=== PATIENT | female | born 2000 | race Caucasian/White ===

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

== ENCOUNTER 2019-05-08 23:34 | Emergency (ER) | payer MEDICAID ==
[~2019-05-08] VITALS: Ht 160 cm; Wt 106.6 kg
--- OUTSIDE RECORDS SUMMARY | 2019-05-08 23:42 | XMS REPORT ---
Author Author Migration, Doctor Organization [facility] Address Unknown Phone Unavailable Care Team Providers Care Research Associate Professor Name Role Phone Migration, Doctor Unavailable Unavailable PROBLEMS Type Condition ICD9-CM Code YTM87-MW Code Onset Dates Condition Status SNOMED Code Problem Generalized anxiety disorder F41.1 Active 750315795 Problem Dysmenorrhea N94.6 Active 418284185 Problem Fever R50.9 Active 622876306 Problem Sore throat J02.9 Active 400868922 Problem Attention deficit disorder without hyperactivity F90.0 Active 70261635 Problem Morbid obesity due to excess calories E66.01 Active 595976247 Problem PCOS (polycystic ovarian syndrome) E28.2 Active 87796210 Problem Seasonal allergic rhinitis due to pollen J30.1 Active 89125481 ALLERGIES No Information ENCOUNTERS Encounter Location Date Diagnosis [facility] [address] [place] [address] March, Rash and nonspecific skin eruption R21 [facility] [address] [address] Jan, Injury of right hand, initial encounter S69.91XA [facility] [address] [place] [id number] [place] [address] Jan, Upper respiratory tract infection, unspecified type J06.9 ; Fever R50.9 and Sore throat J02.9 [facility] [id number] [place] [address] Dec, [facility] [address] [address] Nov, Viral gastroenteritis A08.4 [facility] [address] [address] Nov, URI (upper respiratory infection) J06.9 and Body aches R52 [facility] [id number] [place] [address] Oct, Flank pain R10.9 and Mild dehydration E86.0 [facility] [address] [address] Oct, [facility] [address] [address] Sep, Acute gastroenteritis K52.9 and Acute upper respiratory infection J06.9 [facility] [id number] [place] [address] Aug, Breast tenderness in female N64.4 [place] [address] [address] Jul, Encounter for initial prescription of contraceptive pills Z30.011 [place] [address] [address] Jul, [facility] [id number] [place] [address] Jul, Dysuria R30.0 and Acute cystitis with hematuria N30.01 [place] [id number] [place] [address] Jul, [place] [id number] [place] [id number] Jun, Seasonal allergic rhinitis due to pollen J30.1 [facility] [id number] [place] [address] May, [facility] [id number] [place] [address] May, Skin lesion L98.9 [facility] [id number] [place] [address] Apr, [facility] [address] [address] Apr, [facility] [address] [address] March, [facility] [address], [place] [address] March, [facility] [id number] [place] [phone] March, Fractured dental muslim with loss of material K08.531 [facility] [id number] [place] [phone] March, Dental examination Z01.20 [facility] [address], [place] [address] Jan, Dental examination Z01.20 [facility] [address] [id number] [id number] Nov, Positive test Z32.01 [facility] [address] [id number] [id number] Jul, [facility] [address] [id number] [id number] Jul, test negative Z32.02 [place] [address], [place] [address] March, [facility] [address], [place] [address] Feb, Dysmenorrhea N94.6 ; Oral contraceptive pill surveillance Z30.41 ; Morbid obesity due to excess calories E66.01 ; Generalized anxiety disorder F41.1 and PCOS (polycystic ovarian syndrome) E28.2 [place] [id number], [place] [address] Jan, Morbid obesity due to excess calories E66.01 [place] [address] [place] [address] Jan, Missed periods N92.6 ; Morbid obesity due to excess calories E66.01 ; Family history of diabetes mellitus Z83.3 and Family history of PCOS Z84.2 [place] [facility] [address] [id number] [address] Dec, Encounter for test Z32.00 [facility] [id number] [place] [phone] Nov, Dental examination Z01.20 [place] [id number] [place] [address] Jun, Oral contraceptive pill surveillance Z30.41 [place] [id number] [place] [address] Jun, Dysmenorrhea N94.6 and Oral contraceptive pill surveillance Z30.41 [place] [address] [address] Jun, [place] [id number] [place] [address] Jun, [place] [address] [address] Jun, [facility] [facility] [id number] [place] [address] May, [facility] [facility] [id number] [place] [address] March, Oral contraceptive pill surveillance Z30.41 ; Proteinuria R80.9 and Weight gain R63.5 [place] [id number] [place] [address] Dec, Oral contraceptive pill surveillance Z30.41 ; Weight gain R63.5 ; Hair loss L65.9 ; Acne, unspecified L70.9 and Routine screening for STI (sexually transmitted infection) Z11.3 [place] [id number] [place] [address] Aug, Encounter for immunization Z23 [facility] [address] [place] [id number] Jul, Dental examination V72.2 [place] [address] [place] [address] May, [facility] [address] [place] [address] Apr, [facility] [id number] [place] [phone] Apr, Dental examination V72.2 [facility] [id number] [place] [address] Apr, [facility] [id number] [place] [address] Apr, GARDAS[place] (HPV) DX V04.89 [facility] [id number] [place] [id number] March, Dental examination V72.2 [facility] [id number] [place] [address] March, Generalized anxiety disorder 300.02 [facility] [id number] [place] [address] Feb, [facility] [id number] [place] [address] Feb, [facility] [id number] [place] [address] Jan, [facility] [address], [place] [address] Jan, [facility] [id number] [place] [address] Dec, [facility] [address] [place] [address] Dec, [facility] [id number] [place] [address] Oct, [facility] [address], [place] [address] Oct, [facility] [place] [facility] [address] [id number] [place] [address] Sep, [facility] [place] [facility] [address] [id number] [place] [address] Sep, [facility] [place] [facility] [address] [id number] [place] [address] Aug, [facility] [place] [facility] [address] [id number] [place] [address] Aug, [facility] [place] [facility] [address] [id number] [place] [address] Jul, [facility] [place] [facility] [address] [id number] [place] [address] Jul, [facility] [place] [facility] [address] [id number] [place] [address] Jun, [facility] [place] [facility] [address] [id number] [place] [address] Jun, [facility] [place] [facility] [address] [id number] [place] [address] Jun, [facility] [place] [facility] [address] [id number] [place] [address] Jun, [facility] [place] [facility] [address] [id number] [place] [address] May, [facility] [place] [facility] [address] [id number] [place] [address] May, [facility] [place] [facility] [address] [id number] [place] [address] March, [facility] [place] [facility] [address] [id number] [place] [address] March, [facility] [place] [facility] [address] [id number] [place] [address] Feb, [facility] [place] [facility] [address] [id number] [place] [address] Feb, [facility] [place] [facility] [address] [id number] [place] [address] Jan, [facility] [place] [facility] [address] [id number] [place] [address] Jan, [facility] [place] [facility] [address] [id number] [place] [address] Jan, [facility] [place] [facility] [address] [id number] [place] [address] Jan, [facility] [place] [facility] [address] [id number] [place] [address] Jan, [facility] [place] [facility] [address] [id number] [place] [address] Jan, [facility] [place] [facility] [address] [id number] [place] [address] Jan, [facility] [place] [facility] [address] [id number] [place] [address] Jan, [facility] [place] [facility] [address] [id number] [place] [address] Nov, [facility] [place] [facility] [address] [id number] [place] [address] Nov, [facility] [place] [facility] [address] [id number], [place] [address] Nov, [facility] [place] [facility] [address] [id number], [place] [address] Nov, [facility] [place] [facility] [address] [id number] [place] [address] Oct, [facility] [place] [facility] [address] [id number] [place] [address] Oct, [facility] [place] [facility] [address] [facility] [id number] [place] [address] Oct, [facility] [place] [facility] [address] [id number] [place] [address] 02 Oct, 2013 [facility] [address] [id number] [place] [address] Sep, [facility] [place] [facility] [address] [id number] [place] [address] Sep, [facility] [address] [id number] [place] [address] Aug, [facility] [place] [facility] [address] [id number] [place] [address] Jul, [facility] [place] [facility] [address] [id number] [place] [address] Jun, [facility] [place] [facility] [address] [id number] [place] [address] Apr, [facility] [address] [id number] [place] [address] March, [facility] [place] [facility] [address] [id number] [place] [address] Feb, [facility] [place] [facility] [address] [id number] [place] [address] Dec, [facility] [address] [facility] [id number] [place] [address] Nov, [facility] [place] [facility] [address] [id number] [place] [address] Oct, [facility] [place] [facility] [address] [id number] [place] [address] Oct, [facility] [place] [facility] [address] [id number] [place] [address] Sep, [facility] [place] [facility] [address] [id number] [place] [address] Sep, [facility] [place] [facility] [address] [id number] [place] [address] Sep, [facility] [place] [facility] [address] [id number] [place] [address] Sep, [facility] [place] [facility] [address] [id number] [place] [address] Sep, [facility] [place] [facility] [address] [id number] [place] [address] Jul, [facility] [place] [facility] [address] [id number] [place] [address] Jun, [facility] [address] [id number] [place] [address] May, [facility] [place] [facility] [address] [id number] [place] [address] Apr, [facility] [address] [id number] [place] [address] Apr, [facility] [address] [id number] [place] [address] March, [facility] [address] [id number] [place] [address] March, [facility] [address] [id number] [place] [address] March, [facility] [place] [facility] [address] [id number] [place] [address] Feb, [facility] [place] [facility] [address] [id number] [place] [address] Feb, [facility] [place] [facility] [address] [id number] [place] [address] Jan, [facility] [place] [facility] [address] [id number] [place] [address] 16 Nov, 2011 [facility] [place] [facility] [address] [id number] [place] [address] 13 Nov, 2011 [facility] [place] [facility] [address] [id number], [place] [address] Sep, [facility] [address] [facility] [id number], [place] [address] 15 Sep, 2011 [facility] [address] [facility] [id number], [place] [address] Aug, [facility] [address] [facility] [id number], [place] [address] Aug, [facility] [address] [facility] [id number], [place] [address] Jul, [facility] [address] [facility] [id number], [place] [address] Jun, [facility] [address] [facility] [id number], [place] [address] Oct, [facility] [address] [facility] [id number], [place] [address] Oct, [facility] [id number] [address] Sep, [facility] [address] [facility] [id number], [place] [address] Aug, [facility] [address] [facility] [id number], [place] [address] Aug, [facility] [id number], [place] [address] Jun, IMMUNIZATIONS No Known Immunizations SOCIAL HISTORY Never Assessed REASON FOR VISIT [facility] PLAN OF CARE VITAL SIGNS MEDICATIONS No Known Medications RESULTS No Results PROCEDURES No Known procedures INSTRUCTIONS MEDICATIONS ADMINISTERED No Known Medications MEDICAL (GENERAL) HISTORY Type Description Date Medical History C/s 07/2018 Surgical History left knee arthroscopy Surgical History 07/2018 Surgical History cystoscopy 2017 Hospitalization History kidney infection 01/2016 Hospitalization History childbirth
--- OUTSIDE RECORDS SUMMARY | 2019-05-08 23:42 | XMS REPORT ---
Author Author Migration, Doctor Organization [facility] Address Unknown Phone Unavailable Care Team Providers Care Social Research Assistant Name Role Phone Migration, Doctor Unavailable Unavailable PROBLEMS Type Condition ICD9-CM Code JKS00-OX Code Onset Dates Condition Status SNOMED Code Problem Generalized anxiety disorder F41.1 Active 915704739 Problem Dysmenorrhea N94.6 Active 195294287 Problem Fever R50.9 Active 850073882 Problem Sore throat J02.9 Active 777643216 Problem Attention deficit disorder without hyperactivity F90.0 Active 83177233 Problem Morbid obesity due to excess calories E66.01 Active 180272992 Problem PCOS (polycystic ovarian syndrome) E28.2 Active 51800646 Problem Seasonal allergic rhinitis due to pollen J30.1 Active 54024001 ALLERGIES No Information ENCOUNTERS Encounter Location Date Diagnosis [facility] [address] [address] Jan, Injury of right hand, initial encounter S69.91XA [facility] [address] [address] Jan, Upper respiratory tract infection, unspecified type J06.9 ; Fever R50.9 and Sore throat J02.9 [facility] [address] [address] Dec, [facility] [address] [address] Nov, Viral gastroenteritis A08.4 [facility] [address] [address] Nov, URI (upper respiratory infection) J06.9 and Body aches R52 [facility] [address] [address] Oct, Flank pain R10.9 and Mild dehydration E86.0 [facility] [id number] [place] [address] Oct, [facility] [id number] [place] [address] Sep, Acute gastroenteritis K52.9 and Acute upper respiratory infection J06.9 [facility] [id number] [place] [address] Aug, Breast tenderness in female N64.4 [facility] [id number] [place] [address] 27 Jul, 2018 Encounter for initial prescription of contraceptive pills Z30.011 [place] [id number] [place] [address] Jul, [place] [id number] [place] [address] Jul, Dysuria R30.0 and Acute cystitis with hematuria N30.01 [facility] [id number] [place] [address] Jul, [facility] [id number] [place] [id number] Jun, Seasonal allergic rhinitis due to pollen J30.1 [facility] [id number] [place] [address] May, [facility] [id number] [place] [address] May, Skin lesion L98.9 [facility] [id number] [place] [address] Apr, [facility] [id number] [place] [address] Apr, [facility] [id number] [place] [address] March, [facility] [address] [address] March, [facility] [address] [facility] [id number] [id number] March, Fractured dental mandaen with loss of material K08.531 [facility] [address] [id number] March, Dental examination Z01.20 [place] [id number] [place] [address] Jan, Dental examination Z01.20 [facility] [address] [id number] [id number] Nov, Positive test Z32.01 [facility] [address] [id number] [id number] Jul, [place] [id number] [facility] [address] [id number] [id number] Jul, test negative Z32.02 [place] [address], [place] [address] March, [place] [id number] [place] [address] Feb, Dysmenorrhea N94.6 ; Oral contraceptive pill surveillance Z30.41 ; Morbid obesity due to excess calories E66.01 ; Generalized anxiety disorder F41.1 and PCOS (polycystic ovarian syndrome) E28.2 [place] [address], [place] [address] Jan, Morbid obesity due to excess calories E66.01 [place] [address] [place] [address] Jan, Missed periods N92.6 ; Morbid obesity due to excess calories E66.01 ; Family history of diabetes mellitus Z83.3 and Family history of PCOS Z84.2 [place] [address], [place] [address] Dec, Encounter for test Z32.00 [facility] [id number] [id number] Nov, Dental examination Z01.20 [facility] [address] [place] [address] Jun, Oral contraceptive pill surveillance Z30.41 [facility] [address], [place] [address] Jun, Dysmenorrhea N94.6 and Oral contraceptive pill surveillance Z30.41 [facility] [address] [place] [address] Jun, [facility] [id number] [place] [address] Jun, [facility] [address] [place] [address] Jun, [facility] [id number] [place] [address] May, [facility] [address] [place] [address] March, Oral contraceptive pill surveillance Z30.41 ; Proteinuria R80.9 and Weight gain R63.5 [facility] [address], [place] [address] Dec, Oral contraceptive pill surveillance Z30.41 ; Weight gain R63.5 ; Hair loss L65.9 ; Acne, unspecified L70.9 and Routine screening for STI (sexually transmitted infection) Z11.3 [facility] [address], [place] [address] Aug, Encounter for immunization Z23 [facility] [address] [id number] Jul, Dental examination V72.2 [facility] [address], [place] [address] May, [facility] [address] [id number] [address] 16 Apr, 2015 [facility] [address] [id number] Apr, Dental examination V72.2 [facility] [address], [place] [address] 08 Apr, 2015 [facility] [id number] [place] [address] Apr, GARDASIL (HPV) DX V04.89 [facility] [address] [id number] March, Dental examination V72.2 [facility] [id number] [place] [address] March, Generalized anxiety disorder 300.02 [facility] [id number] [place] [address] Feb, [facility] [id number] [place] [address] Feb, [facility] [address] [place] [address] Jan, [facility] [address], [place] [address] Jan, [facility] [address], [place] [address] Dec, [facility] [address], [place] [address] Dec, [facility] [id number] [place] [address] Oct, [facility] [id number] [place] [address] Oct, [facility] [address], [place] [address] Sep, [facility] [place] [facility] [address] [id number] [place] [address] Sep, [facility] [place] [facility] [address] [id number] [place] [address] Aug, [facility] [place] [facility] [address] [id number] [place] [address] Aug, [facility] [place] [facility] [address] [id number] [place] [address] Jul, [facility] [place] [facility] [address] [id number] [place] [address] Jul, [facility] [place] [facility] [address] [id number] [place] [address] Jun, [facility] [place] [facility] [address] [id number] [place] [address] Jun, [facility] [place] [facility] [address] [id number] [place] [address] Jun, [facility] [place] [facility] [address] [id number] [place] [address] Jun, [facility] [place] [facility] [address] [id number] [place] [address] May, [facility] [place] [facility] [address] [id number] [place] [address] May, [facility] [place] [facility] [address] [id number] [place] [address] March, [facility] [place] [facility] [address] [id number] [place] [address] March, [facility] [place] [facility] [address] [id number] [place] [address] Feb, [facility] [place] [facility] [address] [id number] [place] [address] Feb, [facility] [place] [facility] [address] [id number] [place] [address] Jan, [facility] [place] [facility] [address] [id number] [place] [address] Jan, [facility] [place] [facility] [address] [id number] [place] [address] Jan, [facility] [place] [facility] [address] [id number] [place] [address] Jan, [facility] [place] [facility] [address] [id number] [place] [address] Jan, [facility] [place] [facility] [address] [id number] [place] [address] Jan, [facility] [place] [facility] [address] [id number] [place] [address] Jan, [facility] [place] [facility] [address] [id number] [place] [address] Jan, [facility] [place] [facility] [address] [id number] [place] [address] Nov, [facility] [place] [facility] [address] [id number] [place] [address] Nov, [facility] [place] [facility] [address] [id number] [place] [address] Nov, [facility] [place] [facility] [address] [id number], [place] [address] Nov, [facility] [place] [facility] [address] [id number], [place] [address] Oct, [facility] [place] [facility] [address] [id number] [place] [address] Oct, [facility] [place] [facility] [address] [id number] [place] [address] Oct, [facility] [place] [facility] [address] [facility] [id number] [place] [address] Oct, [facility] [place] [facility] [address] [id number] [place] [address] 06 Sep, 2013 [facility] [address] [id number] [place] [address] Sep, [facility] [place] [facility] [address] [id number] [place] [address] Aug, [facility] [address] [id number] [place] [address] Jul, [facility] [place] [facility] [address] [id number] [place] [address] Jun, [facility] [address] [id number] [place] [address] Apr, [facility] [place] [facility] [address] [id number] [place] [address] March, [facility] [address] [id number] [place] [address] Feb, [facility] [address] [id number] [place] [address] Dec, [facility] [place] [facility] [address] [id number] [place] [address] Nov, [facility] [address] [facility] [id number] [place] [address] Oct, [facility] [place] [facility] [address] [id number] [place] [address] Oct, [facility] [place] [facility] [address] [id number] [place] [address] Sep, [facility] [place] [facility] [address] [id number] [place] [address] Sep, [facility] [place] [facility] [address] [id number] [place] [address] Sep, [facility] [place] [facility] [address] [id number] [place] [address] Sep, [facility] [place] [facility] [address] [id number] [place] [address] Sep, [facility] [address] [id number] [place] [address] Jul, [facility] [address] [id number] [place] [address] Jun, [facility] [place] [facility] [address] [id number] [place] [address] May, [facility] [address] [id number] [place] [address] Apr, [facility] [place] [facility] [address] [id number] [place] [address] Apr, [facility] [address] [id number] [place] [address] March, [facility] [address] [id number] [place] [address] March, [facility] [address] [id number] [place] [address] March, [facility] [address] [id number] [place] [address] Feb, [facility] [place] [facility] [address] [id number] [place] [address] Feb, [facility] [address] [id number] [place] [address] Jan, [facility] [place] [facility] [address] [id number] [place] [address] Nov, [facility] [place] [facility] [address] [id number] [place] [address] Nov, [facility] [place] [facility] [address] [id number] [place] [address] 15 Sep, 2011 [facility] [place] [facility] [address] [id number], [place] [address] 15 Sep, 2011 [facility] [address] [facility] [id number], [place] [address] 14 Aug, 2011 [facility] [address] [facility] [id number], [place] [address] 14 Aug, 2011 [facility] [address] [facility] [id number], [place] [address] Jul, [facility] [address] [facility] [id number], [place] [address] Jun, [facility] [address] [facility] [id number], [place] [address] Oct, [facility] [address] [facility] [id number], [place] [address] Oct, [facility] [address], [place] [address] Sep, [facility] [address], [place] [address] Aug, [facility] [id number], [place] [address] Aug, [facility] [id number], [place] [address] Jun, IMMUNIZATIONS No Known Immunizations SOCIAL HISTORY Never Assessed REASON FOR VISIT EMR-[facility] PLAN OF CARE VITAL SIGNS MEDICATIONS No Known Medications RESULTS No Results PROCEDURES No Known procedures INSTRUCTIONS MEDICATIONS ADMINISTERED No Known Medications MEDICAL (GENERAL) HISTORY Type Description Date Medical History C/s 07/2018 Surgical History left knee arthroscopy Surgical History 07/2018 Surgical History cystoscopy 2017 Hospitalization History kidney infection 01/2016 Hospitalization History childbirth
--- OUTSIDE RECORDS SUMMARY | 2019-05-08 23:43 | XMS REPORT ---
Author Author Migration, Doctor Organization [facility] Address Unknown Phone Unavailable Care Team Providers Care Elevator Installer Name Role Phone Migration, Doctor Unavailable Unavailable PROBLEMS Type Condition ICD9-CM Code [id number] Code Onset Dates Condition Status SNOMED Code Problem Generalized anxiety disorder F41.1 Active 261531789 Problem Dysmenorrhea N94.6 Active 771519036 Problem Fever R50.9 Active 403475506 Problem Sore throat J02.9 Active 474192241 Problem Attention deficit disorder without hyperactivity F90.0 Active 06118695 Problem Morbid obesity due to excess calories E66.01 Active 896732799 Problem PCOS (polycystic ovarian syndrome) E28.2 Active 62801056 Problem Seasonal allergic rhinitis due to pollen J30.1 Active 66926054 ALLERGIES No Information ENCOUNTERS Encounter Location Date Diagnosis [facility] [address] [address] Jan, Injury of right hand, initial encounter S69.91XA [facility] [address] [address] Jan, Upper respiratory tract infection, unspecified type J06.9 ; Fever R50.9 and Sore throat J02.9 [facility] [address] [address] Dec, [facility] [address] [address] Nov, Viral gastroenteritis A08.4 [facility] [address] [address] Nov, URI (upper respiratory infection) J06.9 and Body aches R52 [facility] [address] [address] Oct, Flank pain R10.9 and Mild dehydration E86.0 [facility] [id number] [place] [address] Oct, [facility] [id number] [place] [address] Sep, Acute gastroenteritis K52.9 and Acute upper respiratory infection J06.9 [facility] [id number] [place] [address] Aug, Breast tenderness in female N64.4 [facility] [id number] [place] [address] 27 Jul, 2018 Encounter for initial prescription of contraceptive pills Z30.011 [place] [id number] [place] [address] Jul, [place] [id number] [place] [address] Jul, Dysuria R30.0 and Acute cystitis with hematuria N30.01 [facility] [id number] [place] [address] Jul, [facility] [id number] [place] [id number] Jun, Seasonal allergic rhinitis due to pollen J30.1 [facility] [id number] [place] [address] May, [facility] [id number] [place] [address] May, Skin lesion L98.9 [facility] [id number] [place] [address] Apr, [facility] [id number] [place] [address] Apr, [facility] [id number] [place] [address] March, [facility] [address] [address] March, [facility] [address] [facility] [id number] [id number] March, Fractured dental jewish with loss of material K08.531 [facility] [address] [id number] March, Dental examination Z01.20 [place] [id number] [place] [address] Jan, Dental examination Z01.20 [facility] [address] [id number] [id number] Nov, Positive test Z32.01 [facility] [address] [id number] [id number] Jul, [place] [address] [address] [id number] [id number] Jul, test negative Z32.02 [place] [address] [address] March, [place] [id number] [place] [address] Feb, Dysmenorrhea N94.6 ; Oral contraceptive pill surveillance Z30.41 ; Morbid obesity due to excess calories E66.01 ; Generalized anxiety disorder F41.1 and PCOS (polycystic ovarian syndrome) E28.2 [place] [address] [address] Jan, Morbid obesity due to excess calories E66.01 [place] [id number] [place] [address] Jan, Missed periods N92.6 ; Morbid obesity due to excess calories E66.01 ; Family history of diabetes mellitus Z83.3 and Family history of PCOS Z84.2 [place] [address]65[address] [address] Dec, Encounter for test Z32.00 [facility] [id number] [id number] Nov, Dental examination Z01.20 [facility] [id number] [place] [address] Jun, Oral contraceptive pill surveillance Z30.41 [facility] [address] [address] Jun, Dysmenorrhea N94.6 and Oral contraceptive pill surveillance Z30.41 [facility] [address] [place] [address] Jun, [facility] [id number] [place] [address] Jun, [facility] [id number] [place] [address] Jun, [facility] [id number] [place] [address] May, [facility] [address] [place] [address] March, Oral contraceptive pill surveillance Z30.41 ; Proteinuria R80.9 and Weight gain R63.5 [facility] [address] [address] Dec, Oral contraceptive pill surveillance Z30.41 ; Weight gain R63.5 ; Hair loss L65.9 ; Acne, unspecified L70.9 and Routine screening for STI (sexually transmitted infection) Z11.3 [facility] [address] [address] Aug, Encounter for immunization Z23 [facility] [address] [id number] Jul, Dental examination V72.2 [facility] [address] [address] May, [facility] [id number] [address] 16 Apr, 2015 [facility] [address] [id number] Apr, Dental examination V72.2 [facility] [address] [address] 08 Apr, 2015 [facility] [id number] [place] [address] Apr, GARDASIL (HPV) DX V04.89 [facility] [address] [id number] March, Dental examination V72.2 [facility] [id number] [place] [address] March, Generalized anxiety disorder 300.02 [facility] [id number] [place] [address] Feb, [facility] [id number] [place] [address] Feb, [facility] [id number] [place] [address] Jan, [facility] [address] [address] Jan, [facility] [address] [address] Dec, [facility] [address] [address] Dec, [facility] [id number] [place] [address] Oct, [facility] [id number] [place] [address] Oct, [facility] [address]65[address] [address] Sep, [facility] [place] [facility] [address] [id number] [place] [address] Sep, [facility] [place] [facility] [address] [id number] [place] [address] Aug, [facility] [place] [facility] [address] [id number] [place] [address] Aug, [facility] [place] [facility] [address] [id number] [place] [address] Jul, [facility] [place] [facility] [address] [id number] [place] [address] Jul, [facility] [place] [facility] [address] [id number] [place] [address] Jun, [facility] [place] [facility] [address] [id number] [place] [address] Jun, [facility] [place] [facility] [address] [id number] [place] [address] Jun, [facility] [place] [facility] [address] [id number] [place] [address] Jun, [facility] [place] [facility] [address] [id number] [place] [address] May, [facility] [place] [facility] [address] [id number] [place] [address] May, [facility] [place] [facility] [address] [id number] [place] [address] March, [facility] [place] [facility] [address] [id number] [place] [address] March, [facility] [place] [facility] [address] [id number] [place] [address] Feb, [facility] [place] [facility] [address] [id number] [place] [address] Feb, [facility] [place] [facility] [address] [id number] [place] [address] Jan, [facility] [place] [facility] [address] [id number] [place] [address] Jan, [facility] [place] [facility] [address] [id number] [place] [address] Jan, [facility] [place] [facility] [address] [id number] [place] [address] Jan, [facility] [place] [facility] [address] [id number] [place] [address] Jan, [facility] [place] [facility] [address] [id number] [place] [address] Jan, [facility] [place] [facility] [address] [id number] [place] [address] Jan, [facility] [place] [facility] [address] [id number] [place] [address] Jan, [facility] [place] [facility] [address] [id number] [place] [address] Nov, [facility] [place] [facility] [address] [id number] [place] [address] Nov, [facility] [place] [facility] [address] [id number] [place] [address] Nov, [facility] [place] [facility] [address] [id number] [address] Nov, [facility] [place] [facility] [address] [id number] [address] Oct, [facility] [place] [facility] [address] [id number] [place] [address] Oct, [facility] [place] [facility] [address] [id number] [place] [address] Oct, [facility] [place] [facility] [address] [facility] [id number] [place] [address] Oct, [facility] [place] [facility] [address] [id number] [place] [address] 06 Sep, 2013 [facility] [address] [id number] [place] [address] Sep, [facility] [place] [facility] [address] [id number] [place] [address] Aug, [facility] [address] [id number] [place] [address] Jul, [facility] [place] [facility] [address] [id number] [place] [address] Jun, [facility] [address] [id number] [place] [address] Apr, [facility] [place] [facility] [address] [id number] [place] [address] March, [facility] [address] [id number] [place] [address] Feb, [facility] [address] [id number] [place] [address] Dec, [facility] [place] [facility] [address] [id number] [place] [address] Nov, [facility] [address] [facility] [id number] [place] [address] Oct, [facility] [place] [facility] [address] [id number] [place] [address] Oct, [facility] [place] [facility] [address] [id number] [place] [address] Sep, [facility] [place] [facility] [address] [id number] [place] [address] Sep, [facility] [place] [facility] [address] [id number] [place] [address] Sep, [facility] [place] [facility] [address] [id number] [place] [address] Sep, [facility] [place] [facility] [address] [id number] [place] [address] Sep, [facility] [address] [id number] [place] [address] Jul, [facility] [address] [id number] [place] [address] Jun, [facility] [place] [facility] [address] [id number] [place] [address] May, [facility] [address] [id number] [place] [address] Apr, [facility] [place] [facility] [address] [id number] [place] [address] Apr, [facility] [address] [id number] [place] [address] March, [facility] [address] [id number] [place] [address] March, [facility] [address] [id number] [place] [address] March, [facility] [address] [id number] [place] [address] Feb, [facility] [place] [facility] [address] [id number] [place] [address] Feb, [facility] [address] [id number] [place] [address] Jan, [facility] [place] [facility] [address] [id number] [place] [address] Nov, [facility] [place] [facility] [address] [id number] [place] [address] Nov, [facility] [place] [facility] [address] [id number] [place] [address] 15 Sep, 2011 [facility] [place] [facility] [address] [id number] [address] 15 Sep, 2011 [facility] [address] [facility] [id number] [address] 14 Aug, 2011 [facility] [address] [facility] [id number] [address] 14 Aug, 2011 [facility] [address] [facility] [id number] [address] Jul, [facility] [address] [facility] [id number] [place] [address] Jun, [facility] [address] [facility] [id number] [address] Oct, [facility] [address] [facility] [id number] [place] [address] Oct, [facility] [address] [address] Sep, [facility] [address] [address] Aug, [facility] [address] [id number] [address] Aug, [facility] [address] [id number] [address] Jun, IMMUNIZATIONS No Known Immunizations SOCIAL HISTORY Never Assessed REASON FOR VISIT EMR-[facility] [place] PLAN OF CARE VITAL SIGNS MEDICATIONS No Known Medications RESULTS No Results PROCEDURES No Known procedures INSTRUCTIONS MEDICATIONS ADMINISTERED No Known Medications MEDICAL (GENERAL) HISTORY Type Description Date Medical History C/s 07/2018 Surgical History left knee arthroscopy Surgical History 07/2018 Surgical History cystoscopy 2017 Hospitalization History kidney infection 01/2016 Hospitalization History childbirth
--- OUTSIDE RECORDS SUMMARY | 2019-05-08 23:43 | XMS REPORT ---
Author Author Migration, Doctor Organization [facility] Address Unknown Phone Unavailable Care Team Providers Care Transformation Specialist Name Role Phone Migration, Doctor Unavailable Unavailable PROBLEMS Type Condition ICD9-CM Code MYF20-HQ Code Onset Dates Condition Status SNOMED Code Problem Generalized anxiety disorder F41.1 Active 476709993 Problem Dysmenorrhea N94.6 Active 936093265 Problem Fever R50.9 Active 852422186 Problem Sore throat J02.9 Active 666635407 Problem Attention deficit disorder without hyperactivity F90.0 Active 69313293 Problem Morbid obesity due to excess calories E66.01 Active 873940626 Problem PCOS (polycystic ovarian syndrome) E28.2 Active 20648825 Problem Seasonal allergic rhinitis due to pollen J30.1 Active 14499359 ALLERGIES No Information ENCOUNTERS Encounter Location Date Diagnosis [facility] [address] [address] Jan, Injury of right hand, initial encounter S69.91XA [facility] [address] [address] Jan, Upper respiratory tract infection, unspecified type J06.9 ; Fever R50.9 and Sore throat J02.9 [facility] [address] [address] Dec, [facility] [address] [address] Nov, Viral gastroenteritis A08.4 [facility] [address] [address] Nov, URI (upper respiratory infection) J06.9 and Body aches R52 [facility] [address] [address] Oct, Flank pain R10.9 and Mild dehydration E86.0 [facility] [id number] [place] [address] Oct, [facility] [id number] [place] [address] Sep, Acute gastroenteritis K52.9 and Acute upper respiratory infection J06.9 [facility] [id number] [place] [address] Aug, Breast tenderness in female N64.4 [facility] [id number] [place] [address] 27 Jul, 2018 Encounter for initial prescription of contraceptive pills Z30.011 [place] [id number] [place] [address] Jul, [place] [id number] [place] [address] Jul, Dysuria R30.0 and Acute cystitis with hematuria N30.01 [facility] [id number] [place] [address] Jul, [facility] [id number] [place] [id number] Jun, Seasonal allergic rhinitis due to pollen J30.1 [facility] [id number] [place] [address] May, [facility] [id number] [place] [address] May, Skin lesion L98.9 [facility] [id number] [place] [address] Apr, [facility] [id number] [place] [address] Apr, [facility] [id number] [place] [address] March, [facility] [address] [address] March, [facility] [address] [facility] [id number] [id number] March, Fractured dental denominational with loss of material K08.531 [facility] [address] [id number] March, Dental examination Z01.20 [place] [id number] [place] [address] Jan, Dental examination Z01.20 [facility] [address] [id number] [id number] Nov, Positive test Z32.01 [facility] [address] [id number] [id number] Jul, [id number] [id number] [id number] Jul, test negative Z32.02 [place] [address], [place] [address] March, [place] [id number] [place] [address] Feb, Dysmenorrhea N94.6 ; Oral contraceptive pill surveillance Z30.41 ; Morbid obesity due to excess calories E66.01 ; Generalized anxiety disorder F41.1 and PCOS (polycystic ovarian syndrome) E28.2 [place] [address], [place] [address] Jan, Morbid obesity due to excess calories E66.01 [place] [id number] [place] [address] Jan, Missed periods N92.6 ; Morbid obesity due to excess calories E66.01 ; Family history of diabetes mellitus Z83.3 and Family history of PCOS Z84.2 [place] [address], [place] [address] Dec, Encounter for test Z32.00 [facility] [id number] [id number] Nov, Dental examination Z01.20 [facility] [id number] [place] [address] Jun, Oral contraceptive pill surveillance Z30.41 [facility] [address], [place] [address] Jun, Dysmenorrhea N94.6 and Oral contraceptive pill surveillance Z30.41 [facility] [id number] [place] [address] Jun, [facility] [id number] [place] [address] Jun, [facility] [id number] [place] [address] Jun, [facility] [id number] [place] [address] May, [facility] [id number] [place] [address] March, Oral contraceptive pill surveillance Z30.41 ; Proteinuria R80.9 and Weight gain R63.5 [facility] [address], [place] [address] Dec, Oral contraceptive pill surveillance Z30.41 ; Weight gain R63.5 ; Hair loss L65.9 ; Acne, unspecified L70.9 and Routine screening for STI (sexually transmitted infection) Z11.3 [facility] [address] [address] Aug, Encounter for immunization Z23 [facility] [address] [id number] Jul, Dental examination V72.2 [facility] [address], [place] [address] May, [facility] [address] [id number] [address] 16 Apr, 2015 [facility] [address] [id number] Apr, Dental examination V72.2 [facility] [address], [place] [address] 08 Apr, 2015 [facility] [id number] [place] [address] Apr, GARDASIL (HPV) DX V04.89 [facility] [address] [id number] March, Dental examination V72.2 [facility] [id number] [place] [address] March, Generalized anxiety disorder 300.02 [facility] [id number] [place] [address] Feb, [facility] [id number] [place] [address] Feb, [facility] [id number] [place] [address] Jan, [facility] [address], [place] [address] Jan, [facility] [address], [place] [address] Dec, [facility] [address], [place] [address] Dec, [facility] [id number] [place] [address] Oct, [facility] [id number] [place] [address] Oct, [facility] [address], [place] [address] Sep, [facility] [place] [facility] [address] [id number] [place] [address] Sep, [facility] [place] [facility] [address] [id number] [place] [address] Aug, [facility] [place] [facility] [address] [id number] [place] [address] Aug, [facility] [place] [facility] [address] [id number] [place] [address] Jul, [facility] [place] [facility] [address] [id number] [place] [address] Jul, [facility] [place] [facility] [address] [id number] [place] [address] Jun, [facility] [place] [facility] [address] [id number] [place] [address] Jun, [facility] [place] [facility] [address] [id number] [place] [address] Jun, [facility] [place] [facility] [address] [id number] [place] [address] Jun, [facility] [place] [facility] [address] [id number] [place] [address] May, [facility] [place] [facility] [address] [id number] [place] [address] May, [facility] [place] [facility] [address] [id number] [place] [address] March, [facility] [place] [facility] [address] [id number] [place] [address] March, [facility] [place] [facility] [address] [id number] [place] [address] Feb, [facility] [place] [facility] [address] [id number] [place] [address] Feb, [facility] [place] [facility] [address] [id number] [place] [address] Jan, [facility] [place] [facility] [address] [id number] [place] [address] Jan, [facility] [place] [facility] [address] [id number] [place] [address] Jan, [facility] [place] [facility] [address] [id number] [place] [address] Jan, [facility] [place] [facility] [address] [id number] [place] [address] Jan, [facility] [place] [facility] [address] [id number] [place] [address] Jan, [facility] [place] [facility] [address] [id number] [place] [address] Jan, [facility] [place] [facility] [address] [id number] [place] [address] Jan, [facility] [place] [facility] [address] [id number] [place] [address] Nov, [facility] [place] [facility] [address] [id number] [place] [address] Nov, [facility] [place] [facility] [address] [id number] [place] [address] Nov, [facility] [place] [facility] [address] [id number], [place] [address] Nov, [facility] [place] [facility] [address] [id number], [place] [address] Oct, [facility] [place] [facility] [address] [id number] [place] [address] Oct, [facility] [place] [facility] [address] [id number] [place] [address] Oct, [facility] [place] [facility] [address] [facility] [id number] [place] [address] Oct, [facility] [place] [facility] [address] [id number] [place] [address] 06 Sep, 2013 [facility] [address] [id number] [place] [address] Sep, [facility] [place] [facility] [address] [id number] [place] [address] Aug, [facility] [address] [id number] [place] [address] Jul, [facility] [place] [facility] [address] [id number] [place] [address] Jun, [facility] [address] [id number] [place] [address] Apr, [facility] [place] [facility] [address] [id number] [place] [address] March, [facility] [address] [id number] [place] [address] Feb, [facility] [address] [id number] [place] [address] Dec, [facility] [place] [facility] [address] [id number] [place] [address] Nov, [facility] [address] [facility] [id number] [place] [address] Oct, [facility] [place] [facility] [address] [id number] [place] [address] Oct, [facility] [place] [facility] [address] [id number] [place] [address] Sep, [facility] [place] [facility] [address] [id number] [place] [address] Sep, [facility] [place] [facility] [address] [id number] [place] [address] Sep, [facility] [place] [facility] [address] [id number] [place] [address] Sep, [facility] [place] [facility] [address] [id number] [place] [address] Sep, [facility] [address] [id number] [place] [address] Jul, [facility] [address] [id number] [place] [address] Jun, [facility] [place] [facility] [address] [id number] [place] [address] May, [facility] [address] [id number] [place] [address] Apr, [facility] [place] [facility] [address] [id number] [place] [address] Apr, [facility] [address] [id number] [place] [address] March, [facility] [address] [id number] [place] [address] March, [facility] [address] [id number] [place] [address] March, [facility] [address] [id number] [place] [address] Feb, [facility] [place] [facility] [address] [id number] [place] [address] Feb, [facility] [address] [id number] [place] [address] Jan, [facility] [place] [facility] [address] [id number] [place] [address] Nov, [facility] [place] [facility] [address] [id number] [place] [address] Nov, [facility] [place] [facility] [address] [id number] [place] [address] 15 Sep, 2011 [facility] [place] [facility] [address] [id number], [place] [address] 15 Sep, 2011 [facility] [address] [facility] [id number], [place] [address] 14 Aug, 2011 [facility] [address] [facility] [id number], [place] [address] 14 Aug, 2011 [facility] [address] [facility] [id number], [place] [address] Jul, [facility] [address] [facility] [id number], [place] [address] Jun, [facility] [address] [facility] [id number], [place] [address] Oct, [facility] [address] [facility] [id number], [place] [address] Oct, [facility] [address], [place] [address] Sep, [facility] [address], [place] [address] Aug, [facility] [id number], [place] [address] Aug, [facility] [id number], [place] [address] Jun, IMMUNIZATIONS No Known Immunizations SOCIAL HISTORY [...]
--- OUTSIDE RECORDS SUMMARY | 2019-05-08 23:43 | XMS REPORT ---
Author Author SULTANA MURPHY [facility] Address [address] [place] [address] Care Team Providers Care Urban Designer Name Role Phone ASHLEY MURPHYTA Unavailable PROBLEMS Type Condition ICD9-CM Code ELH40-HK Code Onset Dates Condition Status SNOMED Code Problem Dysmenorrhea N94.6 Active 687756526 Problem Hair loss L65.9 Active 17331328 Problem Oral contraceptive pill surveillance Z30.41 Active 749822660 Problem Attention deficit disorder without hyperactivity F90.0 Active 73743909 Problem Generalized anxiety disorder F41.1 Active 865347434 Problem Seasonal allergic rhinitis due to pollen J30.1 Active 90342643 Problem PCOS (polycystic ovarian syndrome) E28.2 Active 79981526 Problem Acne, unspecified L70.9 Active 20410824 Problem Weight gain R63.5 Active 7991210 Problem Morbid obesity due to excess calories E66.01 Active 484945113 Problem Missed periods N92.6 Active 58190484 ALLERGIES No Information ENCOUNTERS Encounter Location Date Diagnosis [facility] [id number] [place] [address] Oct, Flank pain R10.9 and Mild dehydration E86.0 [facility] [address] [address] Oct, [facility] [id number] [place] [address] 14 Sep, 2018 Acute gastroenteritis K52.9 and Acute upper respiratory infection J06.9 [facility] [address] [address] 08 Aug, 2018 Breast tenderness in female N64.4 [facility] [address] [address] 27 Jul, 2018 Encounter for initial prescription of contraceptive pills Z30.011 [facility] [id number] [place] [address] Jul, [facility] [id number] [place] [address] Jul, Dysuria R30.0 and Acute cystitis with hematuria N30.01 [facility] [id number] [place] [address] Jul, [facility] [id number] [place] [id number] Jun, Seasonal allergic rhinitis due to pollen J30.1 [facility] [id number] [place] [address] May, [facility] [id number] [place] [address] May, Skin lesion L98.9 [facility] [id number] [place] [address] Apr, [facility] [id number] [place] [address] Apr, [facility] [id number] [place] [address] March, [facility] [id number] [place] [address] March, [facility] [id number] [place] [id number] March, Fractured dental rastafari with loss of material K08.531 [facility] [id number] [place] [id number] March, Dental examination Z01.20 [facility] [id number] [place] [address] Jan, Dental examination Z01.[address] [id number] [id number] Nov, Positive test Z32.01 [facility] [address] [id number] [id number] Jul, [facility] [address] [id number] [id number] Jul, test negative Z32.02 [address] [place] [id number] [place] [address] March, [facility] [facility] [id number] [place] [address] Feb, Dysmenorrhea N94.6 ; Oral contraceptive pill surveillance Z30.41 ; Morbid obesity due to excess calories E66.01 ; Generalized anxiety disorder F41.1 and PCOS (polycystic ovarian syndrome) E28.2 [facility] [id number] [place] [address] Jan, Morbid obesity due to excess calories E66.01 [address] [address] [address] Jan, Missed periods N92.6 ; Morbid obesity due to excess calories E66.01 ; Family history of diabetes mellitus Z83.3 and Family history of PCOS Z84.2 [address] [place] [id number] [place] [address] Dec, Encounter for test Z32.00 [facility] [id number] [place] [id number] Nov, Dental examination Z01.20 [facility] [facility] [id number] [place] [address] Jun, Oral contraceptive pill surveillance Z30.41 [facility] [facility] [id number] [place] [address] Jun, Dysmenorrhea N94.6 and Oral contraceptive pill surveillance Z30.41 [facility] [facility] [id number] [place] [address] Jun, [place] [address] [address] Jun, [facility] [id number] [place] [address] Jun, [facility] [id number] [place] [address] May, [facility] [id number] [place] [address] March, Oral contraceptive pill surveillance Z30.41 ; Proteinuria R80.9 and Weight gain R63.5 [place] [facility] [id number] [place] [address] Dec, Oral contraceptive pill surveillance Z30.41 ; Weight gain R63.5 ; Hair loss L65.9 ; Acne, unspecified L70.9 and Routine screening for STI (sexually transmitted infection) Z11.3 [facility] [id number] [place] [address] Aug, Encounter for immunization Z23 [facility] [id number] [place] [id number] Jul, Dental examination V72.2 [facility] [facility] [id number] [place] [address] May, [facility] [id number] [place] [address] Apr, [facility] [id number] [place] [id number] Apr, Dental examination V72.2 [facility] [id number] [place] [address] Apr, [place] [id number] [place] [address] Apr, GARDASIL (HPV) DX V04.89 [facility] [id number] [place] [id number] March, Dental examination V72.2 [facility] [address] [facility] [id number] [address] March, Generalized anxiety disorder 300.02 [facility] [address] [id number], [place] [address] 14 Feb, 2015 [facility] [address] [facility] [id number] [address] Feb, [facility] [place] [facility] [address] [id number] [address] Jan, [facility] [place] [facility] [address] [facility] [id number] [place] [address] Jan, [facility] [place] [facility] [address] [facility] [id number] [address] Dec, [facility] [address] [id number] [address] Dec, [facility] [place] [facility] [address] [id number] [address] Oct, [facility] [place] [facility] [address] [id number] [address] Oct, [facility] [place] [facility] [address] [id number] [address] Sep, [facility] [place] [facility] [id number] [address] Sep, [facility] [place] [facility] [address] [id number] [address] Aug, [facility] [place] [facility] [address] [facility] [id number] [address] Aug, [facility] [place] [facility] [address] [facility] [id number], [place] [address] Jul, [facility] [place] [facility] [address] [id number] [address] Jul, [facility] [place] [facility] [address] [id number] [place] [address] Jun, [facility] [place] [facility] [address] [id number] [place] [address] Jun, [facility] [place] [facility] [address] [id number] [place] [address] Jun, [facility] [place] [facility] [address] [id number] [place] [address] Jun, [facility] [place] [facility] [address] [id number] [place] [address] May, [facility] [place] [facility] [address] [id number] [place] [address] May, [facility] [place] [facility] [address] [id number] [place] [address] March, [facility] [place] [facility] [address] [id number] [place] [address] March, [facility] [place] [facility] [address] [id number] [place] [address] Feb, [facility] [place] [facility] [address] [id number] [place] [address] Feb, [facility] [place] [facility] [address] [id number] [place] [address] Jan, [facility] [place] [facility] [address] [id number] [place] [address] Jan, [facility] [place] [facility] [address] [id number] [place] [address] Jan, [facility] [place] [facility] [address] [id number] [place] [address] Jan, [facility] [place] [facility] [address] [id number] [place] [address] Jan, [facility] [place] [facility] [address] [id number] [place] [address] Jan, [facility] [place] [facility] [address] [id number] [place] [address] Jan, [facility] [place] [facility] [address] [id number] [place] [address] Jan, [facility] [place] [facility] [address] [id number] [place] [address] Nov, [facility] [place] [facility] [address] [id number] [place] [address] Nov, [facility] [place] [facility] [address] [id number] [place] [address] Nov, [facility] [place] [facility] [address] [id number] [place] [address] Nov, [facility] [place] [facility] [address] [facility] [id number] [place] [address] Oct, [facility] [place] [facility] [address] [id number], [place] [address] Oct, [facility] [place] [facility] [address] [id number] [place] [address] Oct, [facility] [place] [facility] [address] [id number], [place] [address] Oct, [facility] [place] [facility] [address] [id number], [place] [address] Sep, [facility] [place] [facility] [address] [id number][place] [address] Sep, [facility] [place] [facility] [address] [id number] [place] [address] Aug, [facility] [place] [facility] [address] [id number][place] [address] Jul, [facility] [place] [facility] [address] [id number] [place] [address] Jun, [facility] [place] [facility] [address] [id number] [place] [address] Apr, [facility] [address] [id number] [place] [address] March, [facility] [place] [facility] [address] [id number] [place] [address] Feb, [facility] [place] [facility] [address] [id number] [place] [address] Dec, [facility] [place] [facility] [address] [id number] [place] [address] Nov, [facility] [place] [facility] [address] [id number] [place] [address] Oct, [facility] [place] [facility] [address] [id number] [place] [address] Oct, [facility] [place] [facility] [address] [id number] [place] [address] Sep, [facility] [place] [facility] [address] [id number] [place] [address] Sep, [facility] [place] [facility] [address] [id number] [place] [address] Sep, [facility] [place] [facility] [address] [id number] [place] [address] Sep, [facility] [place] [facility] [address] [id number] [place] [address] Sep, [facility] [place] [facility] [address] [id number] [place] [address] Jul, [facility] [place] [facility] [address] [id number] [place] [address] Jun, [facility] [place] [facility] [address] [id number] [place] [address] May, [facility] [place] [facility] [address] [id number] [place] [address] Apr, [facility] [place] [facility] [address] [id number] [place] [address] Apr, [facility] [place] [facility] [address] [id number] [place] [address] March, [facility] [place] [facility] [address] [id number] [place] [address] March, [facility] [place] [facility] [address] [id number] [place] [address] March, [facility] [place] [facility] [address] [id number] [place] [address] Feb, [facility] [place] [facility] [address] [id number] [place] [address] Feb, [facility] [place] [facility] [address] [id number] [place] [address] Jan, [facility] [place] [facility] [address] [id number] [place] [address] 16 Nov, 2011 [facility] [place] [facility] [address] [id number] [place] [address] Nov, [facility] [place] [facility] [address] [id number] [place] [address] 15 Sep, 2011 [facility] [place] [facility] [address] [id number] [place] [address] 15 Sep, 2011 [facility] [place] [facility] [address] [id number] [place] [address] 14 Aug, 2011 [facility] [place] [facility] [address] [id number] [place] [address] 14 Aug, 2011 [facility] [place] [facility] [address] [id number] [place] [address] 16 Jul, 2011 [facility] [place] [facility] [address] [id number] [place] [address] 16 Jun, 2011 [facility] [place] [facility] [address] [id number], [place] [address] Oct, [facility] [address] [facility] [id number], [place] [address] Oct, [facility] [id number] [address] Sep, [facility] [id number] [address] Aug, [facility] [id number] [address] Aug, [facility] [address] [facility] [id number], [place] [address] Jun, IMMUNIZATIONS No Known Immunizations SOCIAL HISTORY Never Assessed REASON FOR VISIT triage PLAN OF CARE VITAL SIGNS MEDICATIONS Unknown Medications RESULTS No Results PROCEDURES No Known procedures INSTRUCTIONS MEDICATIONS ADMINISTERED No Known Medications MEDICAL (GENERAL) HISTORY Type Description Date Medical History Currently due Aug 02- resolved Medical History C/s 07/2018 Surgical History left knee arthroscopy Surgical History c/s 07/2018 Hospitalization History kidney infection 01/2016 Hospitalization History childbirth
--- OUTSIDE RECORDS SUMMARY | 2019-05-08 23:44 | XMS REPORT ---
Author Author VAHID GARCIA [facility] Address [address] [place] [address] Care Team Providers Care Bee Raiser Name Role Phone VAHID GARCIA Unavailable PROBLEMS Type Condition ICD9-CM Code CKV08-DQ Code Onset Dates Condition Status SNOMED Code Problem Dysmenorrhea N94.6 Active 684852994 Problem Hair loss L65.9 Active 34190740 Problem Oral contraceptive pill surveillance Z30.41 Active 409339103 Problem Attention deficit disorder without hyperactivity F90.0 Active 23199603 Problem Generalized anxiety disorder F41.1 Active 586084747 Problem Seasonal allergic rhinitis due to pollen J30.1 Active 87925050 Problem PCOS (polycystic ovarian syndrome) E28.2 Active 85028584 Problem Acne, unspecified L70.9 Active 57230476 Problem Weight gain R63.5 Active 5520982 Problem Morbid obesity due to excess calories E66.01 Active 615534541 Problem Missed periods N92.6 Active 93128602 ALLERGIES Substance Reaction Event Type Date Status Lamictal Unknown Drug Allergy Sep, Active Concerta 18 Mg Tablet Extended Release 24hr hallucinations Non Drug Allergy Sep, Active ENCOUNTERS Encounter Location Date Diagnosis [facility] IN [facility] [id number] [address] 14 Sep, 2018 Acute gastroenteritis K52.9 and Acute upper respiratory infection J06.9 [facility] [address] [address] 08 Aug, 2018 Breast tenderness in female N64.4 [facility] [id number] [place] [address] Jul, Encounter for initial prescription of contraceptive pills Z30.011 [facility] [id number] [place] [address] Jul, [facility] [address] [address] Jul, Dysuria R30.0 and Acute cystitis with hematuria N30.01 [facility] [id number] [place] [address] Jul, [facility] [id number] [id number] Jun, Seasonal allergic rhinitis due to pollen J30.1 [facility] [id number] [place] [address] May, [facility] [id number] [place] [address] May, Skin lesion L98.9 [facility] [id number] [place] [address] Apr, [facility] [id number] [place] [address] Apr, [facility] [id number] [place] [address] March, [facility] [id number] [place] [address] March, [facility] [id number] [place] [id number] March, Fractured dental quaker with loss of material K08.531 [facility] [id number] [place] [id number] March, Dental examination Z01.20 [facility] [address] [address] Jan, Dental examination Z01.20 [facility] [address] [id number] [id number] Nov, Positive test Z32.01 [facility] [address] [id number] [id number] Jul, [facility] [address] [place] [address] AVE [id number] [id number] Jul, test negative Z32.02 [facility] [address] [address] March, [facility] [address] [address] Feb, Dysmenorrhea N94.6 ; Oral contraceptive pill surveillance Z30.41 ; Morbid obesity due to excess calories E66.01 ; Generalized anxiety disorder F41.1 and PCOS (polycystic ovarian syndrome) E28.2 [facility] [address] [place] [address] Jan, Morbid obesity due to excess calories E66.01 [facility] [address] [address] Jan, Missed periods N92.6 ; Morbid obesity due to excess calories E66.01 ; Family history of diabetes mellitus Z83.3 and Family history of PCOS Z84.2 [facility] [address] [place] [address] Dec, Encounter for test Z32.00 [facility] [address] [id number] Nov, Dental examination Z01.20 [facility] [address] [address] Jun, Oral contraceptive pill surveillance Z30.41 [facility] [address] [address] Jun, Dysmenorrhea N94.6 and Oral contraceptive pill surveillance Z30.41 [facility] [address] [address] Jun, [facility] [address] [address] Jun, [facility] [address] [address] Jun, [facility] [id number] [place] [address] May, [facility] [id number] [place] [address] March, Oral contraceptive pill surveillance Z30.41 ; Proteinuria R80.9 and Weight gain R63.5 [facility] [id number] [place] [address] Dec, Oral contraceptive pill surveillance Z30.41 ; Weight gain R63.5 ; Hair loss L65.9 ; Acne, unspecified L70.9 and Routine screening for STI (sexually transmitted infection) Z11.3 [facility] [id number] [place] [address] Aug, Encounter for immunization Z23 [facility] [id number] [place] [id number] Jul, Dental examination V72.2 [facility] [id number] [place] [address] May, [facility] [id number] [place] [address] Apr, [facility] [id number] [place] [id number] Apr, Dental examination V72.2 [facility] [id number] [place] [address] Apr, [facility] [id number] [place] [address] Apr, GARDASIL (HPV) DX V04.89 [facility] [id number] [place] [id number] March, Dental examination V72.2 [facility] [id number] [place] [address] March, Generalized anxiety disorder 300.02 [facility] [address] [facility] [id number] [place] [address] 14 Feb, 2015 [facility] [place] [facility] [address] [facility] [id number] [place] [address] Feb, [facility] [address] [facility] [id number] [place] [address] Jan, [facility] [place] [facility] [address] [facility] [id number] [place] [address] Jan, [facility] [address] [facility] [id number] [place] [address] Dec, [facility] [address] [facility] [id number] [place] [address] Dec, [facility] [address] [facility] [id number] [place] [address] Oct, [facility] [place] [facility] [address] [facility] [id number] [place] [address] Oct, [facility] [place] [facility] [address] [facility] [id number] [place] [address] Sep, [facility] [place] [facility] [address] [facility] [id number] [place] [address] Sep, [facility] [place] [facility] [id number] [address] Aug, [facility] [place] [facility] [address] [facility] [id number] [place] [address] Aug, [facility] [place] [facility] [address] [facility] [id number] [place] [address] Jul, [facility] [place] [facility] [address] [facility] [id number] [place] [address] Jul, [facility] [place] [facility] [address] [facility] [id number] [place] [address] Jun, [facility] [place] [facility] [address] [facility] [id number] [place] [address] Jun, [facility] [address] [id number] [place] [address] Jun, [facility] [place] [facility] [address] [id number] [place] [address] Jun, [facility] [address] [id number] [place] [address] May, [facility] [place] [facility] [address] [id number] [place] [address] May, [facility] [place] [facility] [address] [id number] [place] [address] March, [facility] [place] [facility] [address] [id number] [place] [address] March, [facility] [address] [id number] [place] [address] Feb, [facility] [address] [id number] [place] [address] Feb, [facility] [place] [facility] [address] [id number] [place] [address] Jan, [facility] [address] [id number] [place] [address] Jan, [facility] [place] [facility] [address] [id number] [place] [address] Jan, [facility] [place] [facility] [address] [id number] [place] [address] Jan, [facility] [place] [facility] [address] [id number] [place] [address] Jan, [facility] [place] [facility] [address] [id number] [place] [address] Jan, [facility] [place] [facility] [address] [id number] [place] [address] Jan, [facility] [place] [facility] [address] [id number] [place] [address] Jan, [facility] [place] [facility] [address] [id number] [place] [address] Nov, [facility] [place] [facility] [address] [id number] [place] [address] Nov, [facility] [place] [facility] [address] [id number] [place] [address] Nov, [facility] [place] [facility] [address] [id number] [place] [address] Nov, [facility] [place] [facility] [address] [id number] [place] [address] Oct, [facility] [place] [facility] [address] [id number] [place] [address] Oct, [facility] [place] [facility] [address] [id number] [place] [address] Oct, [facility] [place] [facility] [address] [id number] [place] [address] Oct, [facility] [place] [facility] [address] [id number] [place] [address] Sep, [facility] [place] [facility] [address] [id number] [place] [address] Sep, [facility] [place] [facility] [address] [id number] [place] [address] Aug, [facility] [place] [facility] [address] [id number] [place] [address] Jul, [facility] [place] [facility] [address] [id number] [place] [address] Jun, [facility] [place] [facility] [address] [id number] [place] [address] Apr, [facility] [place] [facility] [address] [id number] [place] [address] March, [facility] [address] [id number] [place] [address] Feb, [facility] [place] [facility] [address] [id number] [place] [address] Dec, [facility] [place] [facility] [address] [facility] [id number] [place] [address] Nov, [facility] [place] [facility] [address] [id number] [place] [address] Oct, [facility] [place] [facility] [address] [id number] [place] [address] Oct, [facility] [place] [facility] [address] [id number] [place] [address] Sep, [facility] [place] [facility] [id number] [place] [address] Sep, [facility] [place] [facility] [address] [facility] [id number] [place] [address] Sep, [facility] [place] [facility] [id number] [place] [address] Sep, [facility] [place] [facility] [address] [facility] [id number] [place] [address] Sep, [facility] [place] [facility] [address] [id number] [place] [address] Jul, [facility] [place] [facility] [address] [id number] [place] [address] Jun, [facility] [place] [facility] [address] [id number] [place] [address] May, [facility] [place] [facility] [address] [id number] [place] [address] Apr, [facility] [place] [facility] [address] [facility] [id number] [place] [address] Apr, [facility] [place] [facility] [address] [id number] [place] [address] March, [facility] [place] [facility] [address] [id number] [place] [address] March, [facility] [place] [facility] [address] [id number] [place] [address] March, [facility] [place] [facility] [address] [id number] [place] [address] Feb, [facility] [place] [facility] [address] [id number] [place] [address] Feb, [facility] [place] [facility] [address] [id number] [place] [address] Jan, [facility] [place] [facility] [address] [id number] [place] [address] 16 Nov, 2011 [facility] [place] [facility] [address] [id number] [place] [address] Nov, [facility] [place] [facility] [address] [id number] [place] [address] 15 Sep, 2011 [facility] [place] [facility] [address] [id number] [place] [address] 15 Sep, 2011 [facility] [place] [facility] [address] [id number] [place] [address] 14 Aug, 2011 [facility] [place] [facility] [address] [id number] [place] [address] 14 Aug, 2011 [facility] [place] [facility] [address] [id number] [place] [address] 16 Jul, 2011 [facility] [place] [facility] [address] [id number] [place] [address] 16 Jun, 2011 [facility] [place] [facility] [address] [id number] [place] [address] Oct, [facility] [place] [facility] [address] [id number] [place] [address] Oct, [facility] [address] [facility] [id number] [address] Sep, [facility] [address] [facility] [id number] [place] [address] Aug, [facility] [address] [facility] [id number] [place] [address] Aug, [facility] [address] [facility] [id number] [place] [address] Jun, IMMUNIZATIONS No Known Immunizations SOCIAL HISTORY Never Assessed REASON FOR VISIT congestion/sore throat V/D and body aches started yesterday Khadra, LMP PLAN OF CARE Activity Details Follow Up if not improving with PCP or reg follow up Reason: VITAL SIGNS Height 65.5 in 2018-09-27 Weight 236.0 lbs 2018-09-27 Temperature 97.8 degrees Fahrenheit 2018-09-27 Heart Rate 96 bpm 2018-09-27 Respiratory Rate 20 2018-09-27 BMI 38.67 kg/m2 2018-09-27 Blood pressure systolic 120 mmHg 2018-09-27 Blood pressure diastolic 64 mmHg 2018-09-27 MEDICATIONS Medication Instructions Dosage Frequency Start Date End Date Duration Status Active Ortho Micronor 0.35 MG Orally Once a day 1 tablet 24h Jul, 30 day(s) Active RESULTS No Results PROCEDURES No Known procedures INSTRUCTIONS MEDICATIONS ADMINISTERED No Known Medications MEDICAL (GENERAL) HISTORY Type Description Date Medical History Currently due Aug 02- Medical History C/s 07/2018 Surgical History left knee arthroscopy Surgical History c/s 07/2018 Hospitalization History kidney infection 01/2016 Hospitalization History childbirth
--- OUTSIDE RECORDS SUMMARY | 2019-05-08 23:44 | XMS REPORT ---
Author Author VAHID GARCIA [facility] Address [address] [place] [address] Care Team Providers Care Corduroy Cutter Operator Name Role Phone VAHID GARCIA Unavailable PROBLEMS Type Condition ICD9-CM Code [id number] Code Onset Dates Condition Status SNOMED Code Problem Dysmenorrhea N94.6 Active 842436535 Problem Hair loss L65.9 Active 70366968 Problem Oral contraceptive pill surveillance Z30.41 Active 794019350 Problem Attention deficit disorder without hyperactivity F90.0 Active 54874974 Problem Generalized anxiety disorder F41.1 Active 923762378 Problem Seasonal allergic rhinitis due to pollen J30.1 Active 91784369 Problem PCOS (polycystic ovarian syndrome) E28.2 Active 24900724 Problem Acne, unspecified L70.9 Active 59521715 Problem Weight gain R63.5 Active 4059645 Problem Morbid obesity due to excess calories E66.01 Active 202106108 Problem Missed periods N92.6 Active 25544328 ALLERGIES Substance Reaction Event Type Date Status Lamictal Unknown Drug Allergy Aug, Active Concerta 18 Mg Tablet Extended Release 24hr hallucinations Non Drug Allergy Aug, Active ENCOUNTERS Encounter Location Date Diagnosis [facility] [id number] [place] [phone] Aug, Breast tenderness in female N64.4 [facility] [id number] [place] [address] Jul, Encounter for initial prescription of contraceptive pills Z30.011 [facility] [id number] [place] [phone] Jul, [facility] [id number] [place] [address] Jul, Dysuria R30.0 and Acute cystitis with hematuria N30.01 [facility] [id number], [place] [address] Jul, [facility] [id number] [id number] Jun, Seasonal allergic rhinitis due to pollen J30.1 [facility] [address] [address] May, [facility] [id number] [place] [address] May, Skin lesion L98.9 [facility] [id number] [place] [address] Apr, [facility] [id number] [place] [address] Apr, [facility] [id number] [place] [address] March, [facility] [id number] [place] [address] March, [facility] [id number] [place] [phone] March, Fractured dental yarsani with loss of material K08.531 [facility] [id number] [place] [phone] March, Dental examination Z01.20 [facility] [address] [address] Jan, Dental examination Z01.20 [facility] [id number] [place] [id number] Nov, Positive test Z32.01 [facility] [address] [id number] [id number] Jul, [facility] [address] [id number] [id number] Jul, test negative Z32.02 [facility] [id number] [place] [address] March, [place] [facility] [id number] [place] [address] Feb, Dysmenorrhea N94.6 ; Oral contraceptive pill surveillance Z30.41 ; Morbid obesity due to excess calories E66.01 ; Generalized anxiety disorder F41.1 and PCOS (polycystic ovarian syndrome) E28.2 [facility] [id number] [place] [address] Jan, Morbid obesity due to excess calories E66.01 [facility] [id number] [place] [address] Jan, Missed periods N92.6 ; Morbid obesity due to excess calories E66.01 ; Family history of diabetes mellitus Z83.3 and Family history of PCOS Z84.2 [place] [facility] [id number] [place] [address] Dec, Encounter for test Z32.00 [facility] [id number] [place] [phone] Nov, Dental examination Z01.20 [place] [facility] [id number] [place] [address] Jun, Oral contraceptive pill surveillance Z30.41 [facility] [id number] [place] [address] Jun, Dysmenorrhea N94.6 and Oral contraceptive pill surveillance Z30.41 [place] [facility] [id number] [place] [address] Jun, [place] [facility] [id number] [place] [phone] Jun, [place] [facility] [id number] [place] [address] Jun, [place] [facility] [id number] [place] [address] May, [facility] [address] [place] [address] March, Oral contraceptive pill surveillance Z30.41 ; Proteinuria R80.9 and Weight gain R63.5 [facility] [id number] [place] [phone] Dec, Oral contraceptive pill surveillance Z30.41 ; Weight gain R63.5 ; Hair loss L65.9 ; Acne, unspecified L70.9 and Routine screening for STI (sexually transmitted infection) Z11.3 [facility] [id number] [place] [phone] Aug, Encounter for immunization Z23 [facility] [address] [id number] Jul, Dental examination V72.2 [place] [address] [address] May, [facility] [id number] [place] [phone] Apr, [facility] [address] [id number] Apr, Dental examination V72.2 [facility] [id number] [place] [address] Apr, [facility] [id number] [place] [address] Apr, GARDASIL (HPV) DX V04.89 [facility] [id number] [place] [phone] March, Dental examination V72.2 [facility] [id number] [place] [address] March, Generalized anxiety disorder 300.02 [facility] [id number] [place] [address] Feb, [facility] [address] [place] [address] Feb, [facility] [place] [facility] [address] [id number] [place] [address] Jan, [facility] [place] [facility] [address] [id number] [place] [address] Jan, 2014 [facility] [place] [facility] [address] [id number] [place] [address] Dec, [facility] [place] [facility] [address] [id number] [place] [address] Dec, [facility] [place] [facility] [address] [id number] [place] [address] Oct, [facility] [place] [facility] [address] [id number] [place] [address] Oct, [facility] [place] [facility] [address] [id number] [place] [address] Sep, [facility] [place] [facility] [address] [id number] [place] [address] Sep, [facility] [place] [facility] [address] [id number] [place] [address] Aug, [facility] [place] [facility] [address] [id number] [place] [address] Aug, [facility] [place] [facility] [address] [id number] [place] [address] Jul, [facility] [place] [facility] [address] [id number] [place] [address] Jul, [facility] [place] [facility] [address] [id number] [place] [address] Jun, [facility] [place] [facility] [address] [id number] [place] [address] Jun, [facility] [place] [facility] [address] [id number] [place] [address] Jun, [facility] [place] [facility] [address] [id number] [place] [address] Jun, [facility] [place] [facility] [address] [id number] [place] [address] May, [facility] [place] [facility] [address] [id number] [place] [address] May, [facility] [place] [facility] [address] [id number] [place] [address] March, [facility] [place] [facility] [address] [id number] [place] [address] March, [facility] [place] [facility] [address] [id number] [place] [address] Feb, [facility] [place] [facility] [address] [id number] [place] [address] Feb, [facility] [place] [facility] [address] [id number] [place] [address] Jan, [facility] [place] [facility] [address] [id number] [place] [address] Jan, [facility] [place] [facility] [address] [id number] [place] [address] Jan, [facility] [place] [facility] [address] [id number] [place] [address] Jan, [facility] [place] [facility] [address] [id number] [place] [address] Jan, [facility] [place] [facility] [address] [id number] [place] [address] Jan, [facility] [place] [facility] [address] [id number] [place] [address] Jan, [facility] [place] [facility] [address] [id number] [place] [address] Jan, [facility] [place] [facility] [address] [id number] [place] [address] 08 Nov, 2013 [facility] [address] [id number] [place] [address] Nov, [facility] [address] [id number] [place] [address] Nov, [facility] [address] [id number] [place] [address] Nov, [facility] [place] [facility] [address] [id number] [place] [address] Oct, [facility] [address] [id number] [place] [address] Oct, [facility] [place] [facility] [address] [id number] [place] [address] Oct, [facility] [address] [id number] [place] [address] Oct, [facility] [place] [facility] [address] [id number] [place] [address] Sep, [facility] [place] [facility] [address] [id number] [place] [address] Sep, [facility] [place] [facility] [address] [facility] [id number] [place] [address] Aug, [facility] [place] [facility] [address] [id number] [place] [address] Jul, [facility] [place] [facility] [address] [id number], [place] [address] Jun, [facility] [place] [facility] [address] [id number] [place] [address] Apr, [facility] [place] [facility] [address] [id number] [place] [address] March, [facility] [place] [facility] [address] [id number], [place] [address] Feb, [facility] [place] [facility] [address] [id number] [place] [address] Dec, [facility] [place] [facility] [address] [id number] [place] [address] Nov, [facility] [place] [facility] [address] [id number] [place] [address] Oct, [facility] [place] [facility] [address] [id number] [place] [address] Oct, [facility] [place] [facility] [address] [id number] [place] [address] Sep, [facility] [place] [facility] [address] [id number] [place] [address] Sep, [facility] [place] [facility] [address] [id number] [place] [address] Sep, [facility] [place] [facility] [address] [id number] [place] [address] Sep, [facility] [place] [facility] [address] [id number] [place] [address] Sep, [facility] [place] [facility] [address] [id number] [place] [address] Jul, [facility] [place] [facility] [address] [id number] [place] [address] Jun, [facility] [place] [facility] [address] [id number] [place] [address] May, [facility] [place] [facility] [address] [id number] [place] [address] Apr, [facility] [place] [facility] [address] [id number] [place] [address] Apr, [facility] [place] [facility] [address] [id number] [place] [address] March, [facility] [place] [facility] [address] [id number] [place] [address] March, [facility] [place] [facility] [address] [id number] [place] [address] March, [facility] [place] [facility] [address] [id number] [place] [address] 18 Feb, 2012 [facility] [place] [facility] [address] [id number] [place] [address] Feb, [facility] [place] [facility] [address] [id number] [place] [address] Jan, [facility] [place] [facility] [address] [id number] [place] [address] 16 Nov, 2011 [facility] [place] [facility] [address] [id number] [place] [address] 13 Nov, 2011 [facility] [place] [facility] [address] [id number] [place] [address] 15 Sep, 2011 [facility] [place] [facility] [address] [id number] [place] [address] 15 Sep, 2011 [facility] [place] [facility] [address] [id number] [place] [address] 14 Aug, 2011 [facility] [place] [facility] [address] [id number] [place] [address] 14 Aug, 2011 [facility] [place] [facility] [address] [id number], [place] [address] 16 Jul, 2011 [facility] [place] [facility] [address] [id number], [place] [address] 16 Jun, 2011 [facility] [place] [facility] [address] [id number] [place] [address] Oct, [facility] [place] [facility] [address] [id number] [place] [address] Oct, [facility] [place] [facility] [address] [id number] [place] [address] Sep, [facility] [place] [facility] [address] [facility] [id number] [place] [address] Aug, [facility] [address] [facility] [id number] [place] [address] Aug, [facility] [address] [facility] [id number] [place] [address] Jun, IMMUNIZATIONS No Known Immunizations SOCIAL HISTORY Never Assessed REASON FOR VISIT mastitis in both breast since yesterday Damari GIORDANO PLAN OF CARE Activity Details Follow Up prn Reason: VITAL SIGNS Height 65.5 in 2018-08-21 Weight 226.4 lbs 2018-08-21 Temperature 99.2 degrees Fahrenheit 2018-08-21 Heart Rate 99 bpm 2018-08-21 Respiratory Rate 18 2018-08-21 BMI 37.10 kg/m2 2018-08-21 Blood pressure systolic 116 mmHg 2018-08-21 Blood pressure diastolic 72 mmHg 2018-08-21 MEDICATIONS Medication Instructions Dosage Frequency Start Date End Date Duration Status Ortho Micronor 0.35 MG Orally Once a day 1 tablet 24h Jul, 30 day(s) Active Active RESULTS No Results PROCEDURES No Known procedures INSTRUCTIONS MEDICATIONS ADMINISTERED No Known Medications MEDICAL (GENERAL) HISTORY Type Description Date Medical History Currently due Aug 02- Medical History C/s 07/2018 Surgical History left knee arthroscopy Surgical History c/s 07/2018 Hospitalization History kidney infection 01/2016 Hospitalization History childbirth
--- OUTSIDE RECORDS SUMMARY | 2019-05-08 23:44 | XMS REPORT ---
Author Author KING SULTANA [facility] Address [address] [place] [address] Care Team Providers Care Tumbler Machine Operator Name Role Phone SULTANA MURPHY Unavailable PROBLEMS Type Condition ICD9-CM Code WTH17-DJ Code Onset Dates Condition Status SNOMED Code Problem Dysmenorrhea N94.6 Active 925025329 Problem Hair loss L65.9 Active 66596502 Problem Oral contraceptive pill surveillance Z30.41 Active 259150948 Problem Attention deficit disorder without hyperactivity F90.0 Active 09307431 Problem Generalized anxiety disorder F41.1 Active 433943975 Problem Seasonal allergic rhinitis due to pollen J30.1 Active 41875286 Problem PCOS (polycystic ovarian syndrome) E28.2 Active 88608152 Problem Acne, unspecified L70.9 Active 53887525 Problem Weight gain R63.5 Active 9725340 Problem Morbid obesity due to excess calories E66.01 Active 979738714 Problem Missed periods N92.6 Active 74659662 ALLERGIES Substance Reaction Event Type Date Status Lamictal Unknown Drug Allergy Jul, Active Concerta 18 Mg Tablet Extended Release 24hr hallucinations Non Drug Allergy Jul, Active ENCOUNTERS Encounter Location Date Diagnosis [facility] [id number] [place] [id number] Aug, Breast tenderness in female N64.4 [facility] [id number] [place] [address] Jul, Encounter for initial prescription of contraceptive pills Z30.011 [facility] [id number] [place] [address] Jul, [facility] [id number] [place] [address] Jul, Dysuria R30.0 and Acute cystitis with hematuria N30.01 [facility] [address] [id number] [address] Jul, [facility] [address] [id number] [id number] Jun, Seasonal allergic rhinitis due to pollen J30.1 [facility] [address] [address] May, [facility] [id number] [place] [address] May, Skin lesion L98.9 [facility] [address] [address] Apr, [facility] [id number] [place] [address] Apr, [facility] [id number] [place] [address] March, [facility] [id number] [place] [address] March, [facility] [id number] [place] [id number] March, Fractured dental mosque with loss of material K08.531 [facility] [address] [place] [id number] March, Dental examination Z01.20 [facility] [address] [id number] [address] Jan, Dental examination Z01.20 [facility] [address] [id number] [id number] Nov, Positive test Z32.01 [facility] [address] [id number] [id number] Jul, [facility] [address] [id number] [id number] Jul, test negative Z32.02 [facility] [address] [place] [address] March, [place] [id number] [place] [address] Feb, Dysmenorrhea N94.6 ; Oral contraceptive pill surveillance Z30.41 ; Morbid obesity due to excess calories E66.01 ; Generalized anxiety disorder F41.1 and PCOS (polycystic ovarian syndrome) E28.2 [place] [id number] [place] [address] Jan, Morbid obesity due to excess calories E66.01 [place] [id number] [place] [address] Jan, Missed periods N92.6 ; Morbid obesity due to excess calories E66.01 ; Family history of diabetes mellitus Z83.3 and Family history of PCOS Z84.2 [place] [id number] [place] [address] Dec, Encounter for test Z32.00 [facility] [id number] [place] [id number] Nov, Dental examination Z01.20 [place] [id number] [place] [address] Jun, Oral contraceptive pill surveillance Z30.41 [place] [id number] [place] [address] Jun, Dysmenorrhea N94.6 and Oral contraceptive pill surveillance Z30.41 [place] [id number] [place] [address] Jun, [place] [id number] [place] [address] Jun, [place] [id number] [place] [address] Jun, [place] [id number] [place] [address] May, [place] [id number] [place] [address] March, Oral contraceptive pill surveillance Z30.41 ; Proteinuria R80.9 and Weight gain R63.5 [facility] [id number] [place] [address] Dec, Oral contraceptive pill surveillance Z30.41 ; Weight gain R63.5 ; Hair loss L65.9 ; Acne, unspecified L70.9 and Routine screening for STI (sexually transmitted infection) Z11.3 [place] [id number] [place] [phone] Aug, Encounter for immunization Z23 [facility] [address] [id number] Jul, Dental examination V72.2 [place] [address] [address] May, [place] [id number] [place] [address] Apr, [facility] [id number] [place] [id number] Apr, Dental examination V72.2 [place] [id number] [place] [address] Apr, [place] [id number] [place] [address] Apr, GARDASIL (HPV) DX V04.89 [facility] [id number] [place] [id number] March, Dental examination V72.2 [place] [address] [address] March, Generalized anxiety disorder 300.02 [facility] [id number] [place] [phone] Feb, [place] [address] [address] Feb, [facility] [place] [facility] [address] [id number] [place] [address] Jan, [facility] [place] [facility] [address] [id number] [place] [address] Jan, [facility] [place] [facility] [address] [id number] [place] [address] Dec, [facility] [place] [facility] [address] [id number] [place] [address] Dec, [facility] [place] [facility] [address] [id number] [place] [address] Oct, [facility] [place] [facility] [address] [id number] [place] [address] Oct, [facility] [place] [facility] [address] [id number] [place] [address] Sep, [facility] [place] [facility] [address] [id number] [place] [address] Sep, [facility] [place] [facility] [address] [id number] [place] [address] Aug, [facility] [place] [facility] [address] [facility] [id number] [place] [address] Aug, [facility] [place] [facility] [address] [id number] [place] [address] Jul, [facility] [place] [facility] [address] [id number], [place] [address] Jul, [facility] [place] [facility] [address] [id number] [place] [address] Jun, [facility] [place] [facility] [address] [id number] [place] [address] Jun, [facility] [place] [facility] [address] [facility] [id number], [place] [address] Jun, [facility] [place] [facility] [address] [id number] [place] [address] Jun, [facility] [place] [facility] [address] [id number] [place] [address] May, [facility] [place] [facility] [address] [id number] [place] [address] May, [facility] [place] [facility] [address] [id number] [place] [address] March, [facility] [place] [facility] [address] [id number] [place] [address] March, [facility] [place] [facility] [address] [id number] [place] [address] Feb, [facility] [place] [facility] [address] [id number] [place] [address] Feb, [facility] [place] [facility] [address] [id number] [place] [address] Jan, [facility] [place] [facility] [address] [id number] [place] [address] Jan, [facility] [place] [facility] [address] [id number] [place] [address] Jan, [facility] [place] [facility] [address] [id number] [place] [address] Jan, [facility] [place] [facility] [address] [id number] [place] [address] Jan, [facility] [place] [facility] [address] [id number] [place] [address] Jan, [facility] [place] [facility] [address] [id number] [place] [address] Jan, [facility] [place] [facility] [address] [id number] [place] [address] Jan, [facility] [place] [facility] [address] [id number] [place] [address] Nov, [facility] [address] [id number] [place] [address] Nov, [facility] [place] [facility] [address] [id number], [place] [address] Nov, [facility] [address] [facility] [id number] [place] [address] Nov, [facility] [place] [facility] [address] [id number], [place] [address] Oct, [facility] [address] [id number] [place] [address] Oct, [facility] [address] [id number], [place] [address] Oct, [facility] [place] [facility] [address] [facility] [id number], [place] [address] Oct, [facility] [place] [facility] [address] [id number], [place] [address] Sep, [facility] [place] [facility] [address] [id number], [place] [address] Sep, [facility] [place] [facility] [address] [id number], [place] [address] Aug, [facility] [place] [facility] [address] [id number], [place] [address] Jul, [facility] [place] [facility] [address] [id number], [place] [address] Jun, [facility] [place] [facility] [address] [id number], [place] [address] Apr, [facility] [place] [facility] [address] [id number], [place] [address] March, [facility] [place] [facility] [address] [id number], [place] [address] Feb, [facility] [place] [facility] [address] [id number] [place] [address] Dec, [facility] [address] [id number] [place] [address] Nov, [facility] [address] [id number] [place] [address] Oct, [facility] [address] [id number] [place] [address] Oct, [facility] [address] [id number] [place] [address] Sep, [facility] [address] [id number] [place] [address] Sep, [facility] [address] [id number] [place] [address] Sep, [facility] [address] [id number] [place] [address] Sep, [facility] [address] [id number] [place] [address] Sep, [facility] [address] [id number] [place] [address] Jul, [facility] [address] [id number] [place] [address] Jun, [facility] [place] [facility] [address] [id number] [place] [address] May, [facility] [address] [id number] [place] [address] Apr, [facility] [place] [facility] [address] [id number] [place] [address] Apr, [facility] [place] [facility] [address] [id number] [place] [address] March, [facility] [address] [id number] [place] [address] March, [facility] [place] [facility] [address] [id number] [place] [address] March, [facility] [place] [facility] [address] [id number] [place] [address] 18 Feb, 2012 [facility] [place] [facility] [address] [id number] [place] [address] Feb, [facility] [place] [facility] [address] [id number] [place] [address] Jan, [facility] [place] [facility] [address] [id number] [place] [address] 16 Nov, 2011 [facility] [place] [facility] [address] [id number] [place] [address] Nov, [facility] [place] [facility] [address] [id number] [place] [address] 15 Sep, 2011 [facility] [place] [facility] [address] [id number] [place] [address] 15 Sep, 2011 [facility] [place] [facility] [address] [id number] [place] [address] 14 Aug, 2011 [facility] [place] [facility] [address] [id number] [place] [address] 14 Aug, 2011 [facility] [place] [facility] [address] [id number] [place] [address] 16 Jul, 2011 [facility] [place] [facility] [address] [id number], [place] [address] 16 Jun, 2011 [facility] [place] [facility] [address] [id number] [place] [address] Oct, [facility] [place] [facility] [address] [id number] [place] [address] Oct, [facility] [place] [facility] [address] [id number] [place] [address] Sep, [facility] [place] [facility] [address] [id number], [place] [address] Aug, [facility] [address] [facility] [id number] [place] [address] Aug, [facility] [address] [facility] [id number] [place] [address] Jun, IMMUNIZATIONS No Known Immunizations SOCIAL HISTORY Never Assessed REASON FOR VISIT control consult/post pardum depression. GIULIANA Ho PLAN OF CARE Activity Details Follow Up 3 months/1 year Reason: VITAL SIGNS Height 65.5 in 2018-08-10 Weight 229.0 lbs 2018-08-10 Temperature 97.8 degrees Fahrenheit 2018-08-10 Heart Rate 92 bpm 2018-08-10 Respiratory Rate 18 2018-08-10 BMI 37.52 kg/m2 2018-08-10 Blood pressure systolic 114 mmHg 2018-08-10 Blood pressure diastolic 72 mmHg 2018-08-10 MEDICATIONS Medication Instructions Dosage Frequency Start Date End Date Duration Status Ortho Micronor 0.35 MG Orally Once a day 1 tablet 24h Jul, 30 day(s) Active Active Macrobid 100 MG Orally twice daily 1 capsule with food Active RESULTS Name Result Date Reference Range TEST, URINE (IN HOUSE) 2018-08-10 RESULTS NEG Lot # [id number] Control + Exp date 01/2020 PROCEDURES Procedure Date Ordered Result Body Site URINE TEST Aug 10, 2018 No Charge Aug 10, 2018 INSTRUCTIONS MEDICATIONS ADMINISTERED No Known Medications MEDICAL (GENERAL) HISTORY Type Description Date Medical History Currently due Aug 02- Medical History C/s 07/2018 Surgical History left knee arthroscopy Surgical History c/s 07/2018 Hospitalization History kidney infection 01/2016 Hospitalization History childbirth
--- OUTSIDE RECORDS SUMMARY | 2019-05-08 23:45 | XMS REPORT ---
Author Author ABILIO TASHIA [facility] Address [address] [place] [address] Care Team Providers Care Supply Technician Name Role Phone TASHIA KNOX Unavailable PROBLEMS Type Condition ICD9-CM Code [id number] Code Onset Dates Condition Status SNOMED Code Problem Dysmenorrhea N94.6 Active 629116743 Problem Hair loss L65.9 Active 29282610 Problem Oral contraceptive pill surveillance Z30.41 Active 547696273 Problem Attention deficit disorder without hyperactivity F90.0 Active 11355048 Problem Generalized anxiety disorder F41.1 Active 104997078 Problem Seasonal allergic rhinitis due to pollen J30.1 Active 59593285 Problem PCOS (polycystic ovarian syndrome) E28.2 Active 39913646 Problem Acne, unspecified L70.9 Active 71923863 Problem Weight gain R63.5 Active 2843364 Problem Morbid obesity due to excess calories E66.01 Active 657137345 Problem Missed periods N92.6 Active 07425774 ALLERGIES No Information ENCOUNTERS Encounter Location Date Diagnosis [place] [id number] [address] Jul, Encounter for initial prescription of contraceptive pills Z30.011 [place] [address], [place] [address] Jul, [facility] [id number] [place] [address] Jul, Dysuria R30.0 and Acute cystitis with hematuria N30.01 [facility] [address], [place] [address] Jul, [facility] [address] [facility] [id number] [id number] Jun, Seasonal allergic rhinitis due to pollen J30.1 [facility] [id number] [address] May, [facility] [address], [place] [address] May, Skin lesion L98.9 [facility] [address], [place] [address] Apr, [facility] [address], [place] [address] Apr, [facility] [address], [place] [address] March, [facility] [id number] [place] [address] March, [facility] [id number] [place] [id number] March, Fractured dental yazdanism with loss of material K08.531 [facility] [id number] [place] [id number] March, Dental examination Z01.20 [facility] [id number], [place] [address] Jan, Dental examination Z01.20 [facility] [address] [facility] [id number] [id number] Nov, Positive test Z32.01 [facility] [address] [facility] [id number] [id number] Jul, [facility] [id number] [id number] Jul, test negative Z32.02 [facility] [address], [place] [address] March, [facility] [id number], [place] [address] Feb, Dysmenorrhea N94.6 ; Oral contraceptive pill surveillance Z30.41 ; Morbid obesity due to excess calories E66.01 ; Generalized anxiety disorder F41.1 and PCOS (polycystic ovarian syndrome) E28.2 [place] [address] [place] [address] Jan, Morbid obesity due to excess calories E66.01 [place] [address] [id number] [place] [address] Jan, Missed periods N92.6 ; Morbid obesity due to excess calories E66.01 ; Family history of diabetes mellitus Z83.3 and Family history of PCOS Z84.2 [place] [id number] [place] [address] Dec, Encounter for test Z32.00 [facility] [address] [id number] Nov, Dental examination Z01.20 [place] [id number] [place] [address] Jun, Oral contraceptive pill surveillance Z30.41 [place] [id number] [place] [address] Jun, Dysmenorrhea N94.6 and Oral contraceptive pill surveillance Z30.41 [place] [id number] [place] [address] Jun, [place] [address] [id number] [place] [address] Jun, [place] [address] [id number] [place] [address] Jun, [place] [address] [id number] [place] [address] May, [place] [address] [id number] [place] [address] March, Oral contraceptive pill surveillance Z30.41 ; Proteinuria R80.9 and Weight gain R63.5 [place] [address] [address] Dec, Oral contraceptive pill surveillance Z30.41 ; Weight gain R63.5 ; Hair loss L65.9 ; Acne, unspecified L70.9 and Routine screening for STI (sexually transmitted infection) Z11.3 [facility] [id number] [place] [address] Aug, Encounter for immunization Z23 [facility] [address] [id number] Jul, Dental examination V72.2 [facility] [id number] [place] [address] May, [facility] [id number] [place] [address] Apr, [facility] [id number] [place] [id number] Apr, Dental examination V72.2 [facility] [id number] [place] [address] Apr, [facility] [id number] [place] [address] Apr, GARDASIL (HPV) DX V04.89 [facility] [id number] [place] [id number] March, Dental examination V72.2 [facility] [id number] [place] [address] March, Generalized anxiety disorder 300.02 [facility] [id number] [place] [address] Feb, [facility] [id number] [place] [address] Feb, [facility] [id number] [place] [address] Jan, [facility] [id number] [place] [address] Jan, [facility] [place] [facility] [address] [id number] [place] [address] Dec, [facility] [place] [facility] [address] [id number] [place] [address] Dec, [facility] [place] [facility] [address] [facility] [id number] [place] [address] Oct, [facility] [place] [facility] [address] [id number] [place] [address] Oct, [facility] [place] [facility] [address] [id number] [place] [address] Sep, [facility] [place] [facility] [address] [id number] [place] [address] Sep, [facility] [place] [facility] [address] [id number] [place] [address] Aug, [facility] [place] [facility] [address] [id number] [place] [address] Aug, [facility] [place] [facility] [address] [id number] [place] [address] Jul, [facility] [place] [facility] [address] [id number] [place] [address] Jul, [facility] [place] [facility] [address] [id number] [place] [address] Jun, [facility] [place] [facility] [address] [id number], [place] [address] Jun, [facility] [place] [facility] [address] [id number] [place] [address] Jun, [facility] [place] [facility] [address] [id number] [place] [address] Jun, [facility] [place] [facility] [address] [facility] [id number] [place] [address] May, [facility] [place] [facility] [address] [id number] [place] [address] May, [facility] [address] [id number] [place] [address] March, [facility] [address] [id number] [place] [address] March, [facility] [address] [id number] [place] [address] Feb, [facility] [place] [facility] [address] [id number] [place] [address] Feb, [facility] [address] [id number] [place] [address] Jan, [facility] [place] [facility] [address] [id number] [place] [address] Jan, [facility] [address] [id number] [place] [address] Jan, [facility] [address] [id number] [place] [address] Jan, [facility] [place] [facility] [address] [id number] [place] [address] Jan, [facility] [address] [id number] [place] [address] Jan, [facility] [place] [facility] [address] [id number] [place] [address] Jan, [facility] [place] [facility] [address] [id number] [place] [address] Jan, [facility] [place] [facility] [address] [id number] [place] [address] Nov, [facility] [place] [facility] [address] [id number] [place] [address] Nov, [facility] [place] [facility] [address] [id number] [place] [address] Nov, [facility] [place] [facility] [address] [id number] [place] [address] Nov, [facility] [address] [id number] [place] [address] Oct, [facility] [address] [id number] [place] [address] Oct, [facility] [place] [facility] [address] [id number] [place] [address] Oct, [facility] [address] [id number] [place] [address] Oct, [facility] [place] [facility] [address] [id number] [place] [address] Sep, [facility] [address] [facility] [id number] [place] [address] Sep, [facility] [address] [id number], [place] [address] Aug, [facility] [place] [facility] [address] [id number] [place] [address] Jul, [facility] [address] [id number], [place] [address] Jun, [facility] [place] [facility] [address] [id number], [place] [address] Apr, [facility] [place] [facility] [address] [id number], [place] [address] March, [facility] [place] [facility] [address] [id number], [place] [address] Feb, [facility] [place] [facility] [address] [id number], [place] [address] Dec, [facility] [place] [facility] [address] [id number], [place] [address] Nov, [facility] [place] [facility] [address] [id number], [place] [address] Oct, [facility] [place] [facility] [address] [id number] [place] [address] Oct, [facility] [place] [facility] [address] [id number] [place] [address] Sep, [facility] [place] [facility] [address] [id number] [place] [address] Sep, [facility] [place] [facility] [address] [id number] [place] [address] Sep, [facility] [place] [facility] [address] [id number] [place] [address] Sep, [facility] [place] [facility] [address] [id number] [place] [address] Sep, [facility] [place] [facility] [id number] [address] Jul, [facility] [place] [facility] [address] [id number] [place] [address] Jun, [facility] [place] [facility] [address] [id number] [place] [address] May, [facility] [place] [facility] [address] [facility] [id number] [place] [address] Apr, [facility] [place] [facility] [address] [id number], [place] [address] Apr, [facility] [place] [facility] [address] [id number] [place] [address] March, [facility] [place] [facility] [address] [id number] [place] [address] March, [facility] [place] [facility] [address] [facility] [id number] [place] [address] March, [facility] [place] [facility] [address] [facility] [id number] [place] [address] Feb, [facility] [place] [facility] [address] [id number] [place] [address] 12 Feb, 2012 [facility] [place] [facility] [address] [id number] [place] [address] Jan, [facility] [place] [facility] [address] [id number] [place] [address] 16 Nov, 2011 [facility] [place] [facility] [address] [id number] [place] [address] 13 Nov, 2011 [facility] [place] [facility] [address] [id number] [place] [address] 15 Sep, 2011 [facility] [place] [facility] [address] [id number] [place] [address] 15 Sep, 2011 [facility] [place] [facility] [address] [id number] [place] [address] 14 Aug, 2011 [facility] [place] [facility] [address] [id number] [place] [address] 14 Aug, 2011 [facility] [place] [facility] [address] [id number] [place] [address] 16 Jul, 2011 [facility] [place] [facility] [address] [id number] [place] [address] 16 Jun, 2011 [facility] [place] [facility] [address] [id number] [place] [address] 29 Oct, 2010 [facility] [place] [facility] [address] [id number] [place] [address] 02 Oct, 2010 [facility] [place] [facility] [address] [id number] [place] [address] 04 Sep, 2010 [facility] [place] [facility] [address] [id number] [place] [address] 26 Aug, 2010 [facility] [place] [facility] [address] [id number] [place] [address] Aug, [facility] [place] [facility] [address] [id number] [place] [address] Jun, IMMUNIZATIONS No Known Immunizations SOCIAL HISTORY Never Assessed REASON FOR VISIT PLAN OF CARE VITAL SIGNS MEDICATIONS No Known Medications RESULTS No Results PROCEDURES No Known procedures INSTRUCTIONS MEDICATIONS ADMINISTERED No Known Medications MEDICAL (GENERAL) HISTORY Type Description Date Medical History Currently due Aug 02 Medical History C/s 07/2018 Surgical History left knee arthroscopy Surgical History c/s 07/2018 Hospitalization History kidney infection 01/2016 Hospitalization History childbirth
--- OUTSIDE RECORDS SUMMARY | 2019-05-08 23:45 | XMS REPORT ---
Author Author IRA HAWKINS [facility] Address [address] [place] [address] Care Team Providers Care Car Conditioner Name Role Phone IRA HAWKINS Unavailable PROBLEMS Type Condition ICD9-CM Code IGQ51-CR Code Onset Dates Condition Status SNOMED Code Problem Dysmenorrhea N94.6 Active 748070423 Problem Hair loss L65.9 Active 95600444 Problem Oral contraceptive pill surveillance Z30.41 Active 602532088 Problem Attention deficit disorder without hyperactivity F90.0 Active 43229219 Problem Generalized anxiety disorder F41.1 Active 755125330 Problem Seasonal allergic rhinitis due to pollen J30.1 Active 38614725 Problem PCOS (polycystic ovarian syndrome) E28.2 Active 35844036 Problem Acne, unspecified L70.9 Active 72410161 Problem Weight gain R63.5 Active 3254335 Problem Morbid obesity due to excess calories E66.01 Active 415830946 Problem Missed periods N92.6 Active 59273789 ALLERGIES Substance Reaction Event Type Date Status Lamictal Unknown Drug Allergy Jul, Active Concerta 18 Mg Tablet Extended Release 24hr hallucinations Non Drug Allergy Jul, Active ENCOUNTERS Encounter Location Date Diagnosis [facility] [id number] [place] [address] Jul, Encounter for initial prescription of contraceptive pills Z30.011 [facility] [id number] [place] [address] Jul, [facility] [id number] [place] [address] Jul, Dysuria R30.0 and Acute cystitis with hematuria N30.01 [facility] [id number] [place] [address] Jul, [facility] [id number] [place] [id number] Jun, Seasonal allergic rhinitis due to pollen J30.1 [facility] [address] [address] May, [facility] [address] [address] May, Skin lesion L98.9 [facility] [id number] [place] [address] Apr, [facility] [id number] [place] [address] Apr, [facility] [id number] [place] [address] March, [facility] [id number] [place] [address] March, [facility] [id number] [place] [id number] March, Fractured dental church with loss of material K08.531 [facility] [id number] [place] [id number] March, Dental examination Z01.20 [facility] [address] [address] Jan, Dental examination Z01.20 [facility] [address] [id number] [id number] Nov, Positive test Z32.01 [facility] [address] [id number] [id number] Jul, [place] [place] [address] [id number] [id number] Jul, test negative Z32.02 [facility] [address] [address] March, [facility] [id number] [place] [address] Feb, Dysmenorrhea N94.6 ; Oral contraceptive pill surveillance Z30.41 ; Morbid obesity due to excess calories E66.01 ; Generalized anxiety disorder F41.1 and PCOS (polycystic ovarian syndrome) E28.2 [place] [id number] [place] [address] Jan, Morbid obesity due to excess calories E66.01 [place] [address] [address] Jan, Missed periods N92.6 ; Morbid obesity due to excess calories E66.01 ; Family history of diabetes mellitus Z83.3 and Family history of PCOS Z84.2 [place] [address] [address] Dec, Encounter for test Z32.00 [facility] [address] [id number] Nov, Dental examination Z01.20 [place] [facility] [id number] [place] [address] Jun, Oral contraceptive pill surveillance Z30.41 [place] [id number] [place] [address] Jun, Dysmenorrhea N94.6 and Oral contraceptive pill surveillance Z30.41 [place] [id number] [place] [address] Jun, [place] [address] [address] Jun, [place] [id number] [place] [address] Jun, [place] [id number] [place] [address] May, [place] [id number] [place] [address] March, Oral contraceptive pill surveillance Z30.41 ; Proteinuria R80.9 and Weight gain R63.5 [facility] [id number] [place] [address] Dec, Oral contraceptive pill surveillance Z30.41 ; Weight gain R63.5 ; Hair loss L65.9 ; Acne, unspecified L70.9 and Routine screening for STI (sexually transmitted infection) Z11.3 [facility] [address] [address] Aug, Encounter for immunization Z23 [facility] [address] [id number] Jul, Dental examination V72.2 [facility] [address] [address] May, [place] [address] [address] Apr, [facility] [address] [id number] Apr, Dental examination V72.2 [facility] [address] [address] Apr, [facility] [address] [address] Apr, [place] (HPV) DX V04.89 [facility] [address] [id number] March, Dental examination V72.2 [facility] [id number] [place] [address] March, Generalized anxiety disorder 300.02 [facility] [address] [address] 14 Feb, 2015 [facility] [id number] [place] [address] 13 Feb, 2015 [facility] [address] [address] Jan, [facility] [place] [facility] [address] [id number] [place] [address] Jan, [facility] [place] [facility] [address] [id number] [place] [address] Dec, [facility] [place] [facility] [address] [facility] [id number] [place] [address] Dec, [facility] [place] [facility] [address] [id number] [place] [address] Oct, [facility] [place] [facility] [address] [id number] [place] [address] Oct, [facility] [place] [facility] [address] [id number] [place] [address] Sep, [facility] [place] [facility] [address] [id number] [place] [address] Sep, [facility] [place] [facility] [address] [id number] [place] [address] Aug, [facility] [place] [facility] [address] [id number] [place] [address] Aug, [facility] [place] [facility] [address] [id number] [place] [address] Jul, [facility] [place] [facility] [address] [id number] [address] Jul, [facility] [place] [facility] [address] [id number] [address] Jun, [facility] [place] [facility] [address] [id number] [place] [address] Jun, [facility] [place] [facility] [address] [id number] [place] [address] Jun, [facility] [place] [facility] [address] [id number] [place] [address] Jun, [facility] [place] [facility] [address] [id number] [place] [address] May, [facility] [address] [id number] [place] [address] May, [facility] [place] [facility] [address] [id number] [place] [address] March, [facility] [address] [id number] [place] [address] March, [facility] [place] [facility] [address] [id number] [place] [address] Feb, [facility] [address] [id number] [place] [address] Feb, [facility] [address] [id number] [place] [address] Jan, [facility] [place] [facility] [address] [id number] [place] [address] Jan, [facility] [address] [id number] [place] [address] Jan, [facility] [place] [facility] [address] [id number] [place] [address] Jan, [facility] [address] [id number] [place] [address] Jan, [facility] [place] [facility] [address] [id number] [place] [address] Jan, [facility] [place] [facility] [address] [id number] [place] [address] Jan, [facility] [place] [facility] [address] [id number] [place] [address] Jan, [facility] [place] [facility] [address] [id number] [place] [address] Nov, [facility] [place] [facility] [address] [id number] [place] [address] Nov, [facility] [address] [id number] [place] [address] Nov, [facility] [place] [facility] [address] [id number] [place] [address] Nov, [facility] [address] [id number] [place] [address] Oct, [facility] [place] [facility] [address] [id number] [place] [address] Oct, [facility] [address] [id number] [place] [address] Oct, [facility] [place] [facility] [address] [id number] [place] [address] Oct, [facility] [address] [facility] [id number] [place] [address] Sep, [facility] [address] [id number] [address] Sep, [facility] [place] [facility] [address] [id number] [place] [address] Aug, [facility] [place] [facility] [address] [facility] [id number] [address] Jul, [facility] [place] [facility] [address] [facility] [id number] [address] Jun, [facility] [place] [facility] [address] [id number] [address] Apr, [facility] [place] [facility] [address] [id number] [address] March, [facility] [place] [facility] [address] [id number] [address] Feb, [facility] [place] [facility] [address] [facility] [id number][place] [address] Dec, [facility] [place] [facility] [address] [id number][place] [address] Nov, [facility] [place] [facility] [address] [id number] [place] [address] Oct, [facility] [place] [facility] [address] [id number] [place] [address] Oct, [facility] [place] [facility] [address] [id number] [place] [address] Sep, [facility] [place] [facility] [address] [id number] [place] [address] Sep, [facility] [place] [facility] [address] [id number] [place] [address] Sep, [facility] [place] [facility] [address] [id number] [place] [address] Sep, [facility] [place] [facility] [address] [place] [address] Sep, [facility] [place] [facility] [address] [id number] [place] [address] Jul, [facility] [place] [facility] [address] [id number] [place] [address] Jun, [facility] [place] [facility] [address] [id number] [place] [address] May, [facility] [place] [facility] [address] [id number] [place] [address] Apr, [facility] [place] [facility] [address] [id number][place] [address] Apr, [facility] [place] [facility] [address] [id number] [place] [address] March, [facility] [place] [facility] [address] [facility] [id number] [place] [address] March, [facility] [place] [facility] [id number] [place] [address] March, [facility] [place] [facility] [address] [id number] [place] [address] 18 Feb, 2012 [facility] [place] [facility] [address] [id number] [place] [address] 12 Feb, 2012 [facility] [place] [facility] [address] [id number] [place] [address] Jan, [facility] [place] [facility] [address] [id number] [place] [address] 16 Nov, 2011 [facility] [place] [facility] [address] [id number] [place] [address] 13 Nov, 2011 [facility] [place] [facility] [address] [id number] [place] [address] 15 Sep, 2011 [facility] [place] [facility] [address] [id number] [place] [address] 15 Sep, 2011 [facility] [place] [facility] [address] [id number] [place] [address] 14 Aug, 2011 [facility] [place] [facility] [address] [id number] [place] [address] 14 Aug, 2011 [facility] [place] [facility] [address] [id number] [place] [address] 16 Jul, 2011 [facility] [place] [facility] [address] [id number] [place] [address] 16 Jun, 2011 [facility] [place] [facility] [address] [id number] [place] [address] 29 Oct, 2010 [facility] [place] [facility] [address] [id number] [place] [address] 02 Oct, 2010 [facility] [place] [facility] [address] [id number] [place] [address] 04 Sep, 2010 [facility] [place] [facility] [address] [id number] [place] [address] 26 Aug, 2010 [facility] [place] [facility] [address] [id number] [place] [address] Aug, [facility] [address] [facility] [id number] [place] [address] Jun, IMMUNIZATIONS No Known Immunizations SOCIAL HISTORY Never Assessed REASON FOR VISIT UTI symptoms started a week ago, subsided and then came back today. Painful and frequent urination-mpolshakMA PLAN OF CARE Activity Details Follow Up w/ PCP, prn Reason:if symptoms worsen or not improving VITAL SIGNS Height 65.5 in 2018-08-02 Weight 228 lbs 2018-08-02 Temperature 98.3 degrees Fahrenheit 2018-08-02 Heart Rate 93 bpm 2018-08-02 Respiratory Rate 18 2018-08-02 BMI 37.36 kg/m2 2018-08-02 Blood pressure systolic 120 mmHg 2018-08-02 Blood pressure diastolic 86 mmHg 2018-08-02 MEDICATIONS Medication Instructions Dosage Frequency Start Date End Date Duration Status Claritin 10 mg Orally Once a day 1 tablet 24h Jun, Active Active Nitrofurantoin Monohyd Macro 100 mg Orally every 12 hrs 1 capsule with food 12h Jul, Jul, 5 days Active Saline Nasal Art 0.65 % Nasally every 2 hrs 2 sprays in each nostril as needed Jun, Active RESULTS No Results PROCEDURES Procedure Date Ordered Result Body Site URINALYSIS, AUTO, W/O SCOPE Aug 02, 2018 LAB NOT BILLED BY [facility] Aug 02, 2018 INSTRUCTIONS MEDICATIONS ADMINISTERED No Known Medications MEDICAL (GENERAL) HISTORY Type Description Date Medical History Currently due Aug 02 Medical History C/s 07/2018 Surgical History left knee arthroscopy Surgical History c/s 07/2018 Hospitalization History kidney infection 01/2016 Hospitalization History childbirth
--- OUTSIDE RECORDS SUMMARY | 2019-05-08 23:45 | XMS REPORT ---
Author Author ADRIANA FENTON [facility] Address [address] [place] [address] Care Team Providers Care Manager Mortgage Name Role Phone ADRIANA FENTON Unavailable PROBLEMS Type Condition ICD9-CM Code MSG84-QC Code Onset Dates Condition Status SNOMED Code Problem Dysmenorrhea N94.6 Active 426232518 Problem Hair loss L65.9 Active 47865293 Problem Oral contraceptive pill surveillance Z30.41 Active 354503026 Problem Attention deficit disorder without hyperactivity F90.0 Active 85129302 Problem Generalized anxiety disorder F41.1 Active 500326718 Problem Seasonal allergic rhinitis due to pollen J30.1 Active 17951903 Problem PCOS (polycystic ovarian syndrome) E28.2 Active 08956477 Problem Acne, unspecified L70.9 Active 36993622 Problem Weight gain R63.5 Active 1996933 Problem Morbid obesity due to excess calories E66.01 Active 635041903 Problem Missed periods N92.6 Active 56448042 ALLERGIES Substance Reaction Event Type Date Status Lamictal Unknown Drug Allergy Jun, Active Concerta 18 Mg Tablet Extended Release 24hr hallucinations Non Drug Allergy Jun, Active ENCOUNTERS Encounter Location Date Diagnosis [facility] [address] [address] Jul, [facility] [id number] [place] [phone] Jun, Seasonal allergic rhinitis due to pollen J30.1 [facility] [id number] [place] [address] May, [facility] [id number] [place] [address] May, Skin lesion L98.9 [facility] [id number] [place] [address] Apr, [facility] [address] [address] Apr, [facility] [id number] [place] [address] March, [facility] [address] [address] March, [facility] [id number] [place] [phone] March, Fractured dental adventist with loss of material K08.531 [facility] [id number] [place] [address] [phone] March, Dental examination Z01.20 [facility] [id number] [place] [address] Jan, Dental examination Z01.[address] [id number] [id number] Nov, Positive test Z32.[address] [id number] [id number] Jul, [id number] [place] [phone] Jul, test negative Z32.02 [facility] [address] [address] March, [facility] [id number] [place] [address] Feb, Dysmenorrhea N94.6 ; Oral contraceptive pill surveillance Z30.41 ; Morbid obesity due to excess calories E66.01 ; Generalized anxiety disorder F41.1 and PCOS (polycystic ovarian syndrome) E28.2 [facility] [id number] [place] [address] Jan, Morbid obesity due to excess calories E66.01 [facility] [id number] [place] [address] Jan, Missed periods N92.6 ; Morbid obesity due to excess calories E66.01 ; Family history of diabetes mellitus Z83.3 and Family history of PCOS Z84.2 [facility] [id number] [place] [address] Dec, Encounter for test Z32.00 [facility] [address] [place] [phone] Nov, Dental examination Z01.20 [facility] [id number] [place] [address] Jun, Oral contraceptive pill surveillance Z30.41 [facility] [address] [address] Jun, Dysmenorrhea N94.6 and Oral contraceptive pill surveillance Z30.41 [facility] [id number] [place] [address] Jun, [facility] [facility] [address] [address] Jun, [facility] [facility] [address] [address] Jun, [facility] [id number] [place] [address] May, [facility] [id number] [place] [address] March, Oral contraceptive pill surveillance Z30.41 ; Proteinuria R80.9 and Weight gain R63.5 [facility] [id number] [place] [address] Dec, Oral contraceptive pill surveillance Z30.41 ; Weight gain R63.5 ; Hair loss L65.9 ; Acne, unspecified L70.9 and Routine screening for STI (sexually transmitted infection) Z11.3 [facility] [facility] [id number] [place] [address] Aug, Encounter for immunization Z23 [facility] [address] [id number] Jul, Dental examination V72.2 [facility] [address] [address] May, [facility] [id number] [place] [address] Apr, [facility] [id number] [place] [address] [phone] Apr, Dental examination V72.2 [facility] [id number] [place] [address] Apr, [facility] [id number] [place] [address] Apr, GARDASIL (HPV) DX V04.89 [facility] [id number] [place] [address] [phone] March, Dental examination V72.2 [facility] [id number] [place] [address] March, Generalized anxiety disorder 300.02 [facility] [id number] [place] [address] Feb, [facility] [address] [address] Feb, [facility] [address], [place] [address] Jan, [facility] [address], [place] [address] Jan, [facility] [id number] [place] [address] Dec, [facility] [address] [address] Dec, [facility] [id number] [place] [address] Oct, [facility] [place] [facility] [address] [id number] [place] [address] Oct, [facility] [place] [facility] [address] [id number] [place] [address] Sep, [facility] [place] [facility] [address] [id number] [place] [address] Sep, [facility] [place] [facility] [address] [id number] [place] [address] Aug, [facility] [place] [facility] [address] [id number] [place] [address] Aug, [facility] [place] [facility] [address] [id number] [place] [address] Jul, [facility] [place] [facility] [address] [id number] [place] [address] Jul, [facility] [place] [facility] [address] [id number] [place] [address] Jun, [facility] [place] [facility] [address] [id number] [place] [address] Jun, [facility] [place] [facility] [address] [id number] [place] [address] Jun, [facility] [place] [facility] [address] [id number] [place] [address] Jun, [facility] [place] [facility] [address] [id number] [place] [address] May, [facility] [place] [facility] [address] [id number] [place] [address] May, [facility] [place] [facility] [address] [id number] [place] [address] March, [facility] [place] [facility] [address] [id number] [place] [address] March, [facility] [place] [facility] [address] [id number] [place] [address] Feb, [facility] [address] [id number] [place] [address] Feb, [facility] [address] [id number] [place] [address] Jan, [facility] [address] [id number] [place] [address] Jan, [facility] [address] [id number] [place] [address] Jan, [facility] [address] [id number] [place] [address] Jan, [facility] [address] [id number] [place] [address] Jan, [facility] [address] [id number] [place] [address] Jan, [facility] [address] [id number] [place] [address] Jan, [facility] [address] [id number] [place] [address] Jan, [facility] [address] [id number] [place] [address] Nov, [facility] [address] [id number] [place] [address] Nov, [facility] [address] [id number] [place] [address] Nov, [facility] [place] [facility] [address] [id number] [place] [address] Nov, [facility] [place] [facility] [address] [id number] [place] [address] Oct, [facility] [place] [facility] [address] [id number] [place] [address] Oct, [facility] [address] [id number] [place] [address] Oct, [facility] [place] [facility] [address] [id number] [place] [address] Oct, [facility] [address] [id number] [place] [address] Sep, [facility] [place] [facility] [address] [id number] [place] [address] Sep, [facility] [address] [id number] [place] [address] Aug, [facility] [place] [facility] [address] [id number] [place] [address] Jul, [facility] [place] [facility] [address] [id number] [place] [address] Jun, [facility] [place] [facility] [address] [id number] [place] [address] Apr, [facility] [place] [facility] [address] [id number] [place] [address] March, [facility] [address] [id number] [place] [address] Feb, [facility] [place] [facility] [address] [id number] [place] [address] Dec, [facility] [place] [facility] [address] [id number] [address] Nov, [facility] [place] [facility] [address] [id number] [place] [address] Oct, [facility] [place] [facility] [address] [id number] [place] [address] Oct, [facility] [place] [facility] [address] [id number] [place] [address] Sep, [facility] [place] [facility] [address] [id number] [place] [address] Sep, [facility] [address] [id number] [place] [address] Sep, [facility] [place] [facility] [address] [id number] [place] [address] Sep, [facility] [place] [facility] [address] [id number] [place] [address] Sep, [facility] [place] [facility] [address] [id number] [place] [address] Jul, [facility] [place] [facility] [address] [id number] [place] [address] Jun, [facility] [place] [facility] [address] [id number] [place] [address] May, [facility] [address] [id number] [place] [address] Apr, [facility] [place] [facility] [address] [id number] [place] [address] Apr, [facility] [place] [facility] [address] [id number] [place] [address] March, [facility] [place] [facility] [address] [id number] [place] [address] March, [facility] [place] [facility] [address] [id number] [place] [address] March, [facility] [place] [facility] [address] [id number] [address] Feb, [facility] [place] [facility] [address] [id number] [place] [address] Feb, [facility] [place] [facility] [address] [id number] [place] [address] Jan, [facility] [place] [facility] [address] [id number] [place] [address] Nov, [facility] [place] [facility] [address], [place] [address] Nov, [facility] [address] [address] Sep, [facility] [address] [facility] [id number], [place] [address] Sep, [facility] [address] [address] 14 Aug, 2011 [facility] [address] [facility] [id number], [place] [address] Aug, [facility] [id number] [place] [address] Jul, [facility] [address] [address] Jun, [facility] [address] [address] Oct, [facility] [address] [address] Oct, [facility] [address], [place] [address] Sep, [facility] [id number] [address] Aug, [facility] [address], [place] [address] Aug, [facility] [id number] [address] Jun, IMMUNIZATIONS No Known Immunizations SOCIAL HISTORY Never Assessed REASON FOR VISIT Congestion/sore throat starting yesterday Radha DAO PLAN OF CARE Activity Details Follow Up prn Reason: VITAL SIGNS Height 65.5 in 2018-06-20 Weight 240.8 lbs 2018-06-20 Temperature 98.3 degrees Fahrenheit 2018-06-20 Heart Rate 102 bpm 2018-06-20 Respiratory Rate 18 2018-06-20 BMI 39.46 kg/m2 2018-06-20 Blood pressure systolic 118 mmHg 2018-06-20 Blood pressure diastolic 60 mmHg 2018-06-20 MEDICATIONS Medication Instructions Dosage Frequency Start Date End Date Duration Status Active Claritin 10 mg Orally Once a day 1 tablet 24h Jun, Active Saline Nasal Spearfish 0.65 % Nasally every 2 hrs 2 sprays in each nostril as needed Jun, Active Tobramycin 0.3 % Ophthalmic every 4 hrs 1 drop into affected eye 4h Active Zantac 75 75 MG Orally Once a day 1 tablet as needed 24h Active RESULTS No Results PROCEDURES No Known procedures INSTRUCTIONS MEDICATIONS ADMINISTERED No Known Medications MEDICAL (GENERAL) HISTORY Type Description Date Medical History Currently due Aug 02 Surgical History left knee arthroscopy Hospitalization History kidney infection 01/2016
--- OUTSIDE RECORDS SUMMARY | 2019-05-08 23:46 | XMS REPORT ---
Author Author TASHIA KNOX [facility] Address [address] [place] [address] Care Team Providers Care Appeals Rn Name Role Phone ABILIO TASHIA Unavailable PROBLEMS Type Condition ICD9-CM Code NQA85-LQ Code Onset Dates Condition Status SNOMED Code Problem Dysmenorrhea N94.6 Active 828846014 Problem Hair loss L65.9 Active 59756538 Problem Oral contraceptive pill surveillance Z30.41 Active 052307909 Problem Attention deficit disorder without hyperactivity F90.0 Active 10516439 Problem Generalized anxiety disorder F41.1 Active 527476636 Problem Seasonal allergic rhinitis due to pollen J30.1 Active 56793263 Problem PCOS (polycystic ovarian syndrome) E28.2 Active 04440814 Problem Acne, unspecified L70.9 Active 58383815 Problem Weight gain R63.5 Active 9653526 Problem Morbid obesity due to excess calories E66.01 Active 194430487 Problem Missed periods N92.6 Active 53800000 ALLERGIES No Information ENCOUNTERS Encounter Location Date Diagnosis [facility] [id number] [place] [address] Jul, [facility] [id number] [place] [id number] Jun, Seasonal allergic rhinitis due to pollen J30.1 [facility] [id number] [place] [address] May, [facility] [id number] [place] [address] May, Skin lesion L98.9 [facility] [id number] [place] [address] Apr, [facility] [id number] [place] [address] Apr, [facility] [id number] [address] March, [facility] [address] [address] March, [facility] [id number] [place] [phone] March, Fractured dental anglican with loss of material K08.531 [facility] [id number] [place] [address] [id number] March, Dental examination Z01.20 [facility] [id number] [place] [address] Jan, Dental examination Z01.20 [facility] [address] [id number] [id number] Nov, Positive test Z32.01 [facility] [address] [id number] [id number] Jul, [facility] [address] [id number] [id number] Jul, test negative Z32.02 [facility] [id number] [address] March, [facility] [address] [address] Feb, Dysmenorrhea N94.6 ; Oral contraceptive pill surveillance Z30.41 ; Morbid obesity due to excess calories E66.01 ; Generalized anxiety disorder F41.1 and PCOS (polycystic ovarian syndrome) E28.2 [facility] [id number] [address] Jan, Morbid obesity due to excess calories E66.01 [facility] [id number] [address] Jan, Missed periods N92.6 ; Morbid obesity due to excess calories E66.01 ; Family history of diabetes mellitus Z83.3 and Family history of PCOS Z84.2 [facility] [id number] [place] [address] Dec, Encounter for test Z32.00 [facility] [id number] [place] [id number] Nov, Dental examination Z01.20 [place] [facility] [id number] [place] [address] Jun, Oral contraceptive pill surveillance Z30.41 [facility] [id number] [place] [address] Jun, Dysmenorrhea N94.6 and Oral contraceptive pill surveillance Z30.41 [facility] [id number] [place] [address] Jun, [place] [facility] [address] [address] Jun, [facility] [id number] [place] [address] Jun, [facility] [id number] [place] [address] May, [facility] [id number] [place] [address] March, Oral contraceptive pill surveillance Z30.41 ; Proteinuria R80.9 and Weight gain R63.5 [facility] [address] [place] [address] Dec, Oral contraceptive pill surveillance Z30.41 ; Weight gain R63.5 ; Hair loss L65.9 ; Acne, unspecified L70.9 and Routine screening for STI (sexually transmitted infection) Z11.3 [facility] [address] [place] [address] Aug, Encounter for immunization Z23 [facility] [address] [place] [id number] Jul, Dental examination V72.2 [facility] [address] [address] May, [facility] [id number] [place] [address] Apr, [facility] [id number] [place] [id number] Apr, Dental examination V72.2 [facility] [id number] [place] [address] Apr, [facility] [address] [place] [address] Apr, GARDASIL (HPV) DX V04.89 [facility] [id number] [place] [address] [id number] March, Dental examination V72.2 [facility] [id number] [place] [address] March, Generalized anxiety disorder 300.02 [facility] [address] [address] Feb, [facility] [address] [place] [address] Feb, [facility] [address] [address] Jan, [facility] [address] [address] Jan, [facility] [address] [address] Dec, [facility] [id number] [place] [address] Dec, [facility] [address] [address] Oct, [facility] [id number] [place] [address] Oct, [facility] [place] [facility] [address] [id number] [place] [address] Sep, [facility] [place] [facility] [address] [id number] [place] [address] Sep, [facility] [place] [facility] [address] [id number] [place] [address] Aug, [facility] [place] [facility] [address] [id number] [place] [address] Aug, [facility] [place] [facility] [address] [id number] [place] [address] Jul, [facility] [place] [facility] [address] [id number] [place] [address] Jul, [facility] [place] [facility] [address] [id number] [place] [address] Jun, [facility] [place] [facility] [address] [id number] [place] [address] Jun, [facility] [place] [facility] [address] [id number] [place] [address] Jun, [facility] [place] [facility] [address] [facility] [id number] [place] [address] Jun, [facility] [place] [facility] [address] [id number] [place] [address] May, [facility] [place] [facility] [address] [id number], [place] [address] May, [facility] [place] [facility] [address] [id number] [place] [address] March, [facility] [place] [facility] [address] [id number] [place] [address] March, [facility] [place] [facility] [address] [id number] [place] [address] Feb, [facility] [place] [facility] [address] [id number] [place] [address] Feb, [facility] [place] [facility] [address] [id number] [place] [address] Jan, [facility] [place] [facility] [address] [id number] [place] [address] Jan, [facility] [place] [facility] [address] [id number] [place] [address] Jan, [facility] [place] [facility] [address] [id number] [place] [address] Jan, [facility] [place] [facility] [address] [id number] [place] [address] Jan, [facility] [place] [facility] [address] [id number] [place] [address] Jan, [facility] [place] [facility] [address] [id number] [place] [address] Jan, [facility] [place] [facility] [address] [id number] [place] [address] Jan, [facility] [place] [facility] [address] [id number] [place] [address] Nov, [facility] [place] [facility] [address] [id number] [place] [address] Nov, [facility] [place] [facility] [address] [id number] [place] [address] Nov, [facility] [place] [facility] [address] [id number] [place] [address] Nov, [facility] [place] [facility] [address] [id number] [place] [address] Oct, [facility] [place] [facility] [address] [id number] [place] [address] Oct, [facility] [place] [facility] [address] [id number] [place] [address] Oct, [facility] [address] [id number] [place] [address] Oct, [facility] [place] [facility] [address] [id number] [place] [address] Sep, [facility] [address] [facility] [id number] [place] [address] Sep, [facility] [place] [facility] [address] [id number] [place] [address] Aug, [facility] [address] [id number] [place] [address] Jul, [facility] [address] [id number] [place] [address] Jun, [facility] [place] [facility] [address] [facility] [id number] [place] [address] Apr, [facility] [place] [facility] [address] [id number], [place] [address] March, [facility] [address] [id number] [place] [address] Feb, [facility] [place] [facility] [address] [facility] [id number][place] [address] Dec, [facility] [address] [facility] [id number], [place] [address] Nov, [facility] [place] [facility] [address] [id number], [place] [address] Oct, [facility] [place] [facility] [address] [id number] [place] [address] Oct, [facility] [place] [facility] [address] [facility] [id number], [place] [address] Sep, [facility] [place] [facility] [address] [facility] [id number], [place] [address] Sep, [facility] [place] [facility] [address] [id number] [place] [address] 15 Sep, 2012 [facility] [address] [id number] [place] [address] Sep, [facility] [place] [facility] [address] [id number] [place] [address] Sep, [facility] [place] [facility] [address] [id number] [place] [address] Jul, [facility] [place] [facility] [address] [id number] [place] [address] Jun, [facility] [place] [facility] [address] [id number] [place] [address] May, [facility] [place] [facility] [address] [id number] [place] [address] Apr, [facility] [place] [facility] [address] [id number] [place] [address] Apr, [facility] [place] [facility] [address] [id number] [place] [address] March, [facility] [place] [facility] [address] [id number] [place] [address] March, [facility] [address] [id number] [place] [address] March, [facility] [place] [facility] [address] [id number] [place] [address] Feb, [facility] [place] [facility] [address] [id number] [place] [address] Feb, [facility] [place] [facility] [address] [id number] [place] [address] Jan, [facility] [place] [facility] [address] [id number] [place] [address] 16 Nov, 2011 [facility] [place] [facility] [address] [id number] [place] [address] Nov, [facility] [address] [id number], [place] [address] 15 Sep, 2011 [facility] [address] [facility] [id number], [place] [address] 15 Sep, 2011 [facility] [address] [facility] [id number], [place] [address] 14 Aug, 2011 [facility] [address] [facility] [id number], [place] [address] 14 Aug, 2011 [facility] [address] [id number], [place] [address] Jul, [facility] [address] [facility] [id number], [place] [address] Jun, [facility] [address] [facility] [id number], [place] [address] Oct, [facility] [address] [facility] [id number], [place] [address] Oct, [facility] [address] [facility] [id number], [place] [address] Sep, [facility] [id number] [address] Aug, [facility] [id number] [address] Aug, [facility] [id number] [address] Jun, IMMUNIZATIONS No Known Immunizations SOCIAL HISTORY Never Assessed REASON FOR VISIT PLAN OF CARE VITAL SIGNS MEDICATIONS Unknown Medications RESULTS No Results PROCEDURES No Known procedures INSTRUCTIONS MEDICATIONS ADMINISTERED No Known Medications MEDICAL (GENERAL) HISTORY Type Description Date Medical History Currently due Aug 02 Surgical History left knee arthroscopy Hospitalization History kidney infection 01/2016
--- OUTSIDE RECORDS SUMMARY | 2019-05-08 23:51 | XMS REPORT | Continuity of Care Document ---
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 aspartate aminotransferase measurement (enzymatic activity/volume) 12 U/L 5-34 Serum or plasma alanine aminotransferase measurement (enzymatic activity/volume) 12 U/L 0-55 Serum or plasma protein [...] gravity of urine by test strip 1.010 1.016-1.022 Urine protein assay by test strip, semi-quantitative [...] sediment leukocyte count by microscopy (number/high power field) NONE NRG Bacteria detection in urine sediment by light microscopy NONE NRG Squamous epithelial cells detection in urine sediment by light microscopy 0-2 NRG Crystals detection in urine sediment by light microscopy NONE NRG Casts detection in urine sediment by light microscopy NONE NRG Mucus detection in urine sediment by light microscopy NEGATIVE NRG Complete urinalysis with reflex to culture NO NRG Complete blood count (CBC) with automated white blood cell (WBC) differential - 07/22/18 14:00 Blood leukocytes automated count (number/volume) 14.3 10*3/uL 4.3-11.0 Blood erythrocytes automated count (number/volume) 4.45 10*6/uL 4.35-5.85 Venous blood hemoglobin measurement (mass/volume) 13.6 g/dL 11.5-16.0 Blood hematocrit (volume fraction) 40 % 35-52 Automated erythrocyte mean corpuscular volume 90 [foz_us] 80-99 Automated erythrocyte mean corpuscular hemoglobin (mass per erythrocyte) 31 pg 25-34 Automated erythrocyte mean corpuscular hemoglobin concentration measurement (mass/volume) 34 g/dL 32-36 Automated erythrocyte distribution width ratio 12.8 % 10.0- 14.5 Automated blood platelet count (count/volume) 239 10*3/uL 130-400 Automated blood platelet mean volume measurement 10.5 [foz_us] 7.4-10.4 Automated blood neutrophils/100 leukocytes 76 % 42-75 Automated blood lymphocytes/100 leukocytes 15 % 12-44 Blood monocytes/100 leukocytes 9 % 0-12 Automated blood eosinophils/100 leukocytes 1 % 0-10 Automated blood basophils/100 leukocytes 0 % 0-10 Blood neutrophils automated count (number/volume) 10.8 10*3 1.8-7.8 Blood lymphocytes automated count (number/volume) 2.1 10*3 1.0-4.0 Blood monocytes automated count (number/volume) 1.3 10*3 0.0- 1.0 Automated eosinophil count 0.1 10*3/uL 0.0-0.3 Automated blood basophil count (count/volume) 0.0 10*3/uL 0.0-0.1 Blood type T Indirect antibody screen panel - 07/22/18 14:00 ABO+Rh group OP NRG Transfusion band number [id number] NRG Blood group antibody screen NEGATIVE NRG Blood manual differential performed detection - 07/22/18 14:00 Blood monocytes/100 leukocytes 7 % NRG Manual blood segmented neutrophils/100 leukocytes 82 % NRG Blood band neutrophils/100 leukocytes 0 % NRG Manual blood lymphocytes/100 leukocytes 11 % NRG Manual eosinophils/100 leukocytes in nose 0 % NRG Manual blood basophils/100 leukocytes 0 % NRG Blood erythrocyte morphology finding identification NORMAL NRG CULTURE, URINE - 08/02/18 16:11 CULTURE, URINE, ROUTINE SEE NOTE NRG Encounters ACCT No. Visit Date/Time Discharge Status Pt. Type Provider Facility Loc./Unit Complaint [id number] 03/05/2015 07:55:00 03/05/2015 23:59:59 CLS Outpatient SERGEY MARTÍNEZROJELIO [id number] 02/18/2015 16:48:00 02/18/2015 23:59:59 CLS Outpatient NIKITA LAMBERT APRN [id number] 09/25/2014 14:28:00 09/25/2014 23:59:59 CLS Outpatient JAZZY JO [id number] 09/25/2014 14:28:00 09/25/2014 23:59:59 CLS Outpatient JAZZY JO [id number] 07/02/2014 11:36:00 07/02/2014 23:59:59 CLS Outpatient PITTMAN ESME YANG [id number] 01/31/2014 10:51:00 01/31/2014 23:59:59 CLS Outpatient NIKITA LAMBERT APRN [id number] 01/31/2014 10:51:00 01/31/2014 23:59:59 CLS Outpatient NIKITA LAMBERT APRN [id number] 01/23/2014 17:21:00 01/23/2014 23:59:59 CLS Outpatient ESME PITTMAN APRN [id number] 11/22/2013 08:42:00 11/22/2013 23:59:59 CLS Outpatient SUMMER CALLEJAS DDS [id number] 11/15/2013 16:38:00 11/15/2013 23:59:59 CLS Outpatient ESME PITTMAN APRN [id number] 06/20/2013 10:22:00 06/20/2013 23:59:59 CLS Outpatient ESME PITTMAN APRN [id number] 01/10/2013 15:44:00 01/10/2013 23:59:59 CLS Outpatient ESME PITTMAN APRN [id number] 11/06/2012 09:28:00 11/06/2012 23:59:59 CLS Outpatient ESME PITTMAN APRN [id number] 09/19/2012 10:35:00 09/19/2012 23:59:59 CLS Outpatient [id number] 04/06/2013 08:04:00 Document Registration [id number] 03/30/2013 08:06:00 Document Registration [id number] 12/20/2018 12:38:00 12/20/2018 13:30:00 DIS Emergency KOURTNEY RANDALL [facility] ER FALL;KNEE INJ [id number] 07/26/2018 07:00:00 07/26/2018 23:59:59 CLS Preadmit JOSUE ANDRE MD INDUCTION [id number] 07/22/2018 13:25:00 07/25/2018 13:20:00 DIS Inpatient JOSUE ANDRE MD [facility] LDRP LABOR [id number] 07/02/2018 17:22:00 07/02/2018 18:27:00 DIS Outpatient JOSUE ANDRE MD [facility] [place] [id number] 05/18/2018 17:28:00 05/18/2018 18:18:00 DIS [facility] [id number] 05/13/2018 13:19:00 05/13/2018 17:45:00 DIS Outpatient JOSUE ANDRE MD [facility] WSo FALL/ MONITORING [id number] 05/13/2018 11:59:00 05/13/2018 13:19:00 DIS Emergency MICAH ALCAZAR MD [facility] ER MIGRANE HEADACHES/FELL THIS AM/ 28 WEEKS PREG [id number] 04/13/2018 17:43:00 04/13/2018 18:30:00 DIS Outpatient JOSUE ANDRE MD [facility] WSo DECREASED MOVEMENT,BACK PAIN [id number] 04/12/2018 23:55:00 04/13/2018 00:45:00 DIS Outpatient JOSUE ANDRE MD [facility] WSo NOT FEELING MOVEMENT OF BABY [id number] 11/21/2017 07:17:00 11/21/2017 23:59:59 CLS Outpatient JAZZY REDMAN BIOLOGY TEACHER [facility] RAD R10.12 LEFT UPPER QUADRANT PAIN [id number] 02/22/2017 06:26:00 02/22/2017 10:09:00 DIS Out[facility] OF URINARY TRACT INFECTIONS [id number] 02/21/2017 08:36:00 02/21/2017 23:59:59 CLS Outpatient ILSA HUMPHREYS MD [facility] RAD H/O UTI'S [id number] 02/17/2017 05:37:00 02/17/2017 15:44:00 DIS Outpatient ILSA HUMPHREYS MD [facility] PREOP HISTORY OF URINARY TRACT INFECTIONS [id number] 08/16/2016 18:32:00 08/16/2016 19:43:00 DIS Emergency ZACKARY APARICIO BIOLOGY TEACHER [facility] ER R ARM INJ [id number] 08/13/2016 16:13:00 08/13/2016 23:59:59 CLS Outpatient CHAYITO BEEBE DO [facility] QUICK [id number] 06/07/2016 02:43:00 06/07/2016 04:16:00 DIS Emergency INGE DHALIWAL, MICAH Ayers [facility] ER FEVER, N/V, SWEATING, HEADACHE [id number] 04/27/2016 10:22:00 04/27/2016 23:59:59 CLS Outpatient NAWAF DHALIWAL, ADRIANA Evans [facility] RAD SUPERIOR GLENOID LABRUM LESION OF RT SHOULDER [id number] 02/04/2016 00:10:00 02/05/2016 17:04:00 DIS Inpatient ABDULAZIZ SAL MD [facility] 4TH ACUTE PYELONEPHRITIS,FEVER,LEUKOCYTOSIS,SEPSIS, [id number] 11/24/2015 15:20:00 11/24/2015 23:59:59 CLS Outpatient ABDULAZIZ SAL MD [facility] RAD DROPPED R SHOULDER, WITH PAIN, DECREASED ROM [id number] 06/30/2015 11:00:00 06/30/2015 23:59:59 CLS Outpatient ABDULAZIZ SAL MD [facility] RAD PAIN IN SHOULDER [id number] 10/06/2014 01:07:00 10/06/2014 02:03:00 DIS Emergency KIANA COATS MD [facility] ER ETOH [id number] 09/16/2014 16:33:00 09/16/2014 17:24:00 DIS Emergency INGE DHALIWAL, MICAH Ayers [facility] ER ARM PAIN [id number] 06/16/2014 13:37:00 06/16/2014 23:59:59 CLS Outpatient ROMAN PERDOMO APRN [facility] QUICK LEFT WRIST PAIN [id number] 12/11/2013 10:18:00 12/11/2013 12:28:00 DIS Emergency RYLEE BHATT DO [facility] ER CHEST PAIN [id number] 11/27/2013 13:44:00 11/27/2013 23:59:59 CLS Outpatient CHAYITO BEEBE DO [facility] QUICK COUGH/FEVER [id number] 05/04/2013 20:52:00 05/04/2013 22:20:00 DIS Emergency CONI CARDONA MD [facility] ER PAIN WHEN URINATING [id number] 04/13/2019 04:07:00 Document Registration [id number] 04/13/2019 04:07:00 Document Registration [id number] 04/13/2019 04:07:00 Document Registration [id number] 04/13/2019 04:07:00 Document Registration [id number] 04/13/2019 04:07:00 Document Registration [id number] 04/13/2019 04:07:00 Document Registration [id number] 04/13/2019 04:07:00 Document Registration [id number] 04/13/2019 04:07:00 Document Registration [id number] 04/13/2019 04:07:00 Document Registration [id number] 04/13/2019 04:07:00 Document Registration [id number] 04/13/2019 04:06:00 Document Registration [id number] 04/13/2019 04:06:00 Document Registration [id number] 04/13/2019 04:06:00 Document Registration [id number] 06/27/2018 20:59:00 Document Registration [id number] 06/21/2018 15:36:00 Document Registration [id number] 06/17/2018 21:27:00 Document Registration [id number] 01/16/2015 14:40:00 Document Registration [id number] 02/09/2013 10:19:00 Document Registration [id number] 01/31/2013 11:04:00 Document Registration [id number] 12/09/2011 16:55:00 Document Registration [id number] 10/08/2011 07:02:00 Document Registration [id number] 02/01/2011 16:53:00 Document Registration [id number] 01/31/2011 22:45:00 Document Registration [id number] 08/30/2010 18:10:00 Document Registration [id number] 06/19/2009 15:33:00 Document Registration [id number] 04/01/2009 15:12:00 Document Registration [id number] 06/08/2007 10:24:00 Document Registration [id number] 04/20/2019 13:00:00 04/20/2019 23:59:59 [facility] Outpatient Simran Sal [facility] [id number] 08/02/2018 14:40:00 Document Registration
[2019-05-09 00:45] LABS: BASOPHILS % (AUTO) 0 % (0-10); EOSINOPHILS # (AUTO) 0.5 10^3/uL (0.0-0.3); EOSINOPHILS % (AUTO) 6 % (0-10); HEMATOCRIT 39 % (35-52); LYMPHOCYTES # (AUTO) 1.8 X 10^3 (1.0-4.0); LYMPHOCYTES % (AUTO) 22 % (12-44); MEAN CORPUSCULAR HEMOGLOBIN 29 PG (25-34); MEAN CORPUSCULAR HGB CONC 33 G/DL (32-36); MEAN CORPUSCULAR VOLUME 88 FL (80-99); MEAN PLATELET VOLUME 11.1 FL (7.4-10.4); MONOCYTES # (AUTO) 0.8 X 10^3 (0.0-1.0); MONOCYTES % (AUTO) 9 % (0-12); NEUTROPHILS # (AUTO) 5.4 X 10^3 (1.8-7.8); NEUTROPHILS % (AUTO) 64 % (42-75); PLATELET COUNT 243 10^3/uL (130-400); RED CELL DISTRIBUTION WIDTH 13.4 % (10.0-14.5); WHITE BLOOD COUNT 8.5 10^3/uL (4.3-11.0)
[2019-05-09 00:58] LABS: ALANINE AMINOTRANSFERASE 19 U/L (0-55); ALBUMIN 4.4 GM/DL (3.2-4.5); ALKALINE PHOSPHATASE 85 U/L (40-136); BILIRUBIN,TOTAL 0.3 MG/DL (0.1-1.0); BUN/CREATININE RATIO 18; CALCIUM 9.1 MG/DL (8.5-10.1); CARBON DIOXIDE 21 MMOL/L (21-32); CHLORIDE 107 MMOL/L (98-107); CREATININE SERUM 0.79 MG/DL (0.60-1.30); GFR ESTIMATED > 60; GLUCOSE 96 MG/DL (70-105); POTASSIUM 3.7 MMOL/L (3.6-5.0); SODIUM 140 MMOL/L (135-145); TOTAL PROTEIN 7.7 GM/DL (6.4-8.2)
[2019-05-09] MEDS ORDERED: FAMOTIDINE 20MG/2ML IV (PEPCID) IVP ONE (01:15)
[2019-05-09] MEDS ORDERED: DOXYCYCLINE 100 MG (VIBRAMYCIN) TABLET PO ONE (01:30)
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
[2019-05-09] MEDS ORDERED: AMOX500C2 PO (01:41)
[2019-05-09] MEDS ORDERED: AMOXICILLIN 500 MG (POLYMOX) CAP PO ONE (01:45)
[2019-05-09 01:55] VITALS: BP 125/78
== END 2019-05-09 01:55 | disposition home or self-care (01) ==
LOC: EDUNIT# 23:34 → ER 23:38
DX: L98.9 Disorder of the skin and subcutaneous tissue, unspecified (principal); G43.909 Migraine, unspecified, not intractable, without status migrainosus; F41.9 Anxiety disorder, unspecified; F90.9 Attention-deficit hyperactivity disorder, unspecified type; F39 Unspecified mood [affective] disorder; Z87.440 Personal history of urinary (tract) infections; Z88.8 Allergy status to other drugs, medicaments and biological substances; W57.XXXA Bitten or stung by nonvenomous insect and other nonvenomous arthropods, initial encounter
CPT/HCPCS: 36415; 80053; 84703; 85025; 86141; 86618; 86666; 86668; 86757; 96374

== ENCOUNTER → 2019-11-22 | Outpatient (CLI) | payer MEDICAID, OTHER ==
[~2019-11-22] MED LIST changes: +AMOX500C2 PO; +RANI-613 PO; -RANI150T46 PO
== END ==
LOC: CARD 11:51
PROVIDERS: ATTEND Nurse Practitioner Family
DX: R55 Syncope and collapse (principal)
CPT/HCPCS: 93306

== ENCOUNTER 2019-11-29 13:57 | Outpatient (RCR) | payer OTHER, MEDICAID | END 2020-02-27 | disposition home or self-care (01) | LOC: CARD 13:57 | PROVIDERS: ATTEND Nurse Practitioner Family | DX: R55 Syncope and collapse (principal) | CPT/HCPCS: 93225; 93226 ==

== ENCOUNTER → 2019-12-20 | Outpatient (CLI) | payer OTHER, MEDICAID ==
--- NOTE | 2019-12-20 09:46 | Diagnostic Imaging Report ---
CLINICAL INDICATION: Patient with dysphagia, palpitations, shortness of air when sleeping and hair falling out. COMPARISONS: None. FINDINGS: THYROID NODULES: None. THYROID GLAND: The thyroid gland has normal size, shape and echogenicity. The right lobe measures 5.3 cm x 1.6 cm x 1.6 cm and the left lobe measures 4.7 cm x 1.2 cm x 1.7 cm in their three dimensions. ISTHMUS: The isthmus is unremarkable and measures 3 mm in thickness. IMPRESSION: Unremarkable thyroid ultrasound exam. Dictated by: Dictated on workstation # [id number]
== END ==
LOC: RAD 08:33
PROVIDERS: ATTEND Nurse Practitioner Family
DX: R13.10 Dysphagia, unspecified (principal); R00.2 Palpitations; M54.2 Cervicalgia; R53.83 Other fatigue
CPT/HCPCS: 36415; 76536; 84439; 84443

== ENCOUNTER → 2020-01-30 | Outpatient (CLI) | payer OTHER, BC, MEDICAID ==
[~2020-01-30] MED LIST changes: +BARIUM for suspension 96% w/w (Vanilla Silq Medium Density) PO ONE; +BARIUM for suspension 98% w/w (Vanilla Silq High Density) PO ONE
--- NOTE | 2020-01-30 11:59 | Diagnostic Imaging Report ---
INDICATION: Preop for gastric sleeve surgery. Patient does have a history of reflux. TECHNIQUE: The patient ingested effervescent crystals as well as thin and thick barium and imaging of the esophagus, stomach, and proximal small bowel was performed. 57 seconds of fluoroscopic time was utilized. FINDINGS: The esophagus has a smooth contour. No mass or stricture is identified. No gastroesophageal reflux or hiatal hernia is demonstrated. Free flow of barium into the stomach is noted. There is prompt emptying into the small bowel. The stomach and visualized small bowel are unremarkable. IMPRESSION: Unremarkable upper GI. Dictated by: Dictated on workstation # [id number]
== END ==
LOC: RAD 09:48
PROVIDERS: ATTEND Surgery
DX: Z01.818 Encounter for other preprocedural examination (principal); K21.9 Gastro-esophageal reflux disease without esophagitis
CPT/HCPCS: 74246

== ENCOUNTER 2020-02-14 07:49 | Emergency (ER) | payer OTHER, BC, MEDICAID ==
[~2020-02-14] VITALS: Ht 160 cm; Wt 120.5 kg
[~2020-02-14 07:49] MED LIST changes: -BARIUM for suspension 96% w/w (Vanilla Silq Medium Density) PO ONE; -BARIUM for suspension 98% w/w (Vanilla Silq High Density) PO ONE
--- OUTSIDE RECORDS SUMMARY | 2020-02-14 07:58 | XMS REPORT ---
Author Author Sarah Downs Doctor Organization [facility] Address Unknown Phone Unavailable Care Team Providers Care Supervisor Marble Name Role Phone Migration, Doctor Unavailable Unavailable PROBLEMS Type Condition ICD9-CM Code [id number] Code Onset Dates Condition S tatus SNOMED Code Problem PCOS (polycystic ovarian syndrome) E28.2 Active 90927554 Problem Seasonal allergic rhinitis due to pollen J30.1 Active 40720731 Problem Sore throat J02.9 Active 68180879 3 Problem Dysmenorrhea N94.6 Active 9085791 00 Problem Bladder leak R32 Active 3417906 02 Problem Generalized anxiety disorder F41.1 A ctive 051280754 Problem PAC (premature atrial contraction) I49.1 Active 465187334 Problem Attention deficit disorder without hyperactivity F 90.0 Active 08731909 Problem Fever R50.9 Active 681173587 Problem Urinary hesitancy R39.11 Active 59 12260 Problem Body mass index (BMI) 40.0-44.9, adult Z68.41 Active 512822020 Problem Morbid (severe) obesity due to excess calories E66 .01 Active [id number] ALLERGIES No Information ENCOUNTERS Encounter Location Date Diagnosis [facility] [id number] [place] [address] 7399 [address] 07 Dec, 2019 [facility] [address] [facility] [id number] [address] [place] [address] Nov, Fever and chills R50.9 and V iral upper respiratory illness J06.9 [facility] [id number] [place] [address] 6614 24001 Nov, Nausea R11.0 [facility] [address] [place] [id number] [place] [address] 6651 24004 Oct, Syncope, unspecified syncope type R55 ; Body mass index (BMI) 40.0-44.9, adult Z68.41 and PAC (premature atrial contraction) I49.1 [facility] [address] [place] [id number] [address] [place] [address] 17 Oct, 2019 Syncope, unspecified syncope type R55 [facility] [place] [id number] [place] [address] 6[address] 2-4001 Sep, Morbid (severe) obesity due to excess calories E66.01 ; Body mass index (BMI) 40.0-44.9, adult Z68.41 and Bladder leak R32 [facility] [address] [address] Aug, [facility] [address] [address] Aug, [facility] [address] [address] Aug, Acute pain of right knee M25 .561 [facility] [address] [address] 11 Aug, 2019 [facility] [place] [id number] [place] [address] Aug, [facility] [place] [address] [address] Aug, Acute pain of right knee M25.561 [facility] [place] [id number] [place] [address] 2[address]4001 Jun, History of PCOS Z87.42 ; Easy bruising R23.8 and Plantar fascia syndrome M72.2 [facility] [place] [id number] [place] [address] 6[address] 2-4001 May, Nexplanon insertion Z30.017 [facility] [place] [id number] [place] [address] 2-4[address] May, Urinary hesitancy R39.11 [facility] [place] [id number] [place] [address] 6[address] 2-4001 Apr, Rash and nonspecific skin eruption R21 [facility] [place] [id number] [place] [address] 6671 2-4001 07 Fan, 2019 [facility] [place] [address] [facility] [id number] [address] Apr, Contraceptive education Z30.09 [facility] [place] [address] [address] March, Rash and nonspecific skin eruption R21 [facility] [address] [address] Jan, Injury of right hand, initia l encounter S69.91XA [facility] [address] [address] Jan, Upper respiratory tract infe ction, unspecified type J06.9 ; Fever R50.9 and Sore throat J02.9 [place] [address] [address] Dec, [place] [address] [address] Nov, Viral gastroenteritis A08.4 [facility] [address] [address] Nov, URI (upper respiratory infec tion) J06.9 and Body aches R52 [facility] N [address] [address] Oct, Flank pain R10.9 and Mild de hydration E86.0 [place] [address] [address] Oct, [facility] [address] [address] Sep, Acute gastroenteritis K52.9 and Acute upper respiratory infection J06.9 [facility] N [address] [address] 08 Aug, 2018 Breast tenderness in female N64.4 [place] [address] [address] 27 Jul, 2018 Encounter for initial prescr iption of contraceptive pills Z30.011 [facility] [address] [facility] [id number] [address] [place] [address] Jul, [facility] [address] [facility] [id number] [address] [place] [address] Jul, Dysuria R30.0 and Acute cyst itis with hematuria N30.01 [facility] [address] [facility] [id number] [address] [place] [address] 06 Jul, 2018 [facility] [address] [id number] [place] [id number] Jun, Seasonal allergic rhinitis due to pollen J30.1 [facility] [address] [facility] [id number] [address] [place] [address] May, [facility] [address] [facility] [id number] [address] [place] [address] May, Skin lesion L98.9 [facility] [address] [facility] [id number] [address] [place] [address] Apr, [facility] [address] [facility] [id number] [address] [place] [address] Apr, [facility] [address] [facility] [id number] [address] [place] [address] March, [facility] [address] [facility] [id number] [address] [place] [address] March, [facility] [address] [facility] [id number] [address] [place] [address] [id number] March, Fractured dental scientologist with loss of material K08.531 [facility] [address] [facility] [id number] [address] [place] [phone] March, Dental examination Z01.20 [facility] [address] [facility] [id number] [address] [place] [address] Jan, Dental examination Z01.20 [facility] [address] [facility] [id number] [id number] Nov, Positive test Z32.01 [facility] [place] [facility] [id number] [id number] Jul, [facility] [place] [place] [facility] [id number] [id number] Jul, test negative Z32.02 [place] [address] [place] [id number] [address] [place] [address] March, [place] [address] [place] [id number] [address] [place] [address] Feb, Dysmenorrhea N94.6 ; Oral co ntraceptive pill surveillance Z30.41 ; Morbid obesity due to excess calories E66.01 ; Generalized anxiety disorder F41.1 and PCOS (polycystic ovarian syndrome) E28.2 [place] [id number] [address] [place] [address] Jan, Morbid obesity due to excess calories E66.01 [place] [address] [place] [id number] [address] [place] [address] Jan, Missed periods N92.6 ; Morbi d obesity due to excess calories E66.01 ; Family history of diabetes mellitus Z83.3 and Family history of PCOS Z84.2 [place] [address] [place] [id number] [address] [place] [address] Dec, Encounter for test Z32.00 [facility] [address] [facility] [id number] [address] [place] [address] [id number] Nov, Dental examination Z01.20 [facility] [address] [place] [id number] [address] [place] [address] Jun, Oral contraceptive pill surv eillance Z30.41 [facility] [address] [place] [id number] [address] [place] [address] Jun, Dysmenorrhea N94.6 and Oral contraceptive pill surveillance Z30.41 [facility] [address] [id number] [address] [place] [address] Jun, [facility] [address] [id number] [address] [place] [address] Jun, [facility] [address] [id number] [address] [place] [address] Jun, [facility] [address] [id number] [address] [place] [address] May, [facility] [address] [id number] [address] [place] [address] March, Oral contraceptive pill surv eillance Z30.41 ; Proteinuria R80.9 and Weight gain R63.5 [facility] [address] [id number] [address] [place] [address] Dec, Oral contraceptive pill surv eillance Z30.41 ; Weight gain R63.5 ; Hair loss L65.9 ; Acne, unspecified L70.9 and Routine screening for STI (sexually transmitted infection) Z11.3 [facility] [address] [id number] [address] [place] [address] Aug, Encounter for immunization Z 23 [facility] [address] [id number] [address] [place] [address] [id number] Jul, Dental examination V72.2 [facility] [address] [id number] [address] [place] [address] May, [facility] [address] [id number] [address] [place] [address] Apr, [facility] [address] [id number] [address] [place] [address] [id number] Apr, Dental examination V72.2 [facility] [address] [id number] [address] [place] [address] Apr, [facility] [address] [id number] [address] [place] [address] Apr, GARDASIL (HPV) DX V04.89 [facility] [address] [id number] [address] [place] [address] [id number] March, Dental examination V72.2 [facility] [address] [id number] [address] [place] [address] March, Generalized anxiety disorder 300.02 [facility] [address] [id number] [address] [place] [address] Feb, [facility] [address] [id number] [address] [place] [address] Feb, [facility] [address] [id number] [address] [place] [address] Jan, [facility] [address] [id number] [address] [place] [address] Jan, [facility] [address] [id number] [address] [place] [address] Dec, [facility] [address] [id number] [address] [place] [address] Dec, [facility] [address] [id number] [address] [place] [address] Oct, [facility] [address] [id number] [address] [place] [address] Oct, [facility] [address] [id number] [address] [place] [address] Sep, [facility] [address] [id number] [address] [place] [address] Sep, [facility] [address] [id number] [address] [place] [address] Aug, [facility] [address] [id number] [address] [place] [address] Aug, [facility] [address] [id number] [address] [place] [address] Jul, [facility] [address] [id number] [facility] [place] [address] Jul, [facility] [address] [id number] [address] [place] [address], [place] [address] Jun, [facility] [address] [id number] [address] [place] [address], [place] [address] Jun, [facility] [address] [id number] [address] [place] [address], [place] [address] Jun, [facility] [address] [id number] [address] [place] [address], [place] [address] Jun, [facility] [address] [id number] [address] [place] [address], [place] [address] May, [facility] [address] [id number] [address] [place] [address], [place] [address] May, [facility] [address] [id number] [address] [place] [address], [place] [address] March, [facility] [address] [id number] [address] [place] [address], [place] [address] March, [facility] [address] [id number] [address] [place] [address], [place] [address] Feb, [facility] [address] [id number] [address] [place] [address], [place] [address] Feb, [facility] [address] [id number] [address] [place] [address], [place] [address] Jan, [facility] [address] [id number] [address] [place] [address], [place] [address] Jan, [facility] [address] [id number] [address] [place] [address], [place] [address] Jan, [facility] [address] [id number] [address] [place] [address], [place] [address] Jan, [facility] [address] [id number] [address] [place] [address], [place] [address] Jan, [facility] [address] [id number] [address] [place] [address], [place] [address] Jan, [facility] [address] [id number] [address] [place] [address], [place] [address] Jan, [facility] [address] [id number] [address] [place] [address], [place] [address] Jan, [facility] [address] [id number] [address] [place] [address], [place] [address] Nov, [facility] [address] [id number] [address] [place] [address], [place] [address] Nov, [facility] [address] [id number] [address] [place] [address], [place] [address] Nov, [facility] [address] [id number] [address] [place] [address], [place] [address] Nov, [facility] [address] [id number] [address] [place] [address], [place] [address] Oct, [facility] [address] [id number] [address] [place] [address], [place] [address] Oct, [facility] [address] [id number] [address] [place] [address], [place] [address] Oct, [facility] [address] [id number] [address] [place] [address], [place] [address] Oct, [facility] [address] [id number] [address] [place] [address], [place] [address] Sep, [facility] [address] [id number] [address] [place] [address], [place] [address] Sep, [facility] [address] [id number] [address] [place] [address], [place] [address] Aug, [facility] [address] [id number] [address] [place] [address], [place] [address] Jul, [facility] [address] [id number] [address] [place] [address], [place] [address] Jun, [facility] [address] [id number] [address] [place] [address], [place] [address] Apr, [facility] [address] [id number] [address] [place] [address], [place] [address] March, [facility] [address] [id number] [address] [place] [address], [place] [address] Feb, [facility] [address] [id number] [address] [place] [address], [place] [address] Dec, [facility] [address] [id number] [address] [place] [address], [place] [address] Nov, [facility] [address] [id number] [address] [place] [address], [place] [address] Oct, [facility] [address] [id number] [address] [place] [address], [place] [address] Oct, [facility] [address] [id number] [address] [place] [address], [place] [address] Sep, [facility] [address] [id number] [address] [place] [address], [place] [address] Sep, [facility] [address] [id number] [address] [place] [address], [place] [address] Sep, [facility] [address] [id number] [address] [place] [address], [place] [address] Sep, [facility] [address] [id number] [address] [place] [address], [place] [address] Sep, [facility] [address] [id number] [address] [place] [address], [place] [address] Jul, [facility] [address] [id number] [address] [place] [address], [place] [address] Jun, [facility] [address] [id number] [address] [place] [address], [place] [address] May, [facility] [address] [id number] [address] [place] [address], [place] [address] Apr, [facility] [address] [id number] [address] [place] [address], [place] [address] Apr, [facility] [address] [id number] [address] [place] [address], [place] [address] March, [facility] [address] [id number] [address] [place] [address], [place] [address] March, [facility] [address] [id number] [address] [place] [address], [place] [address] March, [facility] [address] [id number] [address] [place] [address], [place] [address] Feb, [facility] [address] [id number] [address] [place] [address], [place] [address] Feb, [facility] [address] [id number] [address] [place] [address], [place] [address] Jan, [facility] [address] [id number] [address] [place] [address], [place] [address] Nov, [facility] [address] [id number] [address] [place] [address], [place] [address] Nov, [facility] [address] [id number] [address] [place] [address], [place] [address] 15 Sep, 2011 [facility] [address] [id number] [address] [place] [address], [place] [address] 15 Sep, 2011 [facility] [address] [id number] [address] [place] [address], [place] [address] 14 Aug, 2011 [facility] [address] [id number] [address] [place] [address], [place] [address] 14 Aug, 2011 [facility] [address] [id number] [address] [place] [address], [place] [address] 16 Jul, 2011 [facility] [address] [id number] [address] [place] [address] Jun, [facility] [address] [id number] [address] [place] [address] Oct, [facility] [address] [id number] [address] [place] [address] Oct, [facility] [address] [facility] [id number] [address] [place] [address] Sep, [facility] [address] [facility] [id number] [address] [place] [address] Aug, [facility] [address] [facility] [id number] [address] [place] [address] Aug, [facility] [address] [facility] [id number] [address] [place] [address] Jun, IMMUNIZATIONS No Known Immunizations SOCIAL HISTORY Never Assessed REASON FOR VISIT PLAN OF CARE VITAL SIGNS MEDICATIONS Unknown Medications RESULTS No Results PROCEDURES No Known procedures INSTRUCTIONS MEDICATIONS ADMINISTERED No Known Medications MEDICAL (GENERAL) HISTORY Type Description Date Medical History C/s 07/2018 Medical History Surgical History left knee arthroscopy Surgical History 07/2018 Surgical History cystoscopy 2017 Hospitalization History kidney infection 01/2016 Hospitalization History childbirth
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
--- OUTSIDE RECORDS SUMMARY | 2020-02-14 07:59 | XMS REPORT ---
Author Author Sarah Guerrero Organization [facility] Address [address] [place] [address] Care Team Providers Care Radiology Practitioner Assistant Name Role Phone NIKITA Guerrero Unavailable PROBLEMS Type Condition ICD9-CM Code [id number] Code Onset Dates Condition S tatus SNOMED Code Problem PCOS (polycystic ovarian syndrome) E28.2 Active 99225380 Problem Seasonal allergic rhinitis due to pollen J30.1 Active 51480487 Problem Sore throat J02.9 Active 79945618 3 Problem Dysmenorrhea N94.6 Active 2180128 00 Problem Bladder leak R32 Active 5534261 02 Problem Generalized anxiety disorder F41.1 A ctive 823838486 Problem PAC (premature atrial contraction) I49.1 Active 037971136 Problem Attention deficit disorder without hyperactivity F 90.0 Active 71724730 Problem Fever R50.9 Active 617055487 Problem Urinary hesitancy R39.11 Active 59 61224 Problem Body mass index (BMI) 40.0-44.9, adult Z68.41 Active 454071686 Problem Morbid (severe) obesity due to excess calories E66 .01 Active [id number] ALLERGIES No Information ENCOUNTERS Encounter Location Date Diagnosis [facility] [address] [id number] [place] [address] Jan, [facility] [address] [facility] [address] 07 Dec, 2019 [facility] [address] [facility] [id number] [address] [place] [address] Nov, Fever and chills R50.9 and V iral upper respiratory illness J06.9 [facility] [address] [facility] [address] Nov, Nausea R11.0 [facility] [address] [place] [id number] [place] [address] Oct, Syncope, unspecified syncope type R55 ; Body mass index (BMI) 40.0-44.9, adult Z68.41 and PAC (premature atrial contraction) I49.1 [facility] [address] [facility] [id number] [place] [address] Oct, Syncope, unspecified syncope type R55 [facility] [address] [address] Sep, Morbid (severe) obesity due to excess calories E66.01 ; Body mass index (BMI) 40.0- 44.9, adult Z68.41 and Bladder leak R32 [facility] [address] [address] Aug, [facility] [address] [address] Aug, [facility] [address] [facility] [id number] [address] [place] [address] Aug, Acute pain of right knee M25 .561 [facility] [address] [address] Aug, [facility] [address] [address] Aug, [facility] [address] [address] Aug, Acute pain of right knee M25.561 [facility] [address] [address] Jun, History of PCOS Z87.42 ; Easy bruising R23.8 and Plantar fascia syndrome M72.2 [facility] [address] [address] May, Nexplanon insertion Z30.017 [facility] [address] [address] May, Urinary hesitancy R39.11 [place] [address] [address] Apr, Rash and nonspecific skin eruption R21 [facility] [address] [address] Apr, [facility] [address] [address] Apr, Contraceptive education Z30.09 [facility] [id number] [place] [address] March, Rash and nonspecific skin eruption R21 [facility] [address] [place] [address] Jan, Injury of right hand, initia l encounter S69.91XA [facility] [address] [address] Jan, Upper respiratory tract infe ction, unspecified type J06.9 ; Fever R50.9 and Sore throat J02.[address] [address] Dec, [address] [address] Nov, Viral gastroenteritis A08.[address] [facility] [address] [address] Nov, URI (upper respiratory infec tion) J06.9 and Body aches R52 [facility] [address] [address] Oct, Flank pain R10.9 and Mild de hydration E86.[address] [address] Oct, [facility] [address] [address] Sep, Acute gastroenteritis K52.9 and Acute upper respiratory infection J06.9 [facility] [address] [address] Aug, Breast tenderness in female N64.4 [facility] [id number] [place] [address] Jul, Encounter for initial prescription of co ntraceptive pills Z30.011 [facility] [id number] [place] [address] Jul, [facility] [address] [address] Jul, Dysuria R30.0 and Acute cystitis with he maturia N30.01 [facility] [id number] [place] [address] Jul, [facility] [address] [facility] [id number] Jun, Seasonal allergic rhinitis due to pollen J30.1 [facility] [address] [address] May, [facility] [address] [facility] [id number] [address] [place] [address] May, Skin lesion L98.9 [facility] [address] [address] Apr, [facility] [address] [address] Apr, [facility] [address] [address] March, [facility] [address] [address] March, [facility] [address] [facility] [place] [address] March, Fractured dental sabianism with loss o f material K08.531 [facility] [address] [facility] [place] [id number] March, Dental examination Z01.20 [facility] [address] [address] Jan, Dental examination Z01.20 [facility] [address] [facility] [address] [id number] [place] [id number] Nov, Positive test Z32.01 [facility] [address] [facility] [address] [id number] [id number] Jul, [address] [facility] [id number] Jul, test negative Z32.02 [place] [address] [address] March, [place] [address] [address] Feb, Dysmenorrhea N94.6 ; Oral contraceptive pill surveillance Z30.41 ; Morbid obesity due to excess calories E66.01 ; Generalized anxiety disorder F41.1 and PCOS (polycystic ovarian syndrome) E28.2 [place] [address] [address] Jan, Morbid obesity due to excess calories E6 6.01 [place] [address] [address] Jan, Missed periods N92.6 ; Morbid obesity du e to excess calories E66.01 ; Family history of diabetes mellitus Z83.3 and Family history of PCOS Z84.2 [place] [address] [place] [id number] [place] [address] Dec, Encounter for test Z32.00 [facility] [address] [facility] [place] [id number] Nov, Dental examination Z01.20 [place] [address] [address] Jun, Oral contraceptive pill surveillance Z30 .41 [place] [address] [address] Jun, Dysmenorrhea N94.6 and Oral contraceptiv e pill surveillance Z30.41 [place] [address] [address] Jun, [facility] [address] [address] Jun, [facility] [address] [address] Jun, [facility] [address] [address] May, [facility] [address] [address] March, Oral contraceptive pill surveillance Z30 .41 ; Proteinuria R80.9 and Weight gain R63.5 [place] [address] [address] Dec, Oral contraceptive pill surveillance Z30 .41 ; Weight gain R63.5 ; Hair loss L65.9 ; Acne, unspecified L70.9 and Routine screening for STI (sexually transmitted infection) Z11.3 [place] [address] [address] Aug, Encounter for immunization Z23 [facility] [address] [id number] Jul, Dental examination V72.2 [place] [address] [address] May, [place] [address] [address] Apr, [facility] [address] [id number] Apr, Dental examination V72.2 [facility] [address] [address] Apr, [address] [address] Apr, GARDASIL (HPV) DX V04.89 [facility] [address] [id number] March, Dental examination V72.2 [facility] [address] [facility] [place] [address] March, Generalized anxiety disorder 300.02 [facility] [address] [id number] [place] [address] 14 Feb, 2015 [facility] [address] [id number] [place] [address] Feb, [facility] [id number] [place] [address] Jan, [facility] [address] [id number] [place] [address] Jan, [facility] [id number] [place] [address] Dec, [facility] [address] [id number] [place] [address] Dec, [facility] [id number] [place] [address] Oct, [facility] [address] [id number] [place] [address] Oct, [facility] [id number] [place] [address] Sep, [facility] [address] [id number] [place] [address] Sep, [facility] [id number] [place] [address] Aug, [facility] [address] [id number] [place] [address] Aug, [facility] [address] [id number] [place] [address] Jul, [facility] [id number] [place] [address] Jul, [facility] [id number] [place] [address] Jun, [facility] [address] [id number] [place] [address] Jun, [facility] [address] [facility] [id number] [facility] [place] [address] Jun, [facility] [address] [facility] [id number] [place] [address] Jun, [facility] [address] [id number] [place] [address] May, [facility] [address] [id number] [place] [address] May, [facility] [address] [facility] [id number] [place] [address] March, [facility] [address] [id number] [place] [address] March, [facility] [address] [id number] [place] [address] Feb, [facility] [address] [id number] [place] [address] Feb, [facility] [address] [id number] [place] [address] Jan, [facility] [address] [id number] [place] [address] Jan, [facility] [address] [id number] [place] [address] Jan, [facility] [address] [id number] [place] [address] Jan, [facility] [address] [id number] [place] [address] Jan, [facility] [address] [id number] [place] [address] Jan, [facility] [address] [id number] [place] [address] Jan, [facility] [address] [id number] [place] [address] Jan, [facility] [address] [id number] [place] [address] Nov, [facility] [id number] [place] [address] Nov, [facility] [address] [id number] [place] [address] Nov, [facility] [id number] [place] [address] Nov, [facility] [address] [id number] [place] [address] Oct, [facility] [id number] [place] [address] Oct, [facility] [id number] [place] [address] Oct, [facility] [id number] [place] [address] Oct, [facility] [id number] [place] [address] Sep, [facility] [id number] [place] [address] Sep, [facility] [id number] [place] [address] Aug, [facility] [id number] [place] [address] Jul, [facility] [id number] [place] [address] Jun, [facility] [address] [id number] [place] [address] Apr, [facility] [id number] [place] [address] March, [facility] [address] [id number] [place] [address] Feb, [facility] [id number] [place] [address] Dec, [facility] [address] [id number] [place] [address] Nov, [facility] [address] [id number] [place] [address] Oct, [facility] [address] [id number] [place] [address] Oct, [facility] [address] [id number] [place] [address] Sep, [facility] [address] [id number] [place] [address] Sep, [facility] [address] [id number] [place] [address] Sep, [facility] [address] [id number] [place] [address] Sep, [facility] [address] [id number] [place] [address] Sep, [facility] [address] [id number] [place] [address] Jul, [facility] [address] [id number] [place] [address] Jun, [facility] [address] [id number] [place] [address] May, [facility] [address] [id number] [place] [address] Apr, [facility] [address] [id number] [place] [address] Apr, [facility] [address] [id number] [place] [address] March, [facility] [address] [id number] [place] [address] March, [facility] [address] [id number] [place] [address] March, [facility] [address] [id number] [place] [address] 18 Feb, 2012 [facility] [address] [id number] [place] [address] 12 Feb, 2012 [facility] [address] [id number] [place] [address] Jan, [facility] [address] [id number] [place] [address] 16 Nov, 2011 [facility] [address] [id number] [place] [address] 13 Nov, 2011 [facility] [address] [id number] [place] [address] 15 Sep, 2011 [facility] [id number] [place] [address] 15 Sep, 2011 [facility] [id number] [place] [address] 14 Aug, 2011 [facility] [id number] [place] [address] 14 Aug, 2011 [facility] [address] [id number] [place] [address] 16 Jul, 2011 [facility] [id number] [place] [address] 16 Jun, 2011 [facility] [address] [id number] [place] [address] Oct, [facility] [id number] [place] [address] Oct, [facility] [address] [id number] [place] [address] Sep, [facility] [id number] [place] [address] Aug, [facility] [address] [id number] [place] [address] Aug, [facility] [address] [id number] [place] [address] Jun, IMMUNIZATIONS No Known Immunizations SOCIAL HISTORY Never Assessed REASON FOR VISIT PLAN OF CARE VITAL SIGNS Height 63.5 in 2013-11-21 Weight 190 lbs 2013-11-21 Heart Rate 80 bpm 2013-11-21 Respiratory Rate 16 2013-11-21 Blood pressure systolic 102 mmHg 2013-11-21 Blood pressure diastolic 64 mmHg 2013-11-21 MEDICATIONS Unknown Medications RESULTS No Results PROCEDURES No Known procedures INSTRUCTIONS MEDICATIONS ADMINISTERED No Known Medications MEDICAL (GENERAL) HISTORY Type Description Date Medical History C/s 07/2018 Medical History Surgical History left knee arthroscopy Surgical History 07/2018 Surgical History cystoscopy 2017 Hospitalization History kidney infection 01/2016 Hospitalization History childbirth
--- OUTSIDE RECORDS SUMMARY | 2020-02-14 07:59 | XMS REPORT ---
Author Author Sarah Downs Doctor Organization [facility] Address Unknown Phone Unavailable Care Team Providers Care Communications Technician Name Role Phone Migration, Doctor Unavailable Unavailable PROBLEMS Type Condition ICD9-CM Code [id number] Code Onset Dates Condition S tatus SNOMED Code Problem PCOS (polycystic ovarian syndrome) E28.2 Active 38970424 Problem Seasonal allergic rhinitis due to pollen J30.1 Active 52778221 Problem Sore throat J02.9 Active 41199582 3 Problem Dysmenorrhea N94.6 Active 1566050 00 Problem Bladder leak R32 Active 3352614 02 Problem Generalized anxiety disorder F41.1 A ctive 931787803 Problem PAC (premature atrial contraction) I49.1 Active 804562012 Problem Attention deficit disorder without hyperactivity F 90.0 Active 35724029 Problem Fever R50.9 Active 354169756 Problem Urinary hesitancy R39.11 Active 59 51898 Problem Body mass index (BMI) 40.0-44.9, adult Z68.41 Active 506944153 Problem Morbid (severe) obesity due to excess calories E66 .01 Active [id number] ALLERGIES No Information ENCOUNTERS Encounter Location Date Diagnosis [facility] [id number] [place] [address] [phone] 07 Dec, 2019 [facility] [address] [facility] [id number] [address] [place] [address] Nov, Fever and chills R50.9 and V iral upper respiratory illness J06.9 [facility] [address] [place] [address] [phone] Nov, Nausea R11.0 [facility] [address] [id number] [place] [address] [phone] Oct, Syncope, unspecified syncope type R55 ; Body mass index (BMI) 40.0-44.9, adult Z68.41 and PAC (premature atrial contraction) I49.1 [facility] [address] [place] [id number] [address] [place] [address] 17 Oct, 2019 Syncope, unspecified syncope type R55 [facility] [place] [id number] [place] [address] 6[address] 2-4001 Sep, Morbid (severe) obesity due to excess calories E66.01 ; Body mass index (BMI) 40.0-44.9, adult Z68.41 and Bladder leak R32 [facility] [address] [address] Aug, [facility] [address] [address] Aug, [facility] [address] [address] Aug, Acute pain of right knee M25 .561 [facility] [address] [address] 11 Aug, 2019 [facility] [place] [id number] [place] [address] 6636 2-4001 Aug, [facility] [place] [address] [address] Aug, Acute pain of right knee M25.561 [facility] [place] [id number] [place] [address] 6[address] 2-4001 Jun, History of PCOS Z87.42 ; Easy bruising R23.8 and Plantar fascia syndrome M72.2 [facility] [place] [id number] [place] [address] 6[address] 2-4001 May, Nexplanon insertion Z30.017 [facility] [place] [id number] [place] [address] 6[address] 2-4001 May, Urinary hesitancy R39.11 [facility] [place] [id number] [place] [address] 6671 2-4001 Apr, Rash and nonspecific skin eruption R21 [facility] [place] [id number] [place] [address] 6671 2-4001 07 Fan, 2019 [facility] [place] [address] [facility] [id number] [address] Apr, Contraceptive education Z30.09 [facility] [place] [address] [address] March, Rash and nonspecific skin eruption R21 [facility] [address] [address] Jan, Injury of right hand, initia l encounter S69.91XA [facility] [address] [address] Jan, Upper respiratory tract infe ction, unspecified type J06.9 ; Fever R50.9 and Sore throat J02.9 [place] [address] [address] Dec, [place] [address] [address] Nov, Viral gastroenteritis A08.4 [facility] N [address] [address] Nov, URI (upper respiratory infec tion) J06.9 and Body aches R52 [facility] N [address] [address] Oct, Flank pain R10.9 and Mild de hydration E86.0 [place] [address] [address] Oct, [facility] N [address] [address] Sep, Acute gastroenteritis K52.9 and Acute upper respiratory infection J06.9 [facility] N [address] [address] 08 Aug, 2018 Breast tenderness in female N64.4 [place] [address] [address] 27 Jul, 2018 Encounter for initial prescr iption of contraceptive pills Z30.011 [facility] [address] [facility] [id number] [address] [place] [address] Jul, [facility] [address] [facility] [id number] [address] [place] [address] Jul, Dysuria R30.0 and Acute cyst itis with hematuria N30.01 [facility] [address] [facility] [id number] [address] [place] [address] 06 Jul, 2018 [facility] [address] [id number] [place] [id number] Jun, Seasonal allergic rhinitis due to pollen J30.1 [facility] [address] [facility] [id number] [address] [place] [address] May, [facility] [address] [facility] [id number] [address] [place] [address] May, Skin lesion L98.9 [facility] [address] [facility] [id number] [address] [place] [address] Apr, [facility] [address] [facility] [id number] [address] [place] [address] Apr, [facility] [address] [facility] [id number] [address] [place] [address] March, [facility] [address] [facility] [id number] [address] [place] [address] March, [facility] [address] [facility] [id number] [address] [place] [id number] March, Fractured dental hindu with loss of material K08.531 [facility] [address] [facility] [id number] [address] [place] [id number] March, Dental examination Z01.20 [facility] [address] [facility] [id number] [address] [place] [address] Jan, Dental examination Z01.20 [facility] [address] [facility] [facility] [address] [id number] [id number] Nov, Positive test Z32.01 [facility] Maria Isabel [facility] [id number][place] [id number] Jul, [facility] Maria Isabel [facility] [id number][place] [id number] Jul, test negative Z32.02 [place] [address] [place] [id number] [address] [place] [address] March, [place] [address] [place] [id number] [address] [place] [address] Feb, Dysmenorrhea N94.6 ; Oral co ntraceptive pill surveillance Z30.41 ; Morbid obesity due to excess calories E66.01 ; Generalized anxiety disorder F41.1 and PCOS (polycystic ovarian syndrome) E28.2 [place] [id number] [address] [place] [address] Jan, Morbid obesity due to excess calories E66.01 [place] [address] [place] [id number] [address] [place] [address] Jan, Missed periods N92.6 ; Morbi d obesity due to excess calories E66.01 ; Family history of diabetes mellitus Z83.3 and Family history of PCOS Z84.2 [place] [address] [place] [id number] [address] [place] [address] Dec, Encounter for test Z32.00 [facility] [address] [facility] [id number] [address] [place] [address] [id number] Nov, Dental examination Z01.20 [facility] [address] [place] [id number] [address] [place] [address] Jun, Oral contraceptive pill surv eillance Z30.41 [facility] [address] [place] [place] [id number] [address] [place] [address] Jun, Dysmenorrhea N94.6 and Oral contraceptive pill surveillance Z30.41 [facility] [address] [id number] [address] [place] [address] Jun, [facility] [address] [id number] [address] [place] [address] Jun, [facility] [address] [id number] [address] [place] [address] Jun, [facility] [address] [id number] [address] [place] [address] May, [facility] [address] [id number] [address] [place] [address] March, Oral contraceptive pill surv eillance Z30.41 ; Proteinuria R80.9 and Weight gain R63.5 [facility] [address] [id number] [address] [place] [address] Dec, Oral contraceptive pill surv eillance Z30.41 ; Weight gain R63.5 ; Hair loss L65.9 ; Acne, unspecified L70.9 and Routine screening for STI (sexually transmitted infection) Z11.3 [facility] [address] [id number] [address] [place] [address] Aug, Encounter for immunization Z 23 [facility] [address] [id number] [address] [place] [id number] Jul, Dental examination V72.2 [facility] [address] [id number] [address] [place] [address] May, [facility] [address] [id number] [address] [place] [address] Apr, [facility] [address] [id number] [address] [place] [address] [id number] Apr, Dental examination V72.2 [facility] [address] [id number] [address] [place] [address] Apr, [facility] [address] [id number] [address] [place] [address] Apr, GARDASIL (HPV) DX V04.89 [facility] [address] [id number] [address] [place] [address] [id number] March, Dental examination V72.2 [facility] [address] [id number] [address] [place] [address] March, Generalized anxiety disorder 300.02 [facility] [address] [id number] [address] [place] [address] Feb, [facility] [address] [id number] [address] [place] [address] Feb, [facility] [address] [id number] [address] [place] [address] Jan, [facility] [address] [id number] [address] [place] [address] Jan, [facility] [address] [id number] [address] [place] [address] Dec, [facility] [address] [id number] [address] [place] [address] Dec, [facility] [address] [id number] [address] [place] [address] Oct, [facility] [address] [id number] [address] [place] [address] Oct, [facility] [address] [id number] [address] [place] [address] Sep, [facility] [address] [id number] [address] [place] [address] Sep, [facility] [address] [id number] [address] [place] [address] Aug, [facility] [address] [id number] [address] [place] [address] Aug, [facility] [address] [id number] [address] [place] [address] Jul, [facility] [address] [id number] [facility] [place] [address] Jul, [facility] [address] [id number] [address] [place] [address], [place] [address] Jun, [facility] [address] [id number] [address] [place] [address], [place] [address] Jun, [facility] [address] [id number] [address] [place] [address], [place] [address] Jun, [facility] [address] [id number] [address] [place] [address], [place] [address] Jun, [facility] [address] [id number] [address] [place] [address], [place] [address] May, [facility] [address] [id number] [address] [place] [address], [place] [address] May, [facility] [address] [id number] [address] [place] [address], [place] [address] March, [facility] [address] [id number] [address] [place] [address], [place] [address] March, [facility] [address] [id number] [address] [place] [address], [place] [address] Feb, [facility] [address] [id number] [address] [place] [address], [place] [address] Feb, [facility] [address] [id number] [address] [place] [address], [place] [address] Jan, [facility] [address] [id number] [address] [place] [address], [place] [address] Jan, [facility] [address] [id number] [address] [place] [address], [place] [address] Jan, [facility] [address] [id number] [address] [place] [address], [place] [address] Jan, [facility] [address] [id number] [address] [place] [address], [place] [address] Jan, [facility] [address] [id number] [address] [place] [address], [place] [address] Jan, [facility] [address] [id number] [address] [place] [address], [place] [address] Jan, [facility] [address] [id number] [address] [place] [address], [place] [address] Jan, [facility] [address] [id number] [address] [place] [address], [place] [address] Nov, [facility] [address] [id number] [address] [place] [address], [place] [address] Nov, [facility] [address] [id number] [address] [place] [address], [place] [address] Nov, [facility] [address] [id number] [address] [place] [address], [place] [address] Nov, [facility] [address] [id number] [address] [place] [address], [place] [address] Oct, [facility] [address] [id number] [address] [place] [address], [place] [address] Oct, [facility] [address] [id number] [address] [place] [address], [place] [address] Oct, [facility] [address] [id number] [address] [place] [address], [place] [address] Oct, [facility] [address] [id number] [address] [place] [address], [place] [address] Sep, [facility] [address] [id number] [address] [place] [address], [place] [address] Sep, [facility] [address] [id number] [address] [place] [address], [place] [address] Aug, [facility] [address] [id number] [address] [place] [address], [place] [address] Jul, [facility] [address] [id number] [address] [place] [address], [place] [address] Jun, [facility] [address] [id number] [address] [place] [address], [place] [address] Apr, [facility] [address] [id number] [address] [place] [address], [place] [address] March, [facility] [address] [id number] [address] [place] [address], [place] [address] Feb, [facility] [address] [id number] [address] [place] [address], [place] [address] Dec, [facility] [address] [id number] [address] [place] [address], [place] [address] Nov, [facility] [address] [id number] [address] [place] [address], [place] [address] Oct, [facility] [address] [id number] [address] [place] [address], [place] [address] Oct, [facility] [address] [id number] [address] [place] [address], [place] [address] Sep, [facility] [address] [id number] [address] [place] [address], [place] [address] Sep, [facility] [address] [id number] [address] [place] [address], [place] [address] Sep, [facility] [address] [id number] [address] [place] [address], [place] [address] Sep, [facility] [address] [id number] [address] [place] [address], [place] [address] Sep, [facility] [address] [id number] [address] [place] [address], [place] [address] Jul, [facility] [address] [id number] [address] [place] [address], [place] [address] Jun, [facility] [address] [id number] [address] [place] [address], [place] [address] May, [facility] [address] [id number] [address] [place] [address], [place] [address] Apr, [facility] [address] [id number] [address] [place] [address], [place] [address] Apr, [facility] [address] [id number] [address] [place] [address], [place] [address] March, [facility] [address] [id number] [address] [place] [address], [place] [address] March, [facility] [address] [id number] [address] [place] [address], [place] [address] March, [facility] [address] [id number] [address] [place] [address], [place] [address] Feb, [facility] [address] [id number] [address] [place] [address], [place] [address] Feb, [facility] [address] [id number] [address] [place] [address], [place] [address] Jan, [facility] [address] [id number] [address] [place] [address], [place] [address] Nov, [facility] [address] [id number] [address] [place] [address], [place] [address] Nov, [facility] [address] [id number] [address] [place] [address], [place] [address] 15 Sep, 2011 [facility] [address] [id number] [address] [place] [address], [place] [address] 15 Sep, 2011 [facility] [address] [id number] [address] [place] [address], [place] [address] 14 Aug, 2011 [facility] [address] [id number] [address] [place] [address], [place] [address] 14 Aug, 2011 [facility] [address] [id number] [address] [place] [address], [place] [address] 16 Jul, 2011 [facility] [address] [id number] [address] [place] [address] Jun, [facility] [address] [id number] [address] [place] [address] Oct, [facility] [address] [id number] [address] [place] [address] Oct, [facility] [address] [facility] [id number] [address] [place] [address] Sep, [facility] [address] [id number] [address] [place] [address] Aug, [facility] [address] [facility] [id number] [address] [place] [address] Aug, [facility] [address] [facility] [id number] [address] [place] [id number] Jun, IMMUNIZATIONS No Known Immunizations SOCIAL HISTORY Never Assessed REASON FOR VISIT PLAN OF CARE VITAL SIGNS Height 63.5 in 2013-11-15 Weight 191.38 lbs 2013-11-15 Heart Rate 68 bpm 2013-11-15 Blood pressure systolic 116 mmHg 2013-11-15 Blood pressure diastolic 78 mmHg 2013-11-15 MEDICATIONS Unknown Medications RESULTS No Results PROCEDURES No Known procedures INSTRUCTIONS MEDICATIONS ADMINISTERED No Known Medications MEDICAL (GENERAL) HISTORY Type Description Date Medical History C/s 07/2018 Medical History Surgical History left knee arthroscopy Surgical History 07/2018 Surgical History cystoscopy 2016 Hospitalization History kidney infection 01/2016 Hospitalization History childbirth
--- OUTSIDE RECORDS SUMMARY | 2020-02-14 07:59 | XMS REPORT ---
Author Author Sarah Downs Doctor Organization [facility] Address Unknown Phone Unavailable Care Team Providers Care Blood Bank Custodian Name Role Phone Migration, Doctor Unavailable Unavailable PROBLEMS Type Condition ICD9-CM Code [id number] Code Onset Dates Condition S tatus SNOMED Code Problem PCOS (polycystic ovarian syndrome) E28.2 Active 84773219 Problem Seasonal allergic rhinitis due to pollen J30.1 Active 71040441 Problem Sore throat J02.9 Active 50819435 3 Problem Dysmenorrhea N94.6 Active 0089757 00 Problem Bladder leak R32 Active 4610335 02 Problem Generalized anxiety disorder F41.1 A ctive 151312550 Problem PAC (premature atrial contraction) I49.1 Active 674592885 Problem Attention deficit disorder without hyperactivity F 90.0 Active 36629995 Problem Fever R50.9 Active 626596954 Problem Urinary hesitancy R39.11 Active 59 44522 Problem Body mass index (BMI) 40.0-44.9, adult Z68.41 Active 617540683 Problem Morbid (severe) obesity due to excess calories E66 .01 Active [id number] ALLERGIES No Information ENCOUNTERS Encounter Location Date Diagnosis [address] [address] 07 Dec, 2019 [facility] [address] [place] [address] [id number] [address] [place] [address] Nov, Fever and chills R50.9 and V iral upper respiratory illness J06.9 [facility] [address] [address] Nov, Nausea R11.0 [place] [address] [address] Oct, Syncope, unspecified syncope type R55 ; Body mass index (BMI) 40.0-44.9, adult Z68.41 and PAC (premature atrial contraction) I49.1 [facility] [address] [facility] [id number] [address] [address] Oct, Syncope, unspecified syncope type R55 [facility] [address] [address] Sep, Morbid (severe) obesity due to excess calories E66.01 ; Body mass index (BMI) 40.0- 44.9, adult Z68.41 and Bladder leak R32 [place] [address] [address] Aug, [facility] [place] [address] [address] Aug, [facility] [address] [facility] [id number] [place] [address] Aug, Acute pain of right knee M25 .561 [place] [address] [address] Aug, [facility] [address] [address] Aug, [facility] [address] [address] Aug, Acute pain of right knee M25.561 [place] [address] [address] Jun, History of PCOS Z87.42 ; Easy bruising R23.8 and Plantar fascia syndrome M72.2 [place] [address] [address] May, Nexplanon insertion Z30.017 [facility] [address] [address] May, Urinary hesitancy R39.11 [facility] [address] [address] Apr, Rash and nonspecific skin eruption R21 [facility] [address] [address] Apr, [facility] [address] [place] [address] [place] [address] 06 Apr, 2019 Contraceptive education Z30.09 [facility] [address] [place] [id number] [place] [address] March, Rash and nonspecific skin eruption R21 [facility] [address] [address] Jan, Injury of right hand, initia l encounter S69.91XA [facility] [address] [address] Jan, Upper respiratory tract infe ction, unspecified type J06.9 ; Fever R50.9 and Sore throat J02.[address] [address] Dec, [address] [address] Nov, Viral gastroenteritis A08.4 [facility] [address] [address] Nov, URI (upper respiratory infec tion) J06.9 and Body aches R52 [facility] [address] [address] Oct, Flank pain R10.9 and Mild de hydration E86.[address] [address] Oct, [facility] [address] [address] Sep, Acute gastroenteritis K52.9 and Acute upper respiratory infection J06.9 [facility] [address] [address] 08 Aug, 2018 Breast tenderness in female N64.[address] [address] 27 Jul, 2018 Encounter for initial prescription of co ntraceptive pills Z30.011 [facility] [place] [address] [place] [id number] [place] [address] Jul, [facility] [place] [address] [address] Jul, Dysuria R30.0 and Acute cystitis with he maturia N30.01 [facility] [place] [address] [place] [id number] [place] [address] Jul, [facility] [address] [id number] [place] [id number] Jun, Seasonal allergic rhinitis due to pollen J30.1 [facility] [place] [address] [address] May, [facility] [address] [facility] [id number] [address] [place] [address] May, Skin lesion L98.9 [facility] [place] [address] [address] Apr, [facility] [place] [address] [address] Apr, [facility] [place] [address] [address] March, [facility] [place] [address] [address] March, [facility] [address] [id number] March, Fractured dental religion with loss o f material K08.531 [facility] [address] [id number] March, Dental examination Z01.20 [facility] [place] [address] [address] Jan, Dental examination Z01.20 [facility] [id number] [id number] Nov, Positive test Z32.01 [facility] [id number] [place] [id number] Jul, [facility] [id number] [place] [id number] Jul, test negative Z32.02 [place] [address] [place] [id number] [place] [address] March, [place] [address] [address] Feb, Dysmenorrhea N94.6 ; Oral contraceptive pill surveillance Z30.41 ; Morbid obesity due to excess calories E66.01 ; Generalized anxiety disorder F41.1 and PCOS (polycystic ovarian syndrome) E28.2 [place] [address] [address] Jan, Morbid obesity due to excess calories E6 6.01 [place] [address] [address] Jan, Missed periods N92.6 ; Morbid obesity du e to excess calories E66.01 ; Family history of diabetes mellitus Z83.3 and Family history of PCOS Z84.2 [place] [address] [place] [id number] [place] [address] Dec, Encounter for test Z32.00 [facility] [address] [id number] [place] [id number] Nov, Dental examination Z01.20 [place] [address] [place] [id number] [place] [address] Jun, Oral contraceptive pill surveillance Z30 .41 [place] [address] [address] Jun, Dysmenorrhea N94.6 and Oral contraceptiv e pill surveillance Z30.41 [place] [address] [address] Jun, [place] [address] [address] Jun, [facility] [place] [address] [address] Jun, [facility] [place] [address] [address] May, [place] [address] [address] March, Oral contraceptive pill surveillance Z30 .41 ; Proteinuria R80.9 and Weight gain R63.5 [place] [address] [address] Dec, Oral contraceptive pill surveillance Z30 .41 ; Weight gain R63.5 ; Hair loss L65.9 ; Acne, unspecified L70.9 and Routine screening for STI (sexually transmitted infection) Z11.3 [place] [address] [address] Aug, Encounter for immunization Z23 [facility] [address] [id number] Jul, Dental examination V72.2 [place] [address] [address] May, [address] [address] Apr, [facility] [address] [id number] Apr, Dental examination V72.2 [place] [address] [address] Apr, [place] [address] [address] Apr, GARDASIL (HPV) DX V04.89 [facility] [address] [id number] March, Dental examination V72.2 [place] [address] [address] March, Generalized anxiety disorder 300.02 [place] [address] [address] Feb, [facility] [address] [id number] [place] [address] 13 Feb, 2015 [facility] [address] [id number] [place] [address] Jan, [facility] [address] [id number] [place] [address] Jan, [facility] [address] [id number] [place] [address] Dec, [facility] [address] [id number] [place] [address] Dec, [facility] [address] [id number] [place] [address] Oct, [facility] [address] [id number] [place] [address] Oct, [facility] [address] [id number] [place] [address] Sep, [facility] [address] [id number] [place] [address] Sep, [facility] [address] [id number] [place] [address] Aug, [facility] [address] [id number] [place] [address] Aug, [facility] [address] [id number] [place] [address] Jul, [facility] [address] [id number] [place] [address] Jul, [facility] [address] [id number] [place] [address] Jun, [facility] [address] [id number] [place] [address] Jun, [facility] [address] [id number] [place] [address] Jun, [facility] [address] [id number] [place] [address] Jun, [facility] [address] [facility] [id number] [facility] [address] May, [facility] [address] [id number] [place] [address] May, [facility] [address] [id number] [place] [address] March, [facility] [address] [id number] [place] [address] March, [facility] [address] [id number] [place] [address] Feb, [facility] [address] [id number] [place] [address] Feb, [facility] [address] [id number] [place] [address] Jan, [facility] [address] [id number] [place] [address] Jan, [facility] [address] [id number] [place] [address] Jan, [facility] [address] [id number] [place] [address] Jan, [facility] [address] [id number] [place] [address] Jan, [facility] [address] [id number] [place] [address] Jan, [facility] [address] [id number] [place] [address] Jan, [facility] [address] [id number] [place] [address] Jan, [facility] [address] [id number] [place] [address] Nov, [facility] [address] [id number] [place] [address] Nov, [facility] [address] [id number] [place] [address] Nov, [facility] [address] [place] [id number] [place] [address] Nov, [facility] [address] [id number] [place] [address] Oct, [facility] [address] [place] [id number] [place] [address] Oct, [facility] [address] [id number] [place] [address] Oct, [facility] [address] [place] [id number] [place] [address] Oct, [facility] [address] [place] [id number] [place] [address] Sep, [facility] [address] [place] [address] [id number] [place] [address] Sep, [facility] [address] [place] [address] [id number] [place] [address] Aug, [facility] [address] [place] [address] [id number] [place] [address] Jul, [facility] [address] [place] [address] [id number] [place] [address] Jun, [facility] [address] [place] [address] [id number] [place] [address] Apr, [facility] [address] [place] [id number] [place] [address] March, [facility] [address] [id number] [place] [address] Feb, [facility] [address] [place] [id number] [place] [address] Dec, [facility] [address] [id number] [place] [address] Nov, [facility] [id number] [place] [address] Oct, [facility] [address] [id number] [place] [address] Oct, [facility] [address] [id number] [place] [address] Sep, [facility] [address] [id number] [place] [address] Sep, [facility] [address] [id number] [place] [address] Sep, [facility] [address] [id number] [place] [address] Sep, [facility] [address] [id number] [place] [address] Sep, [facility] [address] [id number] [place] [address] Jul, [facility] [address] [id number] [place] [address] Jun, [facility] [address] [id number] [place] [address] May, [facility] [address] [id number] [place] [address] Apr, [facility] [address] [id number] [place] [address] Apr, [facility] [address] [id number] [place] [address] March, [facility] [address] [id number] [place] [address] March, [facility] [address] [id number] [place] [address] March, [facility] [address] [id number] [place] [address] Feb, [facility] [address] [id number] [place] [address] Feb, [facility] [id number] [place] [address] Jan, [facility] [place] [id number] [place] [address] Nov, [facility] [place] [id number] [place] [address] Nov, [facility] [place] [id number] [place] [address] 15 Sep, 2011 [facility] [place] [id number] [place] [address] 15 Sep, 2011 [facility] [place] [id number] [place] [address] 14 Aug, 2011 [facility] [place] [id number] [place] [address] 14 Aug, 2011 [facility] [place] [id number] [place] [address] 16 Jul, 2011 [facility] [place] [id number] [place] [address] 16 Jun, 2011 [facility] [place] [id number] [place] [address] Oct, [facility] [place] [id number] [place] [address] Oct, [facility] [place] [id number] [place] [address] Sep, [facility] [place] [id number] [place] [address] Aug, [facility] [place] [id number] [place] [address] Aug, [facility] [place] [id number] [place] [address] Jun, IMMUNIZATIONS No Known Immunizations SOCIAL HISTORY Never Assessed REASON FOR VISIT PLAN OF CARE VITAL SIGNS Height 63.5 in 2014-01-23 Weight 191.2 lbs 2014-01-23 Heart Rate 84 bpm 2014-01-23 Blood pressure systolic 104 mmHg 2014-01-23 Blood pressure diastolic 82 mmHg 2014-01-23 MEDICATIONS Unknown Medications RESULTS No Results PROCEDURES No Known procedures INSTRUCTIONS MEDICATIONS ADMINISTERED No Known Medications MEDICAL (GENERAL) HISTORY Type Description Date Medical History C/s 07/2018 Medical History Surgical History left knee arthroscopy Surgical History 07/2018 Surgical History cystoscopy 2016 Hospitalization History kidney infection 01/2016 Hospitalization History childbirth
--- OUTSIDE RECORDS SUMMARY | 2020-02-14 07:59 | XMS REPORT ---
Author Author Sarah Guerrero Organization [facility] Address [address] [place] [address] Care Team Providers Care Telecommunications Facility Examiner Name Role Phone NIKITA Guerrero Unavailable PROBLEMS Type Condition ICD9-CM Code [id number] Code Onset Dates Condition S tatus SNOMED Code Problem PCOS (polycystic ovarian syndrome) E28.2 Active 26634775 Problem Seasonal allergic rhinitis due to pollen J30.1 Active 37832654 Problem Sore throat J02.9 Active 41461491 3 Problem Dysmenorrhea N94.6 Active 6968083 00 Problem Bladder leak R32 Active 3177969 02 Problem Generalized anxiety disorder F41.1 A ctive 619247165 Problem PAC (premature atrial contraction) I49.1 Active 514558074 Problem Attention deficit disorder without hyperactivity F 90.0 Active 07755321 Problem Fever R50.9 Active 518316594 Problem Urinary hesitancy R39.11 Active 59 20305 Problem Body mass index (BMI) 40.0-44.9, adult Z68.41 Active 400815415 Problem Morbid (severe) obesity due to excess calories E66 .01 Active [id number] ALLERGIES No Information ENCOUNTERS Encounter Location Date Diagnosis [facility] [address] [address] 07 Dec, 2019 [facility] [address] [facility] [id number] [address] [address] Nov, Fever and chills R50.9 and V iral upper respiratory illness J06.9 [facility] [id number] [place] [address] Nov, Nausea R11.0 [facility] [id number] [place] [address] Oct, Syncope, unspecified syncope type R55 ; Body mass index (BMI) 40.0-44.9, adult Z68.41 and PAC (premature atrial contraction) I49.1 [facility] [address] [facility] [id number] [place] [address] Oct, Syncope, unspecified syncope type R55 [facility] [address] [address] Sep, Morbid (severe) obesity due to excess calories E66.01 ; Body mass index (BMI) 40.0- 44.9, adult Z68.41 and Bladder leak R32 [facility] [address] [address] Aug, [facility] [address] [address] Aug, [facility] [address] [facility] [id number] [place] [address] Aug, Acute pain of right knee M25 .561 [facility] [address] [address] Aug, [facility] [address] [address] Aug, [facility] [address] [address] Aug, Acute pain of right knee M25.561 [facility] [address] [address] Jun, History of PCOS Z87.42 ; Easy bruising R23.8 and Plantar fascia syndrome M72.2 [facility] [address] [address] May, Nexplanon insertion Z30.017 [facility] [address] [address] May, Urinary hesitancy R39.11 [facility] [address] [address] Apr, Rash and nonspecific skin eruption R21 [facility] [id number] [place] [address] Apr, [facility] [id number] [place] [address] Apr, Contraceptive education Z30.09 [facility] [address] [facility] [place] [address] March, Rash and nonspecific skin eruption R21 [facility] [address] [address] Jan, Injury of right hand, initia l encounter S69.91XA [facility] [place] [address] [address] Jan, Upper respiratory tract infe ction, unspecified type J06.9 ; Fever R50.9 and Sore throat J02.9 [place] [address] [address] Dec, [place] [address] [address] Nov, Viral gastroenteritis A08.4 [facility] [place] [address] [address] Nov, URI (upper respiratory infec tion) J06.9 and Body aches R52 [facility] [place] [address] [address] Oct, Flank pain R10.9 and Mild de hydration E86.0 [place] [address] [address] Oct, [facility] [address] [address] 14 Sep, 2018 Acute gastroenteritis K52.9 and Acute upper respiratory infection J06.9 [facility] [place] [address] [address] 08 Aug, 2018 Breast tenderness in female N64.4 [place] [address] [address] Jul, Encounter for initial prescription of co ntraceptive pills Z30.011 [place] [address] [address] Jul, [facility] [address] [address] Jul, Dysuria R30.0 and Acute cystitis with he maturia N30.01 [facility] [address] [address] Jul, [facility] [address] [facility] [place] [id number] Jun, Seasonal allergic rhinitis due to pollen J30.1 [facility] [address] [address] May, [facility] [address] [facility] [id number] [address] [address] May, Skin lesion L98.9 [facility] [address] [address] Apr, [place] [address] [address] Apr, [facility] [address] [address] March, [place] [address] [address] March, [facility] [address] [id number] March, Fractured dental lutheran with loss o f material K08.531 [facility] [address] [id number] March, Dental examination Z01.20 [facility] [address] [address] Jan, Dental examination Z01.20 [facility] [address] [facility] [address] [id number] [id number] Nov, Positive test Z32.01 [facility] [address] [facility] [facility] [address] [id number] [place] [id number] Jul, [facility] [address] [facility] [address] [id number] [id number] Jul, test negative Z32.02 [place] [address] [address] March, [place] [address] [address] Feb, Dysmenorrhea N94.6 ; Oral contraceptive pill surveillance Z30.41 ; Morbid obesity due to excess calories E66.01 ; Generalized anxiety disorder F41.1 and PCOS (polycystic ovarian syndrome) E28.2 [place] [address] [address] Jan, Morbid obesity due to excess calories E6 6.01 [place] [address] [address] Jan, Missed periods N92.6 ; Morbid obesity du e to excess calories E66.01 ; Family history of diabetes mellitus Z83.3 and Family history of PCOS Z84.2 [place] [address] [address] Dec, Encounter for test Z32.00 [facility] [address] [id number] [place] [id number] Nov, Dental examination Z01.20 [place] [address] [address] Jun, Oral contraceptive pill surveillance Z30 .41 [place] [address] [address] Jun, Dysmenorrhea N94.6 and Oral contraceptiv e pill surveillance Z30.41 [place] [address] [address] Jun, [place] [address] [address] Jun, [facility] [address] [address] Jun, [facility] [address] [address] May, [facility] [address] [address] March, Oral contraceptive pill surveillance Z30 .41 ; Proteinuria R80.9 and Weight gain R63.5 [facility] [address] [address] Dec, Oral contraceptive pill surveillance Z30 .41 ; Weight gain R63.5 ; Hair loss L65.9 ; Acne, unspecified L70.9 and Routine screening for STI (sexually transmitted infection) Z11.3 [place] [address] [address] Aug, Encounter for immunization Z23 [facility] [address] [id number] Jul, Dental examination V72.2 [facility] [address] [address] May, [facility] [address] [address] Apr, [facility] [address] [id number] Apr, Dental examination V72.2 [facility] [address] [address] Apr, [facility] [address] [address] Apr, GARDASIL (HPV) DX V04.89 [facility] [address] [id number] March, Dental examination V72.2 [facility] [address] [address] March, Generalized anxiety disorder 300.02 [facility] [address] [id number] [place] [address] 14 Feb, 2015 [facility] [address] [place] [address] [id number] [place] [address] Feb, [facility] [address] [id number] [place] [address] Jan, [facility] [address] [place] [address] [id number] [place] [address] Jan, [facility] [address] [id number] [place] [address] Dec, [facility] [address] [id number] [place] [address] Dec, [facility] [address] [id number] [place] [address] Oct, [facility] [id number] [place] [address] Oct, [facility] [address] [id number] [place] [address] Sep, [facility] [id number] [place] [address] Sep, [facility] [address] [id number] [place] [address] Aug, [facility] [id number] [place] [address] Aug, [facility] [address] [id number] [place] [address] Jul, [facility] [id number] [place] [address] Jul, [facility] [id number] [place] [address] Jun, [facility] [id number] [place] [address] Jun, [facility] [id number] [facility] [place] [address] Jun, [facility] [address] [facility] [id number] [facility] [place] [address] Jun, [facility] [address] [facility] [id number] [place] [address] May, [facility] [address] [id number] [place] [address] May, [facility] [address] [id number] [place] [address] March, [facility] [address] [facility] [id number] [place] [address] March, [facility] [address] [id number] [place] [address] Feb, [facility] [address] [id number] [place] [address] Feb, [facility] [address] [id number] [place] [address] Jan, [facility] [address] [id number] [place] [address] Jan, [facility] [address] [id number] [place] [address] Jan, [facility] [address] [id number] [place] [address] Jan, [facility] [address] [id number] [place] [address] Jan, [facility] [address] [facility] [id number] [place] [address] Jan, [facility] [address] [id number] [place] [address] Jan, [facility] [address] [id number] [place] [address] Jan, [facility] [address] [id number] [place] [address] Nov, [facility] [address] [id number] [place] [address] Nov, [facility] [id number] [place] [address] Nov, [facility] [address] [id number] [place] [address] Nov, [facility] [id number] [place] [address] Oct, [facility] [address] [id number] [place] [address] Oct, [facility] [id number] [place] [address] Oct, [facility] [id number] [place] [address] Oct, [facility] [id number] [place] [address] Sep, [facility] [id number] [place] [address] Sep, [facility] [id number] [place] [address] Aug, [facility] [id number] [place] [address] Jul, [facility] [id number] [place] [address] Jun, [facility] [id number] [place] [address] Apr, [facility] [address] [id number] [place] [address] March, [facility] [id number] [place] [address] Feb, [facility] [address] [id number] [place] [address] Dec, [facility] [id number] [place] [address] Nov, [facility] [address] [id number] [place] [address] Oct, [facility] [address] [id number] [place] [address] Oct, [facility] [address] [id number] [place] [address] Sep, [facility] [address] [id number] [place] [address] Sep, [facility] [address] [id number] [place] [address] Sep, [facility] [address] [id number] [place] [address] Sep, [facility] [address] [id number] [place] [address] Sep, [facility] [address] [id number] [place] [address] Jul, [facility] [address] [id number] [place] [address] Jun, [facility] [address] [id number] [place] [address] May, [facility] [address] [id number] [place] [address] Apr, [facility] [address] [id number] [place] [address] Apr, [facility] [address] [id number] [place] [address] March, [facility] [address] [id number] [place] [address] March, [facility] [address] [id number] [place] [address] March, [facility] [address] [id number] [place] [address] Feb, [facility] [id number] [place] [address] Feb, [facility] [id number] [place] [address] Jan, [facility] [id number] [place] [address] 16 Nov, 2011 [facility] [id number] [place] [address] Nov, [facility] [address] [place] [id number] [place] [address] 15 Sep, 2011 [facility] [address] [address] 15 Sep, 2011 [facility] [address] [address] 14 Aug, 2011 [facility] [address] [address] 14 Aug, 2011 [facility] [address] [address] 16 Jul, 2011 [facility] [id number] [place] [address] Jun, [facility] [address] [address] Oct, [facility] [id number] [place] [address] Oct, [facility] [address] [id number] [place] [address] Sep, [facility] [address] [address] [id number] [place] [address] Aug, [facility] [address] [address] Aug, [facility] [address] [place] [address] [id number] [place] [address] Jun, IMMUNIZATIONS No Known Immunizations SOCIAL HISTORY [...]
--- OUTSIDE RECORDS SUMMARY | 2020-02-14 07:59 | XMS REPORT ---
Author Author Sarah Guerrero Organization [facility] Address [address] [place] [address] Care Team Providers Care Casino Gaming Inspector Name Role Phone NIKITA Guerrero Unavailable PROBLEMS Type Condition ICD9-CM Code UEA37-MD Code Onset Dates Condition S tatus SNOMED Code Problem PCOS (polycystic ovarian syndrome) E28.2 Active 84522198 Problem Seasonal allergic rhinitis due to pollen J30.1 Active 89595054 Problem Sore throat J02.9 Active 08498310 3 Problem Dysmenorrhea N94.6 Active 0919817 00 Problem Bladder leak R32 Active 6930699 02 Problem Generalized anxiety disorder F41.1 A ctive 886872751 Problem PAC (premature atrial contraction) I49.1 Active 361561763 Problem Attention deficit disorder without hyperactivity F 90.0 Active 29918354 Problem Fever R50.9 Active 849272749 Problem Urinary hesitancy R39.11 Active 59 32513 Problem Body mass index (BMI) 40.0-44.9, adult Z68.41 Active 593337052 Problem Morbid (severe) obesity due to excess calories E66 .01 Active 61515701000113 ALLERGIES No Information ENCOUNTERS Encounter Location Date Diagnosis [facility] [address] [address] 07 Dec, 2019 [facility] [address] [facility] [id number] [place] [address] Nov, Fever and chills R50.9 and V iral upper respiratory illness J06.9 [facility] [id number] [place] [address] Nov, Nausea R11.0 [facility] [id number] [place] [address] Oct, Syncope, unspecified syncope type R55 ; Body mass index (BMI) 40.0-44.9, adult Z68.41 and PAC (premature atrial contraction) I49.1 [facility] [address] [facility] [id number] [place] [address] Oct, Syncope, unspecified syncope type R55 [facility] [address] [address] Sep, Morbid (severe) obesity due to excess calories E66.01 ; Body mass index (BMI) 40.0- 44.9, adult Z68.41 and Bladder leak R32 [facility] [address] [address] Aug, [facility] [address] [address] Aug, [facility] [address] [facility] [id number] [place] [address] Aug, Acute pain of right knee M25 .561 [facility] [address] [address] Aug, [facility] [address] [address] Aug, [facility] [address] [address] Aug, Acute pain of right knee M25.561 [facility] [address] [address] Jun, History of PCOS Z87.42 ; Easy bruising R23.8 and Plantar fascia syndrome M72.2 [facility] [address] [address] May, Nexplanon insertion Z30.017 [facility] [address] [address] May, Urinary hesitancy R39.11 [facility] [address] [address] Apr, Rash and nonspecific skin eruption R21 [facility] [id number] [place] [address] Apr, [facility] [id number] [place] [address] Apr, Contraceptive education Z30.09 [facility] [address] [facility] [place] [address] March, Rash and nonspecific skin eruption R21 [facility] [address] [address] Jan, Injury of right hand, initia l encounter S69.91XA [facility] [place] [address] [address] Jan, Upper respiratory tract infe ction, unspecified type J06.9 ; Fever R50.9 and Sore throat J02.9 [place] [address] [address] Dec, [place] [address] [address] Nov, Viral gastroenteritis A08.4 [facility] [place] [address] [address] Nov, URI (upper respiratory infec tion) J06.9 and Body aches R52 [facility] [place] [address] [address] Oct, Flank pain R10.9 and Mild de hydration E86.0 [place] [address] [address] Oct, [facility] [address] [address] 14 Sep, 2018 Acute gastroenteritis K52.9 and Acute upper respiratory infection J06.9 [facility] [place] [address] [address] 08 Aug, 2018 Breast tenderness in female N64.4 [place] [address] [address] Jul, Encounter for initial prescription of co ntraceptive pills Z30.011 [place] [address] [address] Jul, [facility] [address] [address] Jul, Dysuria R30.0 and Acute cystitis with he maturia N30.01 [facility] [address] [address] Jul, [facility] [address] [id number] [place] [id number] Jun, Seasonal allergic rhinitis due to pollen J30.1 [facility] [address] [address] May, [facility] [address] [facility] [id number] [address] [address] May, Skin lesion L98.9 [facility] [address] [address] Apr, [place] [address] [address] Apr, [facility] [address] [address] March, [place] [address] [address] March, [facility] [address] [id number] March, Fractured dental moravian with loss o f material K08.531 [facility] [address] [id number] March, Dental examination Z01.20 [facility] [address] [address] Jan, Dental examination Z01.20 [facility] [address] [facility] [id number] [place] [id number] Nov, Positive test Z32.01 [facility] [address] [facility] [address] [id number] [place] [id number] Jul, [facility] Jane0 [facility] [address] [id number] [place] [id number] Jul, test negative Z32.02 [place] [address] [address] March, [place] [address] [address] Feb, Dysmenorrhea N94.6 ; Oral contraceptive pill surveillance Z30.41 ; Morbid obesity due to excess calories E66.01 ; Generalized anxiety disorder F41.1 and PCOS (polycystic ovarian syndrome) E28.2 [place] [address] [address] Jan, Morbid obesity due to excess calories E6 6.01 [place] [address] [address] Jan, Missed periods N92.6 ; Morbid obesity du e to excess calories E66.01 ; Family history of diabetes mellitus Z83.3 and Family history of PCOS Z84.2 [place] [address] [address] Dec, Encounter for test Z32.00 [facility] [address] [facility] [place] [id number] Nov, Dental examination Z01.20 [place] [address] [address] Jun, Oral contraceptive pill surveillance Z30 .41 [place] [address] [address] Jun, Dysmenorrhea N94.6 and Oral contraceptiv e pill surveillance Z30.41 [place] [address] [address] Jun, [place] [address] [address] Jun, [facility] [address] [address] Jun, [facility] [address] [address] May, [facility] [address] [address] March, Oral contraceptive pill surveillance Z30 .41 ; Proteinuria R80.9 and Weight gain R63.5 [facility] [address] [address] Dec, Oral contraceptive pill surveillance Z30 .41 ; Weight gain R63.5 ; Hair loss L65.9 ; Acne, unspecified L70.9 and Routine screening for STI (sexually transmitted infection) Z11.3 [place] [address] [address] Aug, Encounter for immunization Z23 [facility] [address] [id number] Jul, Dental examination V72.2 [facility] [address] [address] May, [facility] [address] [address] Apr, [facility] [address] [id number] Apr, Dental examination V72.2 [facility] [address] [address] Apr, [facility] [address] [address] Apr, GARDASIL (HPV) DX V04.89 [facility] [address] [id number] March, Dental examination V72.2 [facility] [address] [address] March, Generalized anxiety disorder 300.02 [facility] [address] [id number] [place] [address] 14 Feb, 2015 [facility] [place] [facility] [address] [place] [address] [id number] [place] [address] Feb, [facility] [address] [id number] [place] [address] Jan, [facility] [address] [id number] [place] [address] Jan, [facility] [address] [id number] [place] [address] Dec, [facility] [id number] [place] [address] Dec, [facility] [address] [id number] [place] [address] Oct, [facility] [id number] [place] [address] Oct, [facility] [address] [id number] [place] [address] Sep, [facility] [id number] [place] [address] Sep, [facility] [address] [id number] [place] [address] Aug, [facility] [id number] [place] [address] Aug, [facility] [address] [id number] [place] [address] Jul, [facility] [id number] [place] [address] Jul, [facility] [id number] [place] [address] Jun, [facility] [id number] [place] [address] Jun, [facility] [address] [id number] [place] [address] Jun, [facility] [address] [facility] [id number] [facility] [address] Jun, [facility] [address] [facility] [id number] [place] [address] May, [facility] [address] [id number] [place] [address] May, [facility] [address] [id number] [place] [address] March, [facility] [address] [facility] [id number] [place] [address] March, [facility] [address] [id number] [place] [address] Feb, [facility] [address] [id number] [place] [address] Feb, [facility] [address] [id number] [place] [address] Jan, [facility] [address] [id number] [place] [address] Jan, [facility] [address] [id number] [place] [address] Jan, [facility] [address] [id number] [place] [address] Jan, [facility] [address] [id number] [place] [address] Jan, [facility] [address] [facility] [id number] [place] [address] Jan, [facility] [address] [id number] [place] [address] Jan, [facility] [address] [id number] [place] [address] Jan, [facility] [address] [id number] [place] [address] Nov, [facility] [address] [id number] [place] [address] Nov, [facility] [id number] [place] [address] Nov, [facility] [address] [id number] [place] [address] Nov, [facility] [id number] [place] [address] Oct, [facility] [address] [id number] [place] [address] Oct, [facility] [id number] [place] [address] Oct, [facility] [id number] [place] [address] Oct, [facility] [id number] [place] [address] Sep, [facility] [id number] [place] [address] Sep, [facility] [id number] [place] [address] Aug, [facility] [id number] [place] [address] Jul, [facility] [id number] [place] [address] Jun, [facility] [id number] [place] [address] Apr, [facility] [address] [id number] [place] [address] March, [facility] [id number] [place] [address] Feb, [facility] [address] [id number] [place] [address] Dec, [facility] [id number] [place] [address] Nov, [facility] [address] [id number] [place] [address] Oct, [facility] [address] [id number] [place] [address] Oct, [facility] [address] [id number] [place] [address] Sep, [facility] [address] [id number] [place] [address] Sep, [facility] [address] [id number] [place] [address] Sep, [facility] [address] [id number] [place] [address] Sep, [facility] [address] [id number] [place] [address] Sep, [facility] [address] [id number] [place] [address] Jul, [facility] [address] [id number] [place] [address] Jun, [facility] [address] [id number] [place] [address] May, [facility] [address] [id number] [place] [address] Apr, [facility] [address] [id number] [place] [address] Apr, [facility] [address] [id number] [place] [address] March, [facility] [address] [id number] [place] [address] March, [facility] [address] [id number] [place] [address] March, [facility] [address] [id number] [place] [address] Feb, [facility] [address] [id number] [place] [address] Feb, [facility] [address] [id number] [place] [address] Jan, [facility] [address] [id number] [place] [address] 16 Nov, 2011 [facility] [id number] [place] [address] Nov, [facility] [id number] [place] [address] 15 Sep, 2011 [facility] [id number] [place] [address] 15 Sep, 2011 [facility] [id number] [place] [address] 14 Aug, 2011 [facility] [id number] [place] [address] 14 Aug, 2011 [facility] [id number] [place] [address] 16 Jul, 2011 [facility] [id number] [place] [address] Jun, [facility] [id number] [place] [address] Oct, [facility] [id number] [place] [address] Oct, [facility] [id number] [place] [address] Sep, [facility] [address] [id number] [place] [address] Aug, [facility] [id number] [place] [address] Aug, [facility] [id number] [place] [address] Jun, IMMUNIZATIONS No Known Immunizations SOCIAL HISTORY Never Assessed REASON FOR VISIT PLAN OF CARE VITAL SIGNS Height 63.5 in 2014-01-31 Weight 190.19 lbs 2014-01-31 Temperature 97.6 degrees Fahrenheit 2014-01-31 Heart Rate 80 bpm 2014-01-31 Respiratory Rate 18 2014-01-31 Blood pressure systolic 102 mmHg 2014-01-31 Blood pressure diastolic 70 mmHg 2014-01-31 MEDICATIONS Unknown Medications RESULTS No Results PROCEDURES Procedure Date Ordered Result Body Site URINE TEST January 31, 2014 INSTRUCTIONS MEDICATIONS ADMINISTERED No Known Medications MEDICAL (GENERAL) HISTORY Type Description Date Medical History C/s 07/2018 Medical History Surgical History left knee arthroscopy Surgical History 07/2018 Surgical History cystoscopy 2016 Hospitalization History kidney infection 01/2016 Hospitalization History childbirth
--- OUTSIDE RECORDS SUMMARY | 2020-02-14 08:00 | XMS REPORT ---
Author Author Sarah Downs Doctor Organization [facility] Address Unknown Phone Unavailable Care Team Providers Care Yard Coordinator Name Role Phone Migration, Doctor Unavailable Unavailable PROBLEMS Type Condition ICD9-CM Code JYC96-CA Code Onset Dates Condition S tatus SNOMED Code Problem PCOS (polycystic ovarian syndrome) E28.2 Active 70575081 Problem Seasonal allergic rhinitis due to pollen J30.1 Active 95809273 Problem Sore throat J02.9 Active 97124269 3 Problem Dysmenorrhea N94.6 Active 1220014 00 Problem Bladder leak R32 Active 6373121 02 Problem Generalized anxiety disorder F41.1 A ctive 015984587 Problem PAC (premature atrial contraction) I49.1 Active 132287014 Problem Attention deficit disorder without hyperactivity F 90.0 Active 13949901 Problem Fever R50.9 Active 938117266 Problem Urinary hesitancy R39.11 Active 59 24387 Problem Body mass index (BMI) 40.0-44.9, adult Z68.41 Active 259168506 Problem Morbid (severe) obesity due to excess calories E66 .01 Active [id number] ALLERGIES No Information ENCOUNTERS Encounter Location Date Diagnosis [address] [address] 07 Dec, 2019 [facility] [address] [place] [address] [id number] [address] [place] [address] Nov, Fever and chills R50.9 and V iral upper respiratory illness J06.9 [facility] [address] [address] 03 Nov, 2019 Nausea R11.0 [place] [address] [address] Oct, Syncope, unspecified syncope type R55 ; Body mass index (BMI) 40.0-44.9, adult Z68.41 and PAC (premature atrial contraction) I49.1 [facility] [address] [facility] [id number] [place] [address] Oct, Syncope, unspecified syncope type R55 [facility] [address] [address] Sep, Morbid (severe) obesity due to excess calories E66.01 ; Body mass index (BMI) 40.0- 44.9, adult Z68.41 and Bladder leak R32 [place] [address] [address] Aug, [facility] [address] [address] Aug, [facility] [address] [facility] [id number] [place] [address] Aug, Acute pain of right knee M25 .561 [place] [address] [address] Aug, [facility] [address] [address] Aug, [facility] [address] [address] Aug, Acute pain of right knee M25.561 [place] [address] [address] Jun, History of PCOS Z87.42 ; Easy bruising R23.8 and Plantar fascia syndrome M72.2 [place] [address] [address] May, Nexplanon insertion Z30.017 [facility] [address] [address] May, Urinary hesitancy R39.11 [facility] [address] [address] Apr, Rash and nonspecific skin eruption R21 [facility] [address] [address] Apr, [facility] [address] [place] [address] [place] [address] 06 Apr, 2019 Contraceptive education Z30.09 [facility] [address] [place] [id number] [place] [address] March, Rash and nonspecific skin eruption R21 [facility] [address] [address] Jan, Injury of right hand, initia l encounter S69.91XA [facility] [address] [address] Jan, Upper respiratory tract infe ction, unspecified type J06.9 ; Fever R50.9 and Sore throat J02.[address] [address] Dec, [address] [address] Nov, Viral gastroenteritis A08.4 [facility] [address] [address] Nov, URI (upper respiratory infec tion) J06.9 and Body aches R52 [facility] [address] [address] Oct, Flank pain R10.9 and Mild de hydration E86.[address] [address] Oct, [facility] [address] [address] Sep, Acute gastroenteritis K52.9 and Acute upper respiratory infection J06.9 [facility] [address] [address] 08 Aug, 2018 Breast tenderness in female N64.[address] [address] 27 Jul, 2018 Encounter for initial prescription of co ntraceptive pills Z30.011 [facility] [address] [place] [id number] [place] [address] Jul, [facility] [address] [address] Jul, Dysuria R30.0 and Acute cystitis with he maturia N30.01 [facility] [address] [place] [id number] [place] [address] Jul, [facility] [address] [id number] [place] [id number] Jun, Seasonal allergic rhinitis due to pollen J30.1 [facility] [address] [address] May, [facility] [address] [facility] [id number] [address] [place] [address] May, Skin lesion L98.9 [facility] [address] [address] Apr, [facility] [address] [address] Apr, [facility] [address] [address] March, [facility] [address] [address] March, [facility] [address] [id number] March, Fractured dental samaritan with loss o f material K08.531 [facility] [address] [id number] March, Dental examination Z01.20 [facility] [address] [address] Jan, Dental examination Z01.20 [facility] [address] [id number] [place] [id number] Nov, Positive test Z32.01 [facility] [address] [id number] [place] [id number] Jul, [facility] [address] [id number] [place] [id number] Jul, test negative Z32.02 [place] [address] [place] [id number] [place] [address] March, [place] [address] [address] Feb, Dysmenorrhea N94.6 ; Oral contraceptive pill surveillance Z30.41 ; Morbid obesity due to excess calories E66.01 ; Generalized anxiety disorder F41.1 and PCOS (polycystic ovarian syndrome) E28.2 [place] [address] [address] Jan, Morbid obesity due to excess calories E6 6.01 [place] [address] [address] Jan, Missed periods N92.6 ; Morbid obesity du e to excess calories E66.01 ; Family history of diabetes mellitus Z83.3 and Family history of PCOS Z84.2 [place] [address] [place] [id number] [place] [address] Dec, Encounter for test Z32.00 [facility] [address] [id number] [place] [id number] Nov, Dental examination Z01.20 [place] [address] [place] [id number] [place] [address] Jun, Oral contraceptive pill surveillance Z30 .41 [place] [address] [address] Jun, Dysmenorrhea N94.6 and Oral contraceptiv e pill surveillance Z30.41 [place] [address] [address] Jun, [place] [address] [address] Jun, [facility] [address] [address] Jun, [facility] [address] [address] May, [place] [address] [address] March, Oral contraceptive pill surveillance Z30 .41 ; Proteinuria R80.9 and Weight gain R63.5 [place] [address] [address] Dec, Oral contraceptive pill surveillance Z30 .41 ; Weight gain R63.5 ; Hair loss L65.9 ; Acne, unspecified L70.9 and Routine screening for STI (sexually transmitted infection) Z11.3 [place] [address] [address] Aug, Encounter for immunization Z23 [facility] [address] [id number] Jul, Dental examination V72.2 [place] [address] [address] May, [address] [address] Apr, [facility] [address] [id number] Apr, Dental examination V72.2 [place] [address] [address] Apr, [place] [address] [address] Apr, GARDASIL (HPV) DX V04.89 [facility] [address] [id number] March, Dental examination V72.2 [place] [address] [address] March, Generalized anxiety disorder 300.02 [place] [address] [address] Feb, [facility] [address] [id number] [place] [address] 13 Feb, 2015 [facility] [address] [id number] [place] [address] Jan, [facility] [address] [id number] [place] [address] Jan, [facility] [address] [id number] [place] [address] Dec, [facility] [address] [id number] [place] [address] Dec, [facility] [address] [id number] [place] [address] Oct, [facility] [address] [id number] [place] [address] Oct, [facility] [address] [id number] [place] [address] Sep, [facility] [address] [id number] [place] [address] Sep, [facility] [address] [id number] [place] [address] Aug, [facility] [address] [id number] [place] [address] Aug, [facility] [address] [id number] [place] [address] Jul, [facility] [address] [id number] [place] [address] Jul, [facility] [address] [id number] [place] [address] Jun, [facility] [address] [id number] [place] [address] Jun, [facility] [address] [id number] [place] [address] Jun, [facility] [address] [id number] [place] [address] Jun, [facility] [address] [facility] [id number] [facility] [place] [address] May, [facility] [address] [id number] [place] [address] May, [facility] [address] [id number] [place] [address] March, [facility] [address] [id number] [place] [address] March, [facility] [address] [id number] [place] [address] Feb, [facility] [address] [id number] [place] [address] Feb, [facility] [address] [id number] [place] [address] Jan, [facility] [address] [id number] [place] [address] Jan, [facility] [address] [id number] [place] [address] Jan, [facility] [address] [id number] [place] [address] Jan, [facility] [address] [id number] [place] [address] Jan, [facility] [address] [id number] [place] [address] Jan, [facility] [address] [id number] [place] [address] Jan, [facility] [address] [id number] [place] [address] Jan, [facility] [address] [id number] [place] [address] Nov, [facility] [address] [id number] [place] [address] Nov, [facility] [address] [id number] [place] [address] Nov, [facility] [address] [place] [id number] [place] [address] Nov, [facility] [address] [id number] [place] [address] Oct, [facility] [address] [place] [id number] [place] [address] Oct, [facility] [address] [id number] [place] [address] Oct, [facility] [address] [place] [id number] [place] [address] Oct, [facility] [address] [place] [id number] [place] [address] Sep, [facility] [address] [place] [id number] [place] [address] Sep, [facility] [address] [place] [id number] [place] [address] Aug, [facility] [address] [place] [id number] [place] [address] Jul, [facility] [address] [place] [id number] [place] [address] Jun, [facility] [address] [place] [id number] [place] [address] Apr, [facility] [address] [place] [id number] [place] [address] March, [facility] [address] [id number] [place] [address] Feb, [facility] [address] [place] [id number] [place] [address] Dec, [facility] [address] [place] [id number] [place] [address] Nov, [facility] [address] [place] [id number] [place] [address] Oct, [facility] [address] [id number] [place] [address] Oct, [facility] [address] [id number] [place] [address] Sep, [facility] [address] [id number] [place] [address] Sep, [facility] [address] [id number] [place] [address] Sep, [facility] [address] [id number] [place] [address] Sep, [facility] [address] [id number] [place] [address] Sep, [facility] [address] [id number] [place] [address] Jul, [facility] [address] [id number] [place] [address] Jun, [facility] [address] [id number] [place] [address] May, [facility] [address] [id number] [place] [address] Apr, [facility] [address] [id number] [place] [address] Apr, [facility] [address] [id number] [place] [address] March, [facility] [address] [id number] [place] [address] March, [facility] [address] [id number] [place] [address] March, [facility] [address] [id number] [place] [address] Feb, [facility] [address] [id number] [place] [address] Feb, [facility] [address] [place] [id number] [place] [address] Jan, [facility] [id number] [place] [address] Nov, [facility] [address] [id number] [place] [address] Nov, [facility] [address] [place] [id number] [place] [address] 15 Sep, 2011 [facility] [address] [place] [id number] [place] [address] 15 Sep, 2011 [facility] [address] [address] 14 Aug, 2011 [facility] [address] [address] 14 Aug, 2011 [facility] [address] [address] 16 Jul, 2011 [facility] [address] [address] Jun, [facility] [id number] [place] [address] Oct, [facility] [address] [address] Oct, [facility] [id number] [place] [address] Sep, [facility] [address] [id number] [place] [address] Aug, [facility] [id number] [place] [address] Aug, [facility] [address] [address] Jun, IMMUNIZATIONS No Known Immunizations SOCIAL HISTORY [...]
--- OUTSIDE RECORDS SUMMARY | 2020-02-14 08:00 | XMS REPORT ---
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 Role Phone Migration, Doctor Unavailable Unavailable PROBLEMS Type Condition ICD9-CM Code CGN19-BD Code Onset Dates Condition S tatus SNOMED Code Problem Dysmenorrhea N94.6 Active 1500945 00 Problem Generalized anxiety disorder F41.1 A ctive 193243553 Problem Attention deficit disorder without hyperactivity F 90.0 Active 98689967 Problem Sore throat J02.9 Active 36669154 3 Problem Urinary hesitancy R39.11 Active 59 38025 Problem Morbid obesity due to excess calories E66.01 Active 322943694 Problem PCOS (polycystic ovarian syndrome) E28.2 Active 63998773 Problem Seasonal allergic rhinitis due to pollen J30.1 Active 82267435 Problem Fever R50.9 Active 553263852 ALLERGIES No Information ENCOUNTERS Encounter Location Date Diagnosis [facility] [address] [place] [address] Jun, History of PCOS Z87.42 ; Easy bruising R23.8 and Plantar fascia syndrome M72.2 [facility] [address] [place] [address] May, Nexplanon insertion Z30.017 [facility] [address] [place] [address] May, Urinary hesitancy R39.11 [facility] [address] [place] [address] Apr, Rash and nonspecific skin eruption R21 [facility] [address] [place] [address] Apr, [facility] [address] [place] [address] Apr, Contraceptive education Z30.09 [facility] [address] [place] [address] March, Rash and nonspecific skin eruption R21 [facility] [address] [facility] [id number] [address] [place] [address] Jan, Injury of right hand, initia l encounter S69.91XA [facility] [address] [address] Jan, Upper respiratory tract infe ction, unspecified type J06.9 ; Fever R50.9 and Sore throat J02.9 [place] [address] [address] Dec, [place] [address] [address] Nov, Viral gastroenteritis A08.4 [facility] [place] [address] [address] Nov, URI (upper respiratory infec tion) J06.9 and Body aches R52 [facility] [place] [address] [address] Oct, Flank pain R10.9 and Mild de hydration E86.0 [place] [address] [address] Oct, [facility] [place] [address] [address] Sep, Acute gastroenteritis K52.9 and Acute upper respiratory infection J06.9 [facility] [place] [address] [address] 08 Aug, 2018 Breast tenderness in female N64.4 [place] [address] [address] Jul, Encounter for initial prescr iption of contraceptive pills Z30.011 [place] [address] [address] Jul, [place] [address] [address] Jul, Dysuria R30.0 and Acute cyst itis with hematuria N30.01 [facility] [address] [id number] [address] [place] [address] Jul, [facility] [address] [id number] Chi ROLDAN S [id number] Jun, Seasonal allergic rhinitis due to pollen J30.1 [facility] [address] [facility] [id number] [address] [place] [address] May, [facility] [address] [id number] [address] [place] [address] May, Skin lesion L98.9 [facility] [address] [facility] [id number] [address] [place] [address] Apr, [facility] [address] [facility] [id number] [address] [place] [address] Apr, [facility] [address] [facility] [id number] [address] [place] [address] March, [facility] [address] [id number] [address] [place] [address] March, [facility] [id number] [place] [id number] March, Fractured dental zoroastrian with loss of material K08.531 [facility] [address] [place] [id number] March, Dental examination Z01.20 [facility] [address] [facility] [id number] [address] [place] [address] Jan, Dental examination Z01.20 [facility] [address] [id number] [id number] Nov, Positive test Z32.01 [facility] [address] [id number] [id number] Jul, [facility] [address] [id number] [id number] Jul, test negative Z32.02 [place] [address] [facility] [id number] [address] [place] [address] March, [place] [address] [address] Feb, Dysmenorrhea N94.6 ; Oral co ntraceptive pill surveillance Z30.41 ; Morbid obesity due to excess calories E66.01 ; Generalized anxiety disorder F41.1 and PCOS (polycystic ovarian syndrome) E28.2 [place] [address] [place] [id number] [address] [place] [address] Jan, Morbid obesity due to excess calories E66.01 [place] [address] [address] Jan, Missed periods N92.6 ; Morbi d obesity due to excess calories E66.01 ; Family history of diabetes mellitus Z83.3 and Family history of PCOS Z84.2 [place] [address] [place] [id number] [address] [place] [address] Dec, Encounter for test Z32.00 [facility] [address] [place] [id number] [place] [id number] Nov, Dental examination Z01.20 [place] [address] [place] [id number] [address] [place] [address] Jun, Oral contraceptive pill surv eillance Z30.41 [place] [address] [place] [address] Jun, Dysmenorrhea N94.6 and Oral contraceptive pill surveillance Z30.41 [place] [address] [place] [address] Jun, [place] [address] [place] [id number] [address] [place] [address] Jun, [place] [address] [place] [address] Jun, [place] [address] [facility] [id number] [address] [place] [address] May, [facility] [address] [facility] [id number] [address] [place] [address] March, Oral contraceptive pill surv eillance Z30.41 ; Proteinuria R80.9 and Weight gain R63.5 [facility] [address] [facility] [id number] [address] [place] [address] Dec, Oral contraceptive pill surv eillance Z30.41 ; Weight gain R63.5 ; Hair loss L65.9 ; Acne, unspecified L70.9 and Routine screening for STI (sexually transmitted infection) Z11.3 [facility] [address] [facility] [id number] [address] [place] [address] Aug, Encounter for immunization Z 23 [facility] [address] [place] [address] [id number] Jul, Dental examination V72.2 [facility] [address] [place] [id number] [address] [place] [address] May, [facility] [address] [place] [id number] [place] [address] Apr, [facility] [address] [place] [address] [id number] Apr, Dental examination V72.2 [facility] [address] [place] [id number] [address] [place] [address] Apr, [facility] [address] [facility] [id number] [address] [place] [address] Apr, GARDASIL (HPV) DX V04.89 [facility] [address] [place] [id number] [place] [id number] March, Dental examination V72.2 [facility] [address] [place] [id number] [address] [place] [address] March, Generalized anxiety disorder 300.02 [facility] [address] [id number] [address] [place] [address], [place] [address] 14 Feb, 2015 [facility] [address] [id number] [address] [place] [address], [place] [address] 13 Feb, 2015 [facility] [address] [id number] [address] [place] [address], [place] [address] Jan, [facility] [address] [id number] [address] [place] [address], [place] [address] Jan, [facility] [address] [id number] [address] [place] [address], [place] [address] Dec, [facility] [address] [id number] [address] [place] [address], [place] [address] Dec, [facility] [address] [id number] [address] [place] [address], [place] [address] Oct, [facility] [address] [id number] [address] [place] [address], [place] [address] Oct, [facility] [address] [id number] [address] [place] [address], [place] [address] Sep, [facility] [address] [id number] [address] [place] [address], [place] [address] Sep, [facility] [address] [id number] [address] [place] [address], [place] [address] Aug, [facility] [address] [id number] [address] [place] [address], [place] [address] Aug, [facility] [address] [id number] [address] [place] [address], [place] [address] Jul, [facility] [address] [id number] [address] [place] [address], [place] [address] Jul, [facility] [address] [id number] [address] [place] [address], [place] [address] Jun, [facility] [address] [id number] [address] [place] [address], [place] [address] Jun, [facility] [address] [id number] [address] [place] [address], [place] [address] Jun, [facility] [address] [id number] [address] [place] [address], [place] [address] Jun, [facility] [address] [id number] [address] [place] [address], [place] [address] May, [facility] [address] [id number] [address] [place] [address], [place] [address] May, [facility] [address] [id number] [address] [place] [address], [place] [address] March, [facility] [address] [id number] [address] [place] [address], [place] [address] March, [facility] [address] [id number] [address] [place] [address], [place] [address] Feb, [facility] [address] [id number] [address] [place] [address], [place] [address] Feb, [facility] [address] [id number] [address] [place] [address], [place] [address] Jan, [facility] [address] [id number] [address] [place] [address], [place] [address] Jan, [facility] [address] [id number] [address] [place] [address], [place] [address] Jan, [facility] [address] [id number] [address] [place] [address], [place] [address] Jan, [facility] [address] [id number] [address] [place] [address], [place] [address] Jan, [facility] [address] [id number] [address] [place] [address], [place] [address] Jan, [facility] [address] [id number] [address] [place] [address], [place] [address] Jan, [facility] [address] [id number] [address] [place] [address] Jan, [facility] [address] [id number] [address] [place] [address], [place] [address] Nov, [facility] [address] [id number] [address] [place] [address], [place] [address] Nov, [facility] [address] [id number] [address] [place] [address], [place] [address] Nov, [facility] [address] [id number] [address] [place] [address], [place] [address] Nov, [facility] [address] [id number] [address] [place] [address], [place] [address] Oct, [facility] [address] [id number] [address] [place] [address], [place] [address] Oct, [facility] [address] [id number] [address] [place] [address], [place] [address] Oct, [facility] [address] [id number] [address] [place] [address], [place] [address] Oct, [facility] [address] [id number] [address] [place] [address] Sep, [facility] [address] [id number] [address] [place] [address], [place] [address] Sep, [facility] [address] [id number] [address] [place] [address] Aug, [facility] [address] [id number] [address] [place] [address] Jul, [facility] [address] [id number] [address] [place] [id number] Jun, [facility] [address] [id number] [address] [place] [address] Apr, [facility] [address] [id number] [address] [place] [address], [place] [address] March, [facility] [address] [id number] [address] [place] [address], [place] [address] Feb, [facility] [address] [id number] [address] [place] [address], [place] [address] Dec, [facility] [address] [id number] [address] [place] [address], [place] [address] Nov, [facility] [address] [id number] [address] [place] [address], [place] [address] Oct, [facility] [address] [id number] [address] [place] [address], [place] [address] Oct, [facility] [address] [id number] [address] [place] [address], [place] [address] Sep, [facility] [address] [id number] [address] [place] [address], [place] [address] Sep, [facility] [address] [id number] [address] [place] [address], [place] [address] Sep, [facility] [address] [id number] [address] [place] [address], [place] [address] Sep, [facility] [address] [id number] [address] [place] [address], [place] [address] Sep, [facility] [address] [id number] [address] [place] [address], [place] [address] Jul, [facility] [address] [id number] [address] [place] [address], [place] [address] Jun, [facility] [address] [id number] [address] [place] [address], [place] [address] May, [facility] [address] [id number] [address] [place] [address], [place] [address] Apr, [facility] [address] [id number] [address] [place] [address], [place] [address] Apr, [facility] [address] [id number] [address] [place] [address], [place] [address] March, [facility] [address] [id number] [address] [place] [address], [place] [address] March, [facility] [address] [id number] [address] [place] [address], [place] [address] March, [facility] [address] [id number] [address] [place] [address], [place] [address] Feb, [facility] [address] [id number] [address] [place] [address], [place] [address] Feb, [facility] [address] [id number] [address] [place] [address], [place] [address] Jan, [facility] [address] [id number] [address] [place] [address], [place] [address] 16 Nov, 2011 [facility] [address] [id number] [address] [place] [address], [place] [address] Nov, [facility] [address] [id number] [address] [place] [address], [place] [address] 15 Sep, 2011 [facility] [address] [id number] [address] [place] [address], [place] [address] 15 Sep, 2011 [facility] [address] [id number] [address] [place] [address], [place] [address] 14 Aug, 2011 [facility] [address] [id number] [address] [place] [address], [place] [address] 14 Aug, 2011 [facility] [address] [id number] [address] [place] [address], [place] [address] 16 Jul, 2011 [facility] [address] [id number] [address] [place] [address], [place] [address] 16 Jun, 2011 [facility] [address] [id number] [address] [place] [address], [place] [address] 29 Oct, 2010 [facility] [address] [id number] [address] [place] [address], [place] [address] Oct, [facility] [address] [id number] [address] [place] [id number] Sep, [facility] [address] [facility] [id number] [address] [place] [id number] Aug, [facility] [address] [facility] [id number] [address] [place] [id number] Aug, [facility] [address] [facility] [id number] [address] [place] [address] Jun, IMMUNIZATIONS No Known Immunizations SOCIAL HISTORY [...]
--- OUTSIDE RECORDS SUMMARY | 2020-02-14 08:00 | XMS REPORT ---
Author Author Sarah Downs Doctor Organization [facility] Address Unknown Phone Unavailable Care Team Providers Care Dialysis Tech Name Role Phone Migration, Doctor Unavailable Unavailable PROBLEMS Type Condition ICD9-CM Code [id number] Code Onset Dates Condition S tatus SNOMED Code Problem Dysmenorrhea N94.6 Active 1305807 00 Problem Generalized anxiety disorder F41.1 A ctive 066188125 Problem Attention deficit disorder without hyperactivity F 90.0 Active 45478448 Problem Sore throat J02.9 Active 60925246 3 Problem Urinary hesitancy R39.11 Active 59 70741 Problem Morbid obesity due to excess calories E66.01 Active 785752246 Problem PCOS (polycystic ovarian syndrome) E28.2 Active 91578751 Problem Seasonal allergic rhinitis due to pollen J30.1 Active 57783266 Problem Fever R50.9 Active 878117354 ALLERGIES No Information ENCOUNTERS Encounter Location Date Diagnosis [facility] [address] [place] [address] Jun, History of PCOS Z87.42 ; Easy bruising R23.8 and Plantar fascia syndrome M72.2 [facility] [address] [place] [address] May, Nexplanon insertion Z30.017 [facility] [address] [place] [address] May, Urinary hesitancy R39.11 [facility] [address] [place] [address] Apr, Rash and nonspecific skin eruption R21 [facility] [address] [place] [address] Apr, [facility] [address] [place] [address] Apr, Contraceptive education Z30.09 [facility] [address] [place] [address] March, Rash and nonspecific skin eruption R21 [facility] [address] [facility] [id number] [address] [place] [address] Jan, Injury of right hand, initia l encounter S69.91XA [facility] [address] [address] Jan, Upper respiratory tract infe ction, unspecified type J06.9 ; Fever R50.9 and Sore throat J02.9 [place] [address] [address] Dec, [place] [address] [address] Nov, Viral gastroenteritis A08.4 [facility] [place] [address] [address] Nov, URI (upper respiratory infec tion) J06.9 and Body aches R52 [facility] [place] [address] [address] Oct, Flank pain R10.9 and Mild de hydration E86.0 [place] [address] [address] Oct, [facility] [place] [address] [address] Sep, Acute gastroenteritis K52.9 and Acute upper respiratory infection J06.9 [facility] [place] [address] [address] 08 Aug, 2018 Breast tenderness in female N64.4 [place] [address] [address] Jul, Encounter for initial prescr iption of contraceptive pills Z30.011 [place] [address] [address] Jul, [place] [address] [address] Jul, Dysuria R30.0 and Acute cyst itis with hematuria N30.01 [facility] [address] [id number] [address] [place] [address] Jul, [facility] [address] [id number] Chi ROLDAN S [id number] Jun, Seasonal allergic rhinitis due to pollen J30.1 [facility] [address] [facility] [id number] [address] [place] [address] May, [facility] [address] [id number] [address] [place] [address] May, Skin lesion L98.9 [facility] [address] [facility] [id number] [address] [place] [address] Apr, [facility] [address] [facility] [id number] [address] [place] [address] Apr, [facility] [address] [facility] [id number] [address] [place] [address] March, [facility] [address] [id number] [address] [place] [address] March, [facility] [address] [place] [id number] March, Fractured dental rastafarian with loss of material K08.531 [facility] [address] [place] [address] [id number] March, Dental examination Z01.20 [facility] [address] [facility] [id number] [address] [place] [address] Jan, Dental examination Z01.20 [facility] [address] [id number] [id number] Nov, Positive test Z32.01 [facility] [address] [id number] [id number] Jul, [facility] [address] [id number] [id number] Jul, test negative Z32.02 [place] [address] [facility] [id number] [address] [place] [address] March, [place] [address] [address] Feb, Dysmenorrhea N94.6 ; Oral co ntraceptive pill surveillance Z30.41 ; Morbid obesity due to excess calories E66.01 ; Generalized anxiety disorder F41.1 and PCOS (polycystic ovarian syndrome) E28.2 [place] [address] [place] [id number] [address] [place] [address] Jan, Morbid obesity due to excess calories E66.01 [place] [address] [address] Jan, Missed periods N92.6 ; Morbi d obesity due to excess calories E66.01 ; Family history of diabetes mellitus Z83.3 and Family history of PCOS Z84.2 [place] [address] [place] [id number] [place] [address] Dec, Encounter for test Z32.00 [facility] [address] [place] [id number] [place] [address] [id number] Nov, Dental examination Z01.20 [place] [address] [place] [id number] [place] [address] Jun, Oral contraceptive pill surv eillance Z30.41 [place] [address] [place] [address] Jun, Dysmenorrhea N94.6 and Oral contraceptive pill surveillance Z30.41 [place] [address] [place] [address] Jun, [place] [address] [place] [id number] [place] [address] Jun, [place] [address] [place] [address] Jun, [place] [address] [facility] [id number] [address] [place] [address] May, [facility] [address] [facility] [id number] [address] [place] [address] March, Oral contraceptive pill surv eillance Z30.41 ; Proteinuria R80.9 and Weight gain R63.5 [facility] [address] [facility] [id number] [address] [place] [address] Dec, Oral contraceptive pill surv eillance Z30.41 ; Weight gain R63.5 ; Hair loss L65.9 ; Acne, unspecified L70.9 and Routine screening for STI (sexually transmitted infection) Z11.3 [facility] [address] [facility] [id number] [address] [place] [address] Aug, Encounter for immunization Z 23 [facility] [address] [place] [address] [id number] Jul, Dental examination V72.2 [facility] [address] [place] [id number] [address] [place] [address] May, [facility] [address] [place] [id number] [place] [address] Apr, [facility] [address] [place] [address] [id number] Apr, Dental examination V72.2 [facility] [address] [place] [id number] [address] [place] [address] Apr, [facility] [address] [facility] [id number] [address] [place] [address] Apr, GARDASIL (HPV) DX V04.89 [facility] [address] [place] [id number] [place] [address] [id number] March, Dental examination V72.2 [facility] [address] [place] [id number] [address] [place] [address] March, Generalized anxiety disorder 300.02 [facility] [address] [id number] [address] [place] [address], [place] [address] 14 Feb, 2015 [facility] [address] [id number] [address] [place] [address], [place] [address] 13 Feb, 2015 [facility] [address] [id number] [address] [place] [address], [place] [address] Jan, [facility] [address] [id number] [address] [place] [address], [place] [address] Jan, [facility] [address] [id number] [address] [place] [address], [place] [address] Dec, [facility] [address] [id number] [address] [place] [address], [place] [address] Dec, [facility] [address] [id number] [address] [place] [address], [place] [address] Oct, [facility] [address] [id number] [address] [place] [address], [place] [address] Oct, [facility] [address] [id number] [address] [place] [address], [place] [address] Sep, [facility] [address] [id number] [address] [place] [address], [place] [address] Sep, [facility] [address] [id number] [address] [place] [address], [place] [address] Aug, [facility] [address] [id number] [address] [place] [address], [place] [address] Aug, [facility] [address] [id number] [address] [place] [address], [place] [address] Jul, [facility] [address] [id number] [address] [place] [address], [place] [address] Jul, [facility] [address] [id number] [address] [place] [address], [place] [address] Jun, [facility] [address] [id number] [address] [place] [address], [place] [address] Jun, [facility] [address] [id number] [address] [place] [address], [place] [address] Jun, [facility] [address] [id number] [address] [place] [address], [place] [address] Jun, [facility] [address] [id number] [address] [place] [address], [place] [address] May, [facility] [address] [id number] [address] [place] [address], [place] [address] May, [facility] [address] [id number] [address] [place] [address], [place] [address] March, [facility] [address] [id number] [address] [place] [address], [place] [address] March, [facility] [address] [id number] [address] [place] [address], [place] [address] Feb, [facility] [address] [id number] [address] [place] [address], [place] [address] Feb, [facility] [address] [id number] [address] [place] [address], [place] [address] Jan, [facility] [address] [id number] [address] [place] [address], [place] [address] Jan, [facility] [address] [id number] [address] [place] [address], [place] [address] Jan, [facility] [address] [id number] [address] [place] [address], [place] [address] Jan, [facility] [address] [id number] [address] [place] [address], [place] [address] Jan, [facility] [address] [id number] [address] [place] [address], [place] [address] Jan, [facility] [address] [id number] [address] [place] [address], [place] [address] Jan, [facility] [address] [id number] [address] [place] [address] Jan, [facility] [address] [id number] [address] [place] [address], [place] [address] Nov, [facility] [address] [id number] [address] [place] [address], [place] [address] Nov, [facility] [address] [id number] [address] [place] [address], [place] [address] Nov, [facility] [address] [id number] [address] [place] [address], [place] [address] Nov, [facility] [address] [id number] [address] [place] [address], [place] [address] Oct, [facility] [address] [id number] [address] [place] [address], [place] [address] Oct, [facility] [address] [id number] [address] [place] [address], [place] [address] Oct, [facility] [address] [id number] [address] [place] [address], [place] [address] Oct, [facility] [address] [id number] [address] [place] [address] Sep, [facility] [address] [id number] [address] [place] [address], [place] [address] Sep, [facility] [address] [id number] [address] [place] [address] Aug, [facility] [address] [id number] [address] [place] [address] Jul, [facility] [address] [id number] [address] [place] [address] Jun, [facility] [address] [id number] [address] [place] [address] Apr, [facility] [address] [id number] [address] [place] [address], [place] [address] March, [facility] [address] [id number] [address] [place] [address], [place] [address] Feb, [facility] [address] [id number] [address] [place] [address], [place] [address] Dec, [facility] [address] [id number] [address] [place] [address], [place] [address] Nov, [facility] [address] [id number] [address] [place] [address], [place] [address] Oct, [facility] [address] [id number] [address] [place] [address], [place] [address] Oct, [facility] [address] [id number] [address] [place] [address], [place] [address] Sep, [facility] [address] [id number] [address] [place] [address], [place] [address] Sep, [facility] [address] [id number] [address] [place] [address], [place] [address] Sep, [facility] [address] [id number] [address] [place] [address], [place] [address] Sep, [facility] [address] [id number] [address] [place] [address], [place] [address] Sep, [facility] [address] [id number] [address] [place] [address], [place] [address] Jul, [facility] [address] [id number] [address] [place] [address], [place] [address] Jun, [facility] [address] [id number] [address] [place] [address], [place] [address] May, [facility] [address] [id number] [address] [place] [address], [place] [address] Apr, [facility] [address] [id number] [address] [place] [address], [place] [address] Apr, [facility] [address] [id number] [address] [place] [address], [place] [address] March, [facility] [address] [id number] [address] [place] [address], [place] [address] March, [facility] [address] [id number] [address] [place] [address], [place] [address] March, [facility] [address] [id number] [address] [place] [address], [place] [address] Feb, [facility] [address] [id number] [address] [place] [address], [place] [address] Feb, [facility] [address] [id number] [address] [place] [address], [place] [address] Jan, [facility] [address] [id number] [address] [place] [address], [place] [address] 16 Nov, 2011 [facility] [address] [id number] [address] [place] [address], [place] [address] Nov, [facility] [address] [id number] [address] [place] [address], [place] [address] 15 Sep, 2011 [facility] [address] [id number] [address] [place] [address], [place] [address] 15 Sep, 2011 [facility] [address] [id number] [address] [place] [address], [place] [address] 14 Aug, 2011 [facility] [address] [id number] [address] [place] [address], [place] [address] 14 Aug, 2011 [facility] [address] [id number] [address] [place] [address], [place] [address] 16 Jul, 2011 [facility] [address] [id number] [address] [place] [address], [place] [address] 16 Jun, 2011 [facility] [address] [id number] [address] [place] [address], [place] [address] 29 Oct, 2010 [facility] [address] [id number] [address] [place] [address], [place] [address] Oct, [facility] [address] [id number] [address] [place] [address] Sep, [facility] [address] [facility] [id number] [address] [place] [address] Aug, [facility] [address] [facility] [id number] [address] [place] [address] Aug, [facility] [address] [facility] [id number] [address] [place] [address] Jun, IMMUNIZATIONS No Known Immunizations SOCIAL HISTORY [...]
--- OUTSIDE RECORDS SUMMARY | 2020-02-14 08:00 | XMS REPORT ---
Author Author Sarah Downs Doctor Organization [facility] Address Unknown Phone Unavailable Care Team Providers Care Quarry Boss Name Role Phone Migration, Doctor Unavailable Unavailable PROBLEMS Type Condition ICD9-CM Code [id number] Code Onset Dates Condition S tatus SNOMED Code Problem PCOS (polycystic ovarian syndrome) E28.2 Active 44697034 Problem Seasonal allergic rhinitis due to pollen J30.1 Active 12704476 Problem Sore throat J02.9 Active 23121926 3 Problem Dysmenorrhea N94.6 Active 1963143 00 Problem Bladder leak R32 Active 5213683 02 Problem Generalized anxiety disorder F41.1 A ctive 032105708 Problem PAC (premature atrial contraction) I49.1 Active 223666935 Problem Attention deficit disorder without hyperactivity F 90.0 Active 12369279 Problem Fever R50.9 Active 641861226 Problem Urinary hesitancy R39.11 Active 59 18205 Problem Body mass index (BMI) 40.0-44.9, adult Z68.41 Active 696185315 Problem Morbid (severe) obesity due to excess calories E66 .01 Active [id number] ALLERGIES No Information ENCOUNTERS Encounter Location Date Diagnosis [facility] [address] [facility] [id number] [address] [place] [address] Nov, Fever and chills R50.9 and V iral upper respiratory illness J06.9 [facility] [address] [facility] [address] Nov, Nausea R11.0 [facility] [address] [id number] [place] [address] Oct, Syncope, unspecified syncope type R55 ; Body mass index (BMI) 40.0-44.9, adult Z68.41 and PAC (premature atrial contraction) I49.1 [facility] [address] [facility] [id number] [address] [place] [address] 17 Dec, 2019 Syncope, unspecified syncope type R55 [facility] [address] [address] Sep, Morbid (severe) obesity due to excess calories E66.01 ; Body mass index (BMI) 40.0- 44.9, adult Z68.41 and Bladder leak R32 [facility] [address] [address] Aug, [facility] [address] [address] Aug, [facility] [address] [facility] [id number] [address] [place] [address] Aug, Acute pain of right knee M25 .561 [facility] [address] [address] Aug, [facility] [address] [address] Aug, [facility] [address] [address] Aug, Acute pain of right knee M25.561 [facility] [address] [address] Jun, History of PCOS Z87.42 ; Easy bruising R23.8 and Plantar fascia syndrome M72.2 [facility] [address] [address] May, Nexplanon insertion Z30.017 [facility] [address] [address] May, Urinary hesitancy R39.11 [facility] [address] [address] Apr, Rash and nonspecific skin eruption R21 [facility] [address] [address] Apr, [facility] [address] [address] Apr, Contraceptive education Z30.09 [facility] [address] [id number] [place] [address] March, Rash and nonspecific skin eruption R21 [facility]ALK [facility] [place] [address] [address] Jan, Injury of right hand, initia l encounter S69.91XA [facility] IN [address] [address] Jan, Upper respiratory tract infe ction, unspecified type J06.9 ; Fever R50.9 and Sore throat J02.9 [place] [address] [address] Dec, [address] [address] Nov, Viral gastroenteritis A08.4 [facility] [address] [address] Nov, URI (upper respiratory infec tion) J06.9 and Body aches R52 [facility] [address] [address] Oct, Flank pain R10.9 and Mild de hydration E86.[address] [address] Oct, [facility] [address] [address] Sep, Acute gastroenteritis K52.9 and Acute upper respiratory infection J06.9 [facility] [address] [address] Aug, Breast tenderness in female N64.[address] [address] Jul, Encounter for initial prescription of co ntraceptive pills Z30.011 [place] [address] [address] Jul, [facility] [address] [place] [id number] [place] [address] Jul, Dysuria R30.0 and Acute cystitis with he maturia N30.01 [facility] [address] [place] [id number] [place] [address] Jul, [facility] [address] [id number] [place] [id number] Jun, Seasonal allergic rhinitis due to pollen J30.1 [facility] [address] [place] [id number] [place] [address] May, [facility] [address] [facility] [id number] [address] [place] [address] May, Skin lesion L98.9 [facility] [address] [address] Apr, [facility] [address] [address] Apr, [facility] [address] [address] March, [facility] [address] [address] March, [facility] [address] [id number] March, Fractured dental shinto with loss o f material K08.531 [facility] [address] [id number] March, Dental examination Z01.20 [facility] [address] [address] Jan, Dental examination Z01.[address] [facility] [address] [id number] [id number] Nov, Positive test Z32.01 [facility] [address] [id number] [id number] Jul, [facility] [address] [id number] [id number] Jul, test negative Z32.02 [place] [address] [address] March, [place] [address] [address] Feb, Dysmenorrhea N94.6 ; Oral contraceptive pill surveillance Z30.41 ; Morbid obesity due to excess calories E66.01 ; Generalized anxiety disorder F41.1 and PCOS (polycystic ovarian syndrome) E28.2 [place] [address] [address] Jan, Morbid obesity due to excess calories E6 6.01 [place] [address] [address] Jan, Missed periods N92.6 ; Morbid obesity du e to excess calories E66.01 ; Family history of diabetes mellitus Z83.3 and Family history of PCOS Z84.2 [place] [address] [address] Dec, Encounter for test Z32.00 [facility] [address] [place] [id number] [place] [id number] Nov, Dental examination Z01.20 [place] [address] [address] Jun, Oral contraceptive pill surveillance Z30 .41 [place] [address] [address] Jun, Dysmenorrhea N94.6 and Oral contraceptiv e pill surveillance Z30.41 [place] [address] [address] Jun, [place] [address] [address] Jun, [place] [address] [address] Jun, [place] [address] [address] May, [facility] [address] [address] March, Oral contraceptive pill surveillance Z30 .41 ; Proteinuria R80.9 and Weight gain R63.5 [facility] [address] [address] Dec, Oral contraceptive pill surveillance Z30 .41 ; Weight gain R63.5 ; Hair loss L65.9 ; Acne, unspecified L70.9 and Routine screening for STI (sexually transmitted infection) Z11.3 [facility] [address] [address] Aug, Encounter for immunization Z23 [facility] [address] [id number] Jul, Dental examination V72.[address] [address] May, [facility] [address] [address] Apr, [facility] [address] [id number] Apr, Dental examination V72.2 [facility] [address] [address] Apr, [facility] [address] [place] [address] Apr, GARDASIL (HPV) DX V04.89 [facility] [address] [id number] March, Dental examination V72.2 [facility] [address] [address] March, Generalized anxiety disorder 300.02 [facility] [address] [address] Feb, [facility] [address] [address] Feb, [facility] [address] [id number] [place] [address] Jan, [facility] [address] [id number] [place] [address] Jan, [facility] [address] [id number] [place] [address] Dec, [facility] [address] [id number] [place] [address] Dec, [facility] [address] [id number] [place] [address] Oct, [facility] [address] [id number] [place] [address] Oct, [facility] [address] [id number] [place] [address] Sep, [facility] [address] [id number] [place] [address] Sep, [facility] [address] [id number] [place] [address] Aug, [facility] [address] [id number] [place] [address] Aug, [facility] [address] [id number] [place] [address] Jul, [facility] [address] [id number] [place] [address] Jul, [facility] [address] [id number] [place] [address] Jun, [facility] [address] [id number] [place] [address] Jun, [facility] [address] [id number] [place] [address] Jun, [facility] [address] [id number] [place] [address] Jun, [facility] [address] [id number] [place] [address] 08 May, 2014 [facility] [address] [facility] [id number] [place] [address] May, [facility] [address] [facility] [id number] [place] [address] March, [facility] [address] [id number] [place] [address] March, [facility] [address] [id number] [place] [address] Feb, [facility] [address] [id number] [place] [address] Feb, [facility] [address] [id number] [place] [address] Jan, [facility] [address] [id number] [place] [address] Jan, [facility] [address] [id number] [place] [address] Jan, [facility] [address] [id number] [place] [address] Jan, [facility] [address] [id number] [place] [address] Jan, [facility] [address] [id number] [place] [address] Jan, [facility] [address] [id number] [place] [address] Jan, [facility] [address] [facility] [id number] [place] [address] Jan, [facility] [address] [id number] [place] [address] Nov, [facility] [address] [id number] [place] [address] Nov, [facility] [address] [id number] [place] [address] Nov, [facility] [address] [id number] [place] [address] Nov, [facility] [address] [id number] [place] [address] Oct, [facility] [address] [id number] [place] [address] Oct, [facility] [address] [place] [id number] [place] [address] Oct, [facility] [address] [id number] [place] [address] Oct, [facility] [address] [place] [id number] [place] [address] Sep, [facility] [address] [place] [id number] [place] [address] Sep, [facility] [address] [place] [id number] [place] [address] Aug, [facility] [address] [place] [id number] [place] [address] Jul, [facility] [address] [place] [id number] [place] [address] Jun, [facility] [address] [place] [id number] [place] [address] Apr, [facility] [address] [place] [id number] [place] [address] March, [facility] [address] [place] [id number] [place] [address] Feb, [facility] [address] [id number] [place] [address] Dec, [facility] [address] [place] [id number] [place] [address] Nov, [facility] [address] [place] [id number] [place] [address] Oct, [facility] [address] [place] [id number] [place] [address] Oct, [facility] [address] [id number] [place] [address] Sep, [facility] [address] [id number] [place] [address] Sep, [facility] [address] [id number] [place] [address] Sep, [facility] [address] [id number] [place] [address] Sep, [facility] [address] [id number] [place] [address] Sep, [facility] [address] [id number] [place] [address] Jul, [facility] [address] [id number] [place] [address] Jun, [facility] [address] [id number] [place] [address] May, [facility] [address] [id number] [place] [address] Apr, [facility] [address] [id number] [place] [address] Apr, [facility] [address] [id number] [place] [address] March, [facility] [address] [id number] [place] [address] March, [facility] [address] [id number] [place] [address] March, [facility] [address] [id number] [place] [address] Feb, [facility] [address] [id number] [place] [address] Feb, [facility] [address] [id number] [place] [address] Jan, [facility] [address] [id number] [place] [address] 16 Nov, 2011 [facility] [address] [id number] [place] [address] 13 Nov, 2011 [facility] [address] [id number] [place] [address] 15 Sep, 2011 [facility] [address] [place] [id number] [place] [address] 15 Sep, 2011 [facility] [address] [place] [id number] [place] [address] 14 Aug, 2011 [facility] [address] [id number] [place] [address] 14 Aug, 2011 [facility] [address] [place] [id number] [place] [address] 16 Jul, 2011 [facility] [address] [place] [id number] [place] [address] 16 Jun, 2011 [facility] [address] [place] [id number] [place] [address] Oct, [facility] [address] [place] [id number] [place] [address] Oct, [facility] [address] [place] [id number] [place] [address] Sep, [facility] [address] [id number] [place] [address] Aug, [facility] [address] [place] [id number] [place] [address] Aug, [facility] [address] [id number] [place] [address] Jun, IMMUNIZATIONS No Known Immunizations SOCIAL HISTORY [...]
--- OUTSIDE RECORDS SUMMARY | 2020-02-14 08:00 | XMS REPORT ---
Author Author Sarah SHEPHERD Organization [facility] Address [address] [place] [address] Care Team Providers Care Cuff Setter Name Role Phone SUSSY SHEPHERD Unavailable PROBLEMS Type Condition ICD9-CM Code [id number] Code Onset Dates Condition S tatus SNOMED Code Problem Dysmenorrhea N94.6 Active 3666462 00 Problem Generalized anxiety disorder F41.1 A ctive 843493109 Problem Attention deficit disorder without hyperactivity F 90.0 Active 68794475 Problem Sore throat J02.9 Active 71099739 3 Problem Urinary hesitancy R39.11 Active 59 00979 Problem Morbid obesity due to excess calories E66.01 Active 860258086 Problem PCOS (polycystic ovarian syndrome) E28.2 Active 38855808 Problem Seasonal allergic rhinitis due to pollen J30.1 Active 59382607 Problem Fever R50.9 Active 264479362 ALLERGIES No Information ENCOUNTERS Encounter Location Date Diagnosis [address] [address] Jun, History of PCOS Z87.42 ; Easy bruising R23.8 and Plantar fascia syndrome M72.2 [facility] [address] [place] [address] May, Nexplanon insertion Z30.017 [facility] [address] [place] [address] May, Urinary hesitancy R39.11 [facility] [address] [place] [address] Apr, Rash and nonspecific skin eruption R21 [facility] [address] [place] [address] Apr, [facility] [address] [place] [address] Apr, Contraceptive education Z30.09 [facility] [address] [place] [address] March, Rash and nonspecific skin eruption R21 [facility] [address] [address] Jan, Injury of right hand, initia l encounter S69.91XA [facility] [place] [address] [place] [id number] [place] [address] Jan, Upper respiratory tract infe ction, unspecified type J06.9 ; Fever R50.9 and Sore throat J02.9 [place] [address] [address] Dec, [place] [address] [address] Nov, Viral gastroenteritis A08.4 [facility] [place] [address] [address] Nov, URI (upper respiratory infec tion) J06.9 and Body aches R52 [facility] [address] [address] Oct, Flank pain R10.9 and Mild de hydration E86.0 [place] [address] [address] Oct, [facility] [place] [address] [address] Sep, Acute gastroenteritis K52.9 and Acute upper respiratory infection J06.9 [facility] [place] [address] [address] Aug, Breast tenderness in female N64.4 [place] [address] [address] Jul, Encounter for initial prescr iption of contraceptive pills Z30.011 [place] [address] [address] Jul, [place] [address] [place] [address] Jul, Dysuria R30.0 and Acute cyst itis with hematuria N30.01 [facility] [address] [facility] [id number] [address] [place] [address] Jul, [facility] [address] [id number] Chi ROLDAN S [id number] Jun, Seasonal allergic rhinitis due to pollen J30.1 [facility] [address] [facility] [id number] [address] [place] [address] May, [facility] [address] [facility] [id number] [address] [place] [address] May, Skin lesion L98.9 [facility] [address] [facility] [id number] [address] [place] [address] Apr, [facility] [address] [facility] [id number] [address] [place] [address] Apr, [facility] [address] [place] [id number] [address] [place] [address] March, [facility] [address] [place] [id number] [address] [place] [address] March, [facility] [address] [place] [id number] March, Fractured dental protestant with loss of material K08.531 [facility] [address] [place] [id number] March, Dental examination Z01.20 [facility] [address] [facility] [id number] [address] [place] [address] Jan, Dental examination Z01.20 [facility] [address] [id number] [id number] Nov, Positive test Z32.01 [facility] [address] [id number] [place] [id number] Jul, [facility] [address] [id number] [id number] Jul, test negative Z32.02 [facility] [address] [facility] [id number] [address] [place] [address] March, [facility] [address] [facility] [id number] [address] [place] [address] Feb, Dysmenorrhea N94.6 ; Oral co ntraceptive pill surveillance Z30.41 ; Morbid obesity due to excess calories E66.01 ; Generalized anxiety disorder F41.1 and PCOS (polycystic ovarian syndrome) E28.2 [place] [address] [facility] [id number] [address] [place] [address] Jan, Morbid obesity due to excess calories E66.01 [place] [address] [facility] [id number] [address] [place] [address] Jan, Missed periods N92.6 ; Morbi d obesity due to excess calories E66.01 ; Family history of diabetes mellitus Z83.3 and Family history of PCOS Z84.2 [place] [address] [facility] [id number] [address] [place] [address] Dec, Encounter for test Z32.00 [facility] [address] [facility] [id number] [address] [place] [id number] Nov, Dental examination Z01.20 [place] [address] [address] [facility] [id number] [address] [place] [address] Jun, Oral contraceptive pill surv eillance Z30.41 [facility] [address] [facility] [id number] [address] [place] [address] Jun, Dysmenorrhea N94.6 and Oral contraceptive pill surveillance Z30.41 [facility] [address] [facility] [id number] [address] [place] [address] Jun, [facility] [address] [facility] [id number] [address] [place] [address] Jun, [facility] [address] [place] [id number] [address] [place] [address] Jun, [facility] [address] [place] [id number] [place] [address] May, [facility] [address] [place] [id number] [place] [address] March, Oral contraceptive pill surv eillance Z30.41 ; Proteinuria R80.9 and Weight gain R63.5 [place] [address] [address] [place] [id number] [address] [place] [address] Dec, Oral contraceptive pill surv eillance Z30.41 ; Weight gain R63.5 ; Hair loss L65.9 ; Acne, unspecified L70.9 and Routine screening for STI (sexually transmitted infection) Z11.3 [place] [address] [address] Aug, Encounter for immunization Z 23 [facility] [address] [place] [id number] [place] [id number] Jul, Dental examination V72.2 [place] [address] [address] May, [place] [address] [address] Apr, [facility] [address] [place] [id number] [place] [id number] Apr, Dental examination V72.2 [facility] [address] [place] [id number] [address] [place] [address] Apr, [facility] [address] [place] [id number] [address] [place] [address] Apr, GARDASIL (HPV) DX V04.89 [facility] [address] [place] [id number] [address] [place] [id number] March, Dental examination V72.2 [place] [address] [address] March, Generalized anxiety disorder 300.02 [facility] [address] [id number] [address] [place] [address] 14 Feb, 2015 [facility] [address] [id number] [address] [place] [address] Feb, [facility] [address] [id number] [address] [place] [address] Jan, [facility] [address] [id number] [address] [place] [address] Jan, [facility] [address] [id number] [address] [place] [address] Dec, [facility] [address] [id number] [address] [place] [address] Dec, [facility] [address] [id number] [address] [place] [address] Oct, [facility] [address] [id number] [address] [place] [address] Oct, [facility] [address] [id number] [address] [place] [address] Sep, [facility] [address] [id number] [address] [place] [address] Sep, [facility] [address] [id number] [address] [place] [address] Aug, [facility] [address] [id number] [address] [place] [address] Aug, [facility] [address] [id number] [address] [place] [address] Jul, [facility] [address] [id number] [address] [place] [address] Jul, [facility] [address] [id number] [address] [place] [address] Jun, [facility] [address] [id number] [facility] [place] [address] Jun, [facility] [address] [id number] [facility] [place] [address] Jun, [facility] [address] [id number] [address] [place] [address], [place] [address] Jun, [facility] [address] [id number] [address] [place] [address], [place] [address] May, [facility] [address] [id number] [address] [place] [address], [place] [address] May, [facility] [address] [id number] [address] [place] [address], [place] [address] March, [facility] [address] [id number] [address] [place] [address], [place] [address] March, [facility] [address] [id number] [address] [place] [address], [place] [address] Feb, [facility] [address] [id number] [address] [place] [address], [place] [address] Feb, [facility] [address] [id number] [address] [place] [address], [place] [address] Jan, [facility] [address] [id number] [address] [place] [address], [place] [address] Jan, [facility] [address] [id number] [address] [place] [address], [place] [address] Jan, [facility] [address] [id number] [address] [place] [address], [place] [address] Jan, [facility] [address] [id number] [address] [place] [address], [place] [address] Jan, [facility] [address] [id number] [address] [place] [address], [place] [address] Jan, [facility] [address] [id number] [address] [place] [address] [address] Jan, [facility] [address] [id number] [address] [place] [address], [place] [address] Jan, [facility] [address] [id number] [address] [place] [address], [place] [address] Nov, [facility] [address] [id number] [address] [place] [address], [place] [address] Nov, [facility] [address] [id number] [address] [place] [address], [place] [address] Nov, [facility] [address] [id number] [address] [place] [address], [place] [address] Nov, [facility] [address] [id number] [address] [place] [address], [place] [address] Oct, [facility] [address] [id number] [address] [place] [address], [place] [address] Oct, [facility] [address] [id number] [address] [place] [address], [place] [address] Oct, [facility] [address] [id number] [address] [place] [address], [place] [address] Oct, [facility] [address] [id number] [address] [place] [address], [place] [address] Sep, [facility] [address] [id number] [address] [place] [address] Sep, [facility] [address] [id number] [address] [place] [address] Aug, [facility] [address] [id number] [address] [place] [address], [place] [address] Jul, [facility] [address] [id number] [address] [place] [address] Jun, [facility] [address] [id number] [address] [place] [address] Apr, [facility] [address] [id number] [address] [place] [address], [place] [address] March, [facility] [address] [id number] [address] [place] [address], [place] [address] Feb, [facility] [address] [id number] [address] [place] [address], [place] [address] Dec, [facility] [address] [id number] [address] [place] [address], [place] [address] Nov, [facility] [address] [id number] [address] [place] [address], [place] [address] Oct, [facility] [address] [id number] [address] [place] [address], [place] [address] Oct, [facility] [address] [id number] [address] [place] [address], [place] [address] Sep, [facility] [address] [id number] [address] [place] [address], [place] [address] Sep, [facility] [address] [id number] [address] [place] [address], [place] [address] Sep, [facility] [address] [id number] [address] [place] [address], [place] [address] Sep, [facility] [address] [id number] [address] [place] [address], [place] [address] Sep, [facility] [address] [id number] [address] [place] [address], [place] [address] Jul, [facility] [address] [id number] [address] [place] [address], [place] [address] Jun, [facility] [address] [id number] [address] [place] [address], [place] [address] May, [facility] [address] [id number] [address] [place] [address], [place] [address] Apr, [facility] [address] [id number] [address] [place] [address], [place] [address] Apr, [facility] [address] [id number] [address] [place] [address], [place] [address] March, [facility] [address] [id number] [address] [place] [address], [place] [address] March, [facility] [address] [id number] [address] [place] [address], [place] [address] March, [facility] [address] [id number] [address] [place] [address], [place] [address] Feb, [facility] [address] [id number] [address] [place] [address], [place] [address] Feb, [facility] [address] [id number] [address] [place] [address], [place] [address] Jan, [facility] [address] [id number] [address] [place] [address], [place] [address] 16 Nov, 2011 [facility] [address] [id number] [address] [place] [address], [place] [address] Nov, [facility] [address] [id number] [address] [place] [address], [place] [address] 15 Sep, 2011 [facility] [address] [id number] [address] [place] [address], [place] [address] 15 Sep, 2011 [facility] [address] [id number] [address] [place] [address], [place] [address] 14 Aug, 2011 [facility] [address] [id number] [address] [place] [address], [place] [address] 14 Aug, 2011 [facility] [address] [id number] [address] [place] [address], [place] [address] 16 Jul, 2011 [facility] [address] [id number] [address] [place] [address], [place] [address] 16 Jun, 2011 [facility] [address] [id number] [address] [place] [address], [place] [address] 29 Oct, 2010 [facility] [address] [id number] [address] [place] [address] Oct, [facility] [address] [facility] [id number] [address] [place] [address] Sep, [facility] [address] [facility] [id number] [address] [place] [address] Aug, [facility] [address] [facility] [id number] [address] [place] [address] Aug, [facility] [address] [facility] [id number] [address] [place] [id number] Jun, IMMUNIZATIONS No Known Immunizations SOCIAL HISTORY [...]
--- OUTSIDE RECORDS SUMMARY | 2020-02-14 08:00 | XMS REPORT ---
Author Author Sarah Downs Doctor Organization [facility] Address Unknown Phone Unavailable Care Team Providers Care Cutter Hot Knife Name Role Phone Migration, Doctor Unavailable Unavailable PROBLEMS Type Condition ICD9-CM Code [id number] Code Onset Dates Condition S tatus SNOMED Code Problem Dysmenorrhea N94.6 Active 9070325 00 Problem Generalized anxiety disorder F41.1 A ctive 357979596 Problem Attention deficit disorder without hyperactivity F 90.0 Active 89408175 Problem Sore throat J02.9 Active 07893365 3 Problem Urinary hesitancy R39.11 Active 59 20200 Problem Morbid obesity due to excess calories E66.01 Active 092232246 Problem PCOS (polycystic ovarian syndrome) E28.2 Active 61972063 Problem Seasonal allergic rhinitis due to pollen J30.1 Active 87641449 Problem Fever R50.9 Active 729299103 ALLERGIES No Information ENCOUNTERS Encounter Location Date Diagnosis [facility] [address] [place] [address] Jun, History of PCOS Z87.42 ; Easy bruising R23.8 and Plantar fascia syndrome M72.2 [facility] [address] [place] [address] May, Nexplanon insertion Z30.017 [facility] [place] [address] [place] [address] May, Urinary hesitancy R39.11 [facility] [address] [place] [address] Apr, Rash and nonspecific skin eruption R21 [facility] [address] [place] [address] Apr, [facility] [address] [place] [address] Apr, Contraceptive education Z30.09 [facility] [address] [place] [address] March, Rash and nonspecific skin eruption R21 [facility] [address] [facility] [id number] [address] [place] [address] Jan, Injury of right hand, initia l encounter S69.91XA [facility] [address] [address] Jan, Upper respiratory tract infe ction, unspecified type J06.9 ; Fever R50.9 and Sore throat J02.9 [place] [address] [address] Dec, [place] [address] [address] Nov, Viral gastroenteritis A08.4 [facility] [place] [address] [address] Nov, URI (upper respiratory infec tion) J06.9 and Body aches R52 [facility] [place] [address] [address] Oct, Flank pain R10.9 and Mild de hydration E86.0 [place] [address] [address] Oct, [facility] [place] [address] [address] Sep, Acute gastroenteritis K52.9 and Acute upper respiratory infection J06.9 [facility] [place] [address] [address] 08 Aug, 2018 Breast tenderness in female N64.4 [place] [address] [address] Jul, Encounter for initial prescr iption of contraceptive pills Z30.011 [place] [address] [address] Jul, [place] [address] [address] Jul, Dysuria R30.0 and Acute cyst itis with hematuria N30.01 [facility] [address] [id number] [address] [place] [address] Jul, [facility] [address] [id number] [place] R[place] S [id number] Jun, Seasonal allergic rhinitis due to pollen J30.1 [facility] [address] [facility] [id number] [address] [place] [address] May, [facility] [address] [id number] [address] [place] [address] May, Skin lesion L98.9 [facility] [address] [facility] [id number] [address] [place] [address] Apr, [facility] [address] [facility] [id number] [address] [place] [address] Apr, [facility] [address] [facility] [id number] [address] [place] [address] March, [facility] [address] [id number] [address] [place] [address] March, [facility] [address] [place] [id number] March, Fractured dental tenriism with loss of material K08.531 [facility] [address] [place] [id number] March, Dental examination Z01.20 [facility] [address] [facility] [id number] [address] [place] [address] Jan, Dental examination Z01.20 [facility] [address] [id number] [id number] Nov, Positive test Z32.01 [facility] [address] [id number] [id number] Jul, [facility] [address] [id number] [id number] Jul, test negative Z32.02 [place] [address] [facility] [id number] [address] [place] [address] March, [place] [address] [address] Feb, Dysmenorrhea N94.6 ; Oral co ntraceptive pill surveillance Z30.41 ; Morbid obesity due to excess calories E66.01 ; Generalized anxiety disorder F41.1 and PCOS (polycystic ovarian syndrome) E28.2 [place] [address] [place] [id number] [address] [place] [address] Jan, Morbid obesity due to excess calories E66.01 [place] [address] [address] Jan, Missed periods N92.6 ; Morbi d obesity due to excess calories E66.01 ; Family history of diabetes mellitus Z83.3 and Family history of PCOS Z84.2 [place] [address] [place] [id number] [address] [place] [address] Dec, Encounter for test Z32.00 [facility] [address] [place] [id number] [place] [id number] Nov, Dental examination Z01.20 [place] [address] [address] [place] [id number] [address] [place] [address] Jun, Oral contraceptive pill surv eillance Z30.41 [place] [address] [place] [address] Jun, Dysmenorrhea N94.6 and Oral contraceptive pill surveillance Z30.41 [place] [address] [place] [address] Jun, [place] [address] [place] [id number] [address] [place] [address] Jun, [place] [address] [place] [address] Jun, [place] [address] [facility] [id number] [address] [place] [address] May, [facility] [address] [facility] [id number] [address] [place] [address] March, Oral contraceptive pill surv eillance Z30.41 ; Proteinuria R80.9 and Weight gain R63.5 [facility] [address] [facility] [id number] [address] [place] [address] Dec, Oral contraceptive pill surv eillance Z30.41 ; Weight gain R63.5 ; Hair loss L65.9 ; Acne, unspecified L70.9 and Routine screening for STI (sexually transmitted infection) Z11.3 [facility] [address] [facility] [id number] [address] [place] [address] Aug, Encounter for immunization Z 23 [facility] [address] [place] [address] [id number] Jul, Dental examination V72.2 [facility] [address] [place] [id number] [address] [place] [address] May, [facility] [address] [place] [id number] [place] [address] Apr, [facility] [address] [place] [id number] Apr, Dental examination V72.2 [facility] [address] [place] [id number] [address] [place] [address] Apr, [facility] [address] [facility] [id number] [address] [place] [address] Apr, GARDASIL (HPV) DX V04.89 [facility] [address] [place] [id number] [place] [id number] March, Dental examination V72.2 [facility] [address] [place] [id number] [address] [place] [address] March, Generalized anxiety disorder 300.02 [facility] [address] [id number] [address] [place] [address], [place] [address] 14 Feb, 2015 [facility] [address] [id number] [address] [place] [address], [place] [address] 13 Feb, 2015 [facility] [address] [id number] [address] [place] [address], [place] [address] Jan, [facility] [address] [id number] [address] [place] [address], [place] [address] Jan, [facility] [address] [id number] [address] [place] [address], [place] [address] Dec, [facility] [address] [id number] [address] [place] [address], [place] [address] Dec, [facility] [address] [id number] [address] [place] [address], [place] [address] Oct, [facility] [address] [id number] [address] [place] [address], [place] [address] Oct, [facility] [address] [id number] [address] [place] [address], [place] [address] Sep, [facility] [address] [id number] [address] [place] [address], [place] [address] Sep, [facility] [address] [id number] [address] [place] [address], [place] [address] Aug, [facility] [address] [id number] [address] [place] [address], [place] [address] Aug, [facility] [address] [id number] [address] [place] [address], [place] [address] Jul, [facility] [address] [id number] [address] [place] [address], [place] [address] Jul, [facility] [address] [id number] [address] [place] [address], [place] [address] Jun, [facility] [address] [id number] [address] [place] [address], [place] [address] Jun, [facility] [address] [id number] [address] [place] [address], [place] [address] Jun, [facility] [address] [id number] [address] [place] [address], [place] [address] Jun, [facility] [address] [id number] [address] [place] [address], [place] [address] May, [facility] [address] [id number] [address] [place] [address], [place] [address] May, [facility] [address] [id number] [address] [place] [address], [place] [address] March, [facility] [address] [id number] [address] [place] [address], [place] [address] March, [facility] [address] [id number] [address] [place] [address], [place] [address] Feb, [facility] [address] [id number] [address] [place] [address], [place] [address] Feb, [facility] [address] [id number] [address] [place] [address], [place] [address] Jan, [facility] [address] [id number] [address] [place] [address], [place] [address] Jan, [facility] [address] [id number] [address] [place] [address], [place] [address] Jan, [facility] [address] [id number] [address] [place] [address], [place] [address] Jan, [facility] [address] [id number] [address] [place] [address], [place] [address] Jan, [facility] [address] [id number] [address] [place] [address], [place] [address] Jan, [facility] [address] [id number] [address] [place] [address], [place] [address] Jan, [facility] [address] [id number] [address] [place] [address] Jan, [facility] [address] [id number] [address] [place] [address], [place] [address] Nov, [facility] [address] [id number] [address] [place] [address], [place] [address] Nov, [facility] [address] [id number] [address] [place] [address], [place] [address] Nov, [facility] [address] [id number] [address] [place] [address], [place] [address] Nov, [facility] [address] [id number] [address] [place] [address], [place] [address] Oct, [facility] [address] [id number] [address] [place] [address], [place] [address] Oct, [facility] [address] [id number] [address] [place] [address], [place] [address] Oct, [facility] [address] [id number] [address] [place] [address], [place] [address] Oct, [facility] [address] [id number] [address] [place] [address] Sep, [facility] [address] [id number] [address] [place] [address], [place] [address] Sep, [facility] [address] [id number] [address] [place] [address] Aug, [facility] [address] [id number] [address] [place] [address] Jul, [facility] [address] [id number] [address] [place] [address] Jun, [facility] [address] [id number] [address] [place] [address] Apr, [facility] [address] [id number] [address] [place] [address], [place] [address] March, [facility] [address] [id number] [address] [place] [address], [place] [address] Feb, [facility] [address] [id number] [address] [place] [address], [place] [address] Dec, [facility] [address] [id number] [address] [place] [address], [place] [address] Nov, [facility] [address] [id number] [address] [place] [address], [place] [address] Oct, [facility] [address] [id number] [address] [place] [address], [place] [address] Oct, [facility] [address] [id number] [address] [place] [address], [place] [address] Sep, [facility] [address] [id number] [address] [place] [address], [place] [address] Sep, [facility] [address] [id number] [address] [place] [address], [place] [address] Sep, [facility] [address] [id number] [address] [place] [address], [place] [address] Sep, [facility] [address] [id number] [address] [place] [address], [place] [address] Sep, [facility] [address] [id number] [address] [place] [address], [place] [address] Jul, [facility] [address] [id number] [address] [place] [address], [place] [address] Jun, [facility] [address] [id number] [address] [place] [address], [place] [address] May, [facility] [address] [id number] [address] [place] [address], [place] [address] Apr, [facility] [address] [id number] [address] [place] [address], [place] [address] Apr, [facility] [address] [id number] [address] [place] [address], [place] [address] March, [facility] [address] [id number] [address] [place] [address], [place] [address] March, [facility] [address] [id number] [address] [place] [address], [place] [address] March, [facility] [address] [id number] [address] [place] [address], [place] [address] Feb, [facility] [address] [id number] [address] [place] [address], [place] [address] Feb, [facility] [address] [id number] [address] [place] [address], [place] [address] Jan, [facility] [address] [id number] [address] [place] [address], [place] [address] 16 Nov, 2011 [facility] [address] [id number] [address] [place] [address], [place] [address] Nov, [facility] [address] [id number] [address] [place] [address], [place] [address] 15 Sep, 2011 [facility] [address] [id number] [address] [place] [address], [place] [address] 15 Sep, 2011 [facility] [address] [id number] [address] [place] [address], [place] [address] 14 Aug, 2011 [facility] [address] [id number] [address] [place] [address], [place] [address] 14 Aug, 2011 [facility] [address] [id number] [address] [place] [address], [place] [address] 16 Jul, 2011 [facility] [address] [id number] [address] [place] [address], [place] [address] 16 Jun, 2011 [facility] [address] [id number] [address] [place] [address], [place] [address] 29 Oct, 2010 [facility] [address] [id number] [address] [place] [address], [place] [address] Oct, [facility] [address] [id number] [address] [place] [address] Sep, [facility] [address] [facility] [id number] [address] [place] [address] Aug, [facility] [address] [facility] [id number] [address] [place] [address] Aug, [facility] [address] [facility] [id number] [address] [place] [address] Jun, IMMUNIZATIONS No Known Immunizations SOCIAL HISTORY [...]
--- OUTSIDE RECORDS SUMMARY | 2020-02-14 08:01 | XMS REPORT ---
Author Author Sarah Horn Organization [facility] Address Unknown Care Team Providers Care Instructor Bridge Name Role Phone JAZZY Horn Unavailable PROBLEMS Type Condition ICD9-CM Code XLT09-NR Code Onset Dates Condition S tatus SNOMED Code Problem Dysmenorrhea N94.6 Active 0501077 00 Problem Generalized anxiety disorder F41.1 A ctive 058927645 Problem Attention deficit disorder without hyperactivity F 90.0 Active 51802052 Problem Sore throat J02.9 Active 34521303 3 Problem Urinary hesitancy R39.11 Active 59 33495 Problem Morbid obesity due to excess calories E66.01 Active 694209420 Problem PCOS (polycystic ovarian syndrome) E28.2 Active 45677684 Problem Seasonal allergic rhinitis due to pollen J30.1 Active 29264030 Problem Fever R50.9 Active 629042740 ALLERGIES No Information ENCOUNTERS Encounter Location Date Diagnosis [facility] [address] [place] [address] Jul, [facility] [address] [place] [address] May, Nexplanon insertion Z30.017 [facility] [address] [place] [address] May, Urinary hesitancy R39.11 [facility] [address] [place] [address] Apr, Rash and nonspecific skin eruption R21 [facility] [address] [place] [address] Apr, [facility] [address] [place] [address] Apr, Contraceptive education Z30.09 [facility] [address] [place] [address] March, Rash and nonspecific skin eruption R21 [facility] [address] [facility] [id number] [address] [place] [address] Jan, Injury of right hand, initia l encounter S69.91XA [facility] [address] [address] Jan, Upper respiratory tract infe ction, unspecified type J06.9 ; Fever R50.9 and Sore throat J02.9 [place] [address] [address] Dec, [place] [address] [address] Nov, Viral gastroenteritis A08.4 [facility] [place] [address] [address] Nov, URI (upper respiratory infec tion) J06.9 and Body aches R52 [facility] [place] [address] [address] Oct, Flank pain R10.9 and Mild de hydration E86.0 [place] [address] [address] Oct, [facility] [place] [address] [address] Sep, Acute gastroenteritis K52.9 and Acute upper respiratory infection J06.9 [facility] [place] [address] [address] Aug, Breast tenderness in female N64.4 [place] [address] [address] Jul, Encounter for initial prescr iption of contraceptive pills Z30.011 [place] [address] [address] Jul, [place] [address] [address] Jul, Dysuria R30.0 and Acute cyst itis with hematuria N30.01 [facility] [address] [id number] [address] [place] [address] Jul, [facility] [address] [id number] Chi ROLDAN S [id number] Jun, Seasonal allergic rhinitis due to pollen J30.1 [facility] [address] [facility] [id number] [address] [place] [address] May, [facility] [address] [facility] [id number] [address] [place] [address] May, Skin lesion L98.9 [facility] [address] [facility] [id number] [address] [place] [address] Apr, [facility] [address] [facility] [id number] [address] [place] [address] Apr, [facility] [address] [facility] [id number] [address] [place] [address] March, [facility] [address] [id number] [address] [place] [address] March, [facility] [address] [place] [id number] March, Fractured dental sikh with loss of material K08.531 [facility] [address] [place] [id number] March, Dental examination Z01.20 [facility] [address] [facility] [id number] [address] [place] [address] Jan, Dental examination Z01.[address] [facility] [address] [id number] [place] [id number] Nov, Positive test Z32.[address] [facility] [address] [id number] [place] [id number] Jul, [facility] [address] [id number] [id number] Jul, test negative Z32.02 [place] [address] [address] [facility] [id number] [address] [place] [address] March, [place] [address] [address] Feb, Dysmenorrhea N94.6 ; Oral co ntraceptive pill surveillance Z30.41 ; Morbid obesity due to excess calories E66.01 ; Generalized anxiety disorder F41.1 and PCOS (polycystic ovarian syndrome) E28.2 [place] [address] [address] [place] [id number] [address] [place] [address] Jan, Morbid obesity due to excess calories E66.01 [place] [address] [address] Jan, Missed periods N92.6 ; Morbi d obesity due to excess calories E66.01 ; Family history of diabetes mellitus Z83.3 and Family history of PCOS Z84.2 [place] [address] [place] [address] Dec, Encounter for test Z32.00 [facility] [address] [place] [id number] [address] [place] [id number] Nov, Dental examination Z01.20 [place] [address] [address] [place] [id number] [address] [place] [address] Jun, Oral contraceptive pill surv eillance Z30.41 [place] [address] [place] [address] Jun, Dysmenorrhea N94.6 and Oral contraceptive pill surveillance Z30.41 [place] [address] [address] [place] [id number] [address] [place] [address] Jun, [place] [address] [address] [place] [id number] [address] [place] [address] Jun, [place] [address] [address] [place] [id number] [address] [place] [address] Jun, [place] [address] [address] [place] [id number] [address] [place] [address] May, [facility] [address] [facility] [id number] [address] [place] [address] March, Oral contraceptive pill surv eillance Z30.41 ; Proteinuria R80.9 and Weight gain R63.5 [facility] [address] [facility] [id number] [address] [place] [address] Dec, Oral contraceptive pill surv eillance Z30.41 ; Weight gain R63.5 ; Hair loss L65.9 ; Acne, unspecified L70.9 and Routine screening for STI (sexually transmitted infection) Z11.3 [facility] [address] [facility] [id number] [address] [place] [address] Aug, Encounter for immunization Z 23 [facility] [address] [place] [address] [id number] Jul, Dental examination V72.2 [facility] [address] [place] [id number] [address] [place] [address] May, [facility] [address] [facility] [id number] [address] [place] [address] Apr, [facility] [address] [place] [address] [id number] Apr, Dental examination V72.2 [facility] [address] [place] [address] Apr, [facility] [address] [facility] [id number] [address] [place] [address] Apr, GARDASIL (HPV) DX V04.89 [facility] [id number] [place] [address] [id number] March, Dental examination V72.2 [facility] [address] [place] [id number] [address] [place] [address] March, Generalized anxiety disorder 300.02 [facility] [address] [id number] [address] [place] [address], [place] [address] 14 Feb, 2015 [facility] [address] [id number] [address] [place] [address], [place] [address] 13 Feb, 2015 [facility] [address] [id number] [address] [place] [address], [place] [address] 05 Jan, 2015 [facility] [address] [id number] [address] [place] [address], [place] [address] Jan, [facility] [address] [id number] [address] [place] [address], [place] [address] Dec, [facility] [address] [id number] [address] [place] [address], [place] [address] Dec, [facility] [address] [id number] [address] [place] [address], [place] [address] Oct, [facility] [address] [id number] [address] [place] [address], [place] [address] Oct, [facility] [address] [id number] [address] [place] [address], [place] [address] Sep, [facility] [address] [id number] [address] [place] [address], [place] [address] Sep, [facility] [address] [id number] [address] [place] [address], [place] [address] Aug, [facility] [address] [id number] [address] [place] [address], [place] [address] Aug, [facility] [address] [id number] [address] [place] [address], [place] [address] Jul, [facility] [address] [id number] [address] [place] [address], [place] [address] Jul, [facility] [address] [id number] [address] [place] [address], [place] [address] Jun, [facility] [address] [id number] [address] [place] [address], [place] [address] Jun, [facility] [address] [id number] [address] [place] [address], [place] [address] Jun, [facility] [address] [id number] [address] [place] [address], [place] [address] Jun, [facility] [address] [id number] [address] [place] [address], [place] [address] May, [facility] [address] [id number] [address] [place] [address], [place] [address] May, [facility] [address] [id number] [address] [place] [address], [place] [address] March, [facility] [address] [id number] [address] [place] [address], [place] [address] March, [facility] [address] [id number] [address] [place] [address], [place] [address] Feb, [facility] [address] [id number] [address] [place] [address], [place] [address] Feb, [facility] [address] [id number] [address] [place] [address], [place] [address] Jan, [facility] [address] [id number] [address] [place] [address], [place] [address] Jan, [facility] [address] [id number] [address] [place] [address], [place] [address] Jan, [facility] [address] [id number] [address] [place] [address], [place] [address] Jan, [facility] [address] [id number] [address] [place] [address], [place] [address] Jan, [facility] [address] [id number] [address] [place] [address], [place] [address] Jan, [facility] [address] [id number] [address] [place] [address], [place] [address] Jan, [facility] [address] [id number] [address] [place] [address] Jan, [facility] [address] [id number] [address] [place] [address], [place] [address] Nov, [facility] [address] [id number] [address] [place] [address], [place] [address] Nov, [facility] [address] [id number] [address] [place] [address], [place] [address] Nov, [facility] [address] [id number] [address] [place] [address], [place] [address] Nov, [facility] [address] [id number] [address] [place] [address], [place] [address] Oct, [facility] [address] [id number] [address] [place] [address], [place] [address] Oct, [facility] [address] [id number] [address] [place] [address], [place] [address] Oct, [facility] [address] [id number] [address] [place] [address], [place] [address] Oct, [facility] [address] [id number] [address] [place] [address] Sep, [facility] [address] [id number] [address] [place] [address], [place] [address] Sep, [facility] [address] [id number] [address] [place] [address], [place] [address] Aug, [facility] [address] [id number] [address] [place] [address] Jul, [facility] [address] [id number] [address] [place] [address], [place] [address] Jun, [facility] [address] [id number] [address] [place] [address], [place] [address] Apr, [facility] [address] [id number] [address] [place] [address], [place] [address] March, [facility] [address] [id number] [address] [place] [address], [place] [address] Feb, [facility] [address] [id number] [address] [place] [address], [place] [address] Dec, [facility] [address] [id number] [address] [place] [address], [place] [address] Nov, [facility] [address] [id number] [address] [place] [address], [place] [address] Oct, [facility] [address] [id number] [address] [place] [address], [place] [address] Oct, [facility] [address] [id number] [address] [place] [address], [place] [address] Sep, [facility] [address] [id number] [address] [place] [address], [place] [address] Sep, [facility] [address] [id number] [address] [place] [address], [place] [address] Sep, [facility] [address] [id number] [address] [place] [address], [place] [address] Sep, [facility] [address] [id number] [address] [place] [address], [place] [address] Sep, [facility] [address] [id number] [address] [place] [address], [place] [address] Jul, [facility] [address] [id number] [address] [place] [address], [place] [address] Jun, [facility] [address] [id number] [address] [place] [address], [place] [address] May, [facility] [address] [id number] [address] [place] [address], [place] [address] Apr, [facility] [address] [id number] [address] [place] [address], [place] [address] Apr, [facility] [address] [id number] [address] [place] [address], [place] [address] March, [facility] [address] [id number] [address] [place] [address], [place] [address] March, [facility] [address] [id number] [address] [place] [address], [place] [address] March, [facility] [address] [id number] [address] [place] [address], [place] [address] Feb, [facility] [address] [id number] [address] [place] [address], [place] [address] Feb, [facility] [address] [id number] [address] [place] [address], [place] [address] Jan, [facility] [address] [id number] [address] [place] [address], [place] [address] 16 Nov, 2011 [facility] [address] [id number] [address] [place] [address], [place] [address] Nov, [facility] [address] [id number] [address] [place] [address], [place] [address] 15 Sep, 2011 [facility] [address] [id number] [address] [place] [address], [place] [address] 15 Sep, 2011 [facility] [address] [id number] [address] [place] [address], [place] [address] 14 Aug, 2011 [facility] [address] [id number] [address] [place] [address], [place] [address] 14 Aug, 2011 [facility] [address] [id number] [address] [place] [address], [place] [address] 16 Jul, 2011 [facility] [address] [id number] [address] [place] [address], [place] [address] 16 Jun, 2011 [facility] [address] [id number] [address] [place] [address], [place] [address] 29 Oct, 2010 [facility] [address] [id number] [address] [place] [address], [place] [address] Oct, [facility] [address] [id number] [address] [place] [address] Sep, [facility] [address] [facility] [id number] [address] [place] [address] Aug, [facility] [address] [facility] [id number] [address] [place] [address] Aug, [facility] [address] [facility] [id number] [address] [place] [address] Jun, IMMUNIZATIONS No Known Immunizations SOCIAL HISTORY [...]
--- OUTSIDE RECORDS SUMMARY | 2020-02-14 08:01 | XMS REPORT ---
Author Author Sarah Downs Doctor Organization [facility] Address Unknown Phone Unavailable Care Team Providers Care Compressor Repairer Name Role Phone Migration, Doctor Unavailable Unavailable PROBLEMS Type Condition ICD9-CM Code ZUV01-GA Code Onset Dates Condition S tatus SNOMED Code Problem Dysmenorrhea N94.6 Active 4215739 00 Problem Generalized anxiety disorder F41.1 A ctive 738133475 Problem Attention deficit disorder without hyperactivity F 90.0 Active 61400119 Problem Sore throat J02.9 Active 09589957 3 Problem Urinary hesitancy R39.11 Active 59 28564 Problem Morbid obesity due to excess calories E66.01 Active 678999261 Problem PCOS (polycystic ovarian syndrome) E28.2 Active 94590907 Problem Seasonal allergic rhinitis due to pollen J30.1 Active 35735019 Problem Fever R50.9 Active 095111042 ALLERGIES No Information ENCOUNTERS Encounter Location Date Diagnosis [facility] [address] [place] [address] May, Nexplanon insertion Z30.017 [facility] [address] [place] [address] May, Urinary hesitancy R39.11 [facility] [address] [place] [address] Apr, Rash and nonspecific skin eruption R21 [facility] [address] [place] [address] Apr, [facility] [address] [place] [address] Apr, Contraceptive education Z30.09 [facility] [address] [place] [address] March, Rash and nonspecific skin eruption R21 [facility] [address] [facility] [id number] [address] [place] [address] Jan, Injury of right hand, initia l encounter S69.91XA [facility] [address] [facility] [id number] [address] [place] [address] Jan, Upper respiratory tract infe ction, unspecified type J06.9 ; Fever R50.9 and Sore throat J02.9 [place] [address] [address] Dec, [place] [address] [address] Nov, Viral gastroenteritis A08.4 [facility] [address] [address] Nov, URI (upper respiratory infec tion) J06.9 and Body aches R52 [facility] [place] [address] [address] Oct, Flank pain R10.9 and Mild de hydration E86.0 [place] [address] [address] Oct, [facility] [address] [address] Sep, Acute gastroenteritis K52.9 and Acute upper respiratory infection J06.9 [facility] [place] [address] [address] 08 Aug, 2018 Breast tenderness in female N64.4 [place] [address] [address] Jul, Encounter for initial prescr iption of contraceptive pills Z30.011 [place] [address] [place] [id number] [address] [place] [address] Jul, [place] [address] [address] Jul, Dysuria R30.0 and Acute cyst itis with hematuria N30.01 [place] [address] [address] 06 Jul, 2018 [place] [address] [address] [place] [id number] Chi ROLDAN S [id number] Jun, Seasonal allergic rhinitis due to pollen J30.1 [facility] [address] [id number] [address] [place] [address] May, [facility] [address] [id number] [address] [place] [address] May, Skin lesion L98.9 [facility] [address] [id number] [address] [place] [address] Apr, [facility] [address] [id number] [address] [place] [address] Apr, [facility] [address] [id number] [address] [place] [address] March, [facility] [address] [facility] [id number] [address] [place] [address] March, [facility] [address] [place] [id number] [address] [place] [id number] March, Fractured dental jewish with loss of material K08.531 [facility] [address] [place] [id number] [address] [place] [id number] March, Dental examination Z01.20 [facility] [address] [id number] [address] [place] [address] Jan, Dental examination Z01.[address] [facility] [address] [id number] [id number] Nov, Positive test Z32.01 [facility] [address] [id number] [id number] Jul, [facility] [id number] [place] [id number] Jul, test negative Z32.02 [facility] [address] [id number] [address] [place] [address] March, [facility] [address] [place] [id number] [address] [place] [address] Feb, Dysmenorrhea N94.6 ; Oral co ntraceptive pill surveillance Z30.41 ; Morbid obesity due to excess calories E66.01 ; Generalized anxiety disorder F41.1 and PCOS (polycystic ovarian syndrome) E28.2 [place] [address] [place] [id number] [address] [place] [address] Jan, Morbid obesity due to excess calories E66.01 [facility] [address] [address] Jan, Missed periods N92.6 ; Morbi d obesity due to excess calories E66.01 ; Family history of diabetes mellitus Z83.3 and Family history of PCOS Z84.2 [place] [address] [place] [id number] [address] [place] [address] Dec, Encounter for test Z32.00 [facility] [address] [place] [id number] Nov, Dental examination Z01.20 [place] [address] [place] [id number] [address] [place] [address] Jun, Oral contraceptive pill surv eillance Z30.41 [place] [address] [place] [id number] [address] [place] [address] Jun, Dysmenorrhea N94.6 and Oral contraceptive pill surveillance Z30.41 [place] [address] [place] [address] Jun, [place] [address] [place] [id number] [address] [place] [address] Jun, [place] [address] [address] Jun, [place] [address] [place] [id number] [address] [place] [address] May, [place] [address] [address] March, Oral contraceptive pill surv eillance Z30.41 ; Proteinuria R80.9 and Weight gain R63.5 [facility] [address] [facility] [id number] [address] [place] [address] Dec, Oral contraceptive pill surv eillance Z30.41 ; Weight gain R63.5 ; Hair loss L65.9 ; Acne, unspecified L70.9 and Routine screening for STI (sexually transmitted infection) Z11.3 [facility] [address] [facility] [id number] [address] [place] [address] Aug, Encounter for immunization Z 23 [facility] [address] [id number] Jul, Dental examination V72.2 [facility] [address] [place] [id number] [address] [place] [address] May, [facility] [address] [place] [id number] [place] [address] Apr, [facility] [address] [place] [id number] [place] [id number] Apr, Dental examination V72.2 [facility] [address] [place] [id number] [address] [place] [address] Apr, [facility] [address] [place] [id number] [address] [place] [address] Apr, GARDASIL (HPV) DX V04.89 [facility] [address] [id number] [address] [place] [id number] March, Dental examination V72.2 [facility] [address] [facility] [id number] [address] [place] [address] March, Generalized anxiety disorder 300.02 [facility] [address] [facility] [id number] [address] [place] [address] Feb, [facility] [address] [place] [id number] [address] [place] [address] Feb, [facility] [address] [id number] [address] [place] [address], [place] [address] Jan, [facility] [address] [id number] [address] [place] [address], [place] [address] Jan, [facility] [address] [id number] [address] [place] [address], [place] [address] Dec, [facility] [address] [id number] [address] [place] [address], [place] [address] Dec, [facility] [address] [id number] [address] [place] [address], [place] [address] Oct, [facility] [address] [id number] [address] [place] [address], [place] [address] Oct, [facility] [address] [id number] [address] [place] [address], [place] [address] Sep, [facility] [address] [id number] [address] [place] [address], [place] [address] Sep, [facility] [address] [id number] [address] [place] [address], [place] [address] Aug, [facility] [address] [id number] [address] [place] [address], [place] [address] Aug, [facility] [address] [id number] [address] [place] [address], [place] [address] Jul, [facility] [address] [id number] [address] [place] [address] Jul, [facility] [address] [id number] [address] [place] [address], [place] [address] Jun, [facility] [address] [id number] [address] [place] [address], [place] [address] Jun, [facility] [address] [id number] [address] [place] [address], [place] [address] Jun, [facility] [address] [id number] [address] [place] [address], [place] [address] Jun, [facility] [address] [id number] [address] [place] [address], [place] [address] May, [facility] [address] [id number] [address] [place] [address], [place] [address] May, [facility] [address] [id number] [address] [place] [address], [place] [address] March, [facility] [address] [id number] [address] [place] [address], [place] [address] March, [facility] [address] [id number] [address] [place] [address], [place] [address] Feb, [facility] [address] [id number] [address] [place] [address], [place] [address] Feb, [facility] [address] [id number] [address] [place] [address], [place] [address] Jan, [facility] [address] [id number] [address] [place] [address], [place] [address] Jan, [facility] [address] [id number] [address] [place] [address], [place] [address] Jan, [facility] [address] [id number] [address] [place] [address], [place] [address] Jan, [facility] [address] [id number] [address] [place] [address], [place] [address] Jan, [facility] [address] [id number] [address] [place] [address], [place] [address] Jan, [facility] [address] [id number] [address] [place] [address], [place] [address] Jan, [facility] [address] [id number] [address] [place] [address], [place] [address] Jan, [facility] [address] [id number] [address] [place] [address], [place] [address] Nov, [facility] [address] [id number] [address] [place] [address], [place] [address] Nov, [facility] [address] [id number] [address] [place] [address], [place] [address] Nov, [facility] [address] [id number] [address] [place] [address], [place] [address] Nov, [facility] [address] [id number] [address] [place] [address], [place] [address] Oct, [facility] [address] [id number] [address] [place] [address], [place] [address] Oct, [facility] [address] [id number] [address] [place] [address], [place] [address] Oct, [facility] [address] [id number] [address] [place] [address], [place] [address] Oct, [facility] [address] [id number] [address] [place] [address], [place] [address] Sep, [facility] [address] [id number] [address] [place] [address], [place] [address] Sep, [facility] [address] [id number] [address] [place] [address], [place] [address] Aug, [facility] [address] [id number] [address] [place] [address], [place] [address] Jul, [facility] [address] [id number] [address] [place] [address], [place] [address] Jun, [facility] [address] [id number] [address] [place] [address], [place] [address] Apr, [facility] [address] [id number] [address] [place] [address], [place] [address] March, [facility] [address] [id number] [address] [place] [address], [place] [address] Feb, [facility] [address] [id number] [address] [place] [address], [place] [address] Dec, [facility] [address] [id number] [address] [place] [address], [place] [address] Nov, [facility] [address] [id number] [address] [place] [address], [place] [address] Oct, [facility] [address] [id number] [address] [place] [address], [place] [address] Oct, [facility] [address] [id number] [address] [place] [address], [place] [address] Sep, [facility] [address] [id number] [address] [place] [address], [place] [address] Sep, [facility] [address] [id number] [address] [place] [address], [place] [address] Sep, [facility] [address] [id number] [address] [place] [address], [place] [address] Sep, [facility] [address] [id number] [address] [place] [address], [place] [address] Sep, [facility] [address] [id number] [address] [place] [address], [place] [address] Jul, [facility] [address] [id number] [address] [place] [address], [place] [address] Jun, [facility] [address] [id number] [address] [place] [address], [place] [address] May, [facility] [address] [id number] [address] [place] [address], [place] [address] Apr, [facility] [address] [id number] [address] [place] [address], [place] [address] Apr, [facility] [address] [id number] [address] [place] [address], [place] [address] March, [facility] [address] [id number] [address] [place] [address], [place] [address] March, [facility] [address] [id number] [address] [place] [address], [place] [address] 17 Mar, 2012 [facility] [address] [id number] [address] [place] [address], [place] [address] 18 Feb, 2012 [facility] [address] [id number] [address] [place] [address], [place] [address] 12 Feb, 2012 [facility] [address] [id number] [address] [place] [address], [place] [address] Jan, [facility] [address] [id number] [address] [place] [address], [place] [address] 16 Nov, 2011 [facility] [address] [id number] [address] [place] [address], [place] [address] 13 Nov, 2011 [facility] [address] [id number] [address] [place] [address], [place] [address] 15 Sep, 2011 [facility] [address] [id number] [address] [place] [address], [place] [address] 15 Sep, 2011 [facility] [address] [id number] [address] [place] [address], [place] [address] 14 Aug, 2011 [facility] [address] [id number] [address] [place] [address], [place] [address] 14 Aug, 2011 [facility] [address] [id number] [address] [place] [address], [place] [address] 16 Jul, 2011 [facility] [address] [id number] [address] [place] [address], [place] [address] 16 Jun, 2011 [facility] [address] [id number] [address] [place] [address], [place] [address] Oct, [facility] [address] [id number] [address] [place] [address], [place] [address] Oct, [facility] [address] [id number] [address] [place] [address], [place] [address] 04 Sep, 2010 [facility] [address] [id number] [address] [place] [address], [place] [address] Aug, [facility] [address] [facility] [id number] [address] [place] [address] Aug, [facility] [address] [facility] [id number] [address] [place] [address] Jun, IMMUNIZATIONS No Known Immunizations SOCIAL HISTORY [...]
--- OUTSIDE RECORDS SUMMARY | 2020-02-14 08:01 | XMS REPORT ---
Author Author Sarah Guerrero Organization [facility] Address [address] [place] [address] Care Team Providers Care Silk Spooler Name Role Phone NIKITA Guerrero Unavailable PROBLEMS Type Condition ICD9-CM Code [id number] Code Onset Dates Condition S tatus SNOMED Code Problem Generalized anxiety disorder F41.1 A ctive 498981246 Problem Dysmenorrhea N94.6 Active 7144167 00 Problem Fever R50.9 Active 853604856 Problem Sore throat J02.9 Active 22425154 3 Problem Attention deficit disorder without hyperactivity F 90.0 Active 12307590 Problem Morbid obesity due to excess calories E66.01 Active 898449558 Problem PCOS (polycystic ovarian syndrome) E28.2 Active 10749771 Problem Seasonal allergic rhinitis due to pollen J30.1 Active 79555258 ALLERGIES No Information ENCOUNTERS Encounter Location Date Diagnosis [facility] [address] [place] [address] Apr, Rash and nonspecific skin eruption R21 [facility] [address] [place] [address] Apr, [facility] [address] [place] [address] Apr, Contraceptive education Z30.09 [facility] [address] [place] [address] March, Rash and nonspecific skin eruption R21 [facility] [address] [facility] [id number] [address] [place] [address] Jan, Injury of right hand, initia l encounter S69.91XA [facility] [address] [facility] [id number] [address] [place] [address] Jan, Upper respiratory tract infe ction, unspecified type J06.9 ; Fever R50.9 and Sore throat J02.9 [facility] [address] [place] [id number] [address] [place] [address] Dec, [facility] [address] [address] Nov, Viral gastroenteritis A08.4 [facility] [address] [address] 07 Nov, 2018 URI (upper respiratory infec tion) J06.9 and Body aches R52 [facility] [address] [address] Oct, Flank pain R10.9 and Mild de hydration E86.0 [place] [address] [address] Oct, [facility] [place] [address] [address] Sep, Acute gastroenteritis K52.9 and Acute upper respiratory infection J06.9 [facility] [place] [address] [address] 08 Aug, 2018 Breast tenderness in female N64.4 [place] [address] [address] 27 Jul, 2018 Encounter for initial prescr iption of contraceptive pills Z30.011 [place] [address] [address] Jul, [place] [address] [address] 19 Jul, 2018 Dysuria R30.0 and Acute cyst itis with hematuria N30.01 [place] [address] [address] 06 Jul, 2018 [facility] [address] [id number] [id number] Jun, Seasonal allergic rhinitis due to pollen J30.1 [place] [address] [address] May, [facility] [address] [facility] [id number] [address] [place] [address] May, Skin lesion L98.9 [facility] [address] [id number] [address] [place] [address] Apr, [facility] [address] [facility] [id number] [address] [place] [address] Apr, [facility] [address] [facility] [id number] [address] [place] [address] March, [facility] [address] [facility] [id number] [address] [place] [address] March, [facility] [address] [facility] [id number] [address] [place] [id number] March, Fractured dental congregation with loss of material K08.531 [facility] [address] [facility] [id number] [address] [place] [id number] March, Dental examination Z01.20 [facility] [address] [facility] [id number] [address] [place] [address] Jan, Dental examination Z01.20 [facility] [address] [facility] [address] [id number] [id number] Nov, Positive test Z32.01 [facility] [address] [facility] [address] [id number] [id number] Jul, [place] [address] [facility] [id number] [id number] Jul, test negative Z32.02 [facility] [address] [facility] [id number] [address] [place] [address] March, [facility] [address] [facility] [id number] [address] [place] [address] Feb, Dysmenorrhea N94.6 ; Oral co ntraceptive pill surveillance Z30.41 ; Morbid obesity due to excess calories E66.01 ; Generalized anxiety disorder F41.1 and PCOS (polycystic ovarian syndrome) E28.2 [place] [address] [facility] [id number] [address] [place] [address] Jan, Morbid obesity due to excess calories E66.01 [place] [address] [facility] [id number] [address] [place] [address] Jan, Missed periods N92.6 ; Morbi d obesity due to excess calories E66.01 ; Family history of diabetes mellitus Z83.3 and Family history of PCOS Z84.2 [place] [address] [facility] [id number] [address] [place] [address] Dec, Encounter for test Z32.00 [facility] [address] [place] [id number] [place] [id number] Nov, Dental examination Z01.20 [place] [address] [place] [id number] [address] [place] [address] Jun, Oral contraceptive pill surv eillance Z30.41 [place] [address] [place] [id number] [address] [place] [address] Jun, Dysmenorrhea N94.6 and Oral contraceptive pill surveillance Z30.41 [place] [address] [place] [id number] [address] [place] [address] Jun, [place] [address] [place] [id number] [address] [place] [address] Jun, [place] [address] [place] [id number] [address] [place] [address] Jun, [place] [address] [facility] [id number] [address] [place] [address] May, [place] [address] [place] [id number] [address] [place] [address] March, Oral contraceptive pill surv eillance Z30.41 ; Proteinuria R80.9 and Weight gain R63.5 [place] [address] [place] [id number] [address] [place] [address] Dec, Oral contraceptive pill surv eillance Z30.41 ; Weight gain R63.5 ; Hair loss L65.9 ; Acne, unspecified L70.9 and Routine screening for STI (sexually transmitted infection) Z11.3 [facility] [address] [id number] [address] [place] [address] Aug, Encounter for immunization Z 23 [facility] [address] [id number] [place] [id number] Jul, Dental examination V72.2 [facility] [address] [id number] [address] [place] [address] May, [facility] [address] [facility] [id number] [place] [address] Apr, [facility] [address] [id number] [place] [id number] Apr, Dental examination V72.2 [facility] [address] [id number] [address] [place] [address] Apr, [facility] [address] [id number] [place] [address] Apr, GARDASIL (HPV) DX V04.89 [facility] [address] [id number] [address] [place] [id number] March, Dental examination V72.2 [facility] [address] [id number] [address] [place] [address] March, Generalized anxiety disorder 300.02 [facility] [address] [id number] [address] [place] [address] Feb, [facility] [address] [facility] [id number] [address] [place] [address] Feb, [facility] [address] [facility] [id number] [address] [place] [address] Jan, [facility] [address] [id number] [address] [place] [address], [place] [address] Jan, [facility] [address] [id number] [address] [place] [address], [place] [address] Dec, [facility] [address] [id number] [address] [place] [address], [place] [address] Dec, [facility] [address] [id number] [address] [place] [address], [place] [address] Oct, [facility] [address] [id number] [address] [place] [address], [place] [address] Oct, [facility] [address] [id number] [address] [place] [address], [place] [address] Sep, [facility] [address] [id number] [address] [place] [address], [place] [address] Sep, [facility] [address] [id number] [address] [place] [address], [place] [address] Aug, [facility] [address] [id number] [address] [place] [address], [place] [address] Aug, [facility] [address] [id number] [address] [place] [address], [place] [address] Jul, [facility] [address] [id number] [address] [place] [address], [place] [address] Jul, [facility] [address] [id number] [address] [place] [address], [place] [address] Jun, [facility] [address] [id number] [address] [place] [address], [place] [address] Jun, [facility] [address] [id number] [address] [place] [address], [place] [address] Jun, [facility] [address] [id number] [address] [place] [address], [place] [address] Jun, [facility] [address] [id number] [address] [place] [address], [place] [address] May, [facility] [address] [id number] [address] [place] [address], [place] [address] May, [facility] [address] [id number] [address] [place] [address], [place] [address] March, [facility] [address] [id number] [address] [place] [address], [place] [address] March, [facility] [address] [id number] [address] [place] [address], [place] [address] Feb, [facility] [address] [id number] [address] [place] [address], [place] [address] Feb, [facility] [address] [id number] [address] [place] [address], [place] [address] Jan, [facility] [address] [id number] [address] [place] [address], [place] [address] Jan, [facility] [address] [id number] [address] [place] [address], [place] [address] Jan, [facility] [address] [id number] [address] [place] [address], [place] [address] Jan, [facility] [address] [id number] [address] [place] [address], [place] [address] Jan, [facility] [address] [id number] [address] [place] [address], [place] [address] Jan, [facility] [address] [id number] [address] [place] [address], [place] [address] Jan, [facility] [address] [id number] [address] [place] [address], [place] [address] Jan, [facility] [address] [id number] [address] [place] [address], [place] [address] Nov, [facility] [address] [id number] [address] [place] [address], [place] [address] Nov, [facility] [address] [id number] [address] [place] [address] Nov, [facility] [address] [id number] [address] [place] [address], [place] [address] Nov, [facility] [address] [id number] [address] [place] [address] Oct, [facility] [address] [id number] [address] [place] [address], [place] [address] Oct, [facility] [address] [id number] [address] [place] [address], [place] [address] Oct, [facility] [address] [id number] [address] [place] [address], [place] [address] Oct, [facility] [address] [id number] [address] [place] [address], [place] [address] Sep, [facility] [address] [id number] [address] [place] [address] Sep, [facility] [address] [id number] [address] [place] [address], [place] [address] Aug, [facility] [address] [id number] [address] [place] [address] Jul, [facility] [address] [id number] [address] [place] [address] Jun, [facility] [address] [id number] [address] [place] [address] Apr, [facility] [address] [id number] [address] [place] [address] March, [facility] [address] [id number] [address] [place] [phone] Feb, [facility] [address] [id number] [address] [place] [address] Dec, [facility] [address] [id number] [address] [place] [address] Nov, [facility] [address] [id number] [address] [place] [address], [place] [address] Oct, [facility] [address] [id number] [address] [place] [address], [place] [address] Oct, [facility] [address] [id number] [address] [place] [address], [place] [address] Sep, [facility] [address] [id number] [address] [place] [address], [place] [address] Sep, [facility] [address] [id number] [address] [place] [address], [place] [address] Sep, [facility] [address] [id number] [address] [place] [address], [place] [address] Sep, [facility] [address] [id number] [address] [place] [address], [place] [address] Sep, [facility] [address] [id number] [address] [place] [address], [place] [address] Jul, [facility] [address] [id number] [address] [place] [address], [place] [address] Jun, [facility] [address] [id number] [address] [place] [address], [place] [address] May, [facility] [address] [id number] [address] [place] [address], [place] [address] Apr, [facility] [address] [id number] [address] [place] [address], [place] [address] Apr, [facility] [address] [id number] [address] [place] [address], [place] [address] March, [facility] [address] [id number] [address] [place] [address], [place] [address] March, [facility] [address] [id number] [address] [place] [address], [place] [address] March, [facility] [address] [id number] [address] [place] [address], [place] [address] 18 Feb, 2012 [facility] [address] [id number] [address] [place] [address], [place] [address] 12 Feb, 2012 [facility] [address] [id number] [address] [place] [address], [place] [address] Jan, [facility] [address] [id number] [address] [place] [address], [place] [address] 16 Nov, 2011 [facility] [address] [id number] [address] [place] [address], [place] [address] 13 Nov, 2011 [facility] [address] [id number] [address] [place] [address], [place] [address] 15 Sep, 2011 [facility] [address] [id number] [address] [place] [address], [place] [address] 15 Sep, 2011 [facility] [address] [id number] [address] [place] [address], [place] [address] 14 Aug, 2011 [facility] [address] [id number] [address] [place] [address], [place] [address] 14 Aug, 2011 [facility] [address] [id number] [address] [place] [address], [place] [address] 16 Jul, 2011 [facility] [address] [id number] [address] [place] [address], [place] [address] 16 Jun, 2011 [facility] [address] [id number] [address] [place] [address], [place] [address] 29 Oct, 2010 [facility] [address] [id number] [address] [place] [address] Oct, [facility] [address] [id number] [address] [place] [address], [place] [address] 04 Sep, 2010 [facility] [address] [id number] [address] [place] [address], [place] [address] 26 Aug, 2010 [facility] [address] [id number] [address] [place] [address], [place] [address] Aug, [facility] [address] [id number] [facility] [place] [place] [address] 13 Jun, 2010 IMMUNIZATIONS No Known Immunizations SOCIAL HISTORY Never [...]
--- OUTSIDE RECORDS SUMMARY | 2020-02-14 08:01 | XMS REPORT ---
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 Name Role Phone Migration, Doctor Unavailable Unavailable PROBLEMS Type Condition ICD9-CM Code [id number] Code Onset Dates Condition S tatus SNOMED Code Problem Dysmenorrhea N94.6 Active 1287532 00 Problem Generalized anxiety disorder F41.1 A ctive 420600599 Problem Attention deficit disorder without hyperactivity F 90.0 Active 73240639 Problem Sore throat J02.9 Active 98144341 3 Problem Urinary hesitancy R39.11 Active 59 95178 Problem Morbid obesity due to excess calories E66.01 Active 232814326 Problem PCOS (polycystic ovarian syndrome) E28.2 Active 22331277 Problem Seasonal allergic rhinitis due to pollen J30.1 Active 42999295 Problem Fever R50.9 Active 237830306 ALLERGIES No Information ENCOUNTERS Encounter Location Date Diagnosis [facility] [address] [place] [address] May, Nexplanon insertion Z30.017 [facility] [address] [place] [address] May, Urinary hesitancy R39.11 [facility] [address] [place] [address] Apr, Rash and nonspecific skin eruption R21 [facility] [address] [place] [address] Apr, [facility] [address] [place] [address] Apr, Contraceptive education Z30.09 [facility] [address] [place] [address] March, Rash and nonspecific skin eruption R21 [facility] [address] [facility] [id number] [address] [place] [address] Jan, Injury of right hand, initia l encounter S69.91XA [facility] [address] [facility] [id number] [address] [place] [address] Jan, Upper respiratory tract infe ction, unspecified type J06.9 ; Fever R50.9 and Sore throat J02.9 [place] [address] [address] Dec, [place] [address] [address] Nov, Viral gastroenteritis A08.4 [facility] [address] [address] Nov, URI (upper respiratory infec tion) J06.9 and Body aches R52 [facility] [place] [address] [address] Oct, Flank pain R10.9 and Mild de hydration E86.0 [place] [address] [address] Oct, [facility] [address] [address] Sep, Acute gastroenteritis K52.9 and Acute upper respiratory infection J06.9 [facility] [place] [address] [address] 08 Aug, 2018 Breast tenderness in female N64.4 [place] [address] [address] Jul, Encounter for initial prescr iption of contraceptive pills Z30.011 [place] [address] [address] [place] [id number] [address] [place] [address] Jul, [place] [address] [address] Jul, Dysuria R30.0 and Acute cyst itis with hematuria N30.01 [place] [address] [address] 06 Jul, 2018 [place] [address] [place] [id number] ROLDAN S [id number] Jun, Seasonal allergic rhinitis due to pollen J30.1 [facility] [address] [id number] [address] [place] [address] May, [facility] [address] [id number] [address] [place] [address] May, Skin lesion L98.9 [facility] [address] [id number] [address] [place] [address] Apr, [facility] [address] [id number] [address] [place] [address] Apr, [facility] [address] [id number] [address] [place] [address] March, [facility] [address] [facility] [id number] [address] [place] [address] March, [facility] [address] [place] [id number] [address] [place] [id number] March, Fractured dental amish with loss of material K08.531 [facility] [address] [place] [id number] [address] [place] [id number] March, Dental examination Z01.20 [facility] [address] [id number] [address] [place] [address] Jan, Dental examination Z01.20 [facility] [address] [id number] [id number] Nov, Positive test Z32.01 [facility] [address] [id number] [id number] Jul, [facility] [id number] [place] [id number] Jul, test negative Z32.02 [facility] [address] [id number] [address] [place] [address] March, [facility] [address] [place] [id number] [address] [place] [address] Feb, Dysmenorrhea N94.6 ; Oral co ntraceptive pill surveillance Z30.41 ; Morbid obesity due to excess calories E66.01 ; Generalized anxiety disorder F41.1 and PCOS (polycystic ovarian syndrome) E28.2 [place] [address] [place] [id number] [address] [place] [address] Jan, Morbid obesity due to excess calories E66.01 [facility] [address] [address] Jan, Missed periods N92.6 ; Morbi d obesity due to excess calories E66.01 ; Family history of diabetes mellitus Z83.3 and Family history of PCOS Z84.2 [place] [address] [address] [place] [id number] [address] [place] [address] Dec, Encounter for test Z32.00 [facility] [id number] [place] [phone] Nov, Dental examination Z01.20 [place] [address] [address] [place] [id number] [address] [place] [address] Jun, Oral contraceptive pill surv eillance Z30.41 [place] [address] [place] [id number] [address] [place] [address] Jun, Dysmenorrhea N94.6 and Oral contraceptive pill surveillance Z30.41 [place] [id number] [place] [address] Jun, [place] [address] [place] [id number] [address] [place] [address] Jun, [place] [address] [address] Jun, [place] [address] [place] [id number] [address] [place] [address] May, [place] [address] [address] March, Oral contraceptive pill surv eillance Z30.41 ; Proteinuria R80.9 and Weight gain R63.5 [facility] [address] [facility] [id number] [address] [place] [address] Dec, Oral contraceptive pill surv eillance Z30.41 ; Weight gain R63.5 ; Hair loss L65.9 ; Acne, unspecified L70.9 and Routine screening for STI (sexually transmitted infection) Z11.3 [facility] [address] [facility] [id number] [address] [place] [address] Aug, Encounter for immunization Z 23 [facility] [address] [id number] Jul, Dental examination V72.2 [facility] [address] [place] [id number] [address] [place] [address] May, [facility] [address] [place] [id number] [place] [address] Apr, [facility] [address] [place] [id number] [place] [id number] Apr, Dental examination V72.2 [facility] [address] [place] [id number] [address] [place] [address] Apr, [facility] [address] [place] [id number] [address] [place] [address] Apr, GARDASIL (HPV) DX V04.89 [facility] [address] [id number] [address] [place] [id number] March, Dental examination V72.2 [facility] [address] [facility] [id number] [address] [place] [address] March, Generalized anxiety disorder 300.02 [facility] [address] [facility] [id number] [address] [place] [address] Feb, [facility] [address] [place] [id number] [address] [place] [address] Feb, [facility] [address] [id number] [address] [place] [address], [place] [address] Jan, [facility] [address] [id number] [address] [place] [place] [address], [place] [address] Jan, [facility] [address] [id number] [address] [place] [address], [place] [address] Dec, [facility] [address] [id number] [address] [place] [place] [address], [place] [address] Dec, [facility] [address] [id number] [address] [place] [place] [address], [place] [address] Oct, [facility] [address] [id number] [address] [place] [place] [address], [place] [address] Oct, [facility] [address] [id number] [address] [place] [place] [address], [place] [address] Sep, [facility] [address] [id number] [address] [place] [address], [place] [address] Sep, [facility] [address] [id number] [address] [place] [place] [address], [place] [address] Aug, [facility] [address] [id number] [address] [place] [place] [address], [place] [address] Aug, [facility] [address] [id number] [address] [place] [place] [address], [place] [address] Jul, [facility] [address] [id number] [address] [place] [address] Jul, [facility] [address] [id number] [address] [place] [place] [address], [place] [address] Jun, [facility] [address] [id number] [address] [place] [place] [address], [place] [address] Jun, [facility] [address] [id number] [address] [place] [address], [place] [address] Jun, [facility] [address] [id number] [address] [place] [address], [place] [address] Jun, [facility] [address] [id number] [address] [place] [address], [place] [address] May, [facility] [address] [id number] [address] [place] [address], [place] [address] May, [facility] [address] [id number] [address] [place] [place] [address], [place] [address] March, [facility] [address] [id number] [address] [place] [address], [place] [address] March, [facility] [address] [id number] [address] [place] [place] [address], [place] [address] Feb, [facility] [address] [id number] [address] [place] [address], [place] [address] Feb, [facility] [address] [id number] [address] [place] [address], [place] [address] Jan, [facility] [address] [id number] [address] [place] [place] [address], [place] [address] Jan, [facility] [address] [id number] [address] [place] [address], [place] [address] Jan, [facility] [address] [id number] [address] [place] [place] [address], [place] [address] Jan, [facility] [address] [id number] [address] [place] [place] [address], [place] [address] Jan, [facility] [address] [id number] [address] [place] [place] [address], [place] [address] Jan, [facility] [address] [id number] [address] [place] [place] [address], [place] [address] Jan, [facility] [address] [id number] [address] [place] [address], [place] [address] Jan, [facility] [address] [id number] [address] [place] [address], [place] [address] Nov, [facility] [address] [id number] [address] [place] [place] [address], [place] [address] Nov, [facility] [address] [id number] [address] [place] [address], [place] [address] Nov, [facility] [address] [id number] [address] [place] [address], [place] [address] Nov, [facility] [address] [id number] [address] [place] [place] [address], [place] [address] Oct, [facility] [address] [id number] [address] [place] [place] [address], [place] [address] Oct, [facility] [address] [id number] [address] [place] [place] [address], [place] [address] Oct, [facility] [address] [id number] [address] [place] [place] [address], [place] [address] Oct, [facility] [address] [id number] [address] [place] [place] [address], [place] [address] Sep, [facility] [address] [id number] [address] [place] [place] [address], [place] [address] Sep, [facility] [address] [id number] [address] [place] [place] [address], [place] [address] Aug, [facility] [address] [id number] [address] [place] [place] [address], [place] [address] Jul, [facility] [address] [id number] [address] [place] [place] [address], [place] [address] Jun, [facility] [address] [id number] [address] [place] [place] [address], [place] [address] Apr, [facility] [address] [id number] [address] [place] [place] [address], [place] [address] March, [facility] [address] [id number] [address] [place] [place] [address], [place] [address] Feb, [facility] [address] [id number] [address] [place] [address], [place] [address] Dec, [facility] [address] [id number] [address] [place] [place] [address], [place] [address] Nov, [facility] [address] [id number] [address] [place] [place] [address], [place] [address] Oct, [facility] [address] [id number] [address] [place] [address], [place] [address] Oct, [facility] [address] [id number] [address] [place] [address], [place] [address] Sep, [facility] [address] [id number] [address] [place] [place] [address], [place] [address] Sep, [facility] [address] [id number] [address] [place] [place] [address], [place] [address] Sep, [facility] [address] [id number] [address] [place] [address], [place] [address] Sep, [facility] [address] [id number] [address] [place] [address], [place] [address] Sep, [facility] [address] [id number] [address] [place] [place] [address], [place] [address] Jul, [facility] [address] [id number] [address] [place] [place] [address], [place] [address] Jun, [facility] [address] [id number] [address] [place] [address], [place] [address] May, [facility] [address] [id number] [address] [place] [address], [place] [address] Apr, [facility] [address] [id number] [address] [place] [place] [address], [place] [address] Apr, [facility] [address] [id number] [address] [place] [place] [address], [place] [address] March, [facility] [address] [id number] [address] [place] [address], [place] [address] March, [facility] [address] [id number] [address] [place] [address], [place] [address] 17 Mar, 2012 [facility] [address] [id number] [address] [place] [address], [place] [address] 18 Feb, 2012 [facility] [address] [id number] [address] [place] [address], [place] [address] 12 Feb, 2012 [facility] [address] [id number] [address] [place] [place] [address], [place] [address] Jan, [facility] [address] [id number] [address] [place] [address], [place] [address] 16 Nov, 2011 [facility] [address] [id number] [address] [place] [address], [place] [address] 13 Nov, 2011 [facility] [address] [id number] [address] [place] [place] [address], [place] [address] 15 Sep, 2011 [facility] [address] [id number] [address] [place] [place] [address], [place] [address] 15 Sep, 2011 [facility] [address] [id number] [address] [place] [address], [place] [address] 14 Aug, 2011 [facility] [address] [id number] [address] [place] [place] [address], [place] [address] 14 Aug, 2011 [facility] [address] [id number] [address] [place] [place] [address], [place] [address] 16 Jul, 2011 [facility] [address] [id number] [address] [place] [address], [place] [address] 16 Jun, 2011 [facility] [address] [id number] [address] [place] [address], [place] [address] Oct, [facility] [address] [id number] [address] [place] [address], [place] [address] Oct, [facility] [address] [id number] [address] [place] [address], [place] [address] 04 Sep, 2010 [facility] [address] [id number] [address] [place] [address], [place] [address] Aug, [facility] [address] [facility] [id number] [address] [place] [address] Aug, [facility] [address] [facility] [id number] [address] [place] [address] Jun, IMMUNIZATIONS No Known Immunizations SOCIAL HISTORY Never Assessed REASON FOR VISIT PLAN OF CARE VITAL SIGNS Height 63.75 in 2014-07-02 Weight 182.12 lbs 2014-07-02 Temperature 98.4 degrees Fahrenheit 2014-07-02 Heart Rate 76 bpm 2014-07-02 Respiratory Rate 24 2014-07-02 Blood pressure systolic 102 mmHg 2014-07-02 Blood pressure diastolic 74 mmHg 2014-07-02 MEDICATIONS Unknown Medications RESULTS No Results PROCEDURES No Known procedures INSTRUCTIONS MEDICATIONS ADMINISTERED No Known Medications MEDICAL (GENERAL) HISTORY Type Description Date Medical History C/s 07/2018 Surgical History left knee arthroscopy Surgical History 07/2018 Surgical History cystoscopy 2016 Hospitalization History kidney infection 01/2016 Hospitalization History childbirth
--- OUTSIDE RECORDS SUMMARY | 2020-02-14 08:01 | XMS REPORT ---
Author Author Sarah Horn Organization [facility] Address Unknown Care Team Providers Care Morning Babysitter Name Role Phone JAZZY Horn Unavailable PROBLEMS Type Condition ICD9-CM Code IUA55-RD Code Onset Dates Condition S tatus SNOMED Code Problem Generalized anxiety disorder F41.1 A ctive 419104664 Problem Dysmenorrhea N94.6 Active 7972584 00 Problem Fever R50.9 Active 453333070 Problem Sore throat J02.9 Active 21207385 3 Problem Attention deficit disorder without hyperactivity F 90.0 Active 26427095 Problem Morbid obesity due to excess calories E66.01 Active 865385048 Problem PCOS (polycystic ovarian syndrome) E28.2 Active 37553009 Problem Seasonal allergic rhinitis due to pollen J30.1 Active 74551550 ALLERGIES No Information ENCOUNTERS Encounter Location Date Diagnosis [facility] [address] [place] [address] Apr, Rash and nonspecific skin eruption R21 [facility] [address] [place] [address] Apr, [facility] [address] [place] [address] Apr, Contraceptive education Z30.09 [facility] [address] [place] [address] March, Rash and nonspecific skin eruption R21 [facility] [address] [facility] [id number] [address] [place] [address] Jan, Injury of right hand, initia l encounter S69.91XA [facility] [address] [facility] [id number] [address] [place] [address] Jan, Upper respiratory tract infe ction, unspecified type J06.9 ; Fever R50.9 and Sore throat J02.9 [facility] [address] [place] [id number] [address] [place] [address] 25 Dec, 2018 [facility] [address] [address] Nov, Viral gastroenteritis A08.4 [facility] [address] [address] 07 Nov, 2018 URI (upper respiratory infec tion) J06.9 and Body aches R52 [facility] [address] [address] Oct, Flank pain R10.9 and Mild de hydration E86.0 [place] [address] [address] Oct, [facility] [address] [address] Sep, Acute gastroenteritis K52.9 and Acute upper respiratory infection J06.9 [facility] [place] [address] [address] 08 Aug, 2018 Breast tenderness in female N64.4 [place] [address] [address] 27 Jul, 2018 Encounter for initial prescr iption of contraceptive pills Z30.011 [place] [address] [address] Jul, [place] [address] [address] Jul, Dysuria R30.0 and Acute cyst itis with hematuria N30.01 [place] [address] [address] 06 Jul, 2018 [facility] [address] [place] [id number] [id number] Jun, Seasonal allergic rhinitis due to pollen J30.1 [place] [address] [address] May, [facility] [address] [facility] [id number] [address] [place] [address] May, Skin lesion L98.9 [facility] [address] [facility] [id number] [address] [place] [address] Apr, [facility] [address] [facility] [id number] [address] [place] [address] Apr, [facility] [address] [facility] [id number] [address] [place] [address] March, [facility] [address] [facility] [id number] [address] [place] [address] March, [facility] [address] [place] [id number] [address] [place] [address] [phone] March, Fractured dental latter-day with loss of material K08.531 [facility] [address] [place] [id number] [address] [place] [address] [id number] March, Dental examination Z01.20 [facility] [address] [facility] [id number] [address] [place] [address] Jan, Dental examination Z01.20 [facility] [address] [id number] [place] [phone] Nov, Positive test Z32.01 [facility] [address] [id number] [place] [id number] Jul, [place] [address] [address] [id number] [place] [address] [id number] Jul, test negative Z32.02 [facility] [address] [facility] [id number] [address] [place] [address] March, [facility] [address] [facility] [id number] [address] [place] [address] Feb, Dysmenorrhea N94.6 ; Oral co ntraceptive pill surveillance Z30.41 ; Morbid obesity due to excess calories E66.01 ; Generalized anxiety disorder F41.1 and PCOS (polycystic ovarian syndrome) E28.2 [place] [address] [place] [id number] [address] [place] [address] Jan, Morbid obesity due to excess calories E66.01 [place] [address] [place] [id number] [place] [address] Jan, Missed periods N92.6 ; Morbi d obesity due to excess calories E66.01 ; Family history of diabetes mellitus Z83.3 and Family history of PCOS Z84.2 [place] [address] [place] [id number] [address] [place] [address] Dec, Encounter for test Z32.00 [facility] [id number] [place] [phone] Nov, Dental examination Z01.20 [place] [address] [address] Jun, Oral contraceptive pill surv eillance Z30.41 [place] [address] [address] Jun, Dysmenorrhea N94.6 and Oral contraceptive pill surveillance Z30.41 [place] [address] [address] Jun, [place] [address] [address] Jun, [place] [address] [address] Jun, [place] [address] [address] May, [place] [address] [address] March, Oral contraceptive pill surv eillance Z30.41 ; Proteinuria R80.9 and Weight gain R63.5 [place] [address] [place] [id number] [place] [address] Dec, Oral contraceptive pill surv eillance Z30.41 ; Weight gain R63.5 ; Hair loss L65.9 ; Acne, unspecified L70.9 and Routine screening for STI (sexually transmitted infection) Z11.3 [facility] [address] [id number] [address] [place] [address] Aug, Encounter for immunization Z 23 [facility] [address] [id number] [address] [place] [address] [id number] Jul, Dental examination V72.2 [facility] [address] [id number] [address] [place] [address] May, [facility] [address] [id number] [place] [address] Apr, [facility] [address] [id number] [place] [address] [id number] Apr, Dental examination V72.2 [facility] [address] [id number] [address] [place] [address] Apr, [facility] [address] [id number] [address] [place] [phone] Apr, GARDASIL (HPV) DX V04.89 [facility] [address] [id number] [address] [place] [address] [id number] March, Dental examination V72.2 [facility] [address] [id number] [address] [place] [address] March, Generalized anxiety disorder 300.02 [facility] [address] [id number] [address] [place] [address] Feb, [facility] [address] [id number] [address] [place] [phone] Feb, [facility] [address] [facility] [id number] [address] [place] [address] Jan, [facility] [address] [place] [id number] [address] [place] [phone] Jan, [facility] [address] [id number] [address] [place] [address], [place] [address] Dec, [facility] [address] [id number] [address] [place] [address] Dec, [facility] [address] [id number] [address] [place] [address], [place] [address] Oct, [facility] [address] [id number] [address] [place] [address], [place] [address] Oct, [facility] [address] [id number] [address] [place] [address], [place] [address] Sep, [facility] [address] [id number] [address] [place] [address], [place] [address] Sep, [facility] [address] [id number] [address] [place] [address], [place] [address] Aug, [facility] [address] [id number] [address] [place] [address], [place] [address] Aug, [facility] [address] [id number] [address] [place] [address], [place] [address] Jul, [facility] [address] [id number] [address] [place] [phone] Jul, [facility] [address] [id number] [address] [place] [address], [place] [address] Jun, [facility] [address] [id number] [address] [place] [phone] Jun, [facility] [address] [id number] [address] [place] [phone] Jun, [facility] [address] [id number] [address] [place] [address] Jun, [facility] [address] [id number] [address] [place] [address] May, [facility] [address] [id number] [facility] [place] [address] May, [facility] [address] [id number] [address] [place] [address], [place] [address] March, [facility] [address] [id number] [address] [place] [address], [place] [address] March, [facility] [address] [id number] [address] [place] [address], [place] [address] Feb, [facility] [address] [id number] [address] [place] [address], [place] [address] Feb, [facility] [address] [id number] [address] [place] [address], [place] [address] Jan, [facility] [address] [id number] [address] [place] [address], [place] [address] Jan, [facility] [address] [id number] [address] [place] [address], [place] [address] Jan, [facility] [address] [id number] [address] [place] [address], [place] [address] Jan, [facility] [address] [id number] [address] [place] [address], [place] [address] Jan, [facility] [address] [id number] [address] [place] [address], [place] [address] Jan, [facility] [address] [id number] [address] [place] [address], [place] [address] Jan, [facility] [address] [id number] [address] [place] [address], [place] [address] Jan, [facility] [address] [id number] [address] [place] [address], [place] [address] Nov, [facility] [address] [id number] [address] [place] [address], [place] [address] Nov, [facility] [address] [id number] [address] [place] [address] [address] Nov, [facility] [address] [id number] [address] [place] [address], [place] [address] Nov, [facility] [address] [id number] [address] [place] [address], [place] [address] Oct, [facility] [address] [id number] [address] [place] [address], [place] [address] Oct, [facility] [address] [id number] [address] [place] [address], [place] [address] Oct, [facility] [address] [id number] [address] [place] [address], [place] [address] Oct, [facility] [address] [id number] [address] [place] [address], [place] [address] Sep, [facility] [address] [id number] [address] [place] [address], [place] [address] Sep, [facility] [address] [id number] [address] [place] [address], [place] [address] Aug, [facility] [address] [id number] [address] [place] [address], [place] [address] Jul, [facility] [address] [id number] [address] [place] [address] Jun, [facility] [address] [id number] [address] [place] [address] Apr, [facility] [address] [id number] [address] [place] [address] March, [facility] [address] [id number] [address] [place] [address], [place] [address] Feb, [facility] [address] [id number] [address] [place] [address] Dec, [facility] [address] [id number] [address] [place] [address] Nov, [facility] [address] [id number] [address] [place] [address], [place] [address] Oct, [facility] [address] [id number] [address] [place] [address], [place] [address] Oct, [facility] [address] [id number] [address] [place] [address], [place] [address] Sep, [facility] [address] [id number] [address] [place] [address], [place] [address] Sep, [facility] [address] [id number] [address] [place] [address], [place] [address] Sep, [facility] [address] [id number] [address] [place] [address], [place] [address] Sep, [facility] [address] [id number] [address] [place] [address], [place] [address] Sep, [facility] [address] [id number] [address] [place] [address], [place] [address] Jul, [facility] [address] [id number] [address] [place] [address], [place] [address] Jun, [facility] [address] [id number] [address] [place] [address], [place] [address] May, [facility] [address] [id number] [address] [place] [address], [place] [address] Apr, [facility] [address] [id number] [address] [place] [address], [place] [address] Apr, [facility] [address] [id number] [address] [place] [address], [place] [address] March, [facility] [address] [id number] [address] [place] [address], [place] [address] March, [facility] [address] [id number] [address] [place] [address], [place] [address] March, [facility] [address] [id number] [address] [place] [address], [place] [address] Feb, [facility] [address] [id number] [address] [place] [address], [place] [address] Feb, [facility] [address] [id number] [address] [place] [address], [place] [address] Jan, [facility] [address] [id number] [address] [place] [address], [place] [address] 16 Nov, 2011 [facility] [address] [id number] [address] [place] [address], [place] [address] Nov, [facility] [address] [id number] [address] [place] [address], [place] [address] 15 Sep, 2011 [facility] [address] [id number] [address] [place] [address], [place] [address] 15 Sep, 2011 [facility] [address] [id number] [address] [place] [address], [place] [address] 14 Aug, 2011 [facility] [address] [id number] [address] [place] [address], [place] [address] 14 Aug, 2011 [facility] [address] [id number] [address] [place] [address], [place] [address] 16 Jul, 2011 [facility] [address] [id number] [address] [place] [address], [place] [address] 16 Jun, 2011 [facility] [address] [id number] [address] [place] [address], [place] [address] Oct, [facility] [address] [id number] [address] [place] [address], [place] [address] Oct, [facility] [address] [id number] [address] [place] [address], [place] [address] Sep, [facility] [address] [id number] [address] [place] [address], [place] [address] Aug, [facility] [address] [id number] [address] [place] [address], [place] [address] Aug, [facility] [address] [id number] [address] [place] [address], [place] [address] Jun, IMMUNIZATIONS No Known Immunizations SOCIAL HISTORY [...]
--- OUTSIDE RECORDS SUMMARY | 2020-02-14 08:01 | XMS REPORT ---
Author Author Sarah VASQUES [facility] Address [address] [place] [address] Care Team Providers Care Retread Technician Name Role Phone LAYO JOSE Unavailable PROBLEMS Type Condition ICD9-CM Code PMJ80-GM Code Onset Dates Condition S tatus SNOMED Code Problem Dysmenorrhea N94.6 Active 7421365 00 Problem Generalized anxiety disorder F41.1 A ctive 267357113 Problem Attention deficit disorder without hyperactivity F 90.0 Active 93855965 Problem Sore throat J02.9 Active 02672045 3 Problem Urinary hesitancy R39.11 Active 59 63266 Problem Morbid obesity due to excess calories E66.01 Active 326008700 Problem PCOS (polycystic ovarian syndrome) E28.2 Active 84001968 Problem Seasonal allergic rhinitis due to pollen J30.1 Active 90563531 Problem Fever R50.9 Active 159645440 ALLERGIES Substance Reaction Event Type Date Status Lamictal Unknown Drug Allergy Jan, Active Concerta 18 Mg Tablet Extended Release 24hr hallucinations Non Drug Allergy Jan, Active ENCOUNTERS Encounter Location Date Diagnosis [facility] [address] [place] [address] May, Nexplanon insertion Z30.017 [facility] [address] [place] [address] May, Urinary hesitancy R39.11 [facility] [address] [place] [address] Apr, Rash and nonspecific skin eruption R21 [facility] [address] [place] [address] Apr[facility] [address] [place] [address] 06 Apr, 2019 Contraceptive education Z30.09 [facility] [address] [place] [address] March, Rash and nonspecific skin eruption R21 [facility] [address] [address] Jan, Injury of right hand, initia l encounter S69.91XA [facility] [place] [address] [address] Jan, Upper respiratory tract infe ction, unspecified type J06.9 ; Fever R50.9 and Sore throat J02.9 [place] [address] [address] Dec, [place] [address] [address] Nov, Viral gastroenteritis A08.4 [facility] [place] [address] [address] Nov, URI (upper respiratory infec tion) J06.9 and Body aches R52 [facility] IN [address] [address] Oct, Flank pain R10.9 and Mild de hydration E86.[address] [address] Oct, [facility] IN [address] [address] Sep, Acute gastroenteritis K52.9 and Acute upper respiratory infection J06.9 [facility] [place] [address] [address] Aug, Breast tenderness in female N64.[address] [address] Jul, Encounter for initial prescr iption of contraceptive pills Z30.011 [place] [address] [address] Jul, [place] [address] [address] Jul, Dysuria R30.0 and Acute cyst itis with hematuria N30.01 [facility] [address] [id number] [address] [place] [address] Jul, [facility] [address] [id number] Chi ROLDAN S [id number] Jun, Seasonal allergic rhinitis due to pollen J30.1 [facility] [address] [id number] [address] [place] [address] May, [facility] [address] [id number] [address] [place] [address] May, Skin lesion L98.9 [facility] [address] [facility] [id number] [address] [place] [address] Apr, [facility] [address] [facility] [id number] [address] [place] [address] Apr, [facility] [address] [facility] [id number] [address] [place] [address] March, [facility] [address] [facility] [id number] [address] [place] [address] March, [facility] [address] [place] [id number] [address] [place] [id number] March, Fractured dental taoist with loss of material K08.531 [facility] [address] [facility] [id number] [address] [place] [id number] March, Dental examination Z01.20 [facility] [address] [id number] [address] [place] [address] Jan, Dental examination Z01.20 [facility] [address] [id number] [id number] Nov, Positive test Z32.01 [facility] [address] [id number] [id number] Jul, [facility] [address] [id number] [id number] Jul, test negative Z32.02 [place] [address] [address] [facility] [id number] [address] [place] [address] March, [place] [address] [address] [place] [id number] [address] [place] [address] Feb, Dysmenorrhea N94.6 ; Oral co ntraceptive pill surveillance Z30.41 ; Morbid obesity due to excess calories E66.01 ; Generalized anxiety disorder F41.1 and PCOS (polycystic ovarian syndrome) E28.2 [place] [address] [address] [place] [id number] [address] [place] [address] Jan, Morbid obesity due to excess calories E66.01 [place] [address] [address] [place] [id number] [address] [place] [address] Jan, Missed periods N92.6 ; Morbi d obesity due to excess calories E66.01 ; Family history of diabetes mellitus Z83.3 and Family history of PCOS Z84.2 [place] [address] [address] [place] [id number] [address] [place] [address] Dec, Encounter for test Z32.00 [facility] [address] [place] [id number] [address] [place] [id number] Nov, Dental examination Z01.20 [place] [address] [address] [place] [id number] [address] [place] [address] Jun, Oral contraceptive pill surv eillance Z30.41 [place] [address] [address] [place] [id number] [address] [place] [address] Jun, Dysmenorrhea N94.6 and Oral contraceptive pill surveillance Z30.41 [place] [address] [address] [place] [id number] [address] [place] [address] Jun, [place] [address] [address] [place] [id number] [address] [place] [address] Jun, [place] [address] [address] [place] [id number] [address] [place] [address] Jun, [facility] [address] [facility] [id number] [address] [place] [address] May, [facility] [address] [facility] [id number] [address] [place] [address] March, Oral contraceptive pill surv eillance Z30.41 ; Proteinuria R80.9 and Weight gain R63.5 [facility] [address] [facility] [id number] [address] [place] [address] Dec, Oral contraceptive pill surv eillance Z30.41 ; Weight gain R63.5 ; Hair loss L65.9 ; Acne, unspecified L70.9 and Routine screening for STI (sexually transmitted infection) Z11.3 [facility] [address] [facility] [id number] [address] [place] [address] Aug, Encounter for immunization Z 23 [facility] [id number] [place] [id number] Jul, Dental examination V72.2 [facility] [address] [place] [id number] [address] [place] [address] May, [facility] [address] [place] [id number] [address] [place] [address] Apr, [facility] [address] [place] [id number] [address] [place] [address] [id number] Apr, Dental examination V72.2 [facility] [address] [place] [id number] [address] [place] [address] Apr, [facility] [address] [place] [id number] [address] [place] [address] Apr, GARDASIL (HPV) DX V04.89 [facility] [address] [id number] [address] [place] [id number] March, Dental examination V72.2 [facility] [address] [place] [id number] [address] [place] [address] March, Generalized anxiety disorder 300.02 [facility] [address] [id number] [address] [place] [address] 14 Feb, 2015 [facility] [address] [id number] [address] [place] [phone] 13 Feb, 2015 [facility] [address] [id number] [address] [place] [address] Jan, [facility] [address] [id number] [address] [place] [address] Jan, [facility] [address] [id number] [address] [place] [address] Dec, [facility] [address] [id number] [address] [place] [address] Dec, [facility] [address] [id number] [address] [place] [phone] Oct, [facility] [address] [id number] [address] [place] [address] Oct, [facility] [address] [id number] [address] [place] [address] Sep, [facility] [address] [id number] [address] [place] [address] Sep, [facility] [address] [id number] [address] [place] [address] Aug, [facility] [address] [id number] [address] [place] [address] Aug, [facility] [address] [id number] [address] [place] [address] Jul, [facility] [address] [id number] [address] [place] [address] Jul, [facility] [address] [id number] [address] [place] [address] Jun, [facility] [address] [id number] [address] [place] [address] Jun, [facility] [address] [id number] [address] [place] [address], [place] [address] Jun, [facility] [address] [id number] [address] [place] [address], [place] [address] Jun, [facility] [address] [id number] [address] [place] [address], [place] [address] May, [facility] [address] [id number] [address] [place] [address], [place] [address] May, [facility] [address] [id number] [address] [place] [address], [place] [address] March, [facility] [address] [id number] [address] [place] [address], [place] [address] March, [facility] [address] [id number] [address] [place] [address], [place] [address] Feb, [facility] [address] [id number] [address] [place] [address], [place] [address] Feb, [facility] [address] [id number] [address] [place] [address], [place] [address] Jan, [facility] [address] [id number] [address] [place] [address], [place] [address] Jan, [facility] [address] [id number] [address] [place] [address], [place] [address] Jan, [facility] [address] [id number] [address] [place] [address], [place] [address] Jan, [facility] [address] [id number] [address] [place] [address], [place] [address] Jan, [facility] [address] [id number] [address] [place] [address], [place] [address] Jan, [facility] [address] [id number] [address] [place] [address], [place] [address] Jan, [facility] [address] [id number] [address] [place] [address], [place] [address] Jan, [facility] [address] [id number] [address] [place] [address], [place] [address] Nov, [facility] [address] [id number] [address] [place] [address], [place] [address] Nov, [facility] [address] [id number] [address] [place] [address], [place] [address] Nov, [facility] [address] [id number] [address] [place] [address], [place] [address] Nov, [facility] [address] [id number] [address] [place] [address], [place] [address] Oct, [facility] [address] [id number] [address] [place] [address], [place] [address] Oct, [facility] [address] [id number] [address] [place] [address], [place] [address] Oct, [facility] [address] [id number] [address] [place] [address], [place] [address] Oct, [facility] [address] [id number] [address] [place] [address], [place] [address] Sep, [facility] [address] [id number] [address] [place] [address], [place] [address] Sep, [facility] [address] [id number] [address] [place] [address], [place] [address] Aug, [facility] [address] [id number] [address] [place] [address], [place] [address] Jul, [facility] [address] [id number] [address] [place] [address], [place] [address] Jun, [facility] [address] [id number] [address] [place] [address], [place] [address] Apr, [facility] [address] [id number] [address] [place] [address] [address] March, [facility] [address] [id number] [address] [place] [address], [place] [address] Feb, [facility] [address] [id number] [address] [place] [address], [place] [address] Dec, [facility] [address] [id number] [address] [place] [address], [place] [address] Nov, [facility] [address] [id number] [address] [place] [address], [place] [address] Oct, [facility] [address] [id number] [address] [place] [address], [place] [address] Oct, [facility] [address] [id number] [address] [place] [address], [place] [address] Sep, [facility] [address] [id number] [address] [place] [address], [place] [address] Sep, [facility] [address] [id number] [address] [place] [address], [place] [address] Sep, [facility] [address] [id number] [address] [place] [address], [place] [address] Sep, [facility] [address] [id number] [address] [place] [address], [place] [address] Sep, [facility] [address] [id number] [address] [place] [address], [place] [address] Jul, [facility] [address] [id number] [address] [place] [address], [place] [address] Jun, [facility] [address] [id number] [address] [place] [address], [place] [address] May, [facility] [address] [id number] [address] [place] [address], [place] [address] Apr, [facility] [address] [id number] [address] [place] [address], [place] [address] Apr, [facility] [address] [id number] [address] [place] [address], [place] [address] March, [facility] [address] [id number] [address] [place] [address], [place] [address] March, [facility] [address] [id number] [address] [place] [address], [place] [address] March, [facility] [address] [id number] [address] [place] [address], [place] [address] Feb, [facility] [address] [id number] [address] [place] [address], [place] [address] Feb, [facility] [address] [id number] [address] [place] [address], [place] [address] Jan, [facility] [address] [id number] [address] [place] [address], [place] [address] 16 Nov, 2011 [facility] [address] [id number] [address] [place] [address], [place] [address] Nov, [facility] [address] [id number] [address] [place] [address], [place] [address] 15 Sep, 2011 [facility] [address] [id number] [address] [place] [address], [place] [address] 15 Sep, 2011 [facility] [address] [id number] [address] [place] [address], [place] [address] 14 Aug, 2011 [facility] [address] [id number] [address] [place] [address], [place] [address] 14 Aug, 2011 [facility] [address] [id number] [address] [place] [address], [place] [address] 16 Jul, 2011 [facility] [address] [id number] [address] [place] [address], [place] [address] 16 Jun, 2011 [facility] [address] [id number] [address] [place] [address], [place] [address] Oct, [facility] [address] [id number] [address] [place] [address], [place] [address] Oct, [facility] [address] [facility] [id number] [address] [place] [address] Sep, [facility] [address] [facility] [id number] [address] [place] [address] Aug, [facility] [address] [facility] [id number] [address] [place] [address] Aug, [facility] [address] [facility] [id number] [address] [place] [address] Jun, IMMUNIZATIONS No Known Immunizations SOCIAL HISTORY Never Assessed REASON FOR VISIT Sore throat, Coughing, Congestion, Fever/Chills: Patient reports Sore Throat sta rted two weeks ago, Coughing, Congestion, Fever and Chills started yesterday. Chris cabrera has been using cough drops for their sore throat and cough. Patient report s they have been exposed to both flu A and Strep Throat. Mamta Paz MA PLAN OF CARE Activity Details Follow Up if not improving with PCP or reg follow up Reason: VITAL SIGNS Height 65.5 in 2019-01-23 Weight 239 lbs 2019-01-23 Temperature 097.5 degrees Fahrenheit 2019-01-23 Heart Rate 70 bpm 2019-01-23 Respiratory Rate 20 2019-01-23 BMI 39.16 kg/m2 2019-01-23 Blood pressure systolic 119 mmHg 2019-01-23 Blood pressure diastolic 81 mmHg 2019-01-23 MEDICATIONS Medication Instructions Dosage Frequency Start Date End Date Duration S tatus Active Lomotil 2.5-0.025 MG Orally Four times a day 1 tablet as needed 6h Nov, Not-Taking Amoxicillin 500 MG Orally every 12 hrs 1 capsule 12h Jan, 10 day(s) Active RESULTS Name Result Date Reference Range INFLUENZA A & B (IN HOUSE) INFLUENZA A negative INFLUENZA B negative Control + Lot # [id number] Exp date 2021-08-29 STREP A (IN HOUSE) STREP A negative Control + Lot # [id number] Exp date 2019-06-13 PROCEDURES Procedure Date Ordered Result Body Site INFLUENZA ASSAY W/OPTIC January 23, 2019 STREP A ASSAY W/OPTIC January 23, 2019 INSTRUCTIONS MEDICATIONS ADMINISTERED No Known Medications MEDICAL (GENERAL) HISTORY Type Description Date Medical History C/s 07/2018 Surgical History left knee arthroscopy Surgical History 07/2018 Surgical History cystoscopy 2016 Hospitalization History kidney infection 01/2016 Hospitalization History childbirth
--- OUTSIDE RECORDS SUMMARY | 2020-02-14 08:02 | XMS REPORT ---
Author Author Sarah Downs Doctor Organization [facility] Address Unknown Phone Unavailable Care Team Providers Care Suspension Cord Tier Name Role Phone Migration, Doctor Unavailable Unavailable PROBLEMS Type Condition ICD9-CM Code [id number] Code Onset Dates Condition S tatus SNOMED Code Problem Generalized anxiety disorder F41.1 A ctive 944238181 Problem Dysmenorrhea N94.6 Active 4833808 00 Problem Fever R50.9 Active 760031437 Problem Sore throat J02.9 Active 02052094 3 Problem Attention deficit disorder without hyperactivity F 90.0 Active 04613808 Problem Morbid obesity due to excess calories E66.01 Active 974839130 Problem PCOS (polycystic ovarian syndrome) E28.2 Active 13055814 Problem Seasonal allergic rhinitis due to pollen J30.1 Active 38519029 ALLERGIES Substance Reaction Event Type Date Status Lamictal Unknown Drug Allergy Feb, Active Concerta 18 Mg Tablet Extended Release 24hr hallucinations Non Drug Allergy Feb, Active ENCOUNTERS Encounter Location Date Diagnosis [facility] [address] [place] [address] Apr, Rash and nonspecific skin eruption R21 [facility] [address] [place] [address] Apr, [facility] [address] [place] [address] Apr, Contraceptive education Z30.09 [facility] [address] [place] [address] March, Rash and nonspecific skin eruption R21 [facility] [address] [facility] [id number] [address] [place] [address] Jan, Injury of right hand, initia l encounter S69.91XA [facility] [address] [facility] [id number] [address] [place] [address] Jan, Upper respiratory tract infe ction, unspecified type J06.9 ; Fever R50.9 and Sore throat J02.9 [place] [address] [facility] [id number] [address] [place] [address] Dec, [facility] [address] [address] Nov, Viral gastroenteritis A08.4 [facility] [address] [address] 07 Nov, 2018 URI (upper respiratory infec tion) J06.9 and Body aches R52 [facility] [address] [address] Oct, Flank pain R10.9 and Mild de hydration E86.0 [place] [address] [address] Oct, [facility] [place] [address] [address] Sep, Acute gastroenteritis K52.9 and Acute upper respiratory infection J06.9 [facility] [place] [address] [address] 08 Aug, 2018 Breast tenderness in female N64.4 [place] [address] [address] 27 Jul, 2018 Encounter for initial prescr iption of contraceptive pills Z30.011 [place] [address] [address] Jul, [place] [address] [address] Jul, Dysuria R30.0 and Acute cyst itis with hematuria N30.01 [place] [address] [address] 06 Jul, 2018 [facility] [address] [id number] [place] [id number] Jun, Seasonal allergic rhinitis due to pollen J30.1 [place] [address] [place] [address] May, [facility] [address] [id number] [address] [place] [address] May, Skin lesion L98.9 [facility] [address] [facility] [id number] [address] [place] [address] Apr, [facility] [address] [facility] [id number] [address] [place] [address] Apr, [facility] [address] [id number] [address] [place] [address] March, [facility] [address] [facility] [id number] [address] [place] [address] March, [facility] [address] [facility] [id number] [address] [place] [id number] March, Fractured dental judaism with loss of material K08.531 [facility] [address] [place] [id number] [address] [place] [phone] March, Dental examination Z01.20 [facility] [address] [facility] [id number] [address] [place] [address] Jan, Dental examination Z01.20 [facility] [address] [id number] [place] [id number] Nov, Positive test Z32.01 [facility] [address] [facility] [id number] [id number] Jul, [place] [id number] [place] [id number] Jul, test negative Z32.02 [facility] [address] [facility] [id number] [address] [place] [address] March, [facility] [address] [facility] [id number] [address] [place] [address] Feb, Dysmenorrhea N94.6 ; Oral co ntraceptive pill surveillance Z30.41 ; Morbid obesity due to excess calories E66.01 ; Generalized anxiety disorder F41.1 and PCOS (polycystic ovarian syndrome) E28.2 [place] [address] [facility] [id number] [address] [place] [address] Jan, Morbid obesity due to excess calories E66.01 [place] [address] [address] [facility] [id number] [address] [place] [address] Jan, Missed periods N92.6 ; Morbi d obesity due to excess calories E66.01 ; Family history of diabetes mellitus Z83.3 and Family history of PCOS Z84.2 [place] [address] [address] [facility] [id number] [address] [place] [address] Dec, Encounter for test Z32.00 [facility] [address] [place] [id number] [address] [place] [address] [id number] Nov, Dental examination Z01.20 [place] [address] [address] [place] [id number] [address] [place] [address] Jun, Oral contraceptive pill surv eillance Z30.41 [place] [address] [facility] [id number] [address] [place] [address] Jun, Dysmenorrhea N94.6 and Oral contraceptive pill surveillance Z30.41 [place] [address] [address] [place] [id number] [address] [place] [address] Jun, [place] [address] [address] [place] [id number] [address] [place] [address] Jun, [place] [address] [facility] [id number] [address] [place] [address] Jun, [place] [address] [facility] [id number] [address] [place] [address] May, [place] [address] [facility] [id number] [address] [place] [address] March, Oral contraceptive pill surv eillance Z30.41 ; Proteinuria R80.9 and Weight gain R63.5 [place] [address] [address] [facility] [id number] [address] [place] [address] Dec, Oral contraceptive pill surv eillance Z30.41 ; Weight gain R63.5 ; Hair loss L65.9 ; Acne, unspecified L70.9 and Routine screening for STI (sexually transmitted infection) Z11.3 [facility] [address] [facility] [id number] [address] [place] [address] Aug, Encounter for immunization Z 23 [facility] [address] [id number] [place] [address] [id number] Jul, Dental examination V72.2 [facility] [address] [id number] [place] [address] May, [facility] [address] [place] [id number] [place] [address] Apr, [facility] [address] [id number] [address] [place] [address] [id number] Apr, Dental examination V72.2 [facility] [address] [id number] [address] [place] [address] Apr, [facility] [address] [address] Apr, GARDASIL (HPV) DX V04.89 [facility] [address] [id number] [address] [place] [address] [id number] March, Dental examination V72.2 [facility] [address] [place] [id number] [address] [place] [address] March, Generalized anxiety disorder 300.02 [facility] [address] [id number] [address] [place] [address] Feb, [facility] [address] [place] [id number] [address] [place] [address] Feb, [facility] [address] [place] [id number] [address] [place] [address] Jan, [facility] [address] [id number] [address] [place] [address], [place] [address] Jan, [facility] [address] [id number] [address] [place] [address], [place] [address] Dec, [facility] [address] [id number] [address] [place] [address], [place] [address] Dec, [facility] [address] [id number] [address] [place] [address], [place] [address] Oct, [facility] [address] [id number] [address] [place] [address], [place] [address] Oct, [facility] [address] [id number] [address] [place] [address], [place] [address] Sep, [facility] [address] [id number] [address] [place] [address], [place] [address] Sep, [facility] [address] [id number] [address] [place] [address], [place] [address] Aug, [facility] [address] [id number] [address] [place] [address], [place] [address] Aug, [facility] [address] [id number] [address] [place] [address], [place] [address] Jul, [facility] [address] [id number] [address] [place] [address], [place] [address] Jul, [facility] [address] [id number] [address] [place] [address], [place] [address] Jun, [facility] [address] [id number] [address] [place] [address], [place] [address] Jun, [facility] [address] [id number] [address] [place] [address], [place] [address] Jun, [facility] [address] [id number] [address] [place] [address], [place] [address] Jun, [facility] [address] [id number] [address] [place] [address], [place] [address] May, [facility] [address] [id number] [facility] [place] [address] May, [facility] [address] [id number] [address] [place] [address], [place] [address] March, [facility] [address] [id number] [address] [place] [address], [place] [address] March, [facility] [address] [id number] [address] [place] [address], [place] [address] Feb, [facility] [address] [id number] [address] [place] [address], [place] [address] Feb, [facility] [address] [id number] [address] [place] [address], [place] [address] Jan, [facility] [address] [id number] [address] [place] [address], [place] [address] Jan, [facility] [address] [id number] [address] [place] [address], [place] [address] Jan, [facility] [address] [id number] [address] [place] [address], [place] [address] Jan, [facility] [address] [id number] [address] [place] [address], [place] [address] Jan, [facility] [address] [id number] [address] [place] [address], [place] [address] Jan, [facility] [address] [id number] [address] [place] [address], [place] [address] Jan, [facility] [address] [id number] [address] [place] [address], [place] [address] Jan, [facility] [address] [id number] [address] [place] [address], [place] [address] Nov, [facility] [address] [id number] [address] [place] [address], [place] [address] Nov, [facility] [address] [id number] [address] [place] [address], [place] [address] Nov, [facility] [address] [id number] [address] [place] [address], [place] [address] Nov, [facility] [address] [id number] [address] [place] [address], [place] [address] Oct, [facility] [address] [id number] [address] [place] [address], [place] [address] Oct, [facility] [address] [id number] [address] [place] [address], [place] [address] Oct, [facility] [address] [id number] [address] [place] [address], [place] [address] Oct, [facility] [address] [id number] [address] [place] [address], [place] [address] Sep, [facility] [address] [id number] [address] [place] [address], [place] [address] Sep, [facility] [address] [id number] [address] [place] [address], [place] [address] Aug, [facility] [address] [id number] [address] [place] [address], [place] [address] Jul, [facility] [address] [id number] [address] [place] [address], [place] [address] Jun, [facility] [address] [id number] [address] [place] [address], [place] [address] Apr, [facility] [address] [id number] [address] [place] [address], [place] [address] March, [facility] [address] [id number] [address] [place] [address], [place] [address] Feb, [facility] [address] [id number] [address] [place] [address], [place] [address] Dec, [facility] [address] [id number] [address] [place] [address] Nov, [facility] [address] [id number] [address] [place] [address], [place] [address] Oct, [facility] [address] [id number] [address] [place] [address], [place] [address] Oct, [facility] [address] [id number] [address] [place] [address], [place] [address] Sep, [facility] [address] [id number] [address] [place] [address], [place] [address] Sep, [facility] [address] [id number] [address] [place] [address], [place] [address] Sep, [facility] [address] [id number] [address] [place] [address], [place] [address] Sep, [facility] [address] [id number] [address] [place] [address], [place] [address] Sep, [facility] [address] [id number] [address] [place] [address], [place] [address] Jul, [facility] [address] [id number] [address] [place] [address], [place] [address] Jun, [facility] [address] [id number] [address] [place] [address], [place] [address] May, [facility] [address] [id number] [address] [place] [address], [place] [address] Apr, [facility] [address] [id number] [address] [place] [address], [place] [address] Apr, [facility] [address] [id number] [address] [place] [address], [place] [address] March, [facility] [address] [id number] [address] [place] [address], [place] [address] March, [facility] [address] [id number] [address] [place] [address], [place] [address] March, [facility] [address] [id number] [address] [place] [address], [place] [address] 18 Feb, 2012 [facility] [address] [id number] [address] [place] [address], [place] [address] 12 Feb, 2012 [facility] [address] [id number] [address] [place] [address], [place] [address] 21 Jan, 2012 [facility] [address] [id number] [address] [place] [address], [place] [address] 16 Nov, 2011 [facility] [address] [id number] [address] [place] [address] 13 Nov, 2011 [facility] [address] [id number] [address] [place] [address], [place] [address] 15 Sep, 2011 [facility] [address] [id number] [address] [place] [address], [place] [address] 15 Sep, 2011 [facility] [address] [id number] [address] [place] [address], [place] [address] 14 Aug, 2011 [facility] [address] [id number] [address] [place] [address], [place] [address] 14 Aug, 2011 [facility] [address] [id number] [address] [place] [address], [place] [address] 16 Jul, 2011 [facility] [address] [id number] [address] [place] [address], [place] [address] 16 Jun, 2011 [facility] [address] [id number] [address] [place] [address], [place] [address] Oct, [facility] [address] [id number] [address] [place] [address], [place] [address] Oct, [facility] [address] [id number] [address] [place] [address], [place] [address] 04 Sep, 2010 [facility] [address] [id number] [address] [place] [address], [place] [address] 26 Aug, 2010 [facility] [address] [id number] [address] [place] [address], [place] [address] Aug, [facility] [address] [id number] [address] [place] [address] 13 Jun, 2010 IMMUNIZATIONS No Known Immunizations SOCIAL HISTORY Never Assessed REASON FOR VISIT EMR-[facility] PLAN OF CARE VITAL SIGNS MEDICATIONS Medication Instructions Dosage Frequency Start Date End Date Duration S tatus Xanax 0.5 mg 1 tablet by Oral rou te 2 times per day PRN anxiety AND1.5 Tablet by Oral route 1 time per day PRN in evening PRN anxiety Oct, 201 4 Active Naproxen 250 mg 1 Tablet by Oral route 2 times per day for 7 days Nov, Active Topamax 50 mg tablet by Oral route 1 time per daytake 1 x 14 days then take 2 thereafter Sep, Active Lamictal 25 mg 1 tablet by Oral rou te 1 time per dayThen take 2 orally for 14 days, then 2 orally thereafter. Feb, Active RESULTS No Results PROCEDURES No Known procedures INSTRUCTIONS MEDICATIONS ADMINISTERED No Known Medications MEDICAL (GENERAL) HISTORY Type Description Date Medical History C/s 07/2018 Surgical History left knee arthroscopy Surgical History 07/2018 Surgical History cystoscopy 2017 Hospitalization History kidney infection 01/2016 Hospitalization History childbirth
--- OUTSIDE RECORDS SUMMARY | 2020-02-14 08:04 | XMS REPORT | Continuity of Care Document ---
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 Ot O64.0XX0 OBSTRUCTED LABOR DUE TO INCMPL ROTATION 07/25/2018 JOSUE ANDRE MD, Ot O65.4 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 07/25/2018 JOSUE ANDRE MD, Ot Z37.0 SINGLE LIVE 07/25/2018 JOSUE ANDRE MD, Ot Z3A.38 38 WEEKS GESTATION OF 12/20/2018 KOURTNEY RANDALL ELEVATOR OPERATOR Ot F41.9 ANXIETY DISORDER, UNSPECIFIED 12/20/2018 KOURTNEY RANDALL ELEVATOR OPERATOR Ot F90.9 ATTENTION-DEFICIT HYPERACTIVITY DISORDER 12/20/2018 KOURNTEY RANDALL ELEVATOR OPERATOR Ot F98.8 OTH BEHAV/EMOTN DISORD W ONSET USLY OCCU 12/20/2018 KOURTNEY RANDALL ELEVATOR OPERATOR Ot G43.909 MIGRAINE, UNSP, NOT INTRACTABLE, WITHOUT 12/20/2018 PRAKASH, KOURTNEY ELEVATOR OPERATOR Ot M25.561 PAIN IN RIGHT KNEE 12/20/2018 PRAKASH KOURTNEY ELEVATOR OPERATOR Ot S80.01XA CONTUSION OF RIGHT KNEE, INITIAL ENCOUNT 12/20/2018 KOURTNEY RANDALL ELEVATOR OPERATOR Ot W00.2XXA OTH FALL FROM ONE LEVEL TO ANOTHER DUE T 12/20/2018 KOURTNEY RANDALL ELEVATOR OPERATOR Ot Z87.440 PERSONAL HISTORY OF URINARY (TRACT) INFE 12/20/2018 KOURTNEY RANDALL ELEVATOR OPERATOR Ot Z88.8 ALLERGY STATUS TO OTH DRUG/MEDS/BIOL SUB 12/20/2018 PRAKASH KOURTNEY ELEVATOR OPERATOR Ot Z98.890 OTHER SPECIFIED POSTPROCEDURAL STATES 12/22/2018 KOURTNEY RANDALL ELEVATOR OPERATOR Ot F41.9 ANXIETY DISORDER, UNSPECIFIED 12/22/2018 KOURTNEY RANDALL ELEVATOR OPERATOR Ot F90.9 ATTENTION-DEFICIT HYPERACTIVITY DISORDER 12/22/2018 PRAKASH KOURTNEY ELEVATOR OPERATOR Ot F98.8 OTH BEHAV/EMOTN DISORD W ONSET USLY OCCU 12/22/2018 KOURTNEY RANDALL ELEVATOR OPERATOR Ot G43.909 MIGRAINE, UNSP, NOT INTRACTABLE, WITHOUT 12/22/2018 PRAKASHKOURTNEY Okeefe ELEVATOR OPERATOR Ot M25.561 PAIN IN RIGHT KNEE 12/22/2018 PRAKASH, KOURTNEY ELEVATOR OPERATOR Ot S80.01XA CONTUSION OF RIGHT KNEE, INITIAL ENCOUNT 12/22/2018 KOURTNEY RANDALL ELEVATOR OPERATOR Ot W00.2XXA OTH FALL FROM ONE LEVEL TO ANOTHER DUE T 12/22/2018 KOURTNEY RANDALL ELEVATOR OPERATOR Ot Z87.440 PERSONAL HISTORY OF URINARY (TRACT) INFE 12/22/2018 PRAKASH, KOURTNEY ELEVATOR OPERATOR Ot Z88.8 ALLERGY STATUS TO OTH DRUG/MEDS/BIOL SUB 12/22/2018 PRAKASH, KOURTNEY ELEVATOR OPERATOR Ot Z98.890 OTHER SPECIFIED POSTPROCEDURAL STATES 12/26/2018 PRAKASH, KOURTNEY ELEVATOR OPERATOR Ot F41.9 ANXIETY DISORDER, UNSPECIFIED 12/26/2018 PRAKASH, KOURTNEY ELEVATOR OPERATOR Ot F90.9 ATTENTION-DEFICIT HYPERACTIVITY DISORDER 12/26/2018 PRAKASH, KOURTNEY ELEVATOR OPERATOR Ot F98.8 OTH BEHAV/EMOTN DISORD W ONSET USLY OCCU 12/26/2018 PRAKASH, KOURTNEY BERGERP Ot G43.909 MIGRAINE, UNSP, NOT INTRACTABLE, WITHOUT 12/26/2018 PRAKASH, KOURTNEY ELEVATOR OPERATOR Ot M25.561 PAIN IN RIGHT KNEE 12/26/2018 PRAKASH, KOURTNEY ELEVATOR OPERATOR Ot S80.01XA CONTUSION OF RIGHT KNEE, INITIAL ENCOUNT 12/26/2018 KOURTNEY RANDALLP Ot W00.2XXA OTH FALL FROM ONE LEVEL TO ANOTHER DUE T 12/26/2018 KOURTNEY RANDALL ELEVATOR OPERATOR Ot Z87.440 PERSONAL HISTORY OF URINARY (TRACT) INFE 12/26/2018 PRAKASH, KOURTNEY ELEVATOR OPERATOR Ot Z88.8 ALLERGY STATUS TO OTH DRUG/MEDS/BIOL SUB 12/26/2018 PRAKASH, KOURTNEY ELEVATOR OPERATOR Ot Z98.890 OTHER SPECIFIED POSTPROCEDURAL STATES 04/13/2019 Ot V20.1 04/13/2019 Ot 959.01 04/13/2019 Ot E849.0 04/13/2019 Ot E888.9 04/13/2019 Ot V19.8 04/13/2019 Ot V77.0 04/13/2019 Ot 959.19 OTH INJURY OF OTHER SITES OF TRUNK 04/13/2019 Ot E000.8 OTH ER EXTERNAL CAUSE STATUS 04/13/2019 Ot E849.6 ACC IDENT IN PUBLIC BLDG 04/13/2019 Ot E888.9 FAL L NOS 04/13/2019 Ot 719.46 JULIANA NT PAIN-L/LEG 04/13/2019 Ot 719.46 JULIANA NT PAIN-L/LEG 04/13/2019 Ot V15.59 PER HOWARD HISTORY OF OTHER INJURY 04/13/2019 Ot 836.0 TEAR MED MENISC KNEE-CUR 04/13/2019 Ot E000.8 OTH ER EXTERNAL CAUSE STATUS 04/13/2019 Ot E001.1 ACT IVITIES INVOLVING RUNNING 04/13/2019 Ot E928.9 ACC IDENT NOS 04/13/2019 JONELLE DHALIWAL, ABDULAZIZ Fine Ot 719. 41 JOINT PAIN-SHLDER 04/13/2019 JONELLE DHALIWAL, ABDULAZIZ Fine Ot M25.511 PAIN IN RIGHT SHOULDER 04/13/2019 ADRIANA MCCRACKEN MD Ot S43.431A SUPERIOR GLENOID LABRUM LESION OF RIGHT 04/13/2019 ADRIANA MCCRACKEN MD Ot X58.XXXA EXPOSURE TO OTHER SPECIFIED FACTORS, INI 04/13/2019 ADRIANA MCCRACKEN MD Ot Y99.8 OTHER EXTERNAL CAUSE STATUS 04/13/2019 ILSA HUMPHREYS MD Ot N39.0 URINARY TRACT INFECTION, SITE NOT SPECIF 04/13/2019 ILSA HUMPHREYS MD Ot Z87.4 40 PERSONAL HISTORY OF URINARY (TRACT) INFE 04/13/2019 JAZZY REDMAN SLOT TECHNICIAN Ot R10.11 RIGHT UPPER QUADRANT PAIN 04/13/2019 JAZZY REDMAN SLOT TECHNICIAN Ot R10.12 LEFT UPPER QUADRANT PAIN 05/09/2019 CONI CARDONA MD Ot F39 UNSPECIFIED MOOD [AFFECTIVE] DISORDER 05/09/2019 CONI CARDONA MD Ot F41.9 ANXIETY DISORDER, UNSPECIFIED 05/09/2019 CONI CARDONA MD Ot F90.9 ATTENTION-DEFICIT HYPERACTIVITY DISORDER 05/09/2019 CONI CARDONA MD Ot G43.909 MIGRAINE, UNSP, NOT INTRACTABLE, WITHOUT 05/09/2019 CONI CARDONA MD Ot L98.9 DISORDER OF THE SKIN AND SUBCUTANEOUS TI 05/09/2019 CONI CARDONA MD Ot R21 RASH AND OTHER NONSPECIFIC SKIN ERUPTION 05/09/2019 CONI CARDONA MD Ot W57.XXXA BIT/STUNG BY NONVENOM INSECT OTH NONVE 05/09/2019 CONI CARDONA MD Ot Z87.440 PERSONAL HISTORY OF URINARY (TRACT) INFE 05/09/2019 CONI CARDONA MD, Ot Z88.8 ALLERGY STATUS TO OTH DRUG/MEDS/BIOL SUB 05/11/2019 CONI CARDONA MD Ot F39 UNSPECIFIED MOOD [AFFECTIVE] DISORDER 05/11/2019 CONI CARDONA MD Ot F41.9 ANXIETY DISORDER, UNSPECIFIED 05/11/2019 CONI CARDONA MD Ot F90.9 ATTENTION-DEFICIT HYPERACTIVITY DISORDER 05/11/2019 CONI CARDONA MD Ot G43.909 MIGRAINE, UNSP, NOT INTRACTABLE, WITHOUT 05/11/2019 CONI CARDONA MD Ot L98.9 DISORDER OF THE SKIN AND SUBCUTANEOUS TI 05/11/2019 CONI CARDONA MD Ot R21 RASH AND OTHER NONSPECIFIC SKIN ERUPTION 05/11/2019 CONI CARDONA MD Ot W57.XXXA BIT/STUNG BY NONVENOM INSECT OTH NONVE 05/11/2019 CONI CARDONA MD, Ot Z87.440 PERSONAL HISTORY OF URINARY (TRACT) INFE 05/11/2019 CONI CARDONA MD Ot Z88.8 ALLERGY STATUS TO OTH DRUG/MEDS/BIOL SUB 05/11/2019 CONI CARDONA MD Ot F39 UNSPECIFIED MOOD [AFFECTIVE] DISORDER 05/11/2019 CONI CARDONA MD Ot F41.9 ANXIETY DISORDER, UNSPECIFIED 05/11/2019 CONI CARDONA MD Ot F90.9 ATTENTION-DEFICIT HYPERACTIVITY DISORDER 05/11/2019 CONI CARDONA MD Ot G43.909 MIGRAINE, UNSP, NOT INTRACTABLE, WITHOUT 05/11/2019 CONI CARDONA MD Ot L98.9 DISORDER OF THE SKIN AND SUBCUTANEOUS TI 05/11/2019 CONI CARDONA MD Ot R21 RASH AND OTHER NONSPECIFIC SKIN ERUPTION 05/11/2019 BRENDAN DHALIWAL, CONI Rothman Ot W57.XXXA BIT/STUNG BY NONVENOM INSECT OTH NONVE 05/11/2019 BRENDAN DHALIWAL, CONI Rothman Ot Z87.440 PERSONAL HISTORY OF URINARY (TRACT) INFE 05/11/2019 BRENDAN DHALIWAL, CONI Rothman Ot Z88.8 ALLERGY STATUS TO [facility] DRUG/MEDS/BIOL SUB 06/12/2019 Brown, Tan W 789.0 ABDOMINAL PAIN 06/12/2019 Brown, Tan W R10.9 UNSPECIFIED ABDOMINAL PAIN 06/12/2019 Brown, Tan W 789.0 ABDOMINAL PAIN 06/12/2019 Brown, Tan W R10.9 UNSPECIFIED ABDOMINAL PAIN 06/12/2019 Brown, Tan W 276.51 DEHYDRATION 06/12/2019 Brown, Tan W 789.0 ABDOMINAL PAIN 06/12/2019 Brown, Tan W E86.0 DEHYDRATION 06/12/2019 Brown, Tan W R10.9 UNSPECIFIED ABDOMINAL PAIN 06/12/2019 Brown, Tan W 276.51 DEHYDRATION 06/12/2019 Brown, Tan W 789.07 ABDOMINAL PAIN, GENERALIZED 06/12/2019 Brown, Tan W E86.0 DEHYDRATION 06/12/2019 Brown, Tan W R10.84 GENERALIZED ABDOMINAL PAIN 11/22/2019 Ot 836.0 TEAR MED MENISC KNEE-CUR 11/22/2019 Ot E000.8 OTH ER EXTERNAL CAUSE STATUS 11/22/2019 Ot E001.1 ACT IVITIES INVOLVING RUNNING 11/22/2019 Ot E928.9 ACC IDENT NOS 11/22/2019 JONELLE DHALIWAL, ABDULAZIZ Fine Ot 719. 41 JOINT PAIN-SHLDER 11/22/2019 ABDULAZIZ SAL MD Ot M25.511 PAIN IN RIGHT SHOULDER 11/22/2019 NAWAF DHALIWAL, ADRIANA Evans Ot S43.431A SUPERIOR GLENOID LABRUM LESION OF RIGHT 11/22/2019 NAWAF DHALIWAL, ADRIANA Evans Ot X58.XXXA EXPOSURE TO OTHER SPECIFIED FACTORS, INI 11/22/2019 NAWAF DHALIWAL, ADRIANA Evans Ot Y99.8 OTHER EXTERNAL CAUSE STATUS 11/22/2019 ILSA HUMPHREYS MD Ot N39.0 URINARY TRACT INFECTION, SITE NOT SPECIF 11/22/2019 ILSA HUMPHREYS MD Ot Z87.4 40 PERSONAL HISTORY OF URINARY (TRACT) INFE 11/22/2019 JAZZY REDMAN APRN Ot R10.11 RIGHT UPPER QUADRANT PAIN 11/22/2019 JAZZY REDMAN APRN Ot R10.12 LEFT UPPER QUADRANT PAIN 11/29/2019 Ot 836.0 TEAR MED MENISC KNEE-CUR 11/29/2019 Ot E000.8 OTH ER EXTERNAL CAUSE STATUS 11/29/2019 Ot E001.1 ACT IVITIES INVOLVING RUNNING 11/29/2019 Ot E928.9 ACC IDENT NOS 11/29/2019 JONELLE DHALIWAL, ABDULAZIZ Fine Ot 719. 41 JOINT PAIN-SHLDER 11/29/2019 JONELLE DHALIWAL, ABDULAZIZ Fine Ot M25.511 PAIN IN RIGHT SHOULDER 11/29/2019 ADRIANA MCCRACKEN MD Ot S43.431A SUPERIOR GLENOID LABRUM LESION OF RIGHT 11/29/2019 ADRIANA MCCRACKEN MD Ot X58.XXXA EXPOSURE TO OTHER SPECIFIED FACTORS, INI 11/29/2019 ADRIANA MCCRACKEN MD Ot Y99.8 OTHER EXTERNAL CAUSE STATUS 11/29/2019 ILSA HUMPHREYS MD Ot N39.0 URINARY TRACT INFECTION, SITE NOT SPECIF 11/29/2019 ILSA HUMPHREYS MD Ot Z87.4 40 PERSONAL HISTORY OF URINARY (TRACT) INFE 11/29/2019 JAZZY REDMAN SLOT TECHNICIAN Ot R10.11 RIGHT UPPER QUADRANT PAIN 11/29/2019 JAZZY REDMAN APRN Ot R10.12 LEFT UPPER QUADRANT PAIN 11/29/2019 KELLI TONEY SLOT TECHNICIAN Ot R55 SYNCOPE AND COLLAPSE 11/29/2019 Ot 836.0 TEAR MED MENISC KNEE-CUR 11/29/2019 Ot E000.8 OTH ER EXTERNAL CAUSE STATUS 11/29/2019 Ot E001.1 ACT IVITIES INVOLVING RUNNING 11/29/2019 Ot E928.9 ACC IDENT NOS 11/29/2019 ABDULAZIZ SAL MD Ot 719. 41 JOINT PAIN-SHLDER 11/29/2019 ABDULAZIZ SLA MD Ot M25.511 PAIN IN RIGHT SHOULDER 11/29/2019 ADRIANA MCCRACKEN MD Ot S43.431A SUPERIOR GLENOID LABRUM LESION OF RIGHT 11/29/2019 ADRIANA MCCRACKEN MD Ot X58.XXXA EXPOSURE TO OTHER SPECIFIED FACTORS, INI 11/29/2019 ADRIANA MCCRACKEN MD Ot Y99.8 OTHER EXTERNAL CAUSE STATUS 11/29/2019 ILSA HUMPHREYS MD Ot N39.0 URINARY TRACT INFECTION, SITE NOT SPECIF 11/29/2019 ILSA HUMPHREYS MD Ot Z87.4 40 PERSONAL HISTORY OF URINARY (TRACT) INFE 11/29/2019 JAZZY REDMAN SLOT TECHNICIAN Ot R10.11 RIGHT UPPER QUADRANT PAIN 11/29/2019 JAZZY REDMAN SLOT TECHNICIAN Ot R10.12 LEFT UPPER QUADRANT PAIN 11/29/2019 KELLI TONEY SLOT TECHNICIAN Ot R55 SYNCOPE AND COLLAPSE 12/06/2019 KELLI TONEY SLOT TECHNICIAN Ot R55 SYNCOPE AND COLLAPSE 12/06/2019 KELLI TONEY SLOT TECHNICIAN Ot R55 SYNCOPE AND COLLAPSE 12/21/2019 SIMÓN HIGH SLOT TECHNICIAN Ot M54.2 CERVICALGIA 12/21/2019 SIMÓN HIGH SLOT TECHNICIAN Ot R00.2 PALPITATIONS 12/21/2019 ANILA SIMÓN SLOT TECHNICIAN Ot R13.10 DYSPHAGIA, UNSPECIFIED 12/21/2019 ANILA SIMÓN SLOT TECHNICIAN Ot R53.83 OTHER FATIGUE 01/11/2020 W F32.1 Greta r depressive disorder, single episode, moderate Anila Simón 01/11/2020 W F41.1 Gene ralized anxiety disorder Anila Simón 01/11/2020 W R00.2 Palp itations Anila Simón 01/11/2020 W R42 Dizziness Anila 01/11/2020 W R55 Near s yncope Anila Simón 01/11/2020 W F32.1 Greta r depressive disorder, single episode, moderate Anila Simón 01/11/2020 W F41.1 Gene ralized anxiety disorder Anila Simón 01/11/2020 W F32.1 Greta r depressive disorder, single episode, moderate Anila Simón 01/11/2020 W F41.1 Gene ralized anxiety disorder Anila Simón 01/11/2020 W J01.80 Oth er acute sinusitis Anila Simón 01/11/2020 W J30.89 Oth er allergic rhinitis Anila 01/11/2020 W r13.10 Dys phagia Simón High 01/11/2020 W R42 Dizziness Cathleen Rodríguez 01/11/2020 W R55 Near s yncope Cathleen Rodríguez 01/31/2020 KIRSTIN NAJERA MD Ot K21.9 GASTRO-ESOPHAGEAL REFLUX DISEASE WITHOUT 01/31/2020 KIRSTIN NAJERA MD, Ot Z01.81 8 ENCOUNTER FOR OTHER PREPROCEDURAL EXAMIN 02/07/2020 W K21.9 GERD (gastroesophageal reflux disease) Lauren Redman 02/07/2020 W R11.0 Nausea Lauren Redman 02/07/2020 W K21.9 GERD (gastroesophageal reflux disease) Lauren Redman 02/07/2020 W R11.0 Nausea Lauren Redman 02/13/2020 KIRSTIN NAJERA MD, Ot K21.9 GASTRO-ESOPHAGEAL REFLUX DISEASE WITHOUT 02/13/2020 KIRSTIN NAJERA MD, Ot Z01.81 8 ENCOUNTER FOR OTHER PREPROCEDURAL EXAMIN Procedures Code Description [place] [address] PSYC H PHARM MGMT 11/21/2012 50198 PSYC H IND W/MED CK 20 01/10/2013 32679 PREG LUÍS TEST, URINE (IN- HOUSE) 01/31/2014 22082 PREG LUÍS TEST, URINE (IN- HOUSE) 02/18/2015 [id number] IN TRODUCTION OF OTH HORMONE INTO PERIPH 07/22/2018 [id number] EX TRACTION OF POC, LOW CERVICAL, OPEN AP 07/23/2018 Results Test Result Range Urine beta human chorionic gonadotropin (hCG) measurement - 02/22/17 06:40 Urine beta human chorionic gonadotropin (hCG) measurem ent NEGATIVE NEGATIVE Methicillin resistant Staphylococcus aur eus (MRSA) screening culture - 02/22/17 06:45 Methicillin resistant Staphylococcus aureus (MRSA) scr eening culture NEG NRG Automated blood complete blood count (he mogram) panel - 11/21/17 07:33 Blood leukocytes automated count (number/volume) 8.0 10*3/uL 4.3-11.0 Blood erythrocytes automated count (number/volume) 4.34 10*6/uL 4.35-5.85 Venous blood hemoglobin measurement (mass/volume) 13.5 g/dL 11.5-16.0 Blood hematocrit (volume fraction) 43 % 35-52 Automated erythrocyte mean corpuscular volume 96 [ foz_us] 80-99 Automated erythrocyte mean corpuscular h emoglobin (mass per erythrocyte) 31 pg 25-34 Automated erythrocyte mean corpuscular h emoglobin concentration measurement (mass/volume) 32 g/dL 32-36 Automated erythrocyte distribution width ratio 12. 1 % 10.0- 14.5 Automated blood platelet count [...] 5-14 Serum or plasma urea nitrogen measurement (mass/volume ) 6 mg/dL 7-18 Serum or plasma creatinine measurement (mass/volume) 0.76 mg/dL 0.60-1.30 Serum or plasma urea nitrogen/creatinine mass ratio 8 NRG Serum or plasma creatinine measurement w ith calculation of estimated glomerular filtration rate > NRG Serum or plasma glucose measurement (mass/volume) 91 mg/dL 70-105 Serum or plasma calcium measurement (mass/volume) 9.0 mg/dL 8.5-10.1 Serum or plasma total bilirubin measurement (mass/volu me) 0.4 mg/dL 0.1-1.0 Serum or plasma alkaline phosphatase kimberly surement (enzymatic activity/volume) 62 U/L 60-350 Serum or plasma aspartate aminotransfera se measurement (enzymatic activity/volume) 18 U/L 5-34 Serum or plasma alanine aminotransferase measurement (enzymatic activity/volume) 19 U/L 0-55 Serum or plasma protein measurement (mass/volume) 7.7 g/dL 6.4-8.2 Serum or plasma albumin measurement (mass/volume) 4.2 g/dL 3.2-4.5 Serum or plasma amylase measurement (enz ymatic activity/volume) - 11/21/17 07:33 Serum or plasma amylase measurement (enzymatic activit y/volume) 52 U/L 25-125 Lipase - 11/21/17 07:33 Lipase 25 U/L 8-78 Serum Helicobacter pylori antibody assay (units/volume) - 11/21/17 07:33 Helicobacter pylori ab [units/volume] in serum 0.12 u[iU]/mL 0.00-0.79 Interpretation of Helicobacter pylori IgG antibody ass ay Negative Negative Complete urinalysis with reflex to cultu re - 05/13/18 12:19 Urine color determination YELLOW NRG Urine clarity determination SLIGHTLY CLOUDY NRG Urine pH measurement by test strip 7 5-9 Specific gravity of urine by test strip 1.015 1.016-1.022 Urine protein assay by test strip, semi-quantitative NEGATIVE NEGATIVE Urine glucose detection by automated test strip NE GATIVE NEGATIVE Erythrocytes detection in urine sediment by light micr oscopy NEGATIVE NEGATIVE Urine ketones detection by automated test strip NE GATIVE NEGATIVE Urine nitrite detection by test strip NEGATIVE NEGATIVE Urine total bilirubin detection by test strip NEGA TIVE NEGATIVE Urine urobilinogen measurement by automated test strip (mass/volume) NORMAL NORMAL Urine leukocyte esterase detection by dipstick NEG ATIVE NEGATIVE Automated urine sediment erythrocyte cou nt by microscopy (number/high power field) NONE NRG Automated urine sediment leukocyte count by microscopy (number/high power field) NONE NRG Bacteria detection in urine sediment by light microsco py TRACE NRG Squamous epithelial cells detection in u rine sediment by light microscopy 10-25 NRG Crystals detection in urine sediment by light microsco py PRESENT NRG Casts detection in urine sediment by light microscopy NONE NRG Mucus detection in urine sediment by light microscopy NEGATIVE NRG Complete urinalysis with reflex to culture NO NRG Amorphous sediment detection in urine sediment by ligh t microscopy LARGE NOHMEI URATES NRG Complete blood count (CBC) with automate d white blood cell (WBC) differential - 05/13/18 12:30 Blood leukocytes automated count (number/volume) 14.8 10*3/uL 4.3-11.0 Blood erythrocytes automated count (number/volume) 4.04 10*6/uL 4.35-5.85 Venous blood hemoglobin measurement (mass/volume) 13.1 g/dL 11.5-16.0 Blood hematocrit (volume fraction) 37 % 35-52 Automated erythrocyte mean corpuscular volume 91 [ foz_us] 80-99 Automated erythrocyte mean corpuscular h emoglobin (mass per erythrocyte) 32 pg 25-34 Automated erythrocyte mean corpuscular h emoglobin concentration measurement (mass/volume) 36 g/dL 32-36 Automated erythrocyte distribution width ratio 12. 5 % 10.0- 14.5 Automated blood platelet count [...] 10*3 1.0-4.0 Blood monocytes automated count (number/volume) 0. 9 10*3 0.0-1.0 Automated eosinophil count 0.1 10*3/uL 0 .0-0.3 Automated blood basophil count (count/volume) 0.0 10*3/uL 0.0-0.1 Blood manual differential performed dete ction - 05/13/18 12:30 Blood monocytes/100 leukocytes 8 % NRG Manual blood segmented neutrophils/100 leukocytes 79 % NRG Blood band neutrophils/100 leukocytes 2 % NRG Manual blood lymphocytes/100 leukocytes 11 % NRG Blood erythrocyte morphology finding identification NORMAL [facility] Comprehensive metabolic panel - 05/13/18 12:30 Serum or plasma sodium measurement (moles/volume) 138 mmol/L 135-145 Serum or plasma potassium measurement (moles/volume) 3.9 mmol/L 3.6-5.0 Serum or plasma chloride measurement (moles/volume) 108 mmol/L 98-107 Carbon dioxide 21 mmol/L 21-32 Serum or plasma anion gap determination (moles/volume) 9 mmol/L 5-14 Serum or plasma urea nitrogen measurement (mass/volume ) 5 mg/dL 7-18 Serum or plasma creatinine measurement (mass/volume) 0.58 mg/dL 0.60-1.30 Serum or plasma urea nitrogen/creatinine mass ratio 9 NRG Serum or plasma creatinine measurement w ith calculation of estimated glomerular filtration rate > NRG Serum or plasma glucose measurement (mass/volume) 100 mg/dL 70-105 Serum or plasma calcium measurement (mass/volume) 9.2 mg/dL 8.5-10.1 Serum or plasma total bilirubin measurement (mass/volu me) 0.3 mg/dL 0.1-1.0 Serum or plasma alkaline phosphatase kimberly surement (enzymatic activity/volume) 88 U/L 40-136 Serum or plasma aspartate aminotransfera se measurement (enzymatic activity/volume) 12 U/L 5-34 Serum or plasma alanine aminotransferase measurement (enzymatic activity/volume) 12 U/L 0-55 Serum or plasma protein measurement (mass/volume) 6.5 g/dL 6.4-8.2 Serum or plasma albumin measurement (mass/volume) 3.5 g/dL 3.2-4.5 Magnesium - 05/13/18 12:30 Magnesium 1.8 mg/dL 1.8-2.4 Complete urinalysis with reflex to cultu re - 06/17/18 21:05 Urine color determination YELLOW NRG Urine clarity determination CLEAR NR G Urine pH measurement by test strip 8 5-9 Specific gravity of urine by test strip 1.010 1.016-1.022 Urine protein assay by test strip, semi-quantitative NEGATIVE NEGATIVE Urine glucose detection by automated test strip NE GATIVE NEGATIVE Erythrocytes detection in urine sediment by light micr oscopy NEGATIVE NEGATIVE Urine ketones detection by automated test strip NE GATIVE NEGATIVE Urine nitrite detection by test strip NEGATIVE NEGATIVE Urine total bilirubin detection by test strip NEGA TIVE NEGATIVE Urine urobilinogen measurement by automated test strip (mass/volume) NORMAL NORMAL Urine leukocyte esterase detection by dipstick NEG ATIVE NEGATIVE Automated urine sediment erythrocyte cou nt by microscopy (number/high power field) NONE NRG Automated urine sediment leukocyte count by microscopy (number/high power field) NONE NRG Bacteria detection in urine sediment by light microsco py NONE NRG Squamous epithelial cells detection in u rine sediment by light microscopy 0-2 NRG Crystals detection in urine sediment by light microsco py NONE NRG Casts detection in urine sediment by light microscopy NONE NRG Mucus detection in urine sediment by light microscopy NEGATIVE NRG Complete urinalysis with reflex to culture NO NRG Complete blood count (CBC) with automate d white blood cell (WBC) differential - 07/22/18 14:00 Blood leukocytes automated count (number/volume) 14.3 10*3/uL 4.3-11.0 Blood erythrocytes automated count (number/volume) 4.45 10*6/uL 4.35-5.85 Venous blood hemoglobin measurement (mass/volume) 13.6 g/dL 11.5-16.0 Blood hematocrit (volume fraction) 40 % 35-52 Automated erythrocyte mean corpuscular volume 90 [ foz_us] 80-99 Automated erythrocyte mean corpuscular h emoglobin (mass per erythrocyte) 31 pg 25-34 Automated erythrocyte mean corpuscular h emoglobin concentration measurement (mass/volume) 34 g/dL 32-36 Automated erythrocyte distribution width ratio 12. 8 % 10.0- 14.5 Automated blood platelet count [...] 10*3 1.0-4.0 Blood monocytes automated count (number/volume) 1. 3 10*3 0.0-1.0 Automated eosinophil count 0.1 10*3/uL 0 .0-0.3 Automated blood basophil count (count/volume) 0.0 10*3/uL 0.0-0.1 Blood type T Indirect antibody screen pa elizabeth - 07/22/18 14:00 ABO+Rh group OP NRG Transfusion band number [id number] NRG Blood group antibody screen NEGATIVE NR G Blood manual differential performed dete ction - 07/22/18 14:00 Blood monocytes/100 leukocytes 7 [...] 16:11 CULTURE, URINE, ROUTINE SEE NOTE NRG Complete blood count (CBC) with automate d white blood cell (WBC) differential - 05/08/19 23:51 Blood leukocytes automated count (number/volume) 8.5 10*3/uL 4.3-11.0 Blood erythrocytes automated count (number/volume) 4.44 10*6/uL 4.35-5.85 Venous blood hemoglobin measurement (mass/volume) 13.0 g/dL 11.5-16.0 Blood hematocrit (volume fraction) 39 % 35-52 Automated erythrocyte mean corpuscular volume 88 [ foz_us] 80-99 Automated erythrocyte mean corpuscular h emoglobin (mass per erythrocyte) 29 pg 25-34 Automated erythrocyte mean corpuscular h emoglobin concentration measurement (mass/volume) 33 g/dL 32-36 Automated erythrocyte distribution width ratio 13. 4 % 10.0- 14.5 Automated blood platelet count (count/volume) 243 10*3/uL 130-400 Automated blood platelet mean volume measurement 11.1 [foz_us] 7.4-10.4 Automated blood neutrophils/100 leukocytes 64 % 42-75 Automated blood lymphocytes/100 leukocytes 22 % 12-44 Blood monocytes/100 leukocytes 9 % 0-12 Automated blood eosinophils/100 leukocytes 6 % 0-10 Automated blood basophils/100 leukocytes 0 % 0-10 Blood neutrophils automated count (number/volume) 5.4 10*3 1.8-7.8 Blood lymphocytes automated count (number/volume) 1.8 10*3 1.0-4.0 Blood monocytes automated count (number/volume) 0. 8 10*3 0.0-1.0 Automated eosinophil count 0.5 10*3/uL 0 .0-0.3 Automated blood basophil count (count/volume) 0.0 10*3/uL 0.0-0.1 Serum or plasma choriogonadotropin (preg luís test) detection - 05/08/19 23:51 Serum or plasma choriogonadotropin ( test) de tection NEGATIVE NEGATIVE Comprehensive metabolic panel - 05/08/19 23:51 Serum or plasma sodium measurement (moles/volume) 140 mmol/L 135-145 Serum or plasma potassium measurement (moles/volume) 3.7 mmol/L 3.6-5.0 Serum or plasma chloride measurement (moles/volume) 107 mmol/L 98-107 Carbon dioxide 21 mmol/L 21-32 Serum or plasma anion gap determination (moles/volume) 12 mmol/L 5-14 Serum or plasma urea nitrogen measurement (mass/volume ) 14 mg/dL 7-18 Serum or plasma creatinine measurement (mass/volume) 0.79 mg/dL 0.60-1.30 Serum or plasma urea nitrogen/creatinine mass ratio 18 NRG Serum or plasma creatinine measurement w ith calculation of estimated glomerular filtration rate > NRG Serum or plasma glucose measurement (mass/volume) 96 mg/dL 70-105 Serum or plasma calcium measurement (mass/volume) 9.1 mg/dL 8.5-10.1 Serum or plasma total bilirubin measurement (mass/volu me) 0.3 mg/dL 0.1-1.0 Serum or plasma alkaline phosphatase kimberly surement (enzymatic activity/volume) 85 U/L 40-136 Serum or plasma aspartate aminotransfera se measurement (enzymatic activity/volume) 14 U/L 5-34 Serum or plasma alanine aminotransferase measurement (enzymatic activity/volume) 19 U/L 0-55 Serum or plasma protein measurement (mass/volume) 7.7 g/dL 6.4-8.2 Serum or plasma albumin measurement (mass/volume) 4.4 g/dL 3.2-4.5 CALCIUM CORRECTED 8.8 mg/dL 8.5-10.1 Serum or plasma C reactive protein measu rement (mass/volume) - 05/08/19 23:51 Serum or plasma C reactive protein measurement (mass/v olume) 0.99 mg/dL 0.00-0.50 Tick identification panel - 05/09/19 01: 20 Serum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
--- NOTE | 2020-02-14 08:08 | NUR ---
Pt reports to provider she has been experiencing dry cough since 02/07/20, after denying cough to this RN during triage.
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
[2020-02-14 08:25] VITALS: BP 116/58
== END 2020-02-14 08:25 | disposition home or self-care (01) ==
LOC: EDUNIT# 07:49 → ER 07:51
DX: R07.89 Other chest pain (principal); F90.9 Attention-deficit hyperactivity disorder, unspecified type; F41.9 Anxiety disorder, unspecified; F39 Unspecified mood [affective] disorder
CPT/HCPCS: 93005

== ENCOUNTER 2020-03-27 07:41 | Emergency (ER) | payer OTHER, BC, MEDICAID ==
[~2020-03-27] VITALS: Ht 160 cm; Wt 117.3 kg
[2020-03-27 07:45] VITALS: BP 116/69
--- OUTSIDE RECORDS SUMMARY | 2020-03-27 08:07 | XMS REPORT ---
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 Name Role Phone JAZZY Horn Unavailable PROBLEMS Type Condition ICD9-CM Code [id number] Code Onset Dates Condition S tatus SNOMED Code Problem Attention deficit disorder without hyperactivity F 90.0 Active 05907145 Problem Dysmenorrhea N94.6 Active 3477607 00 Problem Seasonal allergic rhinitis due to pollen J30.1 Active 62275100 Problem Sore throat J02.9 Active 89379552 3 Problem Fever R50.9 Active 366189168 Problem PAC (premature atrial contraction) I49.1 Active 992541056 Problem PCOS (polycystic ovarian syndrome) E28.2 Active 35707484 Problem Depressive disorder F32.9 Active 89016837 Problem Generalized anxiety disorder F41.1 A ctive 546626187 Problem Urinary hesitancy R39.11 Active 59 84564 Problem Body mass index (BMI) 40.0-44.9, adult Z68.41 Active 404746620 Problem Morbid (severe) obesity due to excess calories E66 .01 Active 28385995204259 Problem Bladder leak R32 Active 1064750 02 ALLERGIES No Information ENCOUNTERS Encounter Location Date Diagnosis [facility] [place] [address] [facility] [id number] [address] [place] [place] [phone] Feb, Generalized anxiety disorder F41.1 [facility] [place] [address] [facility] [id number] [address] [place] [place] [phone] Feb, [facility] [address] [facility] [id number] [address] [place] [phone] Feb, Cough R05 [facility] [address] [facility] [id number] [address] [place] [phone] Feb, [facility] [place] [address] [facility] [id number] [place], [place] [id number] 2-4001 07 Dec, 2019 [facility] [address] [place] [id number] [address] [place] [place] [phone] Nov, Fever and chills R50.9 and V iral upper respiratory illness J06.9 [facility] [place] [id number] [place], [place] [address] 2-4001 Nov, Nausea R11.0 [facility] [place] [address] [phone] Oct, Syncope, unspecified syncope type R55 ; Body mass index (BMI) 40.0-44.9, adult Z68.41 and PAC (premature atrial contraction) I49.1 [facility] [address] [id number] [address] [place] [place] [phone] Oct, Syncope, unspecified syncope type R55 [facility] [place] [id number] [place] [address] Sep, Morbid (severe) obesity due to excess calories E66.01 ; Body mass index (BMI) 40.0-44.9, adult Z68.41 and Bladder leak R32 [place] [address] [address] Aug, [facility] [place] [address] [id number] [address] [place] [place] [phone] Aug, [facility] [address] [id number] [address] [place] [place] [address] Aug, Acute pain of right knee M25 .561 [facility] [place] [address] [id number] [address] [place] [address] Aug, [facility] [place] [id number] [place] [id number] Aug, [facility] [place] [id number] [place], [place] [address] Aug, Acute pain of right knee M25.561 [facility] [place] [address] [place]25[place] [address] 2-4001 Jun, History of PCOS Z87.42 ; Easy bruising R23.8 and Plantar fascia syndrome M72.2 [facility] [place] [id number] [place] [address] 6[address] 2-4001 May, Nexplanon insertion Z30.017 [facility] [place] [address] [phone] May, Urinary hesitancy R39.11 [facility] [place] [id number] [place] [address] 6671 2-4001 Apr, Rash and nonspecific skin eruption R21 [facility] [place] [address] [phone] [phone] Apr, [facility] [place] [id number] [place] [address] [phone] 2-4001 Apr, Contraceptive education Z30.09 [facility] [place] [id number] [place] [address] 6[address] 2-4001 March, Rash and nonspecific skin eruption R21 [facility] [address] [place] [address] Jan, Injury of right hand, initia l encounter S69.91XA [facility] [address] [place] [address] Jan, Upper respiratory tract infe ction, unspecified type J06.9 ; Fever R50.9 and Sore throat J02.9 [place] [address] [address] Dec, [address] [address] Nov, Viral gastroenteritis A08.4 [facility] [address] [place] [address] Nov, URI (upper respiratory infec tion) J06.9 and Body aches R52 [facility] [address] [facility] [id number] [address] [place] [address] Oct, Flank pain R10.9 and Mild de hydration E86.0 [facility] [place] [address] [facility] [id number] [address] [place] [phone] Oct, [facility] [id number] [place] [address] Sep, Acute gastroenteritis K52.9 and Acute upper respiratory infection J06.9 [facility] [address] [place] [id number] [address] [place] [place] [phone] Aug, Breast tenderness in female N64.4 [place] [address] [place] [id number] [place] [address] Jul, Encounter for initial prescr iption of contraceptive pills Z30.011 [place] [address] [address] Jul, [place] [address] [address] Jul, Dysuria R30.0 and Acute cyst itis with hematuria N30.01 [place] [address] [place] [id number] [address] [place] [address] Jul, [facility] [address] [id number] [id number] Jun, Seasonal allergic rhinitis due to pollen J30.1 [facility] [place] [address] [id number] [address] [place] [place] [phone] May, [facility] [address] [id number] [address] [place] [place] [phone] May, Skin lesion L98.9 [facility] [place] [address] [place] [id number] [address] [place] [phone] Apr, [facility] [place] [address] [place] [place] [id number] [address] [place] [place] [phone] Apr, [place] [address] [place] [id number] [address] [place] [place] [address] March, [facility] [place] [id number] [place] [address] March, [facility] [address] [id number] [address] [place] [address] [id number] March, Fractured dental faith with loss of material K08.531 [facility] [address] [facility] [id number] [address] [place] [id number] March, Dental examination Z01.20 [facility] [place] [address] [place] [id number] [address] [place] [phone] Jan, Dental examination Z01.20 [facility] [address] [id number] [id number] Nov, Positive test Z32.01 [facility] [address] [facility] [address] [id number] [id number] Jul, [facility] [id number] [place] [address] [id number] Jul, test negative Z32.02 [place] [address] [place] [id number] [address] [place] [place] [phone] March, [facility] [place] [address] [id number] [address] [place] [id number] Feb, Dysmenorrhea N94.6 ; Oral co ntraceptive pill surveillance Z30.41 ; Morbid obesity due to excess calories E66.01 ; Generalized anxiety disorder F41.1 and PCOS (polycystic ovarian syndrome) E28.2 [facility] [place] [address] [facility] [id number] [address] [place] [place] [phone] Jan, Morbid obesity due to excess calories E66.01 [place] [address] [place] [id number] [address] [place] [place] [address] Jan, Missed periods N92.6 ; Morbi d obesity due to excess calories E66.01 ; Family history of diabetes mellitus Z83.3 and Family history of PCOS Z84.2 [facility] [place] [address] [facility] [id number] [address] [place] [phone] Dec, Encounter for test Z32.00 [facility] [address] [facility] [id number] [address] [place] [address] [id number] Nov, Dental examination Z01.20 [facility] [place] [address] [facility] [id number] [address] [place] [place] [phone] Jun, Oral contraceptive pill surv eillance Z30.41 [facility] [place] [address] [id number] [address] [place] [phone] Jun, Dysmenorrhea N94.6 and Oral contraceptive pill surveillance Z30.41 [place] [address] [facility] [id number] [address] [place] [phone] Jun, [place] [address] [facility] [id number] [address] [place] [place] [phone] Jun, [facility] [place] [address] [facility] [id number] [address] [place] [place] [phone] Jun, [facility] [place] [address] [facility] [id number] [address] [place] [phone] May, [facility] [place] [address] [facility] [id number] [address] [place] [phone] March, Oral contraceptive pill surv eillance Z30.41 ; Proteinuria R80.9 and Weight gain R63.5 [facility] [place] [address] [facility] [id number] [address] [place] [phone] Dec, Oral contraceptive pill surv eillance Z30.41 ; Weight gain R63.5 ; Hair loss L65.9 ; Acne, unspecified L70.9 and Routine screening for STI (sexually transmitted infection) Z11.3 [facility] [place] [address] [facility] [id number] [address] [place] [place] [phone] Aug, Encounter for immunization Z 23 [facility] [address] [id number] [address] [place] [address] [id number] Jul, Dental examination V72.2 [facility] [place] [address] [id number] [address] [place] [phone] May, [facility] [place] [address] [id number] [address] [place] [place] [phone] Apr, [facility] [address] [id number] [address] [place] [address] [id number] Apr, Dental examination V72.2 [facility] [place] [address] [id number] [address] [place] [phone] Apr, [facility] [place] [address] [id number] [address] [place] [place] [phone] Apr, GARDASIL (HPV) DX V04.89 [facility] [address] [id number] [address] [place] [address] [id number] March, Dental examination V72.2 [facility] [place] [address] [id number] [address] [place] [place] [phone] March, Generalized anxiety disorder 300.02 [facility] [place] [address] [id number] [address] [place] [place] [phone] Feb, [facility] [place] [address] [id number] [address] [place] [place] [phone] Feb, [facility] [place] [address] [id number] [address] [place] [place] [phone] Jan, [facility] [place] [address] [id number] [address] [place] [place] [phone] Jan, [facility] [place] [address] [id number] [address] [place] [place] [phone] Dec, [facility] [place] [address] [id number] [address] [place] [place] [phone] Dec, [facility] [place] [address] [id number] [address] [place] [place] [phone] Oct, [facility] [address] [id number] [address] [place] [address], [place] [address] Oct, [facility] [address] [id number] [address] [place] [address], [place] [address] Sep, [facility] [address] [id number] [address] [place] [address], [place] [address] Sep, [facility] [address] [id number] [address] [place] [address], [place] [address] Aug, [facility] [address] [id number] [address] [place] [address], [place] [address] Aug, [facility] [address] [id number] [address] [place] [address], [place] [address] Jul, [facility] [address] [id number] [address] [place] [address], [place] [address] Jul, [facility] [address] [id number] [address] [place] [address], [place] [address] Jun, [facility] [address] [id number] [address] [place] [address], [place] [address] Jun, [facility] [address] [id number] [address] [place] [address], [place] [address] Jun, [facility] [address] [id number] [address] [place] [address], [place] [address] Jun, [facility] [address] [id number] [address] [place] [address], [place] [address] May, [facility] [address] [id number] [address] [place] [address], [place] [address] May, [facility] [address] [id number] [address] [place] [address], [place] [address] March, [facility] [address] [id number] [address] [place] [address], [place] [address] March, [facility] [address] [id number] [address] [place] [address], [place] [address] Feb, [facility] [address] [id number] [address] [place] [address], [place] [address] Feb, [facility] [address] [id number] [address] [place] [address], [place] [address] Jan, [facility] [address] [id number] [address] [place] [address], [place] [address] Jan, [facility] [address] [id number] [address] [place] [address], [place] [address] Jan, [facility] [address] [id number] [address] [place] [address], [place] [address] Jan, [facility] [address] [id number] [address] [place] [address], [place] [id number] Jan, [facility] [address] [id number] [address] [place] [address], [place] [address] Jan, [facility] [address] [id number] [address] [place] [address], [place] [address] Jan, [facility] [address] [id number] [address] [place] [address], [place] [address] Jan, [facility] [address] [id number] [address] [place] [address], [place] [address] Nov, [facility] [address] [id number] [address] [place] [address], [place] [address] Nov, [facility] [address] [id number] [address] [place] [address], [place] [address] Nov, [facility] [address] [id number] [address] [place] [address], [place] [address] Nov, [facility] [address] [id number] [address] [place] [address], [place] [address] Oct, [facility] [address] [id number] [address] [place] [address], [place] [address] Oct, [facility] [address] [id number] [address] [place] [address], [place] [address] Oct, [facility] [address] [id number] [address] [place] [address], [place] [address] Oct, [facility] [address] [id number] [address] [place] [address], [place] [address] Sep, [facility] [address] [id number] [address] [place] [address], [place] [address] Sep, [facility] [address] [id number] [address] [place] [address], [place] [address] Aug, [facility] [address] [id number] [address] [place] [address], [place] [address] Jul, [facility] [address] [id number] [address] [place] [address], [place] [address] Jun, [facility] [address] [id number] [address] [place] [address], [place] [address] Apr, [facility] [address] [id number] [address] [place] [address], [place] [address] March, [facility] [address] [id number] [address] [place] [address], [place] [address] Feb, [facility] [address] [id number] [address] [place] [address], [place] [address] Dec, [facility] [address] [id number] [address] [place] [address], [place] [address] Nov, [facility] [address] [id number] [address] [place] [address], [place] [address] Oct, [facility] [address] [id number] [address] [place] [address], [place] [address] Oct, [facility] [address] [id number] [address] [place] [address], [place] [address] Sep, [facility] [address] [id number] [address] [place] [address], [place] [address] Sep, [facility] [address] [id number] [address] [place] [address], [place] [address] Sep, [facility] [address] [id number] [address] [place] [address], [place] [address] Sep, [facility] [address] [id number] [address] [place] [address], [place] [address] Sep, [facility] [address] [id number] [address] [place] [address], [place] [address] Jul, [facility] [address] [id number] [address] [place] [address], [place] [address] Jun, [facility] [address] [id number] [address] [place] [address], [place] [id number] May, [facility] [address] [id number] [address] [place] [address], [place] [id number] Apr, [facility] [address] [id number] [address] [place] [address], [place] [id number] Apr, [facility] [address] [id number] [address] [place] [address], [place] [id number] March, [facility] [address] [id number] [address] [place] [address], [place] [id number] March, [facility] [address] [id number] [address] [place] [address], [place] [id number] March, [facility] [address] [id number] [address] [place] [address], [place] [id number] Feb, [facility] [address] [id number] [address] [place] [address], [place] [id number] Feb, [facility] [address] [id number] [address] [place] [address], [place] [id number] Jan, [facility] [address] [id number] [address] [place] [address], [place] [id number] Nov, [facility] [address] [id number] [address] [address] 13 Nov, 2011 [facility] [place] [address] [id number] [address] [place] [phone] 15 Sep, 2011 [facility] [place] [address] [id number] [address] [place] [id number] 15 Sep, 2011 [facility] [place] [address] [id number] [address] [place] [phone] 14 Aug, 2011 [facility] [place] [address] [id number] [address] [place] [id number] 14 Aug, 2011 [facility] [place] [address] [id number] [address] [place] [id number] 16 Jul, 2011 [facility] [place] [address] [id number] [address] [place] [id number] 16 Jun, 2011 [facility] [place] [address] [id number] [address] [place] [phone] Oct, [facility] [place] [address] [id number] [address] [place] [phone] Oct, [facility] [place] [address] [id number] [address] [place] [phone] Sep, [facility] [place] [address] [id number] [address] [place] [phone] Aug, [facility] [place] [address] [id number] [address] [place] [phone] Aug, [facility] [place] [address] [id number] [address] [place] [phone] Jun, IMMUNIZATIONS No Known Immunizations SOCIAL HISTORY Never Assessed REASON FOR VISIT PLAN OF CARE VITAL SIGNS Height 63 in 2014-09-25 Weight 177 lbs 2014-09-25 Temperature 97 degrees Fahrenheit 2014-09-25 Heart Rate 80 bpm 2014-09-25 Respiratory Rate 28 2014-09-25 Blood pressure systolic 112 mmHg 2014-09-25 Blood pressure diastolic 82 mmHg 2014-09-25 MEDICATIONS Unknown Medications RESULTS No Results PROCEDURES No Known procedures INSTRUCTIONS MEDICATIONS ADMINISTERED No Known Medications MEDICAL (GENERAL) HISTORY Type Description Date Medical History C/s 07/2018 Medical History Surgical History left knee arthroscopy Surgical History 07/2018 Surgical History cystoscopy 2016 Hospitalization History kidney infection 01/2016 Hospitalization History childbirth
--- OUTSIDE RECORDS SUMMARY | 2020-03-27 08:07 | XMS REPORT ---
Author Author Sarah Downs Doctor Organization [facility] Address Unknown Phone Unavailable Care Team Providers Care Dry Folder Cloth Name Role Phone Migration, Doctor Unavailable Unavailable PROBLEMS Type Condition ICD9-CM Code EVV65-HO Code Onset Dates Condition S tatus SNOMED Code Problem Attention deficit disorder without hyperactivity F 90.0 Active 96685336 Problem Dysmenorrhea N94.6 Active 3641658 00 Problem Seasonal allergic rhinitis due to pollen J30.1 Active 58034414 Problem Sore throat J02.9 Active 57461689 3 Problem Fever R50.9 Active 987603430 Problem PAC (premature atrial contraction) I49.1 Active 478928019 Problem PCOS (polycystic ovarian syndrome) E28.2 Active 99318758 Problem Depressive disorder F32.9 Active 61012624 Problem Generalized anxiety disorder F41.1 A ctive 023893452 Problem Urinary hesitancy R39.11 Active 59 53201 Problem Body mass index (BMI) 40.0-44.9, adult Z68.41 Active 841862399 Problem Morbid (severe) obesity due to excess calories E66 .01 Active 34905415578764 Problem Bladder leak R32 Active 0959522 02 ALLERGIES No Information ENCOUNTERS Encounter Location Date Diagnosis [facility] [address] [place] [address] Feb, Generalized anxiety disorder F41.1 [facility] [address] [id number] [address] [place] [address] 15 Feb, 2020 [facility] [address] [place] [address] Feb, Cough R05 [facility] [address] [id number] [address] [place] [address] Feb, [facility] [id number] [place] [address] 1628 [address]001 07 Dec, 2019 [facility] [address] [facility] [id number] [address] [place] [address] Nov, Fever and chills R50.9 and V iral upper respiratory illness J06.9 [facility] [id number] [place] [address] 6617 24001 Nov, Nausea R11.0 [facility] [id number] [place] [address] 6673 2-4001 Oct, Syncope, unspecified syncope type R55 ; Body mass index (BMI) 40.0-44.9, adult Z68.41 and PAC (premature atrial contraction) I49.1 [facility] [address] [facility] [id number] [address] [place] [address] Oct, Syncope, unspecified syncope type R55 [facility] [id number] [place] [address] 7772 24001 Sep, Morbid (severe) obesity due to excess calories E66.01 ; Body mass index (BMI) 40.0-44.9, adult Z68.41 and Bladder leak R32 [facility] [id number] [place] [address] Aug, [facility] [address] [address] Aug, [facility] [address] [id number] [place] [address] Aug, Acute pain of right knee M25 .561 [facility] [address] [id number] [place] [address] Aug, [facility] [id number] [place] [address] 3193 24001 Aug, [facility] [id number] [place] [address] 6648 24001 Aug, Acute pain of right knee M25.561 [facility] [id number] [place] [address] 6680 24001 Jun, History of PCOS Z87.42 ; Easy bruising R23.8 and Plantar fascia syndrome M72.2 [facility] [id number] [place] [address] 2-4001 May, Nexplanon insertion Z30.017 [facility] [id number] [place], [place] [address] 2-4001 May, Urinary hesitancy R39.11 [facility] [address] [address] Apr, Rash and nonspecific skin eruption R21 [facility] [id number] [place] [address] 2-4001 Apr, [facility] [address] [address] Apr, Contraceptive education Z30.09 [facility] [id number] [place], [place] [address] 2-4001 March, Rash and nonspecific skin eruption R21 [facility] [address] [address] Jan, Injury of right hand, initia l encounter S69.91XA [facility] [address] [place] [address] Jan, Upper respiratory tract infe ction, unspecified type J06.9 ; Fever R50.9 and Sore throat J02.9 [place] [address] [address] Dec, [place] [address] [address] Nov, Viral gastroenteritis A08.4 [facility] [address] [place] [address] Nov, URI (upper respiratory infec tion) J06.9 and Body aches R52 [facility] [address] [place] [address] Oct, Flank pain R10.9 and Mild de hydration E86.0 [facility] [id number] [place] [address] Oct, [facility] [address] [id number] [place] [address] Sep, Acute gastroenteritis K52.9 and Acute upper respiratory infection J06.9 [facility] [id number] [place] [address] Aug, Breast tenderness in female N64.4 [place] [address] [id number] [place] [address] Jul, Encounter for initial prescr iption of contraceptive pills Z30.011 [place] [id number] [place] [address] Jul, [place] [address] [address] Jul, Dysuria R30.0 and Acute cyst itis with hematuria N30.01 [place] [address] [place] [address] Jul, [facility] [id number] [place] [address] S [id number] Jun, Seasonal allergic rhinitis due to pollen J30.1 [place] [address] [id number] [place] [address] May, [facility] [address] [facility] [id number] [address] [place] [address] May, Skin lesion L98.9 [place] [address] [id number] [place] [address] Apr, [place] [address] [place] [id number] [place] [address] Apr, [place] [address] [address] March, [facility] [address] [facility] [id number] [address] [place] [address] March, [facility] [address] [place] [address] [id number] March, Fractured dental episcopalian with loss of material K08.531 [facility] [address] [place] [address] [id number] March, Dental examination Z01.20 [facility] [id number] [place] [address] Jan, Dental examination Z01.20 [facility]] [id number] [place] [id number] Nov, Positive test Z32.01 [facility] [address] [id number] [id number] Jul, [facility][1] [id number] [place] [address] [id number] Jul, test negative Z32.02 [place] [address] [place] [address] March, [place] [address] [address] Feb, Dysmenorrhea N94.6 ; Oral co ntraceptive pill surveillance Z30.41 ; Morbid obesity due to excess calories E66.01 ; Generalized anxiety disorder F41.1 and PCOS (polycystic ovarian syndrome) E28.2 [place] [address] [id number] [place] [address] Jan, Morbid obesity due to excess calories E66.01 [place] [address] [address] Jan, Missed periods N92.6 ; Morbi d obesity due to excess calories E66.01 ; Family history of diabetes mellitus Z83.3 and Family history of PCOS Z84.2 [place] [address] [place] [address] Dec, Encounter for test Z32.00 [facility] [address] [facility] [id number] [address] [place] [address] [id number] Nov, Dental examination Z01.20 [facility] [address] [facility] [id number] [address] [place] [address] Jun, Oral contraceptive pill surv eillance Z30.41 [facility] [address] [facility] [id number] [address] [place] [address] Jun, Dysmenorrhea N94.6 and Oral contraceptive pill surveillance Z30.41 [facility] [address] [facility] [id number] [place] [address] Jun, [facility] [address] [facility] [id number] [address] [place] [address] Jun, [facility] [address] [address] Jun, [facility] [address] [facility] [id number] [address] [place] [address] May, [facility] [address] [address] March, Oral contraceptive pill surv eillance Z30.41 ; Proteinuria R80.9 and Weight gain R63.5 [place] [address] [place] [address] [id number] [place] [address] Dec, Oral contraceptive pill surv eillance Z30.41 ; Weight gain R63.5 ; Hair loss L65.9 ; Acne, unspecified L70.9 and Routine screening for STI (sexually transmitted infection) Z11.3 [place] [address] [facility] [id number] [address] [place] [address] Aug, Encounter for immunization Z 23 [facility] [address] [id number] [address] [place] [address] [id number] Jul, Dental examination V72.2 [place] [address] [id number] [address] [place] [address] May, [facility] [address] [id number] [address] [place] [address] Apr, [facility] [address] [id number] [address] [place] [address] [id number] Apr, Dental examination V72.2 [facility] [address] [id number] [address] [place] [address] Apr, [facility] [address] [id number] [address] [place] [address] Apr, GARDASIL (HPV) DX V04.89 [facility] [address] [id number] [address] [place] [address] [id number] March, Dental examination V72.2 [facility] [address] [id number] [address] [place] [address] March, Generalized anxiety disorder 300.02 [facility] [address] [id number] [address] [place] [address] Feb, [facility] [address] [id number] [address] [place] [address] Feb, [facility] [address] [id number] [address] [place] [address] Jan, [facility] [address] [id number] [address] [place] [address] Jan, [facility] [address] [id number] [address] [place] [address] Dec, [facility] [address] [id number] [address] [place] [address] Dec, [facility] [address] [id number] [address] [place] [address] Oct, [facility] [address] [id number] [address] [place] [address] Oct, [facility] [address] [id number] [address] [place] [address], [place] [address] Sep, [facility] [address] [id number] [address] [place] [address], [place] [address] Sep, [facility] [place] [facility] [address] [id number] [address] [place] [address], [place] [address] Aug, [facility] [place] [facility] [address] [id number] [address] [place] [address], [place] [address] Aug, [facility] [address] [id number] [address] [place] [address], [place] [address] Jul, [facility] [address] [id number] [address] [place] [address], [place] [address] Jul, [facility] [address] [id number] [address] [place] [address], [place] [address] Jun, [facility] [address] [id number] [address] [place] [address], [place] [address] Jun, [facility] [address] [id number] [address] [place] [address], [place] [address] Jun, [facility] [address] [id number] [address] [place] [address] Jun, [facility] [address] [id number] [address] [place] [address] May, [facility] [address] [id number] [address] [place] [address] May, [facility] [address] [id number] [address] [place] [address], [place] [address] March, [facility] [address] [id number] [address] [place] [address], [place] [address] March, [facility] [address] [id number] [address] [place] [address], [place] [address] Feb, [facility] [address] [id number] [address] [place] [address] Feb, [facility] [address] [id number] [address] [place] [address], [place] [address] Jan, [facility] [address] [id number] [address] [place] [address], [place] [address] Jan, [facility] [address] [id number] [address] [place] [address], [place] [address] Jan, [facility] [address] [id number] [address] [place] [address], [place] [address] Jan, [facility] [address] [id number] [address] [place] [address], [place] [address] Jan, [facility] [address] [id number] [address] [place] [address], [place] [address] Jan, [facility] [address] [id number] [address] [place] [address], [place] [address] Jan, [facility] [address] [id number] [address] [place] [address], [place] [address] Jan, [facility] [address] [id number] [address] [place] [address], [place] [address] Nov, [facility] [address] [id number] [address] [place] [address], [place] [address] Nov, [facility] [address] [id number] [address] [place] [address], [place] [address] Nov, [facility] [address] [id number] [address] [place] [address], [place] [address] Nov, [facility] [address] [id number] [address] [place] [address], [place] [address] Oct, [facility] [address] [id number] [address] [place] [address], [place] [address] Oct, [facility] [address] [id number] [address] [place] [address], [place] [address] Oct, [facility] [address] [id number] [address] [place] [address], [place] [address] Oct, [facility] [address] [id number] [address] [place] [address], [place] [address] Sep, [facility] [address] [id number] [address] [place] [address], [place] [address] Sep, [facility] [address] [id number] [address] [place] [address], [place] [address] Aug, [facility] [address] [id number] [address] [place] [address], [place] [address] Jul, [facility] [address] [id number] [address] [place] [address], [place] [address] Jun, [facility] [address] [id number] [address] [place] [address], [place] [address] Apr, [facility] [address] [id number] [address] [place] [address], [place] [address] March, [facility] [address] [id number] [address] [place] [address], [place] [address] Feb, [facility] [address] [id number] [address] [place] [address], [place] [address] Dec, [facility] [address] [id number] [address] [place] [address], [place] [address] Nov, [facility] [address] [id number] [address] [place] [address], [place] [address] Oct, [facility] [address] [id number] [address] [place] [address], [place] [address] Oct, [facility] [address] [id number] [address] [place] [address], [place] [address] Sep, [facility] [address] [id number] [address] [place] [address], [place] [address] Sep, [facility] [address] [id number] [address] [place] [address], [place] [address] Sep, [facility] [address] [id number] [address] [place] [address], [place] [address] Sep, [facility] [address] [id number] [address] [place] [address], [place] [address] Sep, [facility] [address] [id number] [address] [place] [address], [place] [address] Jul, [facility] [address] [id number] [address] [place] [address], [place] [address] Jun, [facility] [address] [id number] [address] [place] [address], [place] [address] May, [facility] [address] [id number] [address] [place] [address], [place] [address] Apr, [facility] [address] [id number] [address] [place] [address], [place] [address] Apr, [facility] [address] [id number] [address] [place] [address], [place] [address] March, [facility] [address] [id number] [address] [place] [address], [place] [address] March, [facility] [address] [id number] [address] [place] [address], [place] [address] March, [facility] [address] [id number] [address] [place] [address], [place] [address] Feb, [facility] [address] [id number] [address] [place] [address], [place] [address] Feb, [facility] [address] [id number] [address] [place] [address], [place] [address] Jan, [facility] [address] [id number] [address] [place] [address], [place] [address] 16 Nov, 2011 [facility] [address] [id number] [address] [place] [address], [place] [address] Nov, [facility] [address] [id number] [address] [place] [address] 15 Sep, 2011 [facility] [address] [id number] [address] [place] [address] 15 Sep, 2011 [facility] [address] [id number] [address] [place] [address] 14 Aug, 2011 [facility] [address] [id number] [address] [place] [address] 14 Aug, 2011 [facility] [address] [id number] [address] [place] [address] Jul, [facility] [address] [id number] [address] [place] [address] Jun, [facility] [address] [id number] [address] [place] [address] Oct, [facility] [address] [id number] [address] [place] [address] Oct, [facility] [address] [id number] [address] [place] [address] Sep, [facility] [address] [id number] [address] [place] [id number] Aug, [facility] [address] [id number] [address] [place] [id number] Aug, [facility] [address] [id number] [address] [place] [phone] Jun, IMMUNIZATIONS No Known Immunizations SOCIAL HISTORY Never Assessed REASON FOR VISIT PLAN OF CARE VITAL SIGNS Height 63.5 in 2012-04-25 Weight 203 lbs 2012-04-25 Heart Rate 84 bpm 2012-04-25 Blood pressure systolic 118 mmHg 2012-04-25 Blood pressure diastolic 72 mmHg 2012-04-25 MEDICATIONS Unknown Medications RESULTS No Results PROCEDURES No Known procedures INSTRUCTIONS MEDICATIONS ADMINISTERED No Known Medications MEDICAL (GENERAL) HISTORY Type Description Date Medical History C/s 07/2018 Medical History Surgical History left knee arthroscopy Surgical History 07/2018 Surgical History cystoscopy 2017 Hospitalization History kidney infection 01/2016 Hospitalization History childbirth
[2020-03-27] MEDS ORDERED: DICL75TA2 PO (08:09)
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
--- OUTSIDE RECORDS SUMMARY | 2020-03-27 08:12 | XMS REPORT | Continuity of Care Document ---
Demographics Preferred Language Unknown Marital Status Unknown Scientologist Affiliation Unknown Race Unknown Ethnic Group Unknown Author Organization Unknown Address Unknown Phone Unavailable [...] Drug Allergy N/A N/A 4 Yes lamotrigine [id number] Drug Aller gy Unknown headache 02/04/2016 Yes methylphenidate [id number] D rug Allergy Unknown hallucinations 02/17/2017 Medications There is no data. Problems Date Dx Coded Attending Type Code Diagnosis Diagnosed By 06/26/2010 278.02 [facility] 06/26/2010 314.01 ATT ENTION DEFICIT DISORDER OF [...] PITTMAN APRN V20.2 WELL CHILD 06/26/2010 278.02 [facility] 06/26/2010 314.01 ATT ENTION DEFICIT DISORDER OF CHILDHOOD, WITH HYPERACTIVITY 06/26/2010 V20.2 WELL CHILD 06/26/2010 278.02 [facility] 06/26/2010 314.01 ATT ENTION DEFICIT DISORDER OF CHILDHOOD, WITH HYPERACTIVITY 06/26/2010 V20.2 WELL CHILD 06/26/2010 ESME PITTMAN APRN 278.02 OVERWEIGHT 06/26/2010 PITTMAN AGRONOMY INSTRUCTOR, ESME ALEXH 314.01 ATTENTION DEFICIT DISORDER OF CHILDHOOD, WITH HYPERACT IVITY 06/26/2010 ESME PITTMAN APRN V20.2 WELL CHILD 06/26/2010 PITTMAN AGRONOMY INSTRUCTORESME 278.02 OVERWEIGHT 06/26/2010 PITTMAN AGRONOMY INSTRUCTOR, ESME MCELROY 314.01 ATTENTION DEFICIT DISORDER OF CHILDHOOD, WITH HYPERACT IVITY 06/26/2010 ESME PITTMAN APRN V20.2 WELL CHILD 06/26/2010 JÚNIOR DDS, SUMMER M 278.02 OVERWEIGHT 06/26/2010 JÚNIOR DDS, SUMMER M 314.01 ATTENTION DEFICIT DISORDER OF CHILDHOOD, WITH HYPERACT IVITY 06/26/2010 JÚNIOR DDS, SUMMER M V20.2 WELL CHILD 06/26/2010 ZAIN RIZVINESME 278.02 OVERWEIGHT 06/26/2010 ZAIN RIZVINESME 314.01 ATTENTION DEFICIT DISORDER OF CHILDHOOD, WITH HYPERACT IVITY 06/26/2010 ZAIN RIZVINESME V20.2 WELL CHILD 06/26/2010 FAUSTO AGRONOMY INSTRUCTOR, NIKITA A 278.02 OVERWEIGHT 06/26/2010 FAUSTO AGRONOMY INSTRUCTOR, NIKITA A 314.01 ATTENTION DEFICIT DISORDER OF CHILDHOOD, WITH HYPERACT IVITY 06/26/2010 FAUSTO AGRONOMY INSTRUCTOR, NIKITA A V2 0.2 WELL CHILD 06/26/2010 FAUSTO AGRONOMY INSTRUCTOR, NIKITA A 278.02 OVERWEIGHT 06/26/2010 FAUSTO AGRONOMY INSTRUCTOR, NIKITA A 314.01 ATTENTION DEFICIT DISORDER OF CHILDHOOD, WITH HYPERACT IVITY 06/26/2010 FAUSTO AGRONOMY INSTRUCTOR, NIKITA A V2 0.2 WELL CHILD 06/26/2010 PITTMAN AGRONOMY INSTRUCTORESME 278.02 OVERWEIGHT 06/26/2010 PITTMAN AGRONOMY INSTRUCTOR, ESME MCELROY 314.01 ATTENTION DEFICIT DISORDER OF CHILDHOOD, WITH HYPERACT IVITY 06/26/2010 ZAIN RIZVINESME V20.2 WELL CHILD 06/26/2010 JAZZY JO M 278.02 OVERWEIGHT 06/26/2010 JAZZY JO M 314.01 ATTENTION DEFICIT DISORDER OF CHILDHOOD, WITH HYPERACT IVITY 06/26/2010 JAZZY JO M V20.2 WELL CHILD 06/26/2010 JAZZY JO 278.02 OVERWEIGHT 06/26/2010 JAZZY JO 314.01 ATTENTION DEFICIT DISORDER OF CHILDHOOD, WITH HYPERACT IVITY 06/26/2010 JAZZY JO V20.2 WELL CHILD 06/26/2010 FAUSTOFERNANDO YANG, NIKITA A 278.02 OVERWEIGHT 06/26/2010 FAUSTO AGRONOMY INSTRUCTOR, NIKITA A 314.01 ATTENTION DEFICIT DISORDER OF CHILDHOOD, WITH HYPERACT IVITY 06/26/2010 FAUSTOFERNANDO RIZVIN, NIKITA A V2 0.2 WELL CHILD 06/26/2010 RINCON DDS, ROJELIO 278.02 OVERWEIGHT 06/26/2010 RINCON MIKS, ROJELIO 314.01 [...] ESME MCELROY 313.81 CD OPPOSITIONAL DEFIANT 09/03/2010 JÚNIOR DDS, SUMMER M 296.90 MO MOOD DIS NOS 09/03/2010 JÚNIOR DDS, SUMMER M 313.81 CD OPPOSITIONAL DEFIANT 09/03/2010 ESME PITTMAN APRN 296.90 MO MOOD DIS NOS 09/03/2010 ZAIN YANG, ESME MCELROY 313.81 CD OPPOSITIONAL DEFIANT 09/03/2010 FAUSTO AGRONOMY INSTRUCTOR, NIKITA A 296.90 MO MOOD DIS NOS 09/03/2010 FAUSTO AGRONOMY INSTRUCTOR, NIKITA A 313.81 CD OPPOSITIONAL DEFIANT 09/03/2010 FAUSTO AGRONOMY INSTRUCTOR, NIKITA A 296.90 MO MOOD DIS NOS 09/03/2010 FAUSTOFERNANDO RIZVIN, NIKITA A 313.81 CD OPPOSITIONAL DEFIANT 09/03/2010 ESME PITTMAN APRN 296.90 MO MOOD DIS NOS 09/03/2010 ZAIN YANG, ESME MCELROY 313.81 CD OPPOSITIONAL DEFIANT 09/03/2010 AURE SCREEN MAKER, JAZZY M 296.90 MO MOOD DIS NOS 09/03/2010 AURE SCREEN MAKER, JAZZY M 313.81 CD OPPOSITIONAL DEFIANT 09/03/2010 AURE SCREEN MAKER, JAZZY M 296.90 MO MOOD DIS NOS 09/03/2010 AURE SCREEN MAKER, JAZZY M 313.81 CD OPPOSITIONAL DEFIANT 09/03/2010 FAUSTOFERNANDO RIZVIN, NIKITA A 296.90 MO MOOD DIS NOS 09/03/2010 FAUSTO RIZVIN, NIKITA A 313.81 CD OPPOSITIONAL DEFIANT 09/03/2010 [...] CALLEJAS DDS 296.80 MO BIPOLAR NOS 08/27/2011 PITTMANCADY YANG ESME MCELROY 296.80 MO BIPOLAR NOS 08/27/2011 FAUSTO YANG NIKITA A 296.80 MO BIPOLAR NOS 08/27/2011 FAUSTO YANG NIKITA A 296.80 MO BIPOLAR NOS 08/27/2011 PITTMAN APRN, ESME MCELROY 296.80 MO BIPOLAR NOS 08/27/2011 JAZZY JO 296.80 MO BIPOLAR NOS 08/27/2011 JAZZY JO M 296.80 MO BIPOLAR NOS 08/27/2011 FAUSTOFERNANDO YANG, NIKITA A 296.80 MO BIPOLAR NOS [...] 11/26/2011 V58.69 MED ICATION HIGH RISK 11/26/2011 ESME PITTMAN APRN V58.69 MEDICATION HIGH RISK 11/26/2011 ESME PITTMAN APRN V58.69 MEDICATION HIGH RISK 11/26/2011 V58.69 MED ICATION HIGH RISK 11/26/2011 V58.69 MED ICATION HIGH RISK 11/26/2011 ZAIN YANG ESME MCELROY V58.69 MEDICATION HIGH RISK 11/26/2011 ZAIN YANG, ESME MCELROY V58.69 MEDICATION HIGH RISK 11/26/2011 JÚNIOR DDS, SUMMER Quigley V58.69 MEDICATION HIGH RISK 11/26/2011 ZAIN YANG ESME MCELROY V58.69 MEDICATION HIGH RISK 11/26/2011 FAUSTO AGRONOMY INSTRUCTOR, NIKITA A V58.69 MEDICATION HIGH RISK 11/26/2011 FAUSTO AGRONOMY INSTRUCTOR, NIKITA A V58.69 MEDICATION HIGH RISK 11/26/2011 ZAIN YANG ESME MCELROY V58.69 MEDICATION HIGH RISK 11/26/2011 JAZZY JO M V58.69 MEDICATION HIGH RISK 11/26/2011 JAZZY JO M V58.69 MEDICATION HIGH RISK 11/26/2011 FAUSTO AGRONOMY INSTRUCTOR, NIKITA A V58.69 MEDICATION HIGH RISK 11/26/2011 SERGEY MARTÍNEZ, ROJELIO V58.69 MEDICATION HIGH RISK 09/19/2012 300.02 AN GEN ANXIETY 09/19/2012 ZAIN RIZVINESME 300.02 AN GEN ANXIETY 09/19/2012 ZAIN RIZVIConchis ESME MCELROY 300.02 AN GEN ANXIETY 09/19/2012 300.02 AN GEN ANXIETY 09/19/2012 300.02 AN GEN ANXIETY 09/19/2012 ZAIN RIZVIConchis ESME MCELROY 300.02 AN GEN ANXIETY 09/19/2012 ZAIN RIZVIConchis ESME MCELROY 300.02 AN GEN ANXIETY 09/19/2012 JÚNIOR HOUSERS, SUMMER Quigley 300.02 AN GEN ANXIETY 09/19/2012 ZAIN YANG ESME MCELROY 300.02 AN GEN ANXIETY 09/19/2012 FAUSTO AGRONOMY INSTRUCTOR, NIKITA A 300.02 AN GEN ANXIETY 09/19/2012 FAUSTO AGRONOMY INSTRUCTOR, NIKITA A 300.02 AN GEN ANXIETY 09/19/2012 ZAIN RIZVIConchis ESME MCELROY 300.02 AN GEN ANXIETY 09/19/2012 JAZZY JO M 300.02 AN GEN ANXIETY 09/19/2012 JAZZY JO M 300.02 AN GEN ANXIETY 09/19/2012 FAUSTOFERNANDO YANG, NIKITA A 300.02 AN GEN ANXIETY 09/19/2012 SERGEY MARTÍNEZ, ROJELIO 300.02 AN GEN ANXIETY 05/04/2013 BRENDAN DHALIWAL, CONI Rothman Ot 599.0 URIN TRACT INFECTION NOS 05/04/2013 BRENDAN DHALIWAL, CONI Rothman Ot 788.1 DYSURIA 11/15/2013 ZAIN YANG ESME NAVI 314.00 ADHD INATTENTIVE 11/15/2013 JÚNIOR HOUSERS, SUMMER Quigley 314.00 ADHD INATTENTIVE 11/15/2013 ZAIN YANG ESME NAVI 314.00 ADHD INATTENTIVE 11/15/2013 FAUSTO YANG, NIKITA A 314.00 ADHD INATTENTIVE 11/15/2013 FAUSTO YANG, NIKITA A 314.00 ADHD INATTENTIVE 11/15/2013 ZAIN YANG ESME NAVI 314.00 ADHD INATTENTIVE 11/15/2013 JAZZY JO M 314.00 ADHD INATTENTIVE 11/15/2013 JAZZY JO M 314.00 ADHD INATTENTIVE 11/15/2013 FAUSTO YANG, NIKITA A 314.00 ADHD INATTENTIVE 11/15/2013 SERGEY HOUSERS, ROJELIO 314.00 ADHD INATTENTIVE 11/21/2013 JÚNIOR MARTÍNEZ, SUMMER Quigley 625.3 DYSMENORRHEA 11/21/2013 SUMMER CALLEJAS DDS V25.01 CONTRACEPTION - ORAL CONTRACEPTION 11/21/2013 ZAIN YANG ESME NAVI 625.3 DYSMENORRHEA 11/21/2013 ESME PITTMAN APRN V25.01 CONTRACEPTION - ORAL CONTRACEPTION 11/21/2013 FAUSTO YANG, NIKITA A 62 5.3 DYSMENORRHEA 11/21/2013 FAUSTO YANG, NIKITA A V25.01 CONTRACEPTION - ORAL CONTRACEPTION 11/21/2013 FAUSTO YANG, NIKITA A 62 5.3 DYSMENORRHEA 11/21/2013 FAUSTO YANG, NIKITA A V25.01 CONTRACEPTION - ORAL CONTRACEPTION 11/21/2013 ZAIN YANG ESME NAVI 625.3 DYSMENORRHEA 11/21/2013 ZAIN YANG ESME NAIV V25.01 CONTRACEPTION - ORAL CONTRACEPTION 11/21/2013 JAZZY JO 625.3 DYSMENORRHEA 11/21/2013 JAZZY JO V25.01 CONTRACEPTION - ORAL CONTRACEPTION 11/21/2013 JAZZY JO 625.3 DYSMENORRHEA 11/21/2013 JAZZY JO V25.01 CONTRACEPTION - ORAL CONTRACEPTION 11/21/2013 NIKITA LAMBERT APRN 62 5.3 DYSMENORRHEA 11/21/2013 NIKITA LAMBERT APRN [...] FALL FROM PLAYGRND EQUIP 09/25/2014 JAZZY JO 300.00 AN ANXIETY UNSPEC 09/25/2014 AURE VAMSHI JAZZY Quigley 300.00 AN ANXIETY UNSPEC 09/25/2014 NIKITA LAMBERT [...] ACC IDENT NOS 04/27/2016 JONELLE DHALIWAL, ABDULAZIZ R Ot 719. 41 JOINT PAIN-SHLDER 04/27/2016 JONELLE DHALIWAL, ABDULAZIZ R Ot M25.511 PAIN IN RIGHT SHOULDER 04/29/2016 ADRIANA MCCRACKEN MD P Ot S43.431A SUPERIOR GLENOID LABRUM LESION OF RIGHT 04/29/2016 ADRIANA MCCRACKEN MD P Ot X58.XXXA EXPOSURE TO OTHER SPECIFIED FACTORS, INI 04/29/2016 ADRIANA MCCRACKEN MD P Ot Y99.8 OTHER EXTERNAL CAUSE STATUS 04/29/2016 ADRIANA MCCRACKEN MD P Ot S43.431A SUPERIOR GLENOID LABRUM LESION OF RIGHT 04/29/2016 ADRIANA MCCRACKEN MD P Ot X58.XXXA EXPOSURE TO OTHER SPECIFIED FACTORS, INI 04/29/2016 ADRIANA MCCRACKEN MD P Ot Y99.8 OTHER EXTERNAL CAUSE STATUS 04/30/2016 ADRIANA MCCRACKEN MD P Ot S43.431A SUPERIOR GLENOID LABRUM LESION OF RIGHT 04/30/2016 ADRIANA MCCRACKEN MD P Ot X58.XXXA EXPOSURE TO OTHER SPECIFIED FACTORS, INI 04/30/2016 ADRIANA MCCRACKEN MD P Ot Y99.8 OTHER EXTERNAL CAUSE STATUS 05/14/2016 ADRIANA MCCRACKEN MD P Ot S43.431A SUPERIOR GLENOID LABRUM LESION OF RIGHT 05/14/2016 ADRIANA MCCRACKEN MD P Ot X58.XXXA EXPOSURE TO OTHER SPECIFIED FACTORS, INI 05/14/2016 ADRIANA MCCRACKEN MD P Ot Y99.8 OTHER EXTERNAL CAUSE STATUS 06/07/2016 [...] ALCAZAR MD Ot R51 HEADACHE 06/09/2016 MICAH ALCAZRA MD Ot N39.0 URINARY TRACT INFECTION, SITE [...] Fine Ot 719. 41 JOINT PAIN-SHLDER 02/21/2017 JONELLE DHALIWAL, ABDULAZIZ R Ot M25.511 PAIN IN RIGHT SHOULDER 02/21/2017 ADRIANA MCCRACKEN MD Ot S43.431A SUPERIOR GLENOID LABRUM LESION OF RIGHT 02/21/2017 ADRIANA MCCRACKEN MD Ot X58.XXXA EXPOSURE TO OTHER SPECIFIED FACTORS, INI 02/21/2017 ADRIANA MCCRACKEN MD Ot Y99.8 OTHER EXTERNAL CAUSE STATUS 02/22/2017 ILSA HUMPHREYS MD, Ot N35.9 URETHRAL STRICTURE, UNSPECIFIED 02/22/2017 ILSA HUMPHREYS MD, Ot Z87.4 40 PERSONAL HISTORY OF URINARY (TRACT) INFE 02/22/2017 ILSA HUMPHREYS MD Ot N39.0 URINARY TRACT [...] OF URINARY (TRACT) INFE 12/08/2017 JAZZY REDMAN AGRONOMY INSTRUCTOR Ot R10.11 RIGHT UPPER QUADRANT PAIN 12/08/2017 JAZZY REDMAN AGRONOMY INSTRUCTOR Ot R10.12 LEFT UPPER QUADRANT PAIN 04/12/2018 [...] LEFT UPPER QUADRANT PAIN 04/13/2018 JOSUE ANDRE MD, Ot O36.8120 DECREASED MOVEMENTS, SECOND TRIMES 04/13/2018 JOSUE ANDRE MD, Ot Z3A.24 24 WEEKS GESTATION OF 04/13/2018 [...] OTHER SPECIFIED FACTORS, INI 04/13/2018 ADRIANA MCCRACKEN MD, Ot Y99.8 OTHER EXTERNAL CAUSE STATUS 04/13/2018 ILSA HUMPHREYS MD, Ot N39.0 URINARY TRACT INFECTION, SITE NOT SPECIF 04/13/2018 ILSA HUMPHREYS MD Ot Z87.4 40 PERSONAL HISTORY OF URINARY (TRACT) INFE 04/13/2018 JAZZY REDMAN APRN Ot R10.11 RIGHT UPPER QUADRANT PAIN 04/13/2018 JAZZY REDMAN APRN Ot R10.12 LEFT UPPER [...] UNTER FOR EXAM AND OBSERVATION FOLLO 07/02/2018 JOSUE ANDRE MD, Ot O47.03 FALSE LABOR BEFORE 37 COMPLETED WEEKS OF 07/02/2018 JOSUE ANDRE MD, Ot Z3A.35 35 WEEKS GESTATION OF 07/22/2018 [...] OF URINARY (TRACT) INFE 07/22/2018 JAZZY REDMAN APRN Ot R10.11 RIGHT UPPER QUADRANT PAIN 07/22/2018 JAZZY REDMAN APRN Ot R10.12 LEFT UPPER QUADRANT PAIN 07/23/2018 [...] LEFT UPPER QUADRANT PAIN 07/25/2018 JOSUE ANDRE MD Ot O42.013 PRETRM ISELA ROM, ONSET LABOR W/N 24 HOUR 07/25/2018 JOSUE ANDRE MD G Ot O62.2 OTHER UTERINE INERTIA 07/25/2018 JOSUE ANDRE MD Ot O64.0XX0 OBSTRUCTED LABOR DUE TO INCMPL ROTATION 07/25/2018 JOSUE ANDRE MD Ot 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.4 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 07/25/2018 JOSUE ANDRE MD Ot Z37.0 SINGLE LIVE 07/25/2018 JOSUE ANDRE MD Ot Z3A.38 38 WEEKS GESTATION OF 12/20/2018 KOURTNEY RANDALL SKIP TRACER Ot F41.9 ANXIETY DISORDER, UNSPECIFIED 12/20/2018 PRAKASHKOURTNEY Okeefe SKIP TRACER Ot F90.9 ATTENTION-DEFICIT HYPERACTIVITY DISORDER 12/20/2018 KOURTNEY RANDALL SKIP TRACER Ot F98.8 OTH BEHAV/EMOTN DISORD W ONSET USLY OCCU 12/20/2018 KOURTNEY RANDALL SKIP TRACER Ot G43.909 MIGRAINE, UNSP, NOT INTRACTABLE, WITHOUT 12/20/2018 PRAKASH, KOURTNEY SKIP TRACER Ot M25.561 PAIN IN RIGHT KNEE 12/20/2018 PRAKASH KOURTNEY SKIP TRACER Ot S80.01XA CONTUSION OF RIGHT KNEE, INITIAL ENCOUNT 12/20/2018 PRAKASH KOURTNEY SKIP TRACER Ot W00.2XXA OTH FALL FROM ONE LEVEL TO ANOTHER DUE T 12/20/2018 PRAKASH KOURTNEY SKIP TRACER Ot Z87.440 PERSONAL HISTORY OF URINARY (TRACT) INFE 12/20/2018 PRAKASH KOURTNEY SKIP TRACER Ot Z88.8 ALLERGY STATUS TO OT DRUG/MEDS/BIOL SUB 12/20/2018 KOURTNEY RANDALL SKIP TRACER Ot Z98.890 OTHER SPECIFIED POSTPROCEDURAL STATES 12/22/2018 KOURTNEY RANDALL SKIP TRACER Ot F41.9 ANXIETY DISORDER, UNSPECIFIED 12/22/2018 PRAKASH, KOURTNEY SKIP TRACER Ot F90.9 ATTENTION-DEFICIT HYPERACTIVITY DISORDER 12/22/2018 PRAKASH KOURTNEY SKIP TRACER Ot F98.8 OTH BEHAV/EMOTN DISORD W ONSET USLY OCCU 12/22/2018 PRAKASH KOURTNEY SKIP TRACER Ot G43.909 MIGRAINE, UNSP, NOT INTRACTABLE, WITHOUT 12/22/2018 PRAKASH, KOURTNEY SKIP TRACER Ot M25.561 PAIN IN RIGHT KNEE 12/22/2018 KOURTNEY RANDALLP Ot S80.01XA CONTUSION OF RIGHT KNEE, INITIAL ENCOUNT 12/22/2018 KOURTNEY RANDALL SKIP TRACER Ot W00.2XXA OTH FALL FROM ONE LEVEL TO ANOTHER DUE T 12/22/2018 KOURTNEY RANDALL SKIP TRACER Ot Z87.440 PERSONAL HISTORY OF URINARY (TRACT) INFE 12/22/2018 KOURTNEY RANDALL SKIP TRACER Ot Z88.8 ALLERGY STATUS TO OTH DRUG/MEDS/BIOL SUB 12/22/2018 PRAKASH, KOURTNEY SKIP TRACER Ot Z98.890 OTHER SPECIFIED POSTPROCEDURAL STATES 12/26/2018 KOURTNEY RANDALLP Ot F41.9 ANXIETY DISORDER, UNSPECIFIED 12/26/2018 PRAKASH, KOURTNEY SKIP TRACER Ot F90.9 ATTENTION-DEFICIT HYPERACTIVITY DISORDER 12/26/2018 KOURTNEY RANDALL SKIP TRACER Ot F98.8 OTH BEHAV/EMOTN DISORD W ONSET USLY OCCU 12/26/2018 KOURTNEY RANDALLP Ot G43.909 MIGRAINE, UNSP, NOT INTRACTABLE, WITHOUT 12/26/2018 KOURTNEY RANDALL SKIP TRACER Ot M25.561 PAIN IN RIGHT KNEE 12/26/2018 KOURTNEY RANDALLP Ot S80.01XA CONTUSION OF RIGHT KNEE, INITIAL ENCOUNT 12/26/2018 KOURTNEY RANDALLP Ot W00.2XXA OTH FALL FROM ONE LEVEL TO ANOTHER DUE T 12/26/2018 KOURTNEY RANDALL SKIP TRACER Ot Z87.440 PERSONAL HISTORY OF URINARY (TRACT) INFE 12/26/2018 PRAKASH, KOURTNEY SKIP TRACER Ot Z88.8 ALLERGY STATUS TO OTH DRUG/MEDS/BIOL SUB 12/26/2018 KOURTNEY RANDALL SKIP TRACER Ot Z98.890 OTHER SPECIFIED POSTPROCEDURAL STATES 04/13/2019 [...] Fine Ot 719. 41 JOINT PAIN-SHLDER 04/13/2019 ABDULAZIZ SAL MD Ot M25.511 PAIN IN RIGHT SHOULDER 04/13/2019 ADRIANA MCCRACKEN MD, Ot S43.431A SUPERIOR GLENOID LABRUM LESION OF RIGHT 04/13/2019 ADRIANA MCCRACKEN MD Ot X58.XXXA EXPOSURE TO OTHER SPECIFIED FACTORS, INI 04/13/2019 ADRIANA MCCRACKEN MD Ot Y99.8 OTHER EXTERNAL CAUSE STATUS 04/13/2019 ILSA HUMPHREYS MD Ot N39.0 URINARY TRACT INFECTION, SITE NOT SPECIF 04/13/2019 ILSA HUMPHREYS MD Ot Z87.4 40 PERSONAL HISTORY OF URINARY (TRACT) INFE 04/13/2019 JAZZY REDMAN AGRONOMY INSTRUCTOR Ot R10.11 RIGHT UPPER QUADRANT PAIN 04/13/2019 JAZZY REDMAN AGRONOMY INSTRUCTOR Ot R10.12 LEFT UPPER QUADRANT PAIN 05/09/2019 CONI CARDONA MD Ot F39 UNSPECIFIED MOOD [AFFECTIVE] DISORDER 05/09/2019 CONI CARDONA MD Ot F41.9 ANXIETY DISORDER, UNSPECIFIED 05/09/2019 CONI CARDONA MD Ot F90.9 ATTENTION-DEFICIT HYPERACTIVITY DISORDER 05/09/2019 CONI CARDONA MD Ot G43.909 MIGRAINE, UNSP, NOT INTRACTABLE, WITHOUT 05/09/2019 CONI CARDONA MD Ot L98.9 DISORDER OF THE SKIN AND SUBCUTANEOUS TI 05/09/2019 CONI CARDONA MD, Ot R21 RASH AND OTHER NONSPECIFIC SKIN ERUPTION 05/09/2019 CONI CARDONA MD Ot W57.XXXA BIT/STUNG BY NONVENOM INSECT OTH NONVE 05/09/2019 CONI CARDONA MD Ot Z87.440 PERSONAL HISTORY OF URINARY (TRACT) INFE 05/09/2019 CONI CARDONA MD Ot Z88.8 ALLERGY STATUS [...] SKIN AND SUBCUTANEOUS TI 05/11/2019 CONI CARDONA MD, Ot R21 RASH AND OTHER NONSPECIFIC SKIN ERUPTION 05/11/2019 CONI CARDONA MD Ot W57.XXXA BIT/STUNG BY NONVENOM INSECT OTH NONVE 05/11/2019 CONI CARDONA MD, Ot Z87.440 PERSONAL HISTORY OF URINARY (TRACT) INFE 05/11/2019 CONI CARDONA MD Ot Z88.8 ALLERGY STATUS TO OTH DRUG/MEDS/BIOL SUB 05/11/2019 CONI CARDONA MD, Ot F39 UNSPECIFIED MOOD [AFFECTIVE] DISORDER 05/11/2019 [...] CONI Rothman Ot Z88.8 ALLERGY STATUS TO [facility] DRUG/MEDS/BIOL SUB 06/12/2019 Brown, Tan W 789.0 [...] Fine Ot 719. 41 JOINT PAIN-SHLDER 11/22/2019 JONELLE DHALIWAL, ABDULAZIZ Fine Ot M25.511 PAIN IN RIGHT SHOULDER 11/22/2019 NAWAF DHALIWAL, ADRIANA Evans Ot S43.431A SUPERIOR GLENOID LABRUM LESION OF RIGHT 11/22/2019 ADRIANA MCCRACKEN MD Ot X58.XXXA EXPOSURE TO OTHER SPECIFIED FACTORS, INI 11/22/2019 NAWAF DHALIWAL, ADRIANA Evans Ot Y99.8 OTHER EXTERNAL CAUSE STATUS 11/22/2019 ILSA HUMPHREYS MD, Ot N39.0 URINARY TRACT INFECTION, SITE NOT SPECIF 11/22/2019 ILSA HUMPHREYS MD, Ot Z87.4 40 PERSONAL HISTORY OF URINARY (TRACT) INFE 11/22/2019 JAZZY REDMAN AGRONOMY INSTRUCTOR Ot R10.11 RIGHT UPPER QUADRANT PAIN 11/22/2019 JAZZY REDMAN AGRONOMY INSTRUCTOR Ot R10.12 LEFT UPPER QUADRANT PAIN 11/29/2019 Ot 836.0 TEAR MED MENISC KNEE-CUR 11/29/2019 Ot E000.8 OTH ER EXTERNAL CAUSE STATUS 11/29/2019 Ot E001.1 ACT IVITIES INVOLVING RUNNING 11/29/2019 Ot E928.9 ACC IDENT NOS 11/29/2019 JONELLE DHALIWAL, ABDULAZIZ R Ot 719. 41 JOINT PAIN-SHLDER 11/29/2019 JONELLE DHALIWAL, ABDULAZIZ R Ot M25.511 PAIN IN RIGHT SHOULDER 11/29/2019 ADRIANA MCCRACKEN MD Ot S43.431A SUPERIOR GLENOID LABRUM LESION OF RIGHT 11/29/2019 ADRIANA MCCRACKEN MD Ot X58.XXXA EXPOSURE TO OTHER SPECIFIED FACTORS, INI 11/29/2019 NAWAF DHALIWAL, ADRIANA Evans Ot Y99.8 OTHER EXTERNAL CAUSE STATUS 11/29/2019 ILSA HUMPHREYS MD Ot N39.0 URINARY TRACT INFECTION, SITE NOT SPECIF 11/29/2019 ILSA HUMPHREYS MD Ot Z87.4 40 PERSONAL HISTORY OF URINARY (TRACT) INFE 11/29/2019 JAZZY REDMAN AGRONOMY INSTRUCTOR Ot R10.11 RIGHT UPPER QUADRANT PAIN 11/29/2019 JAZZY REDAMN AGRONOMY INSTRUCTOR Ot R10.12 LEFT UPPER QUADRANT PAIN 11/29/2019 KELLI TONEY AGRONOMY INSTRUCTOR Ot R55 SYNCOPE AND COLLAPSE 11/29/2019 Ot 836.0 TEAR MED MENISC KNEE-CUR 11/29/2019 Ot E000.8 OTH ER EXTERNAL CAUSE STATUS 11/29/2019 Ot E001.1 ACT IVITIES INVOLVING RUNNING 11/29/2019 Ot E928.9 ACC IDENT NOS 11/29/2019 ABDULAZIZ SAL MD R Ot 719. 41 JOINT PAIN-SHLDER 11/29/2019 ABDULAZIZ SAL MD R Ot M25.511 PAIN IN RIGHT SHOULDER 11/29/2019 ADRIANA MCCRACKEN MD Ot S43.431A SUPERIOR GLENOID LABRUM LESION OF RIGHT 11/29/2019 ADRIANA MCCRACKEN MD Ot X58.XXXA EXPOSURE TO OTHER SPECIFIED FACTORS, INI 11/29/2019 NAWAF DHALIWAL, ADRIANA Evans Ot Y99.8 OTHER EXTERNAL CAUSE STATUS 11/29/2019 PETR DHALIWAL, ILSA Duran Ot N39.0 URINARY TRACT INFECTION, SITE NOT SPECIF 11/29/2019 PETR DHALIWAL, ILSA Duran Ot Z87.4 40 PERSONAL HISTORY OF URINARY (TRACT) INFE 11/29/2019 JAZZY REDMAN AGRONOMY INSTRUCTOR Ot R10.11 RIGHT UPPER QUADRANT PAIN 11/29/2019 JAZZY REDMAN AGRONOMY INSTRUCTOR Ot R10.12 LEFT UPPER QUADRANT PAIN 11/29/2019 KELLI TONEY AGRONOMY INSTRUCTOR Ot R55 SYNCOPE AND COLLAPSE 12/06/2019 KELLI TONEY AGRONOMY INSTRUCTOR Ot R55 SYNCOPE AND COLLAPSE 12/06/2019 KELLI TONEY AGRONOMY INSTRUCTOR Ot R55 SYNCOPE AND COLLAPSE 12/21/2019 SIMÓN HIGH AGRONOMY INSTRUCTOR Ot M54.2 CERVICALGIA 12/21/2019 SIMÓN HIGH AGRONOMY INSTRUCTOR Ot R00.2 PALPITATIONS 12/21/2019 SIMÓN HIGH AGRONOMY INSTRUCTOR Ot R13.10 DYSPHAGIA, UNSPECIFIED 12/21/2019 SIMÓN HIGH AGRONOMY INSTRUCTOR Ot R53.83 OTHER FATIGUE 01/11/2020 W F32.1 Greta r depressive disorder, single episode, moderate Panda Simón 01/11/2020 W F41.1 Gene ralized anxiety disorder Panda Simón 01/11/2020 W R00.2 Palp itations Panda Simón 01/11/2020 W R42 Dizziness Panda Simón 01/11/2020 W R55 Near s yncope Panda Simón 01/11/2020 W F32.1 Greta r depressive disorder, single episode, moderate Panda Simón 01/11/2020 W F41.1 Gene ralized anxiety disorder Panda Simón 01/11/2020 W F32.1 Greta r depressive disorder, single episode, moderate Panda Simón 01/11/2020 W F41.1 Gene ralized anxiety disorder Panda Simón 01/11/2020 W J01.80 Oth er acute sinusitis Panda Simón 01/11/2020 W J30.89 Oth er allergic rhinitis Panda Simón 01/11/2020 W r13.10 Dys phagia Panda Simón 01/11/2020 W R42 Dizziness Cathleen Rodríguez 01/11/2020 W R55 Near s yncope Marcos, Cathleen 01/31/2020 KIRSTIN NAJERA MD, Ot K21.9 GASTRO-ESOPHAGEAL REFLUX DISEASE WITHOUT 01/31/2020 KIRSTIN NAJERA MD Ot Z01.81 8 ENCOUNTER FOR OTHER PREPROCEDURAL EXAMIN 02/07/2020 W K21.9 GERD (gastroesophageal reflux disease) Ozzy Lauren 02/07/2020 W R11.0 Nausea Ozzy Lauren 02/07/2020 W K21.9 GERD (gastroesophageal reflux disease) Lauren Redman 02/07/2020 W R11.0 Nausea Ozzy Lauren 02/13/2020 KIRSTIN NAJERA MD, Ot K21.9 GASTRO-ESOPHAGEAL REFLUX DISEASE WITHOUT 02/13/2020 KIRSTIN NAJERA MD Ot Z01.81 8 ENCOUNTER FOR OTHER PREPROCEDURAL EXAMIN 02/14/2020 KIRSTIN NAJERA MD Ot K21.9 GASTRO-ESOPHAGEAL REFLUX DISEASE WITHOUT 02/14/2020 KIRSTIN NAJERA MD Ot Z01.81 8 ENCOUNTER FOR OTHER PREPROCEDURAL EXAMIN 02/14/2020 CONI CARDONA MD T Ot F39 UNSPECIFIED MOOD [AFFECTIVE] DISORDER 02/14/2020 CONI CARDONA MD T Ot F41.9 ANXIETY DISORDER, UNSPECIFIED 02/14/2020 CONI CARDONA MD T Ot F90.9 ATTENTION-DEFICIT HYPERACTIVITY DISORDER 02/14/2020 CONI CARDONA MD T Ot R07.89 OTHER CHEST PAIN 02/14/2020 CONI CARDONA MD T Ot R07.9 CHEST PAIN, UNSPECIFIED 02/18/2020 CONI CARDONA MD T Ot F39 UNSPECIFIED MOOD [AFFECTIVE] DISORDER 02/18/2020 CONI CARDONA MD T Ot F41.9 ANXIETY DISORDER, UNSPECIFIED 02/18/2020 CONI CARDONA MD T Ot F90.9 ATTENTION-DEFICIT HYPERACTIVITY DISORDER 02/18/2020 CONI CARDONA MD T Ot R07.89 OTHER CHEST PAIN 02/18/2020 CONI CARDONA MD T Ot R07.9 CHEST PAIN, UNSPECIFIED 02/18/2020 CONI CARDONA MD T Ot F39 UNSPECIFIED MOOD [AFFECTIVE] DISORDER 02/18/2020 BRENDAN DHALIWAL, CONI Rothman Ot F41.9 ANXIETY DISORDER, UNSPECIFIED 02/18/2020 BRENDAN DHALIWAL, CONI Rothman Ot F90.9 ATTENTION-DEFICIT HYPERACTIVITY DISORDER 02/18/2020 BRENDAN DHALIWAL, CONI Rothman Ot R07.89 OTHER CHEST PAIN 02/18/2020 CONI CARDONA MD, Ot R07.9 CHEST PAIN, UNSPECIFIED 02/27/2020 KELLI TONEY APRN Ot R55 SYNCOPE AND COLLAPSE 02/28/2020 KELLI TONEY APRN Ot R55 SYNCOPE AND COLLAPSE 03/19/2020 W E66.01 Mor bid obesity due to excess calories Cathleen Rodríguez 03/19/2020 W K21.9 GERD (gastroesophageal reflux disease) Cathleen Rodríguez Procedures Code Description [place] [address] PSYC H PHARM MGMT 11/21/2012 45802 PSYC H IND W/MED CK 20 01/10/2013 10045 PREG LUÍS TEST, URINE (IN- HOUSE) 01/31/2014 62574 PREG LUÍS TEST, URINE (IN- HOUSE) 02/18/2015 [id number] IN TRODUCTION OF OTH HORMONE INTO PERIPH 07/22/2018 [id number] EX TRACTION OF POC, LOW CERVICAL, OPEN AP 07/23/2018 Results Test Result Range CBC With Differential/Platelet - 7 11:50 WBC 10.1 x10E3/uL 3.4-10.8 RBC 4.63 x10E6/uL 3.77-5.28 Hemoglobin 14.3 g/dL 11.1-15.9 Hematocrit 42.5 % 34.0-46.6 MCV 92 fL 79-97 MCH 30.9 pg 26.6-33.0 MCHC 33.6 g/dL 31.5-35.7 RDW 12.4 % 12.3-15.4 Platelets 296 x10E3/uL 150-379 Neutrophils 76 % Lymphs 18 % Monocytes 5 % Eos 1 % Basos 0 % Neutrophils (Absolute) 7.7 x10E3/uL 1.4- 7.0 Lymphs (Absolute) 1.8 x10E3/uL 0.7-3.1 Monocytes(Absolute) 0.5 x10E3/uL 0.1-0.9 Eos (Absolute) 0.1 x10E3/uL 0.0-0.4 Baso (Absolute) 0.0 x10E3/uL 0.0-0.3 Immature Granulocytes 0 % Immature Grans (Abs) 0.0 x10E3/uL 0.0-0. 1 Comp. Metabolic Panel (14) - 02/11/17 11 :50 Glucose, Serum 82 mg/dL 65-99 BUN 8 [...] urine sediment by ligh t microscopy LARGE NOHEMI URATES NRG Complete blood [...] NRG Blood erythrocyte morphology finding identification [facility] Comprehensive metabolic panel - 05/13/18 12:30 Serum [...] ABO+Rh group OP NRG Transfusion band number [id number] NRG Blood group antibody screen NEGATIVE NR [...] IgG antibody assay (units/ volume) < <1:16 Martin spotted fever panel < <1:10 Francisella tularensis antibody assay <1:20 NRG LYME AB G M 0.03 % 0.00-0.89 Interpretation of Lyme disease antibody assay Nega tive Negative Test-Urine - 06/12/19 19:33 Preg Test-U Negative Negative Urinalysis - 06/12/19 20:07 Icotest N/A Negative Urine Volume Urine Volume Sufficient (10mL) Urine-Appearance Slightly Cloudy Clear Urine-Bacteria 1+ Urine-Bilirubin Negative Negative Urine-Blood Negative Negative Urine-Color Yellow Colorless-[place] ow Urine-Epithelial Cells 10-20/HPF Urine-Glucose Negative Negative Urine-Ketones Trace Negative Urine-Leukocytes Negative Negative Urine-Nitrite Negative Negative Urine-Other Urine Saved if Culture Need ed (48hrs from time of collection) Urine-pH 6.0 5-8.5 Urine-Protein Trace Negative Urine-RBC 0-2/HPF Urine-Specific [place] 1.025 1.000-1 .030 Urine-WBC 0-2/HPF Urobilinogen 0.2 [...] 7-25 CREATININE 0.75 mg/dL 0.50-1.10 eGFR NON-AFR. [place] 115 mL/min/1.73m2 > OR = 60 eGFR [...] Status Pt. Type Provider Facility Loc./Unit Complaint [id number] 02/12/2017 09:10:00 Document Registration [id number] 06/12/2019 19:25:00 06/12/2019 21:02: 00 DIS Outpatient [facility] ER [id number] 11/28/2019 12:55:44 11/28/2019 23:59:5 9 CLS Outpatient [id number] 03/05/2015 07:55:00 03/05/2015 23:59: 59 CLS Outpatient ROJELIO RINCON DDS [id number] 02/18/2015 16:48:00 02/18/2015 23:59: 59 CLS Outpatient NIKITA LAMBERT APRN [id number] 09/25/2014 14:28:00 09/25/2014 23:59: 59 CLS Outpatient JAZZY JO [id number] 09/25/2014 14:28:00 09/25/2014 23:59: 59 CLS Outpatient JAZZY JO [id number] 07/02/2014 11:36:00 07/02/2014 23:59: 59 CLS Outpatient ESME PITTMAN APRN [id number] 01/31/2014 10:51:00 01/31/2014 23:59: 59 CLS Outpatient NIKITA LAMBERT APRN [id number] 01/31/2014 10:51:00 01/31/2014 23:59: 59 CLS Outpatient NIKITA LAMBERT APRN [id number] 01/23/2014 17:21:00 01/23/2014 23:59: 59 CLS Outpatient ESME PITTMAN APRN [id number] 11/22/2013 08:42:00 11/22/2013 23:59: 59 CLS Outpatient SUMMER CALLEJAS DDS [id number] 11/15/2013 16:38:00 11/15/2013 23:59: 59 CLS Outpatient ESME PITTMAN APRN [id number] 06/20/2013 10:22:00 06/20/2013 23:59: 59 CLS Outpatient ESME PITTMAN APRN [id number] 01/10/2013 15:44:00 01/10/2013 23:59: 59 CLS Outpatient ESME PITTMAN APRN [id number] 11/06/2012 09:28:00 11/06/2012 23:59: 59 CLS Outpatient ESME PITTMAN APRN [id number] 09/19/2012 10:35:00 09/19/2012 23:59:5 9 CLS Outpatient [id number] 04/06/2013 08:04:00 Document Registration [id number] 03/30/2013 08:06:00 Document Registration [id number] 11/29/2019 13:57:00 00:01:00 DIS Outpatient KELLI TONEY AGRONOMY INSTRUCTOR [facility] CARD SYNCOPE. [id number] 02/14/2020 07:51:00 08:25:00 DIS Emergency CONI CARDONA MD [facility] ER CHEST PAIN [id number] 01/30/2020 09:48:00 020 23:59:59 CLS Outpatient KIRSTIN NAJERA MD [facility] RAD REFLUX [id number] 12/20/2019 08:33:00 020 23:59:59 CLS Outpatient SIMÓN HIGH AGRONOMY INSTRUCTOR [facility] RAD DYSPHAGIA,PALPITATIONS [id number] 11/22/2019 11:51:00 020 23:59:59 CLS Outpatient KELLI TONEY AGRONOMY INSTRUCTOR [facility] CARD SYNCOPE [id number] 05/08/2019 23:38:00 019 01:55:00 DIS Emergency CONI CARDONA MD [facility] ER RASH,POSS SPIDE R BITE LEFT SHOULDER [id number] 12/20/2018 12:38:00 019 13:30:00 DIS Emergency KOURTNEY RANDALL [facility] ER FALL;KNEE INJ [id number] 07/26/2018 07:00:00 018 23:59:59 CLS Preadmit JOSUE ANDRE MD INDUCTION [id number] 07/22/2018 13:25:00 018 13:20:00 DIS Inpatient JOSUE ANDRE MD [facility] LDRP LABOR [id number] 07/02/2018 17:22:00 018 18:27:00 DIS Outpatient JOSUE ANDRE MD [facility] WSo WATER BROKE [id number] 05/18/2018 17:28:00 018 18:18:00 DIS Outpatient JOSUE ANDRE MD [facility] WSo LEAKING FLUID [id number] 05/13/2018 13:19:00 018 17:45:00 DIS Outpatient JOSUE ANDRE MD [facility] WSo FALL/ AMINATA TORING [id number] 05/13/2018 11:59:00 018 13:19:00 DIS Emergency MICAH ALCAZAR MD [facility] ER MIGRANE HEADACH ES/FELL THIS AM/ 28 WEEKS PREG [id number] 04/13/2018 17:43:00 018 18:30:00 DIS Outpatient JOSUE ANDRE MD [facility] WSo DECREASED MOVEMENT,BACK PAIN [id number] 04/12/2018 23:55:00 018 00:45:00 DIS Outpatient JOSUE ANDRE MD [facility] WSo NOT FEELING MOV EMENT OF BABY [id number] 11/21/2017 07:17:00 018 23:59:59 CLS Outpatient JAZZY REDMAN APRN [facility] RAD R10.12 LEFT UPP ER QUADRANT PAIN [id number] 02/22/2017 06:26:00 017 10:09:00 DIS Outpatient ILSA HUMPHREYS MD [facility] SDC HISTORY OF URINARY TRAC T INFECTIONS [id number] 02/21/2017 08:36:00 017 23:59:59 CLS Outpatient ILSA HUMPHREYS MD [facility] RAD H/O UTI'S [id number] 02/17/2017 05:37:00 017 15:44:00 DIS Outpatient ILSA HUMPHREYS MD [facility] PREOP HISTORY OF URINARY TRAC T INFECTIONS [id number] 08/16/2016 18:32:00 016 19:43:00 DIS Emergency ZACKARY APARICIO APRN [facility] ER R ARM INJ [id number] 08/13/2016 16:13:00 016 23:59:59 CLS Outpatient CHAYITO BEEBE DO A [facility] QUICK [id number] 06/07/2016 02:43:00 016 04:16:00 DIS Emergency INGE DHALIWAL, MICAH Ayers [facility] ER FEVER, N/V, SWE ATING, HEADACHE [id number] 04/27/2016 10:22:00 016 23:59:59 CLS Outpatient NAWAF DHALIWAL, ADRIANA Evans [facility] RAD SUPERIOR GLENOID LABRU M LESION OF RT SHOULDER [id number] 02/04/2016 00:10:00 016 17:04:00 DIS Inpatient ABDULAZIZ SAL MD [facility] 4TH ACUTE PYELONEPHRITIS,FEVER,LEUKOCYTOSIS,SEPSIS, [id number] 11/24/2015 15:20:00 016 23:59:59 CLS Outpatient ABDULAZIZ SAL MD [facility] RAD DROPPED R SHOULDER, WIT H PAIN, DECREASED ROM [id number] 06/30/2015 11:00:00 015 23:59:59 CLS Outpatient ABDULAZIZ SAL MD [facility] RAD PAIN IN SHOULDER [id number] 10/06/2014 01:07:00 014 02:03:00 DIS Emergency JORGE L DHALIWAL, KIANA Duran [facility] ER ETOH [id number] 09/16/2014 16:33:00 014 17:24:00 DIS Emergency INGE DHALIWAL, MICAH Ayers [facility] ER ARM PAIN [id number] 06/16/2014 13:37:00 014 23:59:59 CLS Outpatient RIDINGS, ROMAN Toth AGRONOMY INSTRUCTOR [facility] QUICK LEFT WRIST PAIN [id number] 12/11/2013 10:18:00 014 12:28:00 DIS Emergency MILLER RYLEE a [facility] ER CHEST PAIN [id number] 11/27/2013 13:44:00 014 23:59:59 CLS Outpatient COLTHARP DO, CHAYITO A [facility] QUICK COUGH/FEVER [id number] 05/04/2013 20:52:00 013 22:20:00 DIS Emergency BRENDAN DHALIWAL, CONI Rothman [facility] ER PAIN WHEN URINA TING [id number] 04/10/2020 08:30:00 P EN Ghazal NAJERA MD, KIRSTIN [facility] MORBID OBESITY [id number] 02/27/2020 12:47:00 Document Registration [id number] 04/13/2019 04:07:00 Document Registration [id number] 04/13/2019 04:07:00 Document Registration [id number] 04/13/2019 04:07:00 Document Registration [id number] 04/13/2019 04:07:00 Document Registration [id number] 04/13/2019 04:07:00 Document Registration [id number] 04/13/2019 04:07:00 Document Registration [id number] 04/13/2019 04:07:00 Document Registration [id number] 04/13/2019 04:07:00 Document Registration [id number] 04/13/2019 04:07:00 Document Registration [id number] 04/13/2019 04:07:00 Document Registration [id number] 04/13/2019 04:06:00 Document Registration [id number] 04/13/2019 04:06:00 Document Registration [id number] 04/13/2019 04:06:00 Document Registration [id number] 06/27/2018 20:59:00 Document Registration [id number] 06/21/2018 15:36:00 Document Registration [id number] 06/17/2018 21:27:00 Document Registration [id number] 01/16/2015 14:40:00 Document Registration [id number] 02/09/2013 10:19:00 Document Registration [id number] 01/31/2013 11:04:00 Document Registration [id number] 12/09/2011 16:55:00 Document Registration [id number] 10/08/2011 07:02:00 Document Registration [id number] 02/01/2011 16:53:00 Document Registration [id number] 01/31/2011 22:45:00 Document Registration [id number] 08/30/2010 18:10:00 Document Registration [id number] 06/19/2009 15:33:00 Document Registration [id number] 04/01/2009 15:12:00 Document Registration [id number] 06/08/2007 10:24:00 Document Registration [id number] 02/15/2020 16:00:00 02/15/2020 23:59:5 9 [facility] Cathleen Rodríguez [facility] [id number] 11/16/2019 16:20:00 Document Registration [id number] 10/31/2019 15:40:00 Document Registration [id number] 07/11/2019 16:40:00 Document Registration [id number] 08/02/2018 14:40:00 Document Registration
== END 2020-03-27 08:17 | disposition home or self-care (01) ==
LOC: EDUNIT# 07:41 → ER FS 07:42
DX: S60.221A Contusion of right hand, initial encounter (principal); Z88.8 Allergy status to other drugs, medicaments and biological substances; X50.1XXA Overexertion from prolonged static or awkward postures, initial encounter
CPT/HCPCS: 99282

== ENCOUNTER 2020-04-03 05:32 | Outpatient (RCR) | payer OTHER, BC, MEDICAID ==
[~2020-04-03] VITALS: Ht 160 cm; Wt 117.3 kg
[~2020-04-03 05:32] MED LIST changes: +DICL75TA2 PO
[2020-04-03] MEDS ORDERED: ONDA-105 PO (14:20)
[2020-04-03] MEDS ORDERED: ETON1VAG8 VG (14:20)
[2020-04-03] MEDS ORDERED: FAMO20TA5 PO (14:20)
[2020-04-03] MEDS ORDERED: SERT50TA9 PO (14:20)
== END 2020-04-03 14:27 | disposition home or self-care (01) ==
LOC: PREOP 05:32
PROVIDERS: ATTEND Surgery
DX: Z01.818 Encounter for other preprocedural examination (principal)

== ENCOUNTER 2021-07-16 20:41 | Outpatient (CLI) | payer OTHER, MEDICAID ==
[~2021-07-16] VITALS: Ht 160 cm; Wt 85.5 kg
[~2021-07-16 20:41] MED LIST changes: +ETON1VAG8 VG; +FAMO20TA5 PO; +ONDA-105 PO; -OXYC-465 PO; +OXYC-556 PO; +SERT-413 PO
[2021-07-16 21:00] VITALS: BP 108/62
--- NOTE | 2021-07-17 08:06 | Physician Query-Final Dx ---
CHANEL JOSEPH 07/17/21 0806: Clinic Account Progress/Dx Physician Query: Please give diagnosis Please include # weeks gestation Date of Service Jul 16, 2021 at 20:41 ADRIANA FLORES DO 07/20/21 1541: Clinic Account Progress/Dx DIAGNOSIS: Diagnosis Acute Gastroenteris 32 week IUP CHANEL JOSEPH Jul 17, 2021 08:06 ADRIANA FLORES DO Jul 20, 2021 15:41
== END 2021-07-16 21:15 | disposition home or self-care (01) ==
LOC: WSo 20:41
PROVIDERS: ATTEND Obstetrics & Gynecology
DX: O99.613 Diseases of the digestive system complicating pregnancy, third trimester (principal); K52.9 Noninfective gastroenteritis and colitis, unspecified; Z3A.32 32 weeks gestation of pregnancy
CPT/HCPCS: 99212

== ENCOUNTER 2021-08-02 12:22 | Outpatient (CLI) | payer OTHER, MEDICAID ==
[~2021-08-02] VITALS: Ht 160 cm; Wt 86.6 kg
[2021-08-02 12:50] VITALS: BP 121/67
[2021-08-02 12:51] VITALS: BP 121/67
[2021-08-02] MEDS ORDERED: PREN-37 PO (12:54)
[2021-08-02 13:04] LABS: BILIRUBIN,URINE NEGATIVE (NEGATIVE); CLARITY,URINE CLEAR; COLOR,URINE DARK YELLOW; GLUCOSE, URINE (UA) 1+ (NEGATIVE); KETONES,URINE TRACE (NEGATIVE); LEUKOCYTE ESTERASE ,URINE NEGATIVE (NEGATIVE); NITRITE,URINE NEGATIVE (NEGATIVE); PROTEIN,URINE NEGATIVE (NEGATIVE)
[2021-08-02 13:13] LABS: BACTERIA,URINE FEW /HPF
[2021-08-02 13:35] VITALS: BP 121/67
--- NOTE | 2021-08-03 08:52 | Physician Query-Final Dx ---
CHANEL JOSEPH 08/03/21 0851: Clinic Account Progress/Dx Physician Query: Please give diagnosis Please include # weeks gestation Date of Service Aug 02, 2021 at 12:22 JOSUE ANDRE MD 08/03/21 1512: Clinic Account Progress/Dx DIAGNOSIS: Diagnosis 30 weeks gestation with false labor CHANEL JOSEPH Aug 03, 2021 08:51 JOSUE ANDRE MD Aug 03, 2021 15:12
== END 2021-08-02 13:50 | disposition home or self-care (01) ==
LOC: WSo 12:22 → LDRP 12:22 → WSo 13:50
PROVIDERS: ATTEND Obstetrics & Gynecology
DX: O42.913 Preterm premature rupture of membranes, unspecified as to length of time between rupture and onset of labor, third trimester (principal); Z3A.30 30 weeks gestation of pregnancy
CPT/HCPCS: 81000; 87088

== ENCOUNTER 2021-08-27 11:53 | Outpatient (CLI) | payer OTHER, MEDICAID ==
[~2021-08-27] VITALS: Ht 160 cm; Wt 85.4 kg
[~2021-08-27 11:53] MED LIST changes: +PREN-37 PO
[2021-08-27 12:14] VITALS: BP 112/63
[2021-08-27 12:24] VITALS: BP 112/63
[2021-08-27 13:17] LABS: BILIRUBIN,URINE NEGATIVE (NEGATIVE); CLARITY,URINE CLEAR; COLOR,URINE YELLOW; GLUCOSE, URINE (UA) TRACE (NEGATIVE); KETONES,URINE NEGATIVE (NEGATIVE); LEUKOCYTE ESTERASE ,URINE 1+ (NEGATIVE); NITRITE,URINE NEGATIVE (NEGATIVE); PH,URINE 7.5 (5-9); PROTEIN,URINE TRACE (NEGATIVE)
[2021-08-27 13:28] LABS: BACTERIA,URINE MODERATE /HPF; CALCIUM OXALATE CRYSTALS,UR MODERATE /LPF; WBC,URINE RARE /HPF
--- NOTE | 2021-08-28 08:35 | Physician Query-Final Dx ---
CHANEL JOSEPH 08/28/21 0835: Clinic Account Progress/Dx Physician Query: Please give diagnosis Please include # weeks gestation Date of Service Aug 27, 2021 at 11:53 JOSUE ANDRE MD 08/31/21 0821: Clinic Account Progress/Dx DIAGNOSIS: Diagnosis False labor at 34 weeks gestation CHANEL JOSEPH Aug 28, 2021 08:35 JOSUE ANDRE MD Aug 31, 2021 08:21
== END 2021-08-27 13:51 | disposition home or self-care (01) ==
LOC: WSo 11:53 → LDRP 11:54 → WSo 13:51
PROVIDERS: ATTEND Obstetrics & Gynecology
DX: O26.899 Other specified pregnancy related conditions, unspecified trimester (principal); M54.9 Dorsalgia, unspecified; Z3A.00 Weeks of gestation of pregnancy not specified
CPT/HCPCS: 81000; 87088; G0463; 99213

== ENCOUNTER 2021-09-04 16:51 | Outpatient (CLI) | payer OTHER, MEDICAID ==
[~2021-09-04] VITALS: Ht 157.5 cm; Wt 85.4 kg
[2021-09-04 17:29] VITALS: BP 116/63
--- NOTE | 2021-09-07 08:20 | Physician Query-Final Dx ---
CHANEL JOSEPH 09/07/21 0820: Clinic Account Progress/Dx Physician Query: Please give diagnosis Please include # weeks gestation Date of Service Sep 04, 2021 at 16:51 JOSUE ANDRE MD 09/08/21 0742: Clinic Account Progress/Dx DIAGNOSIS: Diagnosis 35 weeks gestation with false labor CHANEL JOSEPH Sep 07, 2021 08:20 JOSUE ANDRE MD Sep 08, 2021 07:42
== END 2021-09-04 18:00 | disposition home or self-care (01) ==
LOC: LDRP 16:51 → WSo 16:51
PROVIDERS: ATTEND Obstetrics & Gynecology
DX: O62.9 Abnormality of forces of labor, unspecified (principal); Z3A.35 35 weeks gestation of pregnancy
CPT/HCPCS: 99213

== ENCOUNTER 2021-09-15 16:27 | Inpatient (IN) | payer OTHER, MEDICAID ==
[~2021-09-15] VITALS: Ht 160 cm; Wt 86.0 kg
[~2021-09-15 16:27] MED LIST changes: -DOCU-143 PO; -OXYC1TAB12 PO
--- NOTE | 2021-09-15 17:17 | History & Physical ---
History and Physical Date Seen by Provider: Sep 15, 2021 Time Seen by Provider: 17:15 This patient is a 21-year-old female at 37 weeks gestation admitted from clinic with severe oligohydramnios. Her history is significant for previous C- section.She denies rupture membranes or bleeding but she reports that she is constantly wetShe has been evaluated several times for Spontaneous rupture membranes that has been negative.Her GBS culture was negative Allergies are to lamotrigine and methylphenidate Medications are vitamins Medical social and surgical history is all per the antepartum record HEENT exam is normal Neck is supple no lymphadenopathy no thyromegaly Abdomen is gravid soft nontender nondistended the fundal height is low for dates Extremities show no clubbing or cyanosis. There is no Homans' sign. Pelvic exam is deferred Assessment and plan 37 weeks gestation with severe oligohydramnios and previous admitted for monitoring this evening with plan for repeat delivery in the light of day tomorrow 37 weeks with severe oligohydramnios Allergies and Home Medications Allergies Coded Allergies: lamotrigine (Verified Adverse Reaction, Unknown, headache, 02/04/16) methylphenidate (Verified Adverse Reaction, Unknown, hallucinations, 02/17/17) Patient Home Medication List Home Medication List Reviewed: Yes Vit/Iron Fumarate/FA ( Tablet) 1 Each Tablet, 1 EACH PO DAILY, (Reported) Entered as Reported by: FERNANDO HU on 08/02/21 1254 JOSUE ANDRE MD Sep 15, 2021 17:17
[2021-09-15] MEDS ORDERED: OXYC1TAB12 PO (17:20)
[2021-09-15] MEDS ORDERED: IBUP-1780 PO (17:20)
[2021-09-15] MEDS ORDERED: DOCU-143 PO (17:20)
--- NOTE | 2021-09-15 17:22 | Discharge Inst-Surgical ---
Discharge Inst-Surgical Depart Medication/Instructions New, Converted or Re-Newed RX: Transmitted to Pharmacy Consults/Follow Up Patient Instructions: As directed Orders & Referrals Follow Up Appt: RTC 1 week for incision check. Call to make follow up appt. for patient in 6 weeks. Wound Care: Remove mika, apply benzoin and steri strips. Activity Per routine post instructions. Diet as tolerated Patient may shower or tub bathe as desired. Continue home meds Activity Activity as Tolerated: No Diet Discharge Diet: No Restrictions JOSUE ANDRE MD Sep 15, 2021 17:22
[2021-09-15 21:29] VITALS: BP 108/59
[2021-09-15 22:24] LABS: BASOPHILS % (AUTO) 0 % (0-10); EOSINOPHILS # (AUTO) 0.1 10^3/uL (0.0-0.3); EOSINOPHILS % (AUTO) 1 % (0-10); HEMATOCRIT 36 % (35-52); HEMOGLOBIN 11.9 g/dL (11.5-16.0); LYMPHOCYTES # (AUTO) 2.2 10^3/uL (1.0-4.0); LYMPHOCYTES % (AUTO) 19 % (12-44); MEAN CORPUSCULAR HEMOGLOBIN 29 pg (25-34); MEAN CORPUSCULAR HGB CONC 33 g/dL (32-36); MEAN CORPUSCULAR VOLUME 89 fL (80-99); MEAN PLATELET VOLUME 11.9 fL (9.0-12.2); MONOCYTES # (AUTO) 0.9 10^3/uL (0.0-1.0); MONOCYTES % (AUTO) 8 % (0-12); NEUTROPHILS # (AUTO) 8.3 10^3/uL (1.8-7.8); NEUTROPHILS % (AUTO) 71 % (42-75); PLATELET COUNT 222 10^3/uL (130-400); WHITE BLOOD COUNT 11.6 10^3/uL (4.3-11.0)
[2021-09-16] VITALS (14 sets, daily range): BP systolic 95–144; BP diastolic 43–71
[2021-09-16] MEDS ORDERED: LACTATED RINGERS 1,000 ML IV PRN ×2 (05:45)
[2021-09-16] MEDS ORDERED: ceFAZolin 2 GM IV Premixed 50 ML ONE (05:56)
[2021-09-16] MEDS ORDERED: FAMOTIDINE 20MG/2ML IV (PEPCID) IV ONE (06:00)
[2021-09-16] MEDS ORDERED: METOCLOPRAMIDE INJ 10 MG/2 ML (REGLAN) IV ONE (06:00)
[2021-09-16] MEDS ORDERED: CITRIC ACID/SOB CIT (BICITRA) 30 ML UDC PO ONE (06:00)
[2021-09-16] MEDS: CATHETER FLUSH 10 ML SYR IV PRN ×2 (06:04→20:55)
--- NOTE | 2021-09-16 06:55 | Progress Note ---
Standard Progress Note Progress Notes/Assess & Plan Date Seen by a Provider: Sep 16, 2021 Time Seen by a Provider: 06:53 Progress/Assessment & Plan This patientIs without complaint. She denies rupture membranes or bleeding. She has occasional contractions. She does feel baby moving. Patient was admitted last evening secondary to severe oligohydramnios. Plan is to proceed with repeat delivery this morning Vital Signs Date Time Temp Pulse Resp B/P (MAP) Pulse Ox O2 Delivery O2 Flow Rate FiO2 09/16/21 02:05 36.1 73 18 110/55 (73) 99 Room Air 09/15/21 21:29 36.6 68 18 108/59 (75) Room Air Vital signs are stable. Patient is afebrile. monitor shows reactive NST Abdomen is benign Extremities show no clubbing or cyanosis. There is no Homans' sign. Pelvic exam is deferred Assessment and plan Hospital day 2At 37 weeks gestation with previous and severe oligohydramnios. Plan is to proceed with delivery this morning JOSUE ANDRE MD Sep 16, 2021 06:55
[2021-09-16] MEDS ORDERED: metroNIDAZOLE 500MG/100ML IVPB 100 ML IV ONE (07:00)
[2021-09-16] MEDS ORDERED: ceFAZolin INJECTION 2,000 MG in WATER (STERILE) FOR INJECTION 10 ML IV ONE (07:00)
[2021-09-16] MEDS ORDERED: OXYTOCIN PRE-MIX DRIP 1,000 ML IV ONE (07:08)
[2021-09-16] MEDS ORDERED: fentaNYL INJ 100 MCG/2 ML AMP ONE (07:08)
[2021-09-16] MEDS ORDERED: PHENYLEPHRINE 100 MCG/ML 10 ML (ANESTHESIA) SYR ONE (07:32)
[2021-09-16] MEDS ORDERED: BUPIVACAINE 0.5% 30 ML (SENSORCAINE) VIAL ONE (07:46)
[2021-09-16] MEDS ORDERED: OXYTOCIN PRE-MIX DRIP 500 ML IV ONE (09:05)
[2021-09-16] MEDS ORDERED: D5 LR IV SOLUTION 1,000 ML IV SCH (09:15)
[2021-09-16] MEDS ORDERED: ONDANSETRON 4 MG/2 ML (SDV) Z0FRAN IVP PRN (09:15)
[2021-09-16] MEDS ORDERED: KETOROLAC 30 MG/ML VIAL ONE (09:15)
[2021-09-16] MEDS ORDERED: TETANUS,DIPTH,PERTUSS P/F (BOOSTRIX) 0.5 ML VIAL IM ONE (09:15)
[2021-09-16] MEDS ORDERED: DOCUSATE SODIUM 100 MG (COLACE) CAP PO ONE (09:15)
[2021-09-16] MEDS ORDERED: fentaNYL INJ 100 MCG/2 ML AMP IVP PRN (09:15)
[2021-09-16] MEDS ORDERED: MEASLES,MUMPS,RUBELLA 1 EA INJ SC ONE (09:15)
[2021-09-16] MEDS ORDERED: OXYTOCIN PRE-MIX DRIP 500 ML IV SCH (09:15)
[2021-09-16] MEDS: KETOROLAC 30 MG/ML VIAL IVP SCH ×3 (09:16→20:55)
[2021-09-16] MEDS: oxyCODONE/APAP 10/325MG (PERCOCET 10) TABLET PO PRN (10:38)
[2021-09-16] MEDS: D5 LR IV SOLUTION 1,000 ML IV SCH ×2 (13:18→20:55)
[2021-09-16] MEDS ORDERED: ACETAMINOPHEN 500 MG TAB (TYLENOL) PO PRN (14:30)
--- NOTE | 2021-09-16 14:57 | OPERATIVE REPORT ---
DATE OF SERVICE: 09/16/2021 PREOPERATIVE DIAGNOSES: Term at 37 weeks gestation with severe oligohydramnios and previous section. POSTOPERATIVE DIAGNOSES: Term at 37 weeks gestation with severe oligohydramnios and previous section. OPERATIVE PROCEDURE: Repeat low transverse delivery of a viable male with Apgars of 8 and 9 at 1 and 5 minutes respectively, weight of 6 pounds 2 ounces, time of 07:36 and a cord blood pH of 7.26. OPERATIVE DESCRIPTION: With the patient in supine position under satisfactory spinal analgesia, she was prepped and draped in the usual fashion for abdominal surgery. Handley catheter was placed in the urinary bladder. A repeat Pfannenstiel incision was made through skin with scalpel, the patient's abdomen entered in the usual manner. Bladder retractor placed in position, clean scalpel used to make a 4 cm hysterotomy incision transversely across the lower uterine segment that was extended by blunt dissection as well. A very small amount of clear fluid was released on hysterotomy. Max forceps were applied to facilitate delivery of a vigorous viable male . had Apgars and stats as noted above. The was bulb suctioned on delivery of the head and again on completion of delivery. Umbilical cord was doubly clamped and cut and the infant passed to the pediatric nurse in attendance for delivery. Cord bloods were obtained. The placenta delivered spontaneously Peguero. It was normal with a 3-vessel cord. The uterus was exteriorized and interior wiped clean with a wet laparotomy sponge. Uterine incision closed with running locked suture of 2-0 Vicryl. Hemostasis was complete. The uterus was returned to the abdominal cavity. All blood clot and debris was removed from the abdominal cavity. Sponge and needle counts correct and hemostasis now assured. The anterior parietal peritoneum was closed with running suture of 2-0 Vicryl. Rectus muscles were closed with that suture as well. The rectus fascia was closed with 2-0 Vicryl, subcutaneous tissue was closed with 2-0 Vicryl and the skin was stapled. Sponge and needle counts were correct on completion of the procedure. Blood loss was around 500 mL. The patient tolerated the procedure well and was transferred to the recovery room in stable condition. The baby remained near the operating room with the patient. Job ID: [id number] DocumentID: [id number] Dictated Date: 09/16/2021 08:00:56 Paralegal Date: 09/16/2021 14:56:47 Dictated By: JOSUE ANDRE MD
[2021-09-16] MEDS: DOCUSATE SODIUM 100 MG (COLACE) CAP PO SCH (20:55)
[2021-09-16] MEDS ORDERED: DOCUSATE SODIUM 100 MG (COLACE) CAP PO SCH (21:00)
[2021-09-17] MEDS: CATHETER FLUSH 10 ML SYR IV PRN (02:29)
[2021-09-17] MEDS: KETOROLAC 30 MG/ML VIAL IVP SCH (02:29)
[2021-09-17 04:10] VITALS: BP 118/62
[2021-09-17] MEDS: oxyCODONE/APAP 10/325MG (PERCOCET 10) TABLET PO PRN (06:43)
--- NOTE | 2021-09-17 08:52 | Progress Note ---
Standard Progress Note Progress Notes/Assess & Plan Date Seen by a Provider: Sep 17, 2021 Time Seen by a Provider: 08:49 Progress/Assessment & Plan This patientIs without complaint. She denies rupture membranes or bleeding. She has occasional contractions. She does feel baby moving. Patient was admitted last evening secondary to severe oligohydramnios. Plan is to proceed with repeat delivery this morning Vital Signs Date Time Temp Pulse Resp B/P (MAP) Pulse Ox O2 Delivery O2 Flow Rate FiO2 09/16/21 02:05 36.1 73 18 110/55 (73) 99 Room Air 09/15/21 21:29 36.6 68 18 108/59 (75) Room Air Vital signs are stable. Patient is afebrile. monitor shows reactive NST Abdomen is benign Extremities show no clubbing or cyanosis. There is no Homans' sign. Pelvic exam is deferred Assessment and plan Hospital day 2At 37 weeks gestation with previous and severe oligohydramnios. Plan is to proceed with delivery this morning September 17, 2021 Patient is without complaint. She is ambulating, voiding, tolerating oral intake well and has good pain control. Patient denies chest pain, denies shortness of breath, denies nausea vomiting, and denies headache. Vital Signs Date Time Temp Pulse Resp B/P (MAP) Pulse Ox O2 Delivery O2 Flow Rate FiO2 09/17/21 04:10 36.4 72 18 118/62 (80) 98 Room Air 09/16/21 23:20 36.3 78 18 120/61 (80) 98 Room Air 09/16/21 20:00 36.3 73 18 116/58 (77) 98 Room Air 09/16/21 15:45 36.4 73 18 110/71 (84) 100 Room Air 09/16/21 12:22 36.4 74 18 107/56 (73) 98 Room Air 09/16/21 09:10 36.3 67 18 108/57 (74) 100 Room Air 09/16/21 08:55 Room Air 09/16/21 08:50 36.5 16 103/68 (80) 100 Room Air I & O 09/17/21 07:00 Intake Total 2010 ml Output Total 1850 ml Balance 160 ml Vital signs are stable. Patient is afebrile. Fundus is firm below the umbilicus and nontender. Extremities show no clubbing cyanosis. There is no Homans' sign. Assessment and plan Postoperative day #1 status post repeat delivery doing well. Plan is for routine convalescent care JOSUE ANDRE MD Sep 17, 2021 08:52
[2021-09-17] MEDS ORDERED: IBUPROFEN 800 MG (MOTRIN) TAB PO ONE ×3 (08:55→22:53)
[2021-09-17] MEDS: DOCUSATE SODIUM 100 MG (COLACE) CAP PO SCH ×2 (08:58→21:07)
[2021-09-17 09:00] VITALS: BP 105/58
--- NOTE | 2021-09-17 11:04 | Anesthesia-Regional Post-Op ---
Regional Patient Condition Mental Status: Alert, Oriented x3 Circulation: Same as Pre-Op Headache: Absent Sensation: Full Recovery Motor Block: Absent Post Op Complications Complications None Follow Up Care/Instructions Patient Instructions None needed. Anesthesia/Patient Condition Patient is doing well, no complaints, stable vital signs, no apparent adverse anesthesia problems. No complications reported per nursing. JONATHAN HINES CRNA Sep 17, 2021 11:04
[2021-09-17 12:34] VITALS: BP 98/66
[2021-09-17 16:57] VITALS: BP 112/62
[2021-09-17] MEDS ORDERED: SERTRALINE 50 MG (ZOLOFT) TABLET PO SCH (21:00)
[2021-09-17 22:56] VITALS: BP 98/53
[2021-09-17] MEDS: IBUPROFEN 800 MG (MOTRIN) TAB PO SCH (23:00)
[2021-09-18 04:54] VITALS: BP 124/77
[2021-09-18] MEDS: IBUPROFEN 800 MG (MOTRIN) TAB PO SCH ×2 (04:55→11:44)
[2021-09-18 07:55] VITALS: BP 113/67
--- NOTE | 2021-09-18 08:55 | Postpartum Progress Note ---
Note Note Day # 2 Subjective: Patient is without complaints. Ambulating, voiding. Tolerating a regular diet without nausea or vomiting. Normal lochia. Pain is well controlled with oral pain medications. Objective: Physical Exam: General - Alert and oriented, no apparent distress Abdomen - Soft, appropriately tender to palpation, non-distended, fundus firm at umbilicus; incision c/d/i Extremities - no edema, negative Nae's bilaterally Assessment: Post- day # 1, status post RLTCS. Recovering well, hemodynamically stable Acute blood loss anemia Plan: Routine care. Encourage breast feeding. Encourage ambulation. Ferrous sulfate supplementation. 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
[2021-09-18] MEDS ORDERED: SERT-413 PO (08:56)
[2021-09-18] MEDS: DOCUSATE SODIUM 100 MG (COLACE) CAP PO SCH (11:44)
[2021-09-21] MEDS ORDERED: IBUPROFEN 800 MG (MOTRIN) TAB PO SCH ×2 (12:00)
== END 2021-09-18 13:40 | disposition home or self-care (01) | DRG 787 ==
LOC: LDRP 16:27 → OBSVTOIN 17:03
PROVIDERS: ADMIT Obstetrics & Gynecology; ATTEND Obstetrics & Gynecology
PROC: 10D00Z1 Extraction of Products of Conception, Low, Open Approach (ICD-10-PCS; principal; 2021-09-16 07:17)
DX: O34.211 Maternal care for low transverse scar from previous cesarean delivery (principal); O41.03X0 Oligohydramnios, third trimester, not applicable or unspecified; D62 Acute posthemorrhagic anemia; Z3A.37 37 weeks gestation of pregnancy; Z37.0 Single live birth; O90.81 Anemia of the puerperium
CPT/HCPCS: 36415; 85025; 86850; 86900; 86901; 87081; 94664

== ENCOUNTER → 2021-09-15 | Outpatient (CLI) | payer OTHER, MEDICAID ==
[~2021-09-15] MED LIST changes: +DOCU-143 PO; +OXYC1TAB12 PO
== END | disposition home or self-care (01) ==
LOC: PREOP 05:32
PROVIDERS: ATTEND Obstetrics & Gynecology
DX: Z01.818 Encounter for other preprocedural examination (principal)

== ENCOUNTER 2021-11-21 12:07 | Emergency (ER) | payer OTHER, MEDICAID ==
[~2021-11-21] VITALS: Ht 160 cm; Wt 73.4 kg
[~2021-11-21 12:07] MED LIST changes: +DOCU-143 PO; +OXYC1TAB12 PO
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
[2021-11-21] MEDS ORDERED: fentaNYL INJ 100 MCG/2 ML AMP IVP ONE (12:30)
[2021-11-21 12:40] LABS: BASOPHILS % (AUTO) 0 % (0-10); EOSINOPHILS # (AUTO) 0.2 10^3/uL (0.0-0.3); EOSINOPHILS % (AUTO) 2 % (0-10); HEMATOCRIT 43 % (35-52); HEMOGLOBIN 13.6 g/dL (11.5-16.0); LYMPHOCYTES # (AUTO) 3.3 10^3/uL (1.0-4.0); LYMPHOCYTES % (AUTO) 33 % (12-44); MEAN CORPUSCULAR HEMOGLOBIN 29 pg (25-34); MEAN CORPUSCULAR HGB CONC 32 g/dL (32-36); MEAN CORPUSCULAR VOLUME 90 fL (80-99); MEAN PLATELET VOLUME 10.8 fL (9.0-12.2); MONOCYTES # (AUTO) 0.7 10^3/uL (0.0-1.0); MONOCYTES % (AUTO) 7 % (0-12); NEUTROPHILS # (AUTO) 5.8 10^3/uL (1.8-7.8); NEUTROPHILS % (AUTO) 57 % (42-75); PLATELET COUNT 271 10^3/uL (130-400); WHITE BLOOD COUNT 10.1 10^3/uL (4.3-11.0)
[2021-11-21 12:44] LABS: ALBUMIN 4.4 GM/DL (3.2-4.5)
[2021-11-21 12:45] LABS: CALCIUM 9.1 MG/DL (8.5-10.1)
[2021-11-21 12:46] LABS: TOTAL PROTEIN 7.7 GM/DL (6.4-8.2)
[2021-11-21 12:47] LABS: BILIRUBIN,URINE NEGATIVE (NEGATIVE); CLARITY,URINE CLEAR; COLOR,URINE YELLOW; GLUCOSE, URINE (UA) NEGATIVE (NEGATIVE); KETONES,URINE NEGATIVE (NEGATIVE); LEUKOCYTE ESTERASE ,URINE NEGATIVE (NEGATIVE); NITRITE,URINE NEGATIVE (NEGATIVE); PH,URINE 6.5 (5-9); PROTEIN,URINE NEGATIVE (NEGATIVE)
[2021-11-21 12:48] LABS: BILIRUBIN,TOTAL 0.4 MG/DL (0.1-1.0)
[2021-11-21 12:50] LABS: CREATININE SERUM 0.78 MG/DL (0.60-1.30)
[2021-11-21 12:58] LABS: BACTERIA,URINE NEGATIVE /HPF; SQUAMOUS EPITHELIAL CELL,UR 0-2 /HPF; WBC,URINE 0-2 /HPF
--- NOTE | 2021-11-21 14:24 | Diagnostic Imaging Report ---
PROCEDURE: US PELVIC (NON OB) TECHNIQUE: Multiple real-time grayscale images were obtained over the pelvis in various projections transabdominally. INDICATION: Left ovarian torsion There are no prior pelvic ultrasound examinations available for comparison. The uterus is nongravid and anteverted and not enlarged measuring 7.06 x 6.1 x 4.0 cm. The endometrial lining is not thickened. There is an IUD within the endometrial. The IUD seems to be in the body/fundus of the uterus but appears to be well-positioned. There is no focal mass involving the uterus to suggest a fibroid. Both ovaries were identified. There is good blood flow to each ovary. There is no sign of torsion. However the left fallopian tube does seem mildly prominent. The possibility of salpingitis should be considered. The right fallopian tube could not be visualized. There is no solid pelvic mass or free fluid collection noted. IMPRESSION: 1. The mild prominence of the left fallopian tube does raise the question of salpingitis. Clinical follow-up is recommended. 2. There is no acute abnormality noted otherwise. In particular there is no sign of torsion. 3. There is an IUD within the endometrium and the IUD seems to be in good position. Dictated by: Dictated on workstation # [id number]
[2021-11-21] MEDS ORDERED: ACHD5005 PO (14:30)
[2021-11-21 14:39] VITALS: BP 103/75
== END 2021-11-21 14:39 | disposition home or self-care (01) ==
LOC: EDUNIT# 12:07 → ER 12:12
DX: R10.2 Pelvic and perineal pain (principal); F41.9 Anxiety disorder, unspecified; F32.9 Major depressive disorder, single episode, unspecified; Z79.899 Other long term (current) drug therapy
CPT/HCPCS: 36415; 76856; 80053; 81000; 84703; 85025; 87070; 87205; 87210; 87491; 87591

== ENCOUNTER → 2021-12-08 | Outpatient (CLI) | payer OTHER, MEDICAID ==
[~2021-12-08] MED LIST changes: +ACHD5005 PO
--- NOTE | 2021-12-08 10:30 | Diagnostic Imaging Report ---
PROCEDURE: US Non-ob pelvis comp/trans. INDICATION: Pelvic and perineal pain, no menstrual cycle x1 year. TECHNIQUE: Multiple real time be scale sonographic images were obtained of the pelvis transabdominally and endovaginally. CORRELATION STUDY: 11/21/2021 FINDINGS: UTERUS: 6.6 x 3.9 x 6.2 cm. ENDOMETRIUM: 3 mm. Uterus is retroverted but otherwise unremarkable. An intrauterine conceptive device is present appears be normal, expected location RIGHT OVARY: 3.8 x 1.9 x 2.0 cm LEFT OVARY: 2.3 x 1.7 x 1.6 cm The ovaries have an unremarkable appearance. No concerning mass. Blood flow is present to the ovaries. No significant free pelvic fluid. IMPRESSION: 1. Unremarkable appearing pelvic ultrasound examination. Dictated by: Dictated on workstation # [id number]
== END ==
LOC: RAD 10:00
PROVIDERS: ATTEND Obstetrics & Gynecology
DX: R10.2 Pelvic and perineal pain (principal)
CPT/HCPCS: 76830; 76856

== ENCOUNTER → 2022-03-16 | Outpatient (CLI) | payer OTHER, MEDICAID | LOC: LABNPT 15:19 | PROVIDERS: ATTEND Obstetrics & Gynecology | DX: Z01.419 Encounter for gynecological examination (general) (routine) without abnormal findings (principal); Z13.29 Encounter for screening for other suspected endocrine disorder | CPT/HCPCS: 84443 ==